=== PATIENT | male | born 1965 | race Caucasian/White ===

== ENCOUNTER 2021-06-07 15:48 | Emergency (ER) | payer OTHER, SELFPAY ==
[2021-06-07 16:25] VITALS: BP 148/96; PULSE 86; RESP 16; TEMP 36.6; O2SAT 98; BMI 29.3
--- NOTE | 2021-06-07 16:49 | HMH.EDUTC ---
[facility] Disposition Clinical Impression: Encounter for laboratory testing for COVID-19 virus Disposition: Home, Self-Care Condition on Discharge: Good Instructions: DI for COVID-19 (Suspected or Confirmed ), Coronavirus Disease 2019, Preventing the Spread of Coronavirus Discharge Instructions Additional Instructions: *Monitor Temp, Over the counter Motrin or Tylenol as directed/as needed Tylenol every 4 hours and Motrin every 6 hours (as long as your family doctor has told you that you can take it) for fever or pain. and straight to ER if unable to lower temp less than 101.0 after medication given Follow up IMMEDIATELY for new or worsening symptoms or no Noticeable improvement over the next 48-72 hours. 911 for difficulty breathing or swallowing You were tested for today for COVID19 your test result should be back in the next 24-48 hours, you may call to the [facility] to see if your test results are back in the next 48 hours [phone] [facility] hours are 9am-9pm You was given a handout with instructions for Self Quarantine and Self isolation for while you wait on test results and what to do if they are positive If you are positive the Health Dept will be contacting you also Referrals: Trever Schofield [Primary Care Provider] - As needed Time of Disposition: 16:51 Medical Decision Making - Jaret Inquiry Pt receiving controlled substance: No Jaret was queried for this patient: No Vital Signs: 06/07/21 16:25 Temperature 97.8 F Temperature Source Oral Pulse Rate [Right Brachial] 86 Respiratory Rate 16 Blood Pressure [Right Arm] 148/96 H Blood Pressure Mean [Right Arm] 113 Blood Pressure Source [Right Arm] Automatic Cuff Blood Pressure Position [Right Arm] Sitting 02 Sat by Pulse Oximetry 98 Oxygen Delivery Method Room Air Orders (Tests/Meds): ORDERS Category Date Time Status Covid-19 Nasal PCR ([facility]) Routine Lab 06/07/21 16:24 Ordered [facility] HPI - General Stated complaint: cov Time Seen by Provider: 06/07/21 16:49 Mode of Arrival: Ambulatory Source of Information: Patient Limitations: No Limitations Description of Symptoms (Recalled from Triage Doc. by RN): COVID TEST D/T EXPOSURE. DENIES SYMPTOMS HEENT Symptoms (Recalled from RN notes): No Resp Symptoms (Recalled from RN notes): No Skin Symptoms (Recalled from RN notes): No MS Symptoms (Recalled from RN notes): No Functional Status (Recalled from RN notes): WNL - History of Present Illness Provider Complaint: Patient states that he was around someone about a week ago that tested positive for COVID States that he is not having any symptoms but wanted to get tested - Related Data Allergies Allergy/AdvReac Type Severity Reaction Status Date / Time Ciprofloxacin Allergy Unknown Uncoded 10/24/17 14:49 - Worker's Comp Is this a Worker's Comp case?: No [facility] History - Hepatitis A Screen Drug use history?: No High risk sexual behaviors?: No History of sexually transmitted infection?: No Currently employed?: No Childcare worker?: No Do you have indoor plumbing?: Yes Do you have electricity?: Yes Attestation statement:: This patient has been screened for Hepatitis A risk factors. I have reviewed the patient's past medical history: Yes ROS Obtained: Yes All systems reviewed & no additional complaints, Yes Systems reviewed as appropriate & no additional complaints - Constitutional Constitutional: Reports system reviewed and no additional complaints, except as docu, Denies body ache, Denies chills, Denies fever(s), Denies headache(s), Denies night sweats - ENT Ears, Nose, Mouth, and Throat: Reports system reviewed and no additional complaints, except as docu, Denies nasal congestion, Denies nasal discharge, Denies sore throat - Cardiovascular Cardiovascular: Reports system reviewed and no additional complaints, except as docu - Respiratory Respiratory: Reports system reviewed and no additional complaints, except as docu, Denies shortness of dmitriy
[2021-06-07 16:55] VITALS: BP 148/96; PULSE 86; RESP 16; TEMP 36.6; O2SAT 98
--- NOTE | 2021-06-08 16:48 | PC.NURSE ---
PT NOTIFIED OF POSITIVE COVID RESULT
== END 2021-06-07 16:59 | disposition home or self-care (01) ==
PROVIDERS: Emergency Provider Nurse Practitioner; PCP Internal Medicine
DX: U07.1 COVID-19 (principal)
CPT/HCPCS: 99202; G0463; U0003

== ENCOUNTER 2021-06-23 18:17 | Emergency (ER) | payer OTHER, SELFPAY ==
[2021-06-23 20:31] VITALS: BP 167/95; PULSE 102; RESP 14; TEMP 36.9; O2SAT 99; BMI 28.5
--- NOTE | 2021-06-23 20:39 | HMH.EDUTC ---
[facility] Clinical Impression: Exposure to COVID-19 virus Disposition: Home, Self-Care Condition on Discharge: Good Instructions: Preventing the Spread of Coronavirus Discharge Instructions Additional Instructions: Drink plenty of fluids. Take tylenol for pain or fever. Return if you begin to have difficulty breathing. Follow up with your regular doctor. GO TO THE ER FOR ANY WORSENING SYMPTOMS Quarantine until you know the results of your covid-19 test. If it is positive, the health department should call you and give you further instructions about your length of Quarantine and other thing. Referrals: Trever Schofield [Primary Care Provider] - Time of Disposition: 20:39 Medical Decision Making - Medical Records Medical records reviewed: No: I reviewed the patient's medical records. - Jaret Inquiry Pt receiving controlled substance: No Vital Signs: 06/23/21 20:31 06/23/21 20:43 Temperature 98.4 F 98.4 F Temperature Source Oral Pulse Rate 102 H Pulse Rate [Left Radial] 102 H Respiratory Rate 14 14 Blood Pressure 167/95 H Blood Pressure [Left Arm] 167/95 H Blood Pressure Mean [Left Arm] 119 02 Sat by Pulse Oximetry 99 Oxygen Delivery Method Room Air [facility] [place] - General Stated complaint: covid test Time Seen by Provider: 06/23/21 20:40 Mode of Arrival: Ambulatory Source of Information: Patient Limitations: No Limitations Description of Symptoms (Recalled from Triage Doc. by RN): Requesting COVID swab. Denies symptoms or exposure HEENT Symptoms (Recalled from RN notes): No Resp Symptoms (Recalled from RN notes): No Skin Symptoms (Recalled from RN notes): No MS Symptoms (Recalled from RN notes): No Functional Status (Recalled from RN notes): n/a - History of Present Illness Provider Complaint: he is here wanting to be tested for covid. He denies any symptoms so far. - Related Data Allergies Allergy/AdvReac Type Severity Reaction Status Date / Time Ciprofloxacin Allergy Unknown Uncoded 10/24/17 14:49 - Worker's Comp Is this a Worker's Comp case?: No [facility] History - Hepatitis A Screen Drug use history?: No High risk sexual behaviors?: No History of sexually transmitted infection?: No Currently employed?: No Childcare worker?: No Do you have indoor plumbing?: Yes Do you have electricity?: Yes Attestation statement:: This patient has been screened for Hepatitis A risk factors. I have reviewed the patient's past medical history: Yes ROS Obtained: Yes All systems reviewed & no additional complaints - Constitutional Constitutional: Reports system reviewed and no additional complaints, except as docu - Eyes Eyes: Reports system reviewed and no additional complaints, except as docu - ENT Ears, Nose, Mouth, and Throat: Reports system reviewed and no additional complaints, except as docu - Cardiovascular Cardiovascular: Reports system reviewed and no additional complaints, except as docu - Respiratory Respiratory: Reports system reviewed and no additional complaints, except as docu - Gastrointestinal Gastrointestingal: Reports: system reviewed and no additional complaints, except as docu Physical Exam - General General appearance: alert, in no apparent distress - Head Head exam: atraumatic, normocephalic, normal inspection - Eye Eye exam: Present: normal appearance, PERRL, EOMI - ENT ENT exam: Present: normal exam, normal oropharynx, mucous membranes moist, TM's normal bilaterally, normal external ear exam - Neck Neck exam: Present: normal inspection, full ROM, trachea midline. Absent: meningismus, lymphadenopathy - Chest Chest inspection: Present: normal inspection, symmetric chest wall rise. Absent: tenderness - Respiratory Respiratory exam: Present: normal lung sounds bilaterally. Absent: respiratory distress - Cardiovascular Cardiovascular exam: Present: regular rate, normal rhythm. Absent: JVD - Abdominal Exam Abdomina
[2021-06-23 20:43] VITALS: BP 167/95; PULSE 102; RESP 14; TEMP 36.9; O2SAT 99
== END 2021-06-23 20:45 | disposition home or self-care (01) ==
PROVIDERS: Emergency Provider Nurse Practitioner Family; PCP Internal Medicine
DX: Z20.822 Contact with and (suspected) exposure to COVID-19 (principal)
CPT/HCPCS: 99202; G0463; U0003

== ENCOUNTER → 2021-08-13 14:04 | Outpatient (CLI) | payer OTHER, SELFPAY ==
[2021-08-13 14:44] LABS: Hemoglobin A1C 7.6 % (4.0-6.0)
[2021-08-13 15:34] LABS: Creatinine,Urine Random 40 mg/dL (Not Estab.); Microalbumin/Creatinine Ratio 17.5
== END ==
PROVIDERS: Visit Provider Internal Medicine
DX: E11.9 Type 2 diabetes mellitus without complications (principal); I10 Essential (primary) hypertension; N40.1 Benign prostatic hyperplasia with lower urinary tract symptoms
CPT/HCPCS: 82043; 82570; 83036

== ENCOUNTER → 2021-11-26 13:18 | Outpatient (CLI) | payer OTHER, SELFPAY ==
[2021-11-26 14:08] LABS: Alanine Aminotransferase 38 U/L (12-78); Albumin Level 4.7 g/dl (3.5-5.0); Albumin/Globulin Ratio 1.9 (1.1-1.8); Alkaline Phosphatase 128 U/L (38-126); Anion Gap 9.9 mEq/L (5-15); Aspartate Amino Transferase 42 U/L (17-59); Bilirubin,Total 0.8 mg/dl (0.2-1.3); Blood Urea Nitrogen 7 mg/dl (9-20); Calcium 9.6 mg/dl (8.4-10.2); Carbon Dioxide 31 mmol/L (22.0-30.0); Chloride 98 mmol/L (98-107); Chol/HDL Ratio 2.4 (1-3.5); Cholesterol 254 mg/dl (140-200); Estimated Glomerular Filt Rate 116 ml/min (>60); GFR (African American) 141 ML/MIN (>60); Globulin 2.5 g/dL (1.3-3.2); Glucose 210 mg/dl (74-100); HDL Cholesterol 105 mg/dl (40-60); Potassium 4.9 mmoL/L (3.5-5.1); Sodium 134 mmol/L (136-145); Total Protein,Serum 7.2 g/dl (6.3-8.2); Triglycerides 69 mg/dl (30-150); VLDL Cholesterol 14 mg/dL (0-40)
[2021-11-26 14:11] LABS: Hemoglobin A1C 8.1 % (4.0-6.0)
[2021-11-26 14:19] LABS: Direct LDL Cholesterol 136.07 mg/dL (100-129)
[2021-11-26 14:39] LABS: Prostate Specific Ag Screen 2.2 ng/ml (0.0-4.0)
== END ==
PROVIDERS: Visit Provider Internal Medicine
DX: E11.9 Type 2 diabetes mellitus without complications (principal); I10 Essential (primary) hypertension; E78.5 Hyperlipidemia, unspecified; M17.2 Bilateral post-traumatic osteoarthritis of knee; N40.2 Nodular prostate without lower urinary tract symptoms; Z12.5 Encounter for screening for malignant neoplasm of prostate
CPT/HCPCS: 36415; 80053; 80061; 83036; G0103

== ENCOUNTER → 2022-04-19 16:07 | Outpatient (CLI) | payer OTHER, SELFPAY ==
[2022-04-19 18:34] LABS: Basophils # 0.1 K/mm3 (0-0.2); Basophils % 0.6 % (0.1-2.0); Eosinophils # 0.2 K/mm3 (0.0-0.4); Eosinophils % 1.4 % (0.1-12.0); Hematocrit 44.5 % (42.0-52.0); Hemoglobin 15.6 g/dL (14.1-18.0); Lymphocytes # 1.5 K/mm3 (0.7-4.5); Lymphocytes % 13.6 % (10-50); Mean Corpuscular Hemoglobin 34.2 pg (27.0-31.2); Mean Corpuscular Volume 97.7 fl (80-94); Mean Platelet Volume 7.9 fl (7.4-10.4); Monocytes # 0.8 K/mm3 (0.1-1.0); Monocytes % 7.1 % (1.7-9.3); Neutrophils # 8.7 K/mm3 (1.8-7.8); Neutrophils % 77.3 % (37.0-80.0); Platelet Count 344 K/mm3 (142-424); Red Blood Count 4.55 M/mm3 (4.60-6.20); White Blood Count 11.2 K/mm3 (4.8-10.8)
== END ==
PROVIDERS: PCP Internal Medicine; Visit Provider Internal Medicine
DX: R10.31 Right lower quadrant pain (principal)
CPT/HCPCS: 85025

== ENCOUNTER 2022-04-24 14:44 | Inpatient (IN) | payer OTHER, SELFPAY ==
[2022-04-24] VITALS (19 sets, daily range): BP systolic 117–153; BP diastolic 74–93; PULSE 96–126; RESP 15–22; TEMP 36.6–38; O2SAT 90–98; BMI 29.9
--- NOTE | 2022-04-24 15:00 | CT_ITS ---
PROCEDURE INFORMATION: Exam: CT Abdomen And Pelvis Without Contrast Exam date and time: 04/24/2022 5:18 PM Age: 56 years old Clinical indication: Abdominal pain; Other: Right lower quadrant pain; Additional info: Right abdomen pain- oral contrast TECHNIQUE: Imaging protocol: Computed tomography of the abdomen and pelvis without contrast. Radiation optimization: All CT scans at this facility use at least one of these dose optimization techniques: automated exposure control; mA and/or kV adjustment per patient size (includes targeted exams where dose is matched to clinical indication); or iterative reconstruction. Other contrast: Oral, gastrograffin, 30; COMPARISON: No relevant prior studies available. FINDINGS: Lungs: Visualized lung bases are clear. Heart: Heart size normal. Mediastinal space: The visualized distal esophagus is largely contracted without gross abnormality. Liver: Granulomatous calcifications in the liver. Normal contour. No mass lesions. No intrahepatic biliary ductal dilatation. Gallbladder and bile ducts: Prior cholecystectomy with no significant dilatation of the common bile duct. Pancreas: Normal. No inflammatory changes or ductal dilation. Spleen: Granulomatous calcifications in the spleen without acute splenic abnormality. Adrenal glands: Normal. No adrenal mass. Kidneys and ureters: Mild bilateral symmetrical perinephric stranding which is nonspecific and age indeterminate. This may relate to perirenal scarring or edema. Clinical/laboratory correlation is recommended to exclude evidence of medical renal disease. No hydronephrosis or hydroureter. No urinary tract stones are identified. Stomach and bowel: The stomach is unremarkable. Short segment small bowel wall thickening in the right lower quadrant near the appendicitis, likely reactive. No acute colonic abnormalities. Appendix: The appendix is inflamed, dilated, and thick walled, measuring up to 19 mm in diameter, with moderate surrounding inflammatory stranding, consistent with acute appendicitis. 10 mm somewhat ill-defined hyperdense focus within the appendiceal lumen which may represent an appendicolith, however on sagittal reconstructions this seems to project anteriorly from the lumen toward the adjacent inflamed small bowel loop, which contains hyperdense oral contrast, and it is possible that this represents a small fistula track passing a small amount of oral contrast. No free intraperitoneal perforation. No abscess. Intraperitoneal space: See Appendix finding. Vasculature: No acute process. No abdominal aortic aneurysm. Lymph nodes: No adenopathy. Urinary bladder: Unremarkable as visualized. Reproductive: Moderately enlarged prostate. Bones/joints: No acute osseous abnormalities. Severe disc degenerative changes L5-S1. Soft tissues: Small fatty umbilical hernia . No evidence of associated bowel herniation or strangulation. IMPRESSION: 1. Acute appendicitis. 2. Question small amount of oral contrast passage between the adjacent small bowel and the mid appendiceal lumen suspicious for a small entero-appendiceal fistula although this might represent an irregular-shaped appendicolith. 3. No free intraperitoneal perforation. No abscess. 4. Mild bilateral symmetrical perinephric stranding which is nonspecific and age indeterminate. This may relate to perirenal scarring or edema. Clinical/laboratory correlation is recommended to exclude evidence of medical renal disease. 5. Additional nonemergent findings detailed above. THIS REPORT CONTAINS FINDINGS THAT MAY BE CRITICAL TO PATIENT CARE. The findings were verbally communicated via telephone c
--- NOTE | 2022-04-24 15:14 | PC.NURSE ---
Pt vomiting at this time. Waiting for zofran to start working before give po contrast
--- NOTE | 2022-04-24 15:15 | HMH.EDGENADL ---
ED Disposition Clinical Impression: Appendiceal fistula Acute appendicitis Qualifiers: Acute appendicitis type: with localized peritonitis Appendicitis gangrene presence: without gangrene Appendicitis perforation presence: without perforation Appendicitis abscess presence: without abscess Qualified Code(s): K35.30 - Acute appendicitis with localized peritonitis, without perforation or gangrene Disposition: Still a Patient Condition on Discharge: Fair Instructions: DI for Acute Abdominal Pain Referrals: Trever Schofield MD [Primary Care Provider] - - Critical Care Critical Care Time: No Attestation: On 04/24/22, the high probability of a clinically significant, sudden or life threatening deterioration of the following system(s) required my full and direct attention, intervention and personal management. The time I documented below is in addition to time spent performing reported procedures but includes the following listed in this critical care notation. Medical Decision Making - Jaret Inquiry Pt receiving controlled substance: Yes Jaret was queried for this patient: Yes Risks and benefits of using a controlled substance: were not discussed with pt by me Vital Signs: 04/24/22 14:45 04/24/22 15:00 04/24/22 15:30 Temperature 99.5 F Temperature Source Oral Pulse Rate 103 H 108 H Pulse Rate [Left Radial] 107 H Respiratory Rate 18 Blood Pressure 125/82 130/80 Blood Pressure [Right Arm] 153/92 H Blood Pressure Mean 96 89 Blood Pressure Mean [Right Arm] 112 Blood Pressure Source [Right Arm] Automatic Cuff Blood Pressure Position [Right Arm] Sitting 02 Sat by Pulse Oximetry 98 90 L 97 Oxygen Delivery Method Room Air 04/24/22 16:00 04/24/22 16:30 04/24/22 17:00 Temperature Temperature Source Pulse Rate 96 H 100 H 105 H Pulse Rate [Left Radial] Respiratory Rate Blood Pressure 141/86 H 151/93 H 148/86 H Blood Pressure [Right Arm] Blood Pressure Mean 102 112 105 Blood Pressure Mean [Right Arm] Blood Pressure Source [Right Arm] Blood Pressure Position [Right Arm] 02 Sat by Pulse Oximetry 98 98 97 Oxygen Delivery Method 04/24/22 17:30 04/24/22 18:00 Temperature Temperature Source Pulse Rate 118 H 100 H Pulse Rate [Left Radial] Respiratory Rate Blood Pressure 142/89 H 129/80 Blood Pressure [Right Arm] Blood Pressure Mean 102 96 Blood Pressure Mean [Right Arm] Blood Pressure Source [Right Arm] Blood Pressure Position [Right Arm] 02 Sat by Pulse Oximetry 95 93 L Oxygen Delivery Method - Lab Data Lab Results 04/24/22 15:10: Urine Color Yellow, Urine Appearance Clear, Urine pH 7.0, Ur Specific [place] 1.020, Urine Protein Negative, Urine Glucose (UA) Trace, Urine Ketones Negative, Urine Blood Negative, Urine Nitrate Negative, Urine Bilirubin Negative, Urine Urobilinogen 0.2, Ur Leukocyte Esterase Negative, Urine RBC None, Urine WBC None, Ur Squamous Epith Cells None, Urine Bacteria None 04/24/22 15:10: WBC 16.0 H, RBC 4.64, Hgb 15.6, Hct 45.0, MCV 96.9 H, MCH 33.7 H, MCHC 34.8, RDW 12.1, Plt Count 423, MPV 7.3 L, Neut % (Auto) 89.9 H, Lymph % (Auto) 5.1 L, [place] % (Auto) 3.3, Eos % (Auto) 0.8, Baso % (Auto) 0.8, Neut # (Auto) 14.4 H, Lymph # (Auto) 0.8, [place] # (Auto) 0.5, Eos # (Auto) 0.1, Baso # (Auto) 0.1, Total Counted 100, Neutrophils % (Manual) 88 H, Lymphocytes % (Manual) 9 L, Monocytes % (Manual) 3, Platelet Estimate Normal, RBC Morphology Normal 04/24/22 15:10: Sodium 130 L, Potassium 4.3, Chloride 97 L, Carbon Dioxide 28, Anion Gap 9.3, BUN 7 L, Creatinine 0.80, Estimated Creat Clear 129, Estimated GFR 100, Est GFR ( Amer) 121, Glucose 153 H, Calcium 9.1, Total Bilirubin 0.2, AST 26, ALT 31, Alkaline Phosphatase 131 H, Total Protein 7.5, Albumin 4.0, Globulin 3.5 H, Albumin/Globulin Ratio 1.1, Amylase 52, Lipase 47 Result diagrams: 04/24/22 15:10 04/24/22 15:10 Orders (Tests/Meds): ED MEDICATIONS Generic Name Dose Route S
[2022-04-24 15:19] LABS: Microscopic, Urine URINE MICROSCOPIC (MICROSCOPIC)
[2022-04-24 15:20] LABS: Basophils # 0.1 K/mm3 (0-0.2); Basophils % 0.8 % (0.1-2.0); Eosinophils # 0.1 K/mm3 (0.0-0.4); Eosinophils % 0.8 % (0.1-12.0); Hemoglobin 15.6 g/dL (14.1-18.0); Lymphocytes # 0.8 K/mm3 (0.7-4.5); Lymphocytes % 5.1 % (10-50); Mean Corpuscular HGB Conc 34.8 g/dL (31.8-35.4); Mean Corpuscular Hemoglobin 33.7 pg (27.0-31.2); Mean Corpuscular Volume 96.9 fl (80-94); Mean Platelet Volume 7.3 fl (7.4-10.4); Monocytes # 0.5 K/mm3 (0.1-1.0); Monocytes % 3.3 % (1.7-9.3); Neutrophils # 14.4 K/mm3 (1.8-7.8); Neutrophils % 89.9 % (37.0-80.0); Platelet Count 423 K/mm3 (142-424); Red Blood Count 4.64 M/mm3 (4.60-6.20); Red Cell Distribution Width 12.1 % (11.5-17.5)
[2022-04-24 15:21] LABS: MANUAL DIFFERENTIAL MANUAL DIFFERENTIAL (MANUAL DIFF)
[2022-04-24 15:30] LABS: Alanine Aminotransferase 31 U/L (12-78); Albumin/Globulin Ratio 1.1 (1.1-1.8); Alkaline Phosphatase 131 U/L (38-126); Amylase 52 U/L (30-110); Anion Gap 9.3 mEq/L (5-15); Appearance,Urine CLEAR (Clear); Aspartate Amino Transferase 26 U/L (17-59); Bilirubin,Total 0.2 mg/dl (0.2-1.3); Bilirubin,Urine Negative (Negative); Blood Urea Nitrogen 7 mg/dl (9-20); Blood, Urine Negative (Negative); Calcium 9.1 mg/dl (8.4-10.2); Carbon Dioxide 28 mmol/L (22.0-30.0); Chloride 97 mmol/L (98-107); Color,Urine YELLOW (Yellow); Creatinine Clearance Estimated 129 mL/min (50-200); Estimated Glomerular Filt Rate 100 ml/min (>60); GFR (African American) 121 ML/MIN (>60); Globulin 3.5 g/dL (1.3-3.2); Glucose 153 mg/dl (74-100); Glucose,Urine (UA) TRACE (Negative); Ketones,Urine Negative (Negative); Leukocyte Esterase,Urine Negative (Negative); Lipase 47 U/L (23-300); Nitrate,Urine Negative (Negative); Potassium 4.3 mmoL/L (3.5-5.1); Protein,Urine Negative (Negative); Sodium 130 mmol/L (136-145); Total Protein,Serum 7.5 g/dl (6.3-8.2); Urobilinogen,Urine 0.2 EU/dl (0.2)
--- NOTE | 2022-04-24 15:49 | PC.NURSE ---
finished po contrast
[2022-04-24 16:14] LABS: Lymphocytes % 9 % (10-50); Monocytes % 3 % (2-9); Neutrophils % 88 % (42-76); Platelet Estimate Normal; RBC Morphology Normal; Total Cells Counted 100
--- NOTE | 2022-04-24 17:31 | PC.NURSE ---
checked on pt, given blanket for comfort
--- NOTE | 2022-04-24 18:08 | PC.NURSE ---
JAVID GRANDE speaking to DR MORRIS
--- NOTE | 2022-04-24 18:15 | PC.NURSE ---
Allran will be to see pt
[2022-04-24 18:29] LABS: Coronavirus 19, PCR Not Detected (NotDetected); Influenza A, PCR Not Detected (NotDetected); Influenza B, PCR Not Detected (NotDetected)
--- NOTE | 2022-04-24 18:29 | PC.NURSE ---
pre-op sheet completed at this time, surgery packet with pt stickers ready at this time.
--- NOTE | 2022-04-24 18:54 | HMH.GSHP ---
HPI HPI: Patient is a 56-year-old diabetic male from [place]. His primary care provider is Dr. Trever Schofield. He presented to the emergency department this afternoon with a 2-week history of right lower quadrant and infraumbilical abdominal pain. He does describe some low-grade fevers. He has had some bloating and abdominal swelling with nausea but no vomiting. He has had some urinary hesitancy. Patient states that he had seen his primary care provider about a week ago. Patient was treated for prostatitis. His symptoms had not improved. He presented to the emergency department. He was found to be tachycardic with a leukocytosis. He underwent a CT scan which revealed findings of acute appendicitis with questionable amount of oral contrast passes between small bowel and mid appendiceal lumen suspicious for enteroappendiceal fistula. Surgical consultation was obtained. Patient's only prior abdominal surgery is laparoscopic cholecyst[place] [address] James Spencer for mild biliary dyskinesia. [facility] History I have reviewed the patient's past medical history: Yes *Have you ever received a pneumonia vaccine?: Yes *Have you received a flu vaccine this season?: Yes - *Social History Smoking Status: Smoker, status unknown Alcohol Intake: never *Occupational Status:: employed *Travel in the last 8 weeks: None Family Hx:: Non-contributory Review of Systems - Review of Systems Review of systems:: pertinent systems reviewed and negative unless documented below Meds Home Medications Medication Instructions Recorded Confirmed Type Insulin Aspart [Novolog Flexpen] 0 units SQ DIRECTED 04/24/22 04/24/22 History Insulin Glargine,Hum.rec.anlog 60 units SQ DAILY 04/24/22 04/24/22 History [Lantus Solostar 100 Units/mL 3mL flexpen] lisinopriL [Lisinopril] 10 mg PO DAILY 04/24/22 04/24/22 History Allergies Allergy/AdvReac Type Severity Reaction Status Date / Time ciprofloxacin Allergy Unknown Unknown Verified 04/28/22 08:43 allergy reaction Exam Vital signs and Labs for Last 24 Hours: Temp Pulse Resp BP Pulse Ox 99.5 F 100 H 18 129/80 93 L 04/24/22 14:45 04/24/22 18:00 04/24/22 14:45 04/24/22 18:00 04/24/22 18:00 Laboratory Results - last 24 hr 04/24/22 15:10: Urine Color Yellow, Urine Appearance Clear, Urine pH 7.0, Ur Specific [place] 1.020, Urine Protein Negative, Urine Glucose (UA) Trace, Urine Ketones Negative, Urine Blood Negative, Urine Nitrate Negative, Urine Bilirubin Negative, Urine Urobilinogen 0.2, Ur Leukocyte Esterase Negative, Urine RBC None, Urine WBC None, Ur Squamous Epith Cells None, Urine Bacteria None 04/24/22 15:10: WBC 16.0 H, RBC 4.64, Hgb 15.6, Hct 45.0, MCV 96.9 H, MCH 33.7 H, MCHC 34.8, RDW 12.1, Plt Count 423, MPV 7.3 L, Neut % (Auto) 89.9 H, Lymph % (Auto) 5.1 L, [place] % (Auto) 3.3, Eos % (Auto) 0.8, Baso % (Auto) 0.8, Neut # (Auto) 14.4 H, Lymph # (Auto) 0.8, [place] # (Auto) 0.5, Eos # (Auto) 0.1, Baso # (Auto) 0.1, Total Counted 100, Neutrophils % (Manual) 88 H, Lymphocytes % (Manual) 9 L, Monocytes % (Manual) 3, Platelet Estimate Normal, RBC Morphology Normal 04/24/22 15:10: Sodium 130 L, Potassium 4.3, Chloride 97 L, Carbon Dioxide 28, Anion Gap 9.3, BUN 7 L, Creatinine 0.80, Estimated Creat Clear 129, Estimated GFR 100, Est GFR ( Amer) 121, Glucose 153 H, Calcium 9.1, Total Bilirubin 0.2, AST 26, ALT 31, Alkaline Phosphatase 131 H, Total Protein 7.5, Albumin 4.0, Globulin 3.5 H, Albumin/Globulin Ratio 1.1, Amylase 52, Lipase 47 04/24/22 18:10: SARS-CoV-2 (PCR) Not detected, Influenza A Untype (PCR) Not detected, Influenza Type B (PCR) Not detected I & O for Last 24 hours: Intake & Output 04/22/22 04/23/22 04/24/22 04/25/22 11:59 11:59 11:59 11:59 Weight 197 lb - Constitutional no acute distress - *Routine HEENT Exam Head: Present: normocephalic Eye: Present: EOMI, PERRL ENT: Present: mucous membranes moist - *Routine Neck Exam Present:
--- NOTE | 2022-04-24 19:15 | PC.NURSE ---
pt to surgery with surgery staff
--- NOTE | 2022-04-24 20:05 | HMH.ANESCL ---
[facility] Anesthesia Checklist - Structural Data Admitted From: Emergency Dept Planned Operative Procedure/s: lap appy Consent for Planned Operative Procedure(s) Verified: Yes - Airway Assessment C-Spine Mobility Assessed: Yes TMJ Mobility Assessed: Yes Dentition: Good Dentition - Neurological Assessment Level of Consciousness: Awake, Alert, Appropriate - Anesthesia Plan Anesthesia Risk discussed: Yes Anesthesia Plan: Verified ASA Class: III Anesthesia Type: General - Preoperative Comments Pre-Operative Comments: emergency [facility] History I have reviewed the patient's past medical history: Yes *Have you ever received a pneumonia vaccine?: Yes *Have you received a flu vaccine this season?: Yes Anesthesia experience/problems:: none - *Social History Smoking Status: Smoker, status unknown Alcohol Intake: current Substance Use Type: denies use *Occupational Status:: employed *Travel in the last 8 weeks: None Family Hx:: Non-contributory
--- NOTE | 2022-04-24 20:52 | SUR.OPER ---
LATE ENTRY 20:08 Dr. Horn made decision to open 20:14 procedure transitioned from laparoscopic to open 20:39 given an update regarding procedure going from laparscopic to open.
--- NOTE | 2022-04-24 22:34 | SUR.OPER ---
2200 family given an update
--- NOTE | 2022-04-24 23:04 | HMH.OPNOTE ---
Date of procedure: 04/24/22 Pre-op Diagnosis:: Acute appendicitis Post-op Diagnosis:: Severe acute complicated appendicitis with perforation and established peritonitis Procedure performed:: Diagnostic laparoscopy Exploratory laparotomy with ileocecal resection Surgeon:: Oumar Horn MD FINISH PAINTER:: Blaise Leos Anesthesia: GETA Estimated blood loss (mL): 50 Clinical Note:: Patient is a 56-year-old diabetic male from [place]. His primary care provider is Dr. Trever Schofield. He presented to the emergency department this afternoon with a 2-week history of right lower quadrant and infraumbilical abdominal pain. He does describe some low-grade fevers. He has had some bloating and abdominal swelling with nausea but no vomiting. He has had some urinary hesitancy. Patient states that he had seen his primary care provider about a week ago. Patient was treated for prostatitis. His symptoms had not improved. He presented to the emergency department. He was found to be tachycardic with a leukocytosis. He underwent a CT scan which revealed findings of acute appendicitis with questionable amount of oral contrast passes between small bowel and mid appendiceal lumen suspicious for enteroappendiceal fistula. Surgical consultation was obtained. Patient's only prior abdominal surgery is laparoscopic cholecyst[place] [address] James Spencer for mild biliary dyskinesia. He was seen and evaluated in the emergency department found to have findings of regional peritonitis on examination. Patient was showing signs of sepsis with profound tachycardia and fever. Arrangements were made for immediate appendectomy. Operative findings:: Patient had findings of severe acute appendicitis with established peritonitis. Appendix was ruptured and virtually obliterated. There was pus throughout the abdomen mostly in the pelvis and right lateral abdomen. Operative note:: Patient was taken the operating room. He was given preoperative intravenous antibiotics. In the operating room he was placed in a supine position. General anesthesia was induced via endotracheal tube. Felix catheter was placed. Abdomen was prepped and draped in the standard surgical fashion. Infraumbilical skin incision was made while performing abdominal wall lift Veress needle was inserted. CO2 pneumoperitoneum was achieved to 15 mmHg. 12 mm optical trocar was inserted at the umbilicus. Intraperitoneal contents were visualized. He was found to have evidence of severe peritonitis with diffuse inflammatory process consistent with established peritonitis within the abdomen. There was purulent fluid in the pelvis and right abdomen. There is diffuse edema of the small bowel consistent with established peritonitis and ileus. There is fibrinopurulent exudate. 5 mm suprapubic trocar was inserted and a right upper quadrant 5 mm trocar was inserted. Much of the fluid was suctioned free. Attempt was made to locate the appendix. There is severe inflammatory process and ultimately portion of the appendix was identified. It was necrotic and ruptured with appendicolith. It could not be mobilized due to the severe inflammation. Decision was made to convert to open procedure. Midline laparotomy incision was made. Dissection was carried down through subcutaneous tissues to the fascia. Fascia was incised. Exposure was achieved. Patient was found to have severe ruptured necrotic appendicitis which was walled off as an abscess along with diffuse severe established peritonitis. Ultimately the cecum was able to be delivered anteriorly and the appendix was virtually obliterated. It could not be resected from the cecum and decision was made to perform ileocecal resection. The incision was extended in a traditional midline incision. Ultimately with some difficulty due to the profound amount of visceral fat the cecum was mobilized. The distal ileum was divided with a JUAQUIN 75 type stapling device. The ascendin
--- NOTE | 2022-04-24 23:12 | HMH.ANESI ---
[facility] Anesthesia Record Part I Intake, IV Amount: 3,000 Estimated blood loss (mL): 200 Urine output (mL): 250 Blood Pressure: 125/83 SaO2: 95 Pulse Rate: 122 Respiratory Rate: 16 Temperature: 98 F Patient is:: Awake, Stable Stable to PACU at:: 23:00
[2022-04-24 23:23] LABS: POC Glucose,Bedside 119 (70-110)
--- NOTE | 2022-04-24 23:40 | PC.NURSE ---
PT ARRIVED VIA BED W/OR STAFF @ [id number]
--- NOTE | 2022-04-24 23:53 | SUR.PHASEI ---
LATE ENTRY 2316 BS obtained with result of 119. Matthew Leos WOOD MILLING MACHINE TENDER aware. No new orders obtained at this time.
--- NOTE | 2022-04-24 23:53 | SUR.PHASEI ---
2325 called and provided detailed report to leslee Hoffman/urology surgeon. 2335 transported via bed to med/surg step down room. vital signs stable. states discomfort in feeling the urge to urinate but unable to void. pt is able to tolerate transport. left in stable condition with leslee Hoffman/urology surgeon at bedside.
[2022-04-25] VITALS (18 sets, daily range): BP systolic 99–167; BP diastolic 60–100; PULSE 88–120; RESP 18–24; TEMP 36.7–36.9; O2SAT 90–98; BMI 31.1
[2022-04-25 00:13] LABS: Microscopic,Cath URINE MICROSCOPIC (MICROSCOPIC)
[2022-04-25 00:22] LABS: Appearance,Urine/Cath CLEAR (Clear); Bilirubin,Cath Negative (Negative); Blood, Urine/Cath Negative (Negative); Color,Urine/Cath YELLOW (Yellow); Glucose,Urine/Cath (UA) Negative (Negative); Ketones,Urine/Cath Negative (Negative); Leukocyte Esterase,Cath Negative (Negative); Nitrate,Cath Negative (Negative); Protein,Urine/Cath Negative (Negative); Specific Gravity, Urine/Cath 1.025 (1.005-1.030); Urobilinogen,Cath 0.2 EU/dl (0.2)
--- NOTE | 2022-04-25 06:31 | P.PN_ITS ---
Subjective Narrative: Patient is few hours postoperative from diagnostic laparoscopy with laparotomy and ileal cecal resection for severe perforated appendicitis with profound established peritonitis. He actually states that he does feel better. His significant tachycardia has resolved. His only complaint is the nasogastric tube. Progress Note: A&P Assessment and Plan for All Diagnoses:: Continue n.p.o. with nasogastric tube at this time due to established peritonitis and ileus with ileocolic anastomosis. Continue IV Unasyn for established peritonitis. I will keep his Felix catheter for right now. May plan for cystogram prior to removal due to the potential for bladder injury secondary to the severe amount of inflammation in his abdomen. Consult medicine for medical management. Exam Vital signs and Labs for Last 24 Hours: Temp Pulse Resp BP Pulse Ox 98.4 F 97 H 21 131/83 98 04/25/22 00:30 04/25/22 04:00 04/25/22 02:30 04/25/22 02:30 04/25/22 02:30 Laboratory Results - last 24 hr 04/24/22 15:10: Urine Color Yellow, Urine Appearance Clear, Urine pH 7.0, Ur Specific [place] 1.020, Urine Protein Negative, Urine Glucose (UA) Trace, Urine Ketones Negative, Urine Blood Negative, Urine Nitrate Negative, Urine Bilirubin Negative, Urine Urobilinogen 0.2, Ur Leukocyte Esterase Negative, Urine RBC None, Urine WBC None, Ur Squamous Epith Cells None, Urine Bacteria None 04/24/22 15:10: WBC 16.0 H, RBC 4.64, Hgb 15.6, Hct 45.0, MCV 96.9 H, MCH 33.7 H , MCHC 34.8, RDW 12.1, Plt Count 423, MPV 7.3 L, Neut % (Auto) 89.9 H, Lymph % (Auto) 5.1 L, [place] % (Auto) 3.3, Eos % (Auto) 0.8, Baso % (Auto) 0.8, Neut # (Auto) 14.4 H, Lymph # (Auto) 0.8, [place] # (Auto) 0.5, Eos # (Auto) 0.1, Baso # (Auto) 0.1, Total Counted 100, Neutrophils % (Manual) 88 H, Lymphocytes % (Manual) 9 L, Monocytes % (Manual) 3, Platelet Estimate Normal, RBC Morphology Normal 04/24/22 15:10: Sodium 130 L, Potassium 4.3, Chloride 97 L, Carbon Dioxide 28, Anion Gap 9.3, BUN 7 L, Creatinine 0.80, Estimated Creat Clear 129, Estimated GFR 100, Est GFR ( Amer) 121, Glucose 153 H, Calcium 9.1, Total Bilirubin 0.2, AST 26, ALT 31, Alkaline Phosphatase 131 H, Total Protein 7.5, Albumin 4.0, Globulin 3.5 H, Albumin/Globulin Ratio 1.1, Amylase 52, Lipase 47 04/24/22 18:10: SARS-CoV-2 (PCR) Not detected, Influenza A Untype (PCR) Not detected, Influenza Type B (PCR) Not detected 04/24/22 19:43: Urine Color Yellow, Urine Appearance Clear, Urine pH 6.0, Ur Specific [place] 1.025, Urine Protein Negative, Urine Glucose (UA) Negative, Urine Ketones Negative, Urine Blood Negative, Urine Nitrate Negative, Urine Bilirubin Negative, Urine Urobilinogen 0.2, Ur Leukocyte Esterase Negative, Urine WBC 5-10 04/24/22 23:16: POC Glucose 119 H I & O for Last 24 hours: Intake & Output 04/22/22 04/23/22 04/24/22 04/25/22 11:59 11:59 11:59 11:59 Intake Total 3000 / 3000 Output Total 150 / 150 Balance 2850 / 2850 Weight 197 lb - *Routine Abdominal Exam Present: soft Comments: Dressing dry
[2022-04-25 06:36] LABS: Chloride 103 mmol/L (98-107); Potassium 4.1 mmoL/L (3.5-5.1); Sodium 136 mmol/L (136-145)
[2022-04-25 06:39] LABS: Alanine Aminotransferase 37 U/L (12-78); Albumin Level 3.1 g/dl (3.5-5.0); Albumin/Globulin Ratio 1.1 (1.1-1.8); Alkaline Phosphatase 89 U/L (38-126); Anion Gap 9.1 mEq/L (5-15); Aspartate Amino Transferase 41 U/L (17-59); Bilirubin,Total 0.4 mg/dl (0.2-1.3); Blood Urea Nitrogen 5 mg/dl (9-20); Calcium 8.1 mg/dl (8.4-10.2); Carbon Dioxide 28 mmol/L (22.0-30.0); Creatinine Clearance Estimated 147 mL/min (50-200); Estimated Glomerular Filt Rate 116 ml/min (>60); GFR (African American) 141 ML/MIN (>60); Globulin 2.8 g/dL (1.3-3.2); Glucose 180 mg/dl (74-100); Total Protein,Serum 5.9 g/dl (6.3-8.2)
--- NOTE | 2022-04-25 06:42 | PC.NURSE ---
pt rested well after arriving from OR, MAINTENANCE AND ENGINEERING MANAGER pump initiated and controlling pt's pain adequately, pt's VSS, pt with more than adequate UOP, abdominal incsion CDI, pt with active bowel sounds, NGT to LWS in right nare at 65cm with minimal brown output, pt NPO at this time, at bedside, will continue to monitor
--- NOTE | 2022-04-25 07:29 | HMH.PHAVTE ---
[facility] Pharmacy VTE Monitoring - Patient Demographics Admission date: 04/24/22 Report Date: 04/25/22 Time: 07:29 Allergies/Adverse Reactions: Patient Allergies Ciprofloxacin Allergy (Unknown, Uncoded 10/24/17 14:49) Height: 1.73 m Weight: 89.358 kg Patient Problems: Current Active Problems Acute appendicitis (Acute) Appendiceal fistula (Acute) - VTE Risk Labs: VTE Related Lab Results Hgb 15.6 g/dL (14.1-18.0) 04/24/22 15:10 Hct 45.0 % (42.0-52.0) 04/24/22 15:10 Plt Count 423 K/mm3 (142-424) 04/24/22 15:10 BUN 5 mg/dl (9-20) L D 04/25/22 05:42 Creatinine 0.70 mg/dl (0.66-1.25) 04/25/22 05:42 Estimated Creat Clear 147 mL/min (50-200) 04/25/22 05:42 - Prophylaxis VTE Prophylaxis Ordered?: Yes Types of VTE Prophylaxis: TEDS Knee High Location of Applied Device: Bilateral Lower Extremeties
--- NOTE | 2022-04-25 07:29 | HMH.PHAINT ---
MEDICATION RECONCILIATION COMPLETED ON PATIENT USING EXTERNAL FILL HISTORY FROM PHARMACY. -GILL HARRIS, ARIED
--- NOTE | 2022-04-25 07:30 | PC.NURSE ---
post op vital signs recorded in routine vital sign parameter
--- NOTE | 2022-04-25 10:30 | HMH.CONS ---
*Admission Date: 04/24/22 *Reason for consult:: Medical management *History of present illness: Patient is a 56-year-old diabetic male from [place]. His primary care provider is Dr. Trever Schofield. He presented to the emergency department this afternoon with a 2-week history of right lower quadrant and infraumbilical abdominal pain. He does describe some low-grade fevers. He has had some bloating and abdominal swelling with nausea but no vomiting. He has had some urinary hesitancy. Patient states that he had seen his primary care provider about a week ago. Patient was treated for prostatitis. His symptoms had not improved. He presented to the emergency department. He was found to be tachycardic with a leukocytosis. He underwent a CT scan which revealed findings of acute appendicitis with questionable amount of oral contrast passes between small bowel and mid appendiceal lumen suspicious for enteroappendiceal fistula. Surgical consultation was obtained. Patient's only prior abdominal surgery is laparoscopic cholecyst[place] [address] James Spencer for mild biliary dyskinesia. Above her surgical HPI. Patient was taken to the operating room yesterday and found to have a significant and complex appendicitis situation with evidence of perforation and the beginnings of abscess formation. Procedure was converted to an open procedure and it was finished successfully. Patient placed on Unasyn therapy and transferred to floor. Consulted now for medical management. Patient has a history of diabetes, insulin requiring. Has been intolerant to several p.o. medications. Had a negative stress test a couple of years ago. 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 Is on low-dose lisinopril for renal protection. 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 Lives in [place], for many years. [facility] History I have reviewed the patient's past medical history: Yes Medical History: Reports:: Diabetes Mellitus Type 2, Hyperlipidemia *Have you ever received a pneumonia vaccine?: Yes *Have you received a flu vaccine this season?: Yes Anesthesia experience/problems:: none Other Surgeries: Yes: Cholecystectomy - *Social History Smoking Status: Never smoker Alcohol Intake: current Alcohol Intake Frequency:: 3 or more drinks per day Substance Use Type: denies use *Occupational Status:: employed *Travel in the last 8 weeks: None Family Hx:: Non-contributory Review of Systems - Review of Systems Review of systems:: pertinent systems reviewed and negative unless documented below Meds Home Medications Medication Instructions Recorded Confirmed Type Insulin Aspart [Novolog Flexpen] 0 units SQ DIRECTED 04/24/22 04/24/22 History Insulin Glargine,Hum.rec.anlog 60 units SQ DAILY 04/24/22 04/24/22 History [Lantus Solostar 100 Units/mL 3mL flexpen] lisinopriL [Lisinopril] 10 mg PO DAILY 04/24/22 04/24/22 History Allergies Allergy/AdvReac Type Severity Reaction Status Date / Time Ciprofloxacin Allergy Unknown Uncoded 10/24/17 14:49 Exam Vital signs and Labs for Last 24 Hours: Temp Pulse Resp BP Pulse Ox 98.2 F 103 H 20 130/82 93 L 04/25/22 08:00 04/25/22 08:00 04/25/22 06:30 04/25/22 06:30 04/25/22 08:00 Laboratory Results - last 24 hr 04/24/22 15:10: Urine Color Yellow, Urine Appearance Clear, Urine pH 7.0, Ur Specific [place] 1.020, Urine Protein Negative, Urine Glucose (UA) Trace, Urine Ketones Negative, Urine Blood Negative, Urine Nitrate Negative, Urine Bilirubin Negative, Urine Urobilinogen 0.2, Ur Leukocyte Esterase Negative, Urine RBC None, Urine WBC None, Ur Squamous Epith Cells None, Urine Bacteria None 04/24/22 15:10: WBC 16.0 H, RBC 4.64, Hgb 15.6, Hct 45.0, MCV 96.9 H, MCH 33.7 H, MCHC 34.8, RDW 12.1, Plt Count 423, MPV 7.3 L, Neut % (Auto) 89.9 H, Lymph % (Auto) 5.1 L, [place] % (Auto) 3.3, Eos % (Auto) 0.8, Baso % (Auto) 0.8, Neut # (Auto) 14.4 H, Lymph # (Auto
--- NOTE | 2022-04-25 10:42 | PC.NURSE ---
Addendum entered by Gia Echevarria RN 04/25/22 20:32: spoke with Dr Horn at 1820, pt is ok to transfer out of stepdown. Original Note: Clarified pt status with Reba Payan in Care Management. Pt is currently admitted to stepdown as of 04/24/22 at 2161
[2022-04-25 12:45] LABS: POC Glucose,Bedside 231 (70-110)
[2022-04-25 17:43] LABS: POC Glucose,Bedside 213 (70-110)
[2022-04-25 22:42] LABS: POC Glucose,Bedside 221 (70-110)
[2022-04-26] VITALS (12 sets, daily range): BP systolic 117–162; BP diastolic 82–98; PULSE 95–119; RESP 16–28; TEMP 36.3–37.4; O2SAT 92–96; BMI 29.3
--- NOTE | 2022-04-26 04:33 | PC.NURSE ---
Pt has rested well this shift. Has been up to chair for 45 min. Tolerated well. Midline incision with DSG in place. No drainage noted. NG to continuous low wall suction. F/C draining to bedside. Pt has used INTERNATIONAL CONTROLLER morphine pump. Pain has been tolerable. remains at bedside. Will continue to monitor.
[2022-04-26 06:21] LABS: Basophils # 0.1 K/mm3 (0-0.2); Basophils % 0.4 % (0.1-2.0); Eosinophils % 0.1 % (0.1-12.0); Hematocrit 38.1 % (42.0-52.0); Hemoglobin 13.1 g/dL (14.1-18.0); Lymphocytes # 0.7 K/mm3 (0.7-4.5); Lymphocytes % 5.3 % (10-50); Mean Corpuscular HGB Conc 34.5 g/dL (31.8-35.4); Mean Corpuscular Hemoglobin 34.6 pg (27.0-31.2); Mean Corpuscular Volume 100.4 fl (80-94); Mean Platelet Volume 7.3 fl (7.4-10.4); Monocytes # 0.5 K/mm3 (0.1-1.0); Monocytes % 3.7 % (1.7-9.3); Neutrophils # 12.5 K/mm3 (1.8-7.8); Neutrophils % 90.5 % (37.0-80.0); Platelet Count 315 K/mm3 (142-424); Red Blood Count 3.79 M/mm3 (4.60-6.20); White Blood Count 13.8 K/mm3 (4.8-10.8)
[2022-04-26 06:23] LABS: MANUAL DIFFERENTIAL MANUAL DIFFERENTIAL (MANUAL DIFF)
--- NOTE | 2022-04-26 06:28 | P.PN_ITS ---
Subjective Narrative: Patient states that he feels a little more rough . Particularly he complains of some incisional soreness but overall his abdomen feels better. He denies any passage of flatus. He did have some transient nausea earlier. Progress Note: A&P (1) Insulin-requiring or dependent type II diabetes mellitus Status: Acute (2) Acute appendicitis Status: Acute (3) Appendiceal fistula Status: Acute Assessment and Plan for All Diagnoses:: White blood cell count improving but still elevated. We will try to work toward getting NG out. I will see about getting a cystogram prior to removing his Felix catheter due to the possibility of bladder trauma secondary to the profound inflammation in his pelvis from his established peritonitis. Exam Vital signs and Labs for Last 24 Hours: Temp Pulse Resp BP Pulse Ox 98.5 F 108 H 16 150/91 H 93 L 04/26/22 04:00 04/26/22 04:00 04/26/22 04:00 04/26/22 04:00 04/26/22 04:00 Laboratory Results - last 24 hr 04/25/22 05:42: Sodium 136, Potassium 4.1, Chloride 103, Carbon Dioxide 28, Anion Gap 9.1, BUN 5 L D, Creatinine 0.70, Estimated Creat Clear 147, Estimated GFR 116, Est GFR ( Amer) 141, Glucose 180 H, Calcium 8.1 L, Total Bilirubin 0.4, AST 41 D, ALT 37, Alkaline Phosphatase 89, Total Protein 5.9 L, Albumin 3.1 L D, Globulin 2.8, Albumin/Globulin Ratio 1.1 04/25/22 12:12: POC Glucose 231 H 04/25/22 17:31: POC Glucose 213 H 04/25/22 22:12: POC Glucose 221 H 04/26/22 05:52: WBC 13.8 H, RBC 3.79 L, Hgb 13.1 L, Hct 38.1 L, MCV 100.4 H, MCH 34.6 H, MCHC 34.5, RDW 12.0, Plt Count 315 D, MPV 7.3 L, Neut % (Auto) 90.5 H, Lymph % (Auto) 5.3 L, [place] % (Auto) 3.7, Eos % (Auto) 0.1, Baso % (Auto) 0.4, Neut # (Auto) 12.5 H, Lymph # (Auto) 0.7, [place] # (Auto) 0.5, Eos # (Auto) 0.0, Baso # (Auto) 0.1 I & O for Last 24 hours: Intake & Output 04/23/22 04/24/22 04/25/22 04/26/22 11:59 11:59 11:59 11:59 Intake Total 3000 / 3000 Output Total 1999 / 1999 1050 / 1050 Balance 1000 / 1000 -1050 / -1050 Weight 205 lb 3 oz 193 lb 8 oz - *Routine Abdominal Exam Present: soft Comments: Dressing dry
[2022-04-26 06:29] LABS: POC Glucose,Bedside 224 (70-110)
[2022-04-26 06:29] LABS: Chloride 100 mmol/L (98-107); Potassium 3.9 mmoL/L (3.5-5.1); Sodium 131 mmol/L (136-145)
[2022-04-26 06:32] LABS: Blood Urea Nitrogen 9 mg/dl (9-20); Creatinine Clearance Estimated 145 mL/min (50-200); Estimated Glomerular Filt Rate 116 ml/min (>60); GFR (African American) 141 ML/MIN (>60)
[2022-04-26 06:33] LABS: Anion Gap 11.9 mEq/L (5-15); Calcium 8.4 mg/dl (8.4-10.2); Carbon Dioxide 23 mmol/L (22.0-30.0); Glucose 258 mg/dl (74-100)
--- NOTE | 2022-04-26 07:17 | P.PN_ITS ---
[facility] Anesthesia Record Part II Discharge Time: 23:35 Destination: Medical Surgical Department PACU nurse assessment reviewed?: Yes Patient Condition:: Good Anesthesia Complications:: None Swallowing reflex intact?: Yes Cyanosis?: No Blood Pressure: 117/82 Pulse Rate: 114 Temperature: 97.8 F Mental Status: Alert & Oriented Pain level:: 0 Nausea and/or vomitting:: None Intake, IV Amount: 0
[2022-04-26 07:34] LABS: Lymphocytes % 4 % (10-50); Macrocytosis 1+; Monocytes % 6 % (2-9); Neutrophils % 90 % (42-76); Platelet Estimate Normal; Total Cells Counted 100
--- NOTE | 2022-04-26 07:44 | HMH.ACPN2 ---
Internal Medicine - PN: Subj *Date: 04/26/22 *Time: 18:27 Interval history: Patient doing well this morning. No bowel movement yet. Afebrile. NG still in place. Would like to try eating. Hemodynamically stable. Exam Vital signs and Labs for Last 24 Hours: Temp Pulse Resp BP Pulse Ox 97.8 F 114 H 18 117/82 94 L 04/26/22 07:18 04/26/22 07:18 04/26/22 06:00 04/26/22 07:18 04/26/22 06:00 Laboratory Results - last 24 hr 04/25/22 12:12: POC Glucose 231 H 04/25/22 17:31: POC Glucose 213 H 04/25/22 22:12: POC Glucose 221 H 04/26/22 05:08: POC Glucose 224 H 04/26/22 05:52: WBC 13.8 H, RBC 3.79 L, Hgb 13.1 L, Hct 38.1 L, MCV 100.4 H, MCH 34.6 H, MCHC 34.5, RDW 12.0, Plt Count 315 D, MPV 7.3 L, Neut % (Auto) 90.5 H, Lymph % (Auto) 5.3 L, [place] % (Auto) 3.7, Eos % (Auto) 0.1, Baso % (Auto) 0.4, Neut # (Auto) 12.5 H, Lymph # (Auto) 0.7, [place] # (Auto) 0.5, Eos # (Auto) 0.0, Baso # (Auto) 0.1, Total Counted 100, Neutrophils % (Manual) 90 H, Lymphocytes % (Manual) 4 L, Monocytes % (Manual) 6, Platelet Estimate Normal, Macrocytosis 1+ 04/26/22 05:52: Sodium 131 L, Potassium 3.9, Chloride 100, Carbon Dioxide 23, Anion Gap 11.9, BUN 9 D, Creatinine 0.70, Estimated Creat Clear 145, Estimated GFR 116, Est GFR ( Amer) 141, Glucose 258 H, Calcium 8.4 I & O for Last 24 hours: Intake & Output 04/23/22 04/24/22 04/25/22 04/26/22 23:59 23:59 23:59 23:59 Intake Total 3000 / 3000 0 / 0 Output Total 150 / 150 2300 / 2900 600 / 600 Balance 2850 / 2850 -2300 / -2900 -600 / -600 Weight 89.358 kg 93.07 kg 87.77 kg Narrative: - Constitutional mild distress, average body habitus; NG tube in good position right nostril. - *Routine HEENT Exam Head: Present: normocephalic Eye: Present: EOMI, PERRL ENT: Present: mucous membranes moist - *Routine Neck Exam Present: supple. Absent: lymphadenopathy - *Routine Respiratory Exam Present: CTA bilaterally - *Routine Cardiovascular Exam Present: RRR - *Routine Abdominal Exam Present: tenderness (Expected surgical tenderness but no rebound or peritoneal signs) - *Routine Extremities Exam NO cyanosis, clubbing, edema; SCUD boots in place - *Routine Skin Exam Present: warm. Absent: rash - *Routine Neurological Exam Present: alert, oriented X3 Assessment and Plan (1) Insulin-requiring or dependent type II diabetes mellitus Status: Acute Category: Medical Code(s): E11.9 - Type 2 diabetes mellitus without complications; Z79.4 - predatory animal exterminator (current) use of insulin (2) Acute appendicitis Status: Acute Qualifiers: Acute appendicitis type: with localized peritonitis Appendicitis gangrene presence: without gangrene Appendicitis perforation presence: without perforation Appendicitis abscess presence: without abscess Qualified Code(s): K35.30 - Acute appendicitis with localized peritonitis, without perforation or gangrene Category: Medical Code(s): K35.80 - Unspecified acute appendicitis (3) Appendiceal fistula Status: Acute Category: Medical Code(s): K38.3 - Fistula of appendix - Assessment and plan all Dx Assessment and Plan for all problems:: 56-year-old male with diabetes and hypertension who presented with appendicitis. Status post laparotomy. Medical problems addressed as follows: Diabetes -Continue with low intensity sliding scale insulin -Resume Lantus tonight as blood sugar has been in the mid 200s throughout the day -Advancing diet per surgical recommendations Hypertension -Resume reduced doses of blood pressure medication as his pressure has been elevated. -Monitor kidney function and adjust dose daily pending blood pressures. Agree with Unasyn for enteropathogens. Thank you for consult. We will follow along with surgical service.
--- NOTE | 2022-04-26 14:28 | PC.NURSE ---
NO PA AVAILABLE TO DO CYSTOGRAM. DID ASK STAFF IN DR MARCUS OFFICE IF NEEDED IF DR SAINZ COULD DO THE CYSTOGRAM AND OFFICE RELAYED HE COULDN'T DO THOSE, THEY NORMALLY SCHEDULE THEM BUT HE DOESN'T DO IT.
--- NOTE | 2022-04-26 15:04 | P.PN_ITS ---
Subjective Narrative: Patient without complaints. Has had nasogastric tube to gravity drainage throughout the day. No nausea. He has had somewhat of a productive cough. Progress Note: A&P (1) Insulin-requiring or dependent type II diabetes mellitus Status: Acute (2) Acute appendicitis Status: Acute (3) Appendiceal fistula Status: Acute Assessment and Plan for All Diagnoses:: Plan to proceed with removal of nasogastric tube. Continue n.p.o. except ice chips. Due to lack of radiology availability cystogram is unable to be performed today. Therefore he will need to keep his Felix catheter in until radiology is available for cystogram due to concerns for severe inflammation and possible injury. Exam Vital signs and Labs for Last 24 Hours: Temp Pulse Resp BP Pulse Ox 98.4 F 106 H 20 158/94 H 96 04/26/22 14:00 04/26/22 14:00 04/26/22 14:00 04/26/22 14:00 04/26/22 14:00 Laboratory Results - last 24 hr 04/25/22 17:31: POC Glucose 213 H 04/25/22 22:12: POC Glucose 221 H 04/26/22 05:08: POC Glucose 224 H 04/26/22 05:52: WBC 13.8 H, RBC 3.79 L, Hgb 13.1 L, Hct 38.1 L, MCV 100.4 H, MCH 34.6 H, MCHC 34.5, RDW 12.0, Plt Count 315 D, MPV 7.3 L, Neut % (Auto) 90.5 H, Lymph % (Auto) 5.3 L, [place] % (Auto) 3.7, Eos % (Auto) 0.1, Baso % (Auto) 0.4, Neut # (Auto) 12.5 H, Lymph # (Auto) 0.7, [place] # (Auto) 0.5, Eos # (Auto) 0.0, Baso # (Auto) 0.1, Total Counted 100, Neutrophils % (Manual) 90 H, Lymphocytes % (Manual) 4 L, Monocytes % (Manual) 6, Platelet Estimate Normal, Macrocytosis 1+ 04/26/22 05:52: Sodium 131 L, Potassium 3.9, Chloride 100, Carbon Dioxide 23, Anion Gap 11.9, BUN 9 D, Creatinine 0.70, Estimated Creat Clear 145, Estimated GFR 116, Est GFR ( Amer) 141, Glucose 258 H, Calcium 8.4 I & O for Last 24 hours: Intake & Output 04/24/22 04/25/22 04/26/22 04/27/22 11:59 11:59 11:59 11:59 Intake Total 3000 / 3000 200 / 200 Output Total 1999 / 1999 2800 / 2800 Balance 1000 / 1000 -2600 / -2600 Weight 205 lb 3 oz 193 lb 8 oz
--- NOTE | 2022-04-26 15:27 | PC.NURSE ---
NG tube removed
[2022-04-26 18:10] LABS: POC Glucose,Bedside 249 (70-110)
[2022-04-26 18:10] LABS: POC Glucose,Bedside 238 (70-110)
--- NOTE | 2022-04-26 18:20 | PC.NURSE ---
shift summary: pt has done well this shift. GCS 15. Sinus tach on tele. Mid 90s on RA. HTN noted. NG tube removed today. NPO except ice chips. No n/v/d. No edema. Felix cath noted. Will get cystogram tomorrow. Midline abd dressing CDI. Morphine HEALTH AND WELLNESS MANAGER present. Has received 6mg this shift. Transitions from bed to chair with assistance. Has sat in chair for a couple hrs multiple times today. LR infusing @ 125mL/hr.
[2022-04-27] VITALS (12 sets, daily range): BP systolic 136–179; BP diastolic 85–100; PULSE 83–100; RESP 15–22; TEMP 36.7–37.7; O2SAT 94–97; BMI 29.5
[2022-04-27 01:09] LABS: POC Glucose,Bedside 254 (70-110)
--- NOTE | 2022-04-27 04:07 | PC.NURSE ---
Pt has been up to chair this shift, stood at intervals, and to bed. Pt has rested well since being in bed. Pt has chewed gum, no BM, no gas this shift. Pt is room air O2 sat 94-96%. HR 95-111. SBP 136-162. Midline abd dressing CDI. No new complaints from pt.
[2022-04-27 05:39] LABS: POC Glucose,Bedside 226 (70-110)
[2022-04-27 06:19] LABS: Basophils # 0.1 K/mm3 (0-0.2); Basophils % 0.5 % (0.1-2.0); Eosinophils # 0.2 K/mm3 (0.0-0.4); Eosinophils % 2.4 % (0.1-12.0); Hematocrit 38.4 % (42.0-52.0); Hemoglobin 13.1 g/dL (14.1-18.0); Lymphocytes # 0.9 K/mm3 (0.7-4.5); Lymphocytes % 9.3 % (10-50); Mean Corpuscular HGB Conc 34.2 g/dL (31.8-35.4); Mean Corpuscular Hemoglobin 34.3 pg (27.0-31.2); Mean Corpuscular Volume 100.2 fl (80-94); Mean Platelet Volume 7.4 fl (7.4-10.4); Monocytes # 0.5 K/mm3 (0.1-1.0); Monocytes % 4.6 % (1.7-9.3); Neutrophils # 8.4 K/mm3 (1.8-7.8); Neutrophils % 83.3 % (37.0-80.0); Platelet Count 330 K/mm3 (142-424); Red Blood Count 3.83 M/mm3 (4.60-6.20); Red Cell Distribution Width 12.2 % (11.5-17.5); White Blood Count 10.1 K/mm3 (4.8-10.8)
[2022-04-27 06:22] LABS: Chloride 99 mmol/L (98-107); Potassium 3.7 mmoL/L (3.5-5.1); Sodium 132 mmol/L (136-145)
[2022-04-27 06:24] LABS: Blood Urea Nitrogen 8 mg/dl (9-20)
[2022-04-27 06:25] LABS: Alanine Aminotransferase 26 U/L (12-78); Albumin Level 3.1 g/dl (3.5-5.0); Alkaline Phosphatase 105 U/L (38-126); Anion Gap 10.7 mEq/L (5-15); Aspartate Amino Transferase 23 U/L (17-59); Bilirubin,Total 0.7 mg/dl (0.2-1.3); Calcium 8.4 mg/dl (8.4-10.2); Carbon Dioxide 26 mmol/L (22.0-30.0); Creatinine Clearance Estimated 146 mL/min (50-200); Estimated Glomerular Filt Rate 116 ml/min (>60); GFR (African American) 141 ML/MIN (>60); Globulin 3.2 g/dL (1.3-3.2); Glucose 248 mg/dl (74-100); Magnesium 1.7 mg/dl (1.6-2.3); Total Protein,Serum 6.3 g/dl (6.3-8.2)
--- NOTE | 2022-04-27 06:30 | FL_ITS ---
FINAL REPORT CLINICAL HISTORY: . pelvic inflammation..bladder trauma 300 ml of cystografin 1.05 flouo time FINDINGS: CYSTOGRAM HISTORY: Status post surgery. Possible bladder injury. PROCEDURE: Contrast was introduced in a retrograde fashion into the urinary bladder by gravity drip. Spot and overhead films were obtained. FINDINGS: Compensation And Benefits Advisor film demonstrates retained contrast in the right colon. The urinary bladder distends appropriately. There is no reflux of contrast. No extravasation of contrast was identified to indicate leak. FLUOROSCOPY TIME: 1 minute 5 seconds IMPRESSION: No evidence of bladder injury. Reviewed, Interpreted and Dictated by Oumar Kumar III, MD Transcribed by OLIVIA Saha Authenticated and [facility]
--- NOTE | 2022-04-27 06:32 | PC.NURSE ---
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
--- NOTE | 2022-04-27 07:19 | P.PN_ITS ---
Subjective Patient reports: no new complaints, no flatus Progress Note: A&P (1) Insulin-requiring or dependent type II diabetes mellitus Status: Acute (2) Acute appendicitis Status: Acute Assessment and plan: Overall, doing fairly well status post ileocecectomy. Await return of bowel function. If patient does show signs of bowel function return his diet will be very slowly advanced. Continue to increase ambulation. (3) Appendiceal fistula Status: Acute Assessment and plan: Await cystogram. If cystogram reveals no abnormality his Felix catheter will likely be removed. Exam Vital signs and Labs for Last 24 Hours: Temp Pulse Resp BP Pulse Ox 98.6 F 91 H 18 169/96 H 95 04/27/22 04:00 04/27/22 06:00 04/27/22 06:00 04/27/22 06:00 04/27/22 06:00 Laboratory Results - last 24 hr 04/26/22 05:52: Total Counted 100, Neutrophils % (Manual) 90 H, Lymphocytes % (Manual) 4 L, Monocytes % (Manual) 6, Platelet Estimate Normal, Macrocytosis 1+ 04/26/22 11:06: POC Glucose 249 H 04/26/22 16:47: POC Glucose 238 H 04/26/22 20:35: POC Glucose 254 H 04/27/22 05:13: POC Glucose 226 H 04/27/22 05:44: WBC 10.1 D, RBC 3.83 L, Hgb 13.1 L, Hct 38.4 L, MCV 100.2 H, MCH 34.3 H, MCHC 34.2, RDW 12.2, Plt Count 330, MPV 7.4, Neut % (Auto) 83.3 H, Lymph % (Auto) 9.3 L, Pettis % (Auto) 4.6, Eos % (Auto) 2.4, Baso % (Auto) 0.5, Neut # (Auto) 8.4 H, Lymph # (Auto) 0.9, [place] # (Auto) 0.5, Eos # (Auto) 0.2, Baso # (Auto) 0.1 04/27/22 05:44: Sodium 132 L, Potassium 3.7, Chloride 99, Carbon Dioxide 26, Anion Gap 10.7, BUN 8 L, Creatinine 0.70, Estimated Creat Clear 146, Estimated GFR 116, Est GFR ( Amer) 141, Glucose 248 H, Calcium 8.4, Magnesium 1.7, Total Bilirubin 0.7, AST 23 D, ALT 26 D, Alkaline Phosphatase 105, Total Protein 6.3, Albumin 3.1 L, Globulin 3.2, Albumin/Globulin Ratio 1.0 L I & O for Last 24 hours: Intake & Output 04/24/22 04/25/22 04/26/22 04/27/22 11:59 11:59 11:59 11:59 Intake Total 3000 / 3000 200 / 200 3720 / 3720 Output Total 1999 / 1999 2800 / 2800 3125 / 3125 Balance 1000 / 1000 -2600 / -2600 595 / 595 Weight 205 lb 3 oz 193 lb 8 oz 195 lb 4.8 oz - Constitutional no acute distress - *Routine Cardiovascular Exam Present: RRR - *Routine Abdominal Exam Present: soft Comments: Incision healing without sign of infection
--- NOTE | 2022-04-27 08:33 | P.PN_ITS ---
Internal Medicine - PN: Subj *Date: 04/27/22 *Time: 08:33 Exam Vital signs and Labs for Last 24 Hours: Temp Pulse Resp BP Pulse Ox 98.3 F 100 H 16 179/98 H 96 04/27/22 08:00 04/27/22 08:00 04/27/22 08:00 04/27/22 08:00 04/27/22 08:00 Laboratory Results - last 24 hr 04/26/22 11:06: POC Glucose 249 H 04/26/22 16:47: POC Glucose 238 H 04/26/22 20:35: POC Glucose 254 H 04/27/22 05:13: POC Glucose 226 H 04/27/22 05:44: WBC 10.1 D, RBC 3.83 L, Hgb 13.1 L, Hct 38.4 L, MCV 100.2 H, MCH 34.3 H, MCHC 34.2, RDW 12.2, Plt Count 330, MPV 7.4, Neut % (Auto) 83.3 H, Lymph % (Auto) 9.3 L, Dixon % (Auto) 4.6, Eos % (Auto) 2.4, Baso % (Auto) 0.5, Neut # (Auto) 8.4 H, Lymph # (Auto) 0.9, [place] # (Auto) 0.5, Eos # (Auto) 0.2, Baso # (Auto) 0.1 04/27/22 05:44: Sodium 132 L, Potassium 3.7, Chloride 99, Carbon Dioxide 26, Anion Gap 10.7, BUN 8 L, Creatinine 0.70, Estimated Creat Clear 146, Estimated GFR 116, Est GFR ( Amer) 141, Glucose 248 H, Calcium 8.4, Magnesium 1.7, Total Bilirubin 0.7, AST 23 D, ALT 26 D, Alkaline Phosphatase 105, Total Protein 6.3, Albumin 3.1 L, Globulin 3.2, Albumin/Globulin Ratio 1.0 L I & O for Last 24 hours: Intake & Output 04/24/22 04/25/22 04/26/22 04/27/22 23:59 23:59 23:59 23:59 Intake Total 3000 / 3000 3920 / 3920 Output Total 150 / 150 2300 / 2900 4675 / 5475 800 / 800 Balance 2850 / 2850 -2300 / -2900 -755 / -1555 -800 / -800 Weight 89.358 kg 93.07 kg 87.77 kg 88.587 kg Assessment and Plan (1) Insulin-requiring or dependent type II diabetes mellitus Status: Acute Category: Medical Code(s): E11.9 - Type 2 diabetes mellitus without complications; 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 (2) Acute appendicitis Status: Acute Qualifiers: Acute appendicitis type: with localized peritonitis Appendicitis gangrene presence: without gangrene Appendicitis perforation presence: without perforation Appendicitis abscess presence: without abscess Qualified Code(s ): K35.30 - Acute appendicitis with localized peritonitis, without perforation or gangrene Category: Medical Code(s): K35.80 - Unspecified acute appendicitis (3) Appendiceal fistula Status: Acute Category: Medical Code(s): K38.3 - Fistula of appendix The patient's infection will respond to the chosen ABx?: Yes (NO SPECIMAN) Is the patient receiving the right drug, dose, and route?: Yes Could a more targeted ABx be ordered?: No
--- NOTE | 2022-04-27 12:36 | DIET.NUTRFU ---
RD provided handouts on DM, cran counting and sick days. Suggestions on sack lunch and snacks for when at work. Also provided contact information
--- NOTE | 2022-04-27 18:02 | PC.NURSE ---
pt. A&OX4. pt. is on room air. pt. is ambulating in room and has been up to chair. pt. has not been able to pass flatus, continued NPO diet except ice chips. urinary catheter was removed and pt. has voided. pt. on NITROGLYCERIN DISTRIBUTOR pump and has used 4 mg during this shift. family is present at bedside, call light in reach.
--- NOTE | 2022-04-27 18:29 | HMH.ACPN2 ---
Internal Medicine - PN: Subj *Date: 04/27/22 *Time: 14:05 Interval history: No vomiting, has abdominal distention. Not passing gas or having bowel movements yet. Cystogram normal, okay to remove Felix. NG out. Chewing gum on exam. No chest pain or shortness of breath. Eating ice chips. Afebrile. Exam Vital signs and Labs for Last 24 Hours: Temp Pulse Resp BP Pulse Ox 98.6 F 94 H 15 156/100 H 96 04/27/22 16:00 04/27/22 16:00 04/27/22 16:00 04/27/22 16:00 04/27/22 16:00 Laboratory Results - last 24 hr 04/26/22 20:35: POC Glucose 254 H 04/27/22 05:13: POC Glucose 226 H 04/27/22 05:44: WBC 10.1 D, RBC 3.83 L, Hgb 13.1 L, Hct 38.4 L, MCV 100.2 H, MCH 34.3 H, MCHC 34.2, RDW 12.2, Plt Count 330, MPV 7.4, Neut % (Auto) 83.3 H, Lymph % (Auto) 9.3 L, [place] % (Auto) 4.6, Eos % (Auto) 2.4, Baso % (Auto) 0.5, Neut # (Auto) 8.4 H, Lymph # (Auto) 0.9, [place] # (Auto) 0.5, Eos # (Auto) 0.2, Baso # (Auto) 0.1 04/27/22 05:44: Sodium 132 L, Potassium 3.7, Chloride 99, Carbon Dioxide 26, Anion Gap 10.7, BUN 8 L, Creatinine 0.70, Estimated Creat Clear 146, Estimated GFR 116, Est GFR ( Amer) 141, Glucose 248 H, Calcium 8.4, Magnesium 1.7, Total Bilirubin 0.7, AST 23 D, ALT 26 D, Alkaline Phosphatase 105, Total Protein 6.3, Albumin 3.1 L, Globulin 3.2, Albumin/Globulin Ratio 1.0 L I & O for Last 24 hours: Intake & Output 04/24/22 04/25/22 04/26/22 04/27/22 23:59 23:59 23:59 23:59 Intake Total 3000 / 3000 3920 / 3920 1395 / 1395 Output Total 150 / 150 2300 / 2900 4675 / 5475 2500 / 2500 Balance 2850 / 2850 -2300 / -2900 -755 / -1555 -1105 / -1105 Weight 89.358 kg 93.07 kg 87.77 kg 88.587 kg Narrative: - Constitutional minimal distress, average body habitus; In bedside chair on exam, chewing gum. - *Routine HEENT Exam Head: Present: normocephalic Eye: Present: EOMI, PERRL ENT: Present: mucous membranes moist - *Routine Neck Exam Present: supple. Absent: lymphadenopathy - *Routine Respiratory Exam Present: CTA bilaterally - *Routine Cardiovascular Exam Present: RRR - *Routine Abdominal Exam Present: diffuse tenderness (Expected surgical tenderness but no rebound or peritoneal signs), hypoactive BS - *Routine Extremities Exam NO cyanosis, clubbing, edema; SCUD boots in place - *Routine Skin Exam Present: warm. 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 (2) Acute appendicitis Status: Acute Qualifiers: Acute appendicitis type: with localized peritonitis Appendicitis gangrene presence: without gangrene Appendicitis perforation presence: without perforation Appendicitis abscess presence: without abscess Qualified Code(s): K35.30 - Acute appendicitis with localized peritonitis, without perforation or gangrene Category: Medical Code(s): K35.80 - Unspecified acute appendicitis (3) Appendiceal fistula Status: Acute Category: Medical Code(s): K38.3 - Fistula of appendix - Assessment and plan all Dx Assessment and Plan for all problems:: 56-year-old male with diabetes and hypertension who presented with appendicitis. Status post laparotomy. Medical problems addressed as follows: Diabetes -Continue with low intensity sliding scale insulin -Resumed Lantus, blood sugar has been in the mid 200s throughout the day -Advancing diet per surgical recommendations Hypertension -Resume reduced doses of blood pressure medication as his pressure has been elevated. -Monitor kidney function and adjust dose daily pending blood pressures. Agree with Unasyn for entero pathogens. Thank you for consult. We will follow along with surgical service.
[2022-04-27 18:54] LABS: POC Glucose,Bedside 227 (70-110)
[2022-04-27 18:54] LABS: POC Glucose,Bedside 248 (70-110)
[2022-04-27 20:18] LABS: POC Glucose,Bedside 233 (70-110)
[2022-04-28] VITALS (13 sets, daily range): BP systolic 130–164; BP diastolic 91–109; PULSE 90–134; RESP 14–28; TEMP 36.7–37.2; O2SAT 90–99; BMI 26.9
[2022-04-28 06:32] LABS: POC Glucose,Bedside 221 (70-110)
--- NOTE | 2022-04-28 07:29 | HMH.ACPN2 ---
Internal Medicine - PN: Subj *Date: 04/28/22 *Time: 08:00 Interval history: Bili somewhat more distended overnight. Chewing gum and eating ice chips. Had an episode of emesis early this morning. Otherwise afebrile, stable on room air. No bowel movement or flatus. Is belching. Exam Vital signs and Labs for Last 24 Hours: Temp Pulse Resp BP Pulse Ox 98.9 F 90 22 153/92 H 94 L 04/28/22 04:00 04/28/22 06:00 04/28/22 06:00 04/28/22 06:00 04/28/22 06:00 Laboratory Results - last 24 hr 04/27/22 11:38: POC Glucose 248 H 04/27/22 16:15: POC Glucose 227 H 04/27/22 20:10: POC Glucose 233 H 04/28/22 05:46: POC Glucose 221 H I & O for Last 24 hours: Intake & Output 04/25/22 04/26/22 04/27/22 04/28/22 23:59 23:59 23:59 23:59 Intake Total 3920 / 3920 1395 / 1395 1449 / 1449 Output Total 2300 / 2900 4675 / 5475 2500 / 2950 450 / 450 Balance -2300 / -2900 -755 / -1555 -1105 / -1555 999 / 999 Weight 93.07 kg 87.77 kg 88.587 kg 80.513 kg Narrative: - Constitutional minimal distress, average body habitus; In bed on exam, chewing gum. - *Routine HEENT Exam Head: Present: normocephalic Eye: Present: EOMI, PERRL ENT: Present: mucous membranes moist - *Routine Neck Exam Present: supple. Absent: lymphadenopathy - *Routine Respiratory Exam Present: CTA bilaterally - *Routine Cardiovascular Exam Present: RRR - *Routine Abdominal Exam Present: More distended, no rebound, diffuse tenderness (Expected surgical tenderness but no rebound or peritoneal signs), hypoactive BS - *Routine Extremities Exam NO cyanosis, clubbing, edema; SCUD boots in place - *Routine Skin Exam Present: warm. 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 (2) Acute appendicitis Status: Acute Qualifiers: Acute appendicitis type: with localized peritonitis Appendicitis gangrene presence: without gangrene Appendicitis perforation presence: without perforation Appendicitis abscess presence: without abscess Qualified Code(s): K35.30 - Acute appendicitis with localized peritonitis, without perforation or gangrene Category: Medical Code(s): K35.80 - Unspecified acute appendicitis (3) Appendiceal fistula Status: Acute Category: Medical Code(s): K38.3 - Fistula of appendix - Assessment and plan all Dx Assessment and Plan for all problems:: 56-year-old male with diabetes and hypertension who presented with appendicitis. Status post laparotomy. Medical problems addressed as follows: Diabetes -Continue with low intensity sliding scale insulin -Lantus as blood sugar continues to run high. blood sugar has been in the mid 200s throughout the day -Advancing diet per surgical recommendations; given distention, NG placed today. Hypertension -Resume reduced doses of blood pressure medication as his pressure has been elevated. -Monitor kidney function and adjust dose daily pending blood pressures. Agree with Unasyn for entero pathogens. Thank you for consult. We will follow along with surgical service.
--- NOTE | 2022-04-28 08:06 | CT_ITS ---
FINAL REPORT CLINICAL HISTORY: SEVERE ABDOMINAL PAIN AFTER APPENDECTOMY. abd distention COMPARISON: April 24, 2022 FINDINGS: CT OF THE ABDOMEN AND PELVIS WITH CONTRAST Axial CT images of the abdomen and pelvis were obtained after the administration of oral and iv contrast. Coronal reformatted images were also obtained and reviewed.This study was performed with techniques to keep radiation doses as low as reasonably achievable (ALARA). Individualized dose reduction techniques using automated exposure control or adjustment of mA and/or kV according to the patient's size were employed. Abdomen: There is mild bibasilar atelectasis. There are small pleural effusions. The heart is normal in size. The liver has an unremarkable appearance, without evidence of mass or biliary ductal dilatation. There are postoperative changes from cholecystectomy. The spleen is unremarkable. No adrenal mass is present. The pancreas has an unremarkable appearance. The kidneys are normal, without evidence of mass or hydronephrosis. The aorta is normal in caliber. There is a moderate amount of free fluid. No mass or abnormal fluid collection is seen. Pelvis: There has been interval appendectomy. There is a small amount of air in the bladder which is likely iatrogenic. There are multiple distended small bowel loops, favor an ileus. There is wall thickening of distal small bowel loops favored to be reactive. There is a 5.3 x 2.7 cm fluid collection in the right lower abdomen and upper pelvis of uncertain etiology, may represent loculated free fluid versus early abscess. There is no evidence of mass or adenopathy. There is no evidence of bowel obstruction. IMPRESSION: Moderate amount of free fluid. Findings favor an ileus with wall thickening in distal small bowel loops favored to be reactive. Fluid collection in the right lower abdomen and upper pelvis of uncertain etiology, may represent loculated free fluid versus early abscess. Follow-up CT may be helpful. Reviewed, Interpreted and Dictated by Oumar Kumar III, MD Transcribed by Zoila Richardson Authenticated and [facility]
--- NOTE | 2022-04-28 08:10 | HMH.GSPN ---
Subjective Narrative: Patient states that he does not feel well this morning. He had gotten up and had some vomiting. He has not been passing flatus. Nursing states that he has been belching . Progress Note: A&P (1) Insulin-requiring or dependent type II diabetes mellitus Status: Acute (2) Acute appendicitis Status: Acute (3) Appendiceal fistula Status: Acute Assessment and Plan for All Diagnoses:: Place nasogastric tube. I will obtain a CT scan. Check blood work. Hopefully does not require repeat laparotomy. Exam Vital signs and Labs for Last 24 Hours: Temp Pulse Resp BP Pulse Ox 98.9 F 90 22 153/92 H 94 L 04/28/22 04:00 04/28/22 06:00 04/28/22 06:00 04/28/22 06:00 04/28/22 06:00 Laboratory Results - last 24 hr 04/27/22 11:38: POC Glucose 248 H 04/27/22 16:15: POC Glucose 227 H 04/27/22 20:10: POC Glucose 233 H 04/28/22 05:46: POC Glucose 221 H I & O for Last 24 hours: Intake & Output 04/25/22 04/26/22 04/27/22 04/28/22 11:59 11:59 11:59 11:59 Intake Total 3000 / 3000 200 / 200 3720 / 3720 2844 / 2844 Output Total 2000 / 2000 2800 / 2800 3125 / 3125 2150 / 2150 Balance 1000 / 1000 -2600 / -2600 595 / 595 694 / 694 Weight 205 lb 3 oz 193 lb 8 oz 195 lb 4.8 oz 177 lb 8 oz - *Routine Abdominal Exam Present: tenderness, distended Comments: His abdomen seems more distended. He is quite tender. Incisions clean.
[2022-04-28 08:32] LABS: Basophils # 0.2 K/mm3 (0-0.2); Basophils % 1.7 % (0.1-2.0); Eosinophils # 0.1 K/mm3 (0.0-0.4); Eosinophils % 1.4 % (0.1-12.0); Hematocrit 46.1 % (42.0-52.0); Hemoglobin 15.4 g/dL (14.1-18.0); Lymphocytes # 0.8 K/mm3 (0.7-4.5); Lymphocytes % 7.6 % (10-50); Mean Corpuscular HGB Conc 33.5 g/dL (31.8-35.4); Mean Corpuscular Hemoglobin 33.9 pg (27.0-31.2); Mean Corpuscular Volume 101.4 fl (80-94); Mean Platelet Volume 7.6 fl (7.4-10.4); Monocytes # 0.5 K/mm3 (0.1-1.0); Monocytes % 4.3 % (1.7-9.3); Neutrophils # 8.9 K/mm3 (1.8-7.8); Neutrophils % 85.1 % (37.0-80.0); Platelet Count 453 K/mm3 (142-424); Red Blood Count 4.55 M/mm3 (4.60-6.20); Red Cell Distribution Width 12.3 % (11.5-17.5); White Blood Count 10.4 K/mm3 (4.8-10.8)
[2022-04-28 08:36] LABS: MANUAL DIFFERENTIAL MANUAL DIFFERENTIAL (MANUAL DIFF)
[2022-04-28 08:41] LABS: Chloride 100 mmol/L (98-107); Potassium 3.9 mmoL/L (3.5-5.1); Sodium 132 mmol/L (136-145)
[2022-04-28 08:44] LABS: Anion Gap 12.9 mEq/L (5-15); Blood Urea Nitrogen 9 mg/dl (9-20); Calcium 8.3 mg/dl (8.4-10.2); Carbon Dioxide 23 mmol/L (22.0-30.0); Creatinine Clearance Estimated 133 mL/min (50-200); Estimated Glomerular Filt Rate 116 ml/min (>60); GFR (African American) 141 ML/MIN (>60); Glucose 242 mg/dl (74-100)
--- NOTE | 2022-04-28 09:03 | XR_ITS ---
FINAL REPORT CLINICAL HISTORY: confirm NG tube placement COMPARISON: 03/31/2022 and 03/16/2022 FINDINGS: RIGHT HAND 3 views were obtained. There is interval healing of a fracture involving the proximal aspect of the 3rd distal phalanx with increased bone formation. The bony alignment is stable. No new acute abnormality is identified. The joint spaces are intact. There is no soft tissue abnormality. IMPRESSION: Continued healing of 3rd digit fracture. Reviewed, Interpreted and Dictated by Oumar Kumar III, MD Transcribed by Zoila Richardson Authenticated and [facility]
[2022-04-28 09:08] LABS: Eosinophils % 1 % (0-3); Lymphocytes % 11 % (10-50); Monocytes % 3 % (2-9); Neutrophils % 85 % (42-76); Total Cells Counted 100
[2022-04-28 09:09] LABS: Macrocytosis 1+
[2022-04-28 09:10] LABS: Platelet Estimate Normal
--- NOTE | 2022-04-28 11:20 | HMH.GSPN ---
Subjective Narrative: Patient had nasogastric tube placed this morning. Has had minimal output. He states that he does feel better than he did this morning. CBC reveals a normal white blood cell count. CT scan reveals findings of moderate amount of free fluid with findings consistent with ileus with wall thickening in the distal small bowel loops. In the right lower abdomen there is some loculated fluid. Progress Note: A&P (1) Insulin-requiring or dependent type II diabetes mellitus Status: Acute (2) Acute appendicitis Status: Acute (3) Appendiceal fistula Status: Acute Assessment and Plan for All Diagnoses:: Patient likely does have profound ileus. Nasogastric tube is in position. Continue this for now. May be developing phlegmon in the right lower quadrant based on CT findings but no evidence of any leak or perforation or clear abscess at this time. No indication for immediate relaparotomy. Plan to continue intravenous antibiotics. He does have the potential for development of abscess which will potentially need radiologic guided drainage in the future. Exam Vital signs and Labs for Last 24 Hours: Temp Pulse Resp BP Pulse Ox 98.2 F 99 H 16 130/98 H 94 L 04/28/22 08:00 04/28/22 10:00 04/28/22 10:00 04/28/22 10:00 04/28/22 10:00 Laboratory Results - last 24 hr 04/27/22 11:38: POC Glucose 248 H 04/27/22 16:15: POC Glucose 227 H 04/27/22 20:10: POC Glucose 233 H 04/28/22 05:46: POC Glucose 221 H 04/28/22 08:25: WBC 10.4, RBC 4.55 L, Hgb 15.4, Hct 46.1, MCV 101.4 H, MCH 33.9 H, MCHC 33.5, RDW 12.3, Plt Count 453 H D, MPV 7.6, Neut % (Auto) 85.1 H, Lymph % (Auto) 7.6 L, [place] % (Auto) 4.3, Eos % (Auto) 1.4, Baso % (Auto) 1.7, Neut # (Auto) 8.9 H, Lymph # (Auto) 0.8, [place] # (Auto) 0.5, Eos # (Auto) 0.1, Baso # (Auto) 0.2, Total Counted 100, Neutrophils % (Manual) 85 H, Lymphocytes % (Manual) 11, Monocytes % (Manual) 3, Eosinophils % (Manual) 1, Platelet Estimate Normal, Macrocytosis 1+ 04/28/22 08:25: Sodium 132 L, Potassium 3.9, Chloride 100, Carbon Dioxide 23, Anion Gap 12.9, BUN 9, Creatinine 0.70, Estimated Creat Clear 133, Estimated GFR 116, Est GFR ( Amer) 141, Glucose 242 H, Calcium 8.3 L I & O for Last 24 hours: Intake & Output 04/25/22 04/26/22 04/27/22 04/28/22 11:59 11:59 11:59 11:59 Intake Total 3000 / 3000 200 / 200 3720 / 3720 2844 / 2844 Output Total 1999 / 1999 2800 / 2800 3125 / 3125 2150 / 2150 Balance 1000 / 1000 -2600 / -2600 595 / 595 694 / 694 Weight 205 lb 3 oz 193 lb 8 oz 195 lb 4.8 oz 177 lb 8 oz
--- NOTE | 2022-04-28 15:55 | PC.NURSE ---
rounded on patient. patient is noted to be in bad spirits. ng tube placed earlier in shift. is not eager to talk during rounds giving one worded answers. encouraged to ring out as needed and if any concerns of plan of care arose, or questions came up.
--- NOTE | 2022-04-28 18:18 | PC.NURSE ---
pt A&OX4. still not passing flatus. Ng to continuous low suction. diet NPO. pt has been experiencing some nausea, administered zofran. ambulated independently in room. 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 visitors at bedside. call light in reach, bed to low position and wheels locked.
[2022-04-28 20:14] LABS: POC Glucose,Bedside 197 (70-110)
[2022-04-28 20:14] LABS: POC Glucose,Bedside 211 (70-110)
[2022-04-28 20:14] LABS: POC Glucose,Bedside 187 (70-110)
--- NOTE | 2022-04-28 22:44 | PC.NURSE ---
mild brown serosanguineous drainage coming from incision, placed 4x4's, abd pad, and paper tape on incision
[2022-04-29] VITALS (7 sets, daily range): BP systolic 134–151; BP diastolic 91–96; PULSE 77–108; RESP 15–24; TEMP 36.5–37.2; O2SAT 93–99; BMI 31.3
[2022-04-29 05:39] LABS: POC Glucose,Bedside 183 (70-110)
[2022-04-29 06:07] LABS: Basophils # 0.3 K/mm3 (0-0.2); Basophils % 2.8 % (0.1-2.0); Eosinophils # 0.4 K/mm3 (0.0-0.4); Eosinophils % 4.2 % (0.1-12.0); Hematocrit 41.9 % (42.0-52.0); Lymphocytes # 0.8 K/mm3 (0.7-4.5); Lymphocytes % 8.4 % (10-50); Mean Corpuscular HGB Conc 32.4 g/dL (31.8-35.4); Mean Corpuscular Hemoglobin 32.6 pg (27.0-31.2); Mean Corpuscular Volume 100.7 fl (80-94); Mean Platelet Volume 7.7 fl (7.4-10.4); Monocytes # 0.4 K/mm3 (0.1-1.0); Monocytes % 4.6 % (1.7-9.3); Neutrophils # 7.3 K/mm3 (1.8-7.8); Neutrophils % 79.9 % (37.0-80.0); Platelet Count 457 K/mm3 (142-424); Red Blood Count 4.17 M/mm3 (4.60-6.20); Red Cell Distribution Width 12.2 % (11.5-17.5); White Blood Count 9.2 K/mm3 (4.8-10.8)
[2022-04-29 06:08] LABS: Chloride 103 mmol/L (98-107)
[2022-04-29 06:09] LABS: Potassium 3.6 mmoL/L (3.5-5.1); Sodium 135 mmol/L (136-145)
[2022-04-29 06:11] LABS: Blood Urea Nitrogen 8 mg/dl (9-20); Creatinine Clearance Estimated 180 mL/min (50-200); Estimated Glomerular Filt Rate 139 ml/min (>60); GFR (African American) 168 ML/MIN (>60)
[2022-04-29 06:12] LABS: Anion Gap 9.6 mEq/L (5-15); Calcium 8.3 mg/dl (8.4-10.2); Carbon Dioxide 26 mmol/L (22.0-30.0); Glucose 211 mg/dl (74-100)
--- NOTE | 2022-04-29 06:13 | PC.NURSE ---
Patient has rested well this shift. Was nauseated in the beginning of the shift, nurse gave PRN medications per JAN. Abdominal incision started to leak minimal fluid, dressing applied. at bedside. Call light in place and will continue to monitor.
[2022-04-29 06:24] LABS: Hemoglobin 13.7 g/dL (14.1-18.0)
--- NOTE | 2022-04-29 08:13 | P.PN_ITS ---
Subjective Patient reports: feels better, still having pain, pain is less Narrative: Minimal flatus reported to primary care after my evaluation. Progress Note: A&P (1) Insulin-requiring or dependent type II diabetes mellitus Status: Acute (2) Acute appendicitis Status: Acute Assessment and plan: Continue antibiotics for now for necrotic/perforated appendicitis requiring ileocecal resection (3) Appendiceal fistula Status: Acute (4) Postoperative ileus Status: Acute Assessment and plan: Profound ileus requiring nasogastric decompression. He has reported a small amount of flatus to primary care this morning after my evaluation; however, he does remain fairly distended. Will continue nasogastric decompression for now Exam Vital signs and Labs for Last 24 Hours: Temp Pulse Resp BP Pulse Ox 97.8 F 95 H 20 143/91 H 93 L 04/29/22 04:00 04/29/22 04:00 04/29/22 04:00 04/29/22 04:00 04/29/22 04:00 Laboratory Results - last 24 hr 04/28/22 08:25: WBC 10.4, RBC 4.55 L, Hgb 15.4, Hct 46.1, MCV 101.4 H, MCH 33.9 H, MCHC 33.5, RDW 12.3, Plt Count 453 H D, MPV 7.6, Neut % (Auto) 85.1 H, Lymph % (Auto) 7.6 L, [place] % (Auto) 4.3, Eos % (Auto) 1.4, Baso % (Auto) 1.7, Neut # (Auto) 8.9 H, Lymph # (Auto) 0.8, [place] # (Auto) 0.5, Eos # (Auto) 0.1, Baso # (Auto) 0.2, Total Counted 100, Neutrophils % (Manual) 85 H, Lymphocytes % (Manual) 11, Monocytes % (Manual) 3, Eosinophils % (Manual) 1, Platelet Estimate Normal, Macrocytosis 1+ 04/28/22 08:25: Sodium 132 L, Potassium 3.9, Chloride 100, Carbon Dioxide 23, Anion Gap 12.9, BUN 9, Creatinine 0.70, Estimated Creat Clear 133, Estimated GFR 116, Est GFR ( Amer) 141, Glucose 242 H, Calcium 8.3 L 04/28/22 11:00: POC Glucose 211 H 04/28/22 16:02: POC Glucose 197 H 04/28/22 20:05: POC Glucose 187 H 04/29/22 05:28: POC Glucose 183 H 04/29/22 05:30: WBC 9.2, RBC 4.17 L, Hgb 13.7 L D, Hct 41.9 L, MCV 100.7 H, MCH 32.6 H, MCHC 32.4, RDW 12.2, Plt Count 457 H, MPV 7.7, Neut % (Auto) 79.9, Lymph % (Auto) 8.4 L, [place] % (Auto) 4.6, Eos % (Auto) 4.2, Baso % (Auto) 2.8 H, Neut # (Auto) 7.3, Lymph # (Auto) 0.8, [place] # (Auto) 0.4, Eos # (Auto) 0.4, Baso # (Auto) 0.3 H 04/29/22 05:30: Sodium 135 L, Potassium 3.6, Chloride 103, Carbon Dioxide 26, Anion Gap 9.6, BUN 8 L, Creatinine 0.60 L, Estimated Creat Clear 180, Estimated GFR 139, Est GFR ( Amer) 168, Glucose 211 H, Calcium 8.3 L I & O for Last 24 hours: Intake & Output 04/26/22 04/27/22 04/28/22 04/29/22 11:59 11:59 11:59 11:59 Intake Total 200 / 200 3720 / 3720 2844 / 2844 1332 / 1332 Output Total 2800 / 2800 3125 / 3125 2150 / 2150 850 / 850 Balance -2600 / -2600 595 / 595 694 / 694 482 / 482 Weight 193 lb 8 oz 195 lb 4.8 oz 177 lb 8 oz 206 lb 9.6 oz - Constitutional no acute distress - *Routine Respiratory Exam Absent: respiratory distress - *Routine Cardiovascular Exam Absent: tachycardia - *Routine Abdominal Exam Present: soft, tenderness, distended Comments: Incision without sign of infection
--- NOTE | 2022-04-29 08:27 | HMH.ACPN2 ---
Internal Medicine - PN: Subj *Date: 04/29/22 *Time: 08:27 Interval history: Remains afebrile. NG placed yesterday due to distention. Stomach still distended this morning, equal to yesterday. No further vomiting. Still tolerating chips and gum. Using incentive spirometer as needed. Blood pressure acceptable. Blood sugar stable. Patient reports he passed flatus x2 this morning just before rounds. Family at bedside, updated on plan. Exam Vital signs and Labs for Last 24 Hours: Temp Pulse Resp BP Pulse Ox 97.8 F 95 H 20 143/91 H 93 L 04/29/22 04:00 04/29/22 04:00 04/29/22 04:00 04/29/22 04:00 04/29/22 04:00 Laboratory Results - last 24 hr 04/28/22 08:25: WBC 10.4, RBC 4.55 L, Hgb 15.4, Hct 46.1, MCV 101.4 H, MCH 33.9 H, MCHC 33.5, RDW 12.3, Plt Count 453 H D, MPV 7.6, Neut % (Auto) 85.1 H, Lymph % (Auto) 7.6 L, [place] % (Auto) 4.3, Eos % (Auto) 1.4, Baso % (Auto) 1.7, Neut # (Auto) 8.9 H, Lymph # (Auto) 0.8, [place] # (Auto) 0.5, Eos # (Auto) 0.1, Baso # (Auto) 0.2, Total Counted 100, Neutrophils % (Manual) 85 H, Lymphocytes % (Manual) 11, Monocytes % (Manual) 3, Eosinophils % (Manual) 1, Platelet Estimate Normal, Macrocytosis 1+ 04/28/22 08:25: Sodium 132 L, Potassium 3.9, Chloride 100, Carbon Dioxide 23, Anion Gap 12.9, BUN 9, Creatinine 0.70, Estimated Creat Clear 133, Estimated GFR 116, Est GFR ( Amer) 141, Glucose 242 H, Calcium 8.3 L 04/28/22 11:00: POC Glucose 211 H 04/28/22 16:02: POC Glucose 197 H 04/28/22 20:05: POC Glucose 187 H 04/29/22 05:28: POC Glucose 183 H 04/29/22 05:30: WBC 9.2, RBC 4.17 L, Hgb 13.7 L D, Hct 41.9 L, MCV 100.7 H, MCH 32.6 H, MCHC 32.4, RDW 12.2, Plt Count 457 H, MPV 7.7, Neut % (Auto) 79.9, Lymph % (Auto) 8.4 L, [place] % (Auto) 4.6, Eos % (Auto) 4.2, Baso % (Auto) 2.8 H, Neut # (Auto) 7.3, Lymph # (Auto) 0.8, [place] # (Auto) 0.4, Eos # (Auto) 0.4, Baso # (Auto) 0.3 H 04/29/22 05:30: Sodium 135 L, Potassium 3.6, Chloride 103, Carbon Dioxide 26, Anion Gap 9.6, BUN 8 L, Creatinine 0.60 L, Estimated Creat Clear 180, Estimated GFR 139, Est GFR ( Amer) 168, Glucose 211 H, Calcium 8.3 L I & O for Last 24 hours: Intake & Output 04/26/22 04/27/22 04/28/22 04/29/22 23:59 23:59 23:59 23:59 Intake Total 3920 / 3920 1395 / 1395 2781 / 2781 0 / 0 Output Total 4675 / 5475 2500 / 2950 850 / 850 450 / 450 Balance -755 / -1555 -1105 / -1555 1931 / 1931 -450 / -450 Weight 87.77 kg 88.587 kg 80.513 kg 93.712 kg Narrative: - Constitutional minimal distress, average body habitus; In bed on exam, chewing gum. NG in nose - *Routine HEENT Exam Head: Present: normocephalic Eye: Present: EOMI, PERRL ENT: Present: mucous membranes moist - *Routine Neck Exam Present: supple. Absent: lymphadenopathy - *Routine Respiratory Exam Present: CTA bilaterally - *Routine Cardiovascular Exam Present: RRR - *Routine Abdominal Exam Present: Stable distension, no rebound, diffuse tenderness (Expected surgical tenderness but no rebound or peritoneal signs), normoactive BS - *Routine Extremities Exam NO cyanosis, clubbing, edema; SCUD boots in place - *Routine Skin Exam Present: warm. 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
--- NOTE | 2022-04-29 10:29 | DIET.NUTRFU ---
Pt is NPO x5 days, NG tube placed today and experiencing some gas today. Provider anticipates NG out later today on clear liquids by tomorrow. Will continue to follow for sx recommendations. Patient continues on insulin and IVF. Diabetic education was reviewed for discharge home.
--- NOTE | 2022-04-29 12:16 | PC.NURSE ---
1050-Penelope Morse RN Charge Nurse and myself rounded on patient at this time. Pt is up ambulating with visitor in the room. Pt states he is feeling much better than yesterday. Pt holding abd while standing but denies pain unless he is coughing. Pt reports that he has been passing gas and feels that he may have a bowel movement soon. Pt appears in much better spirits today than yesterday. No questions/concerns voiced at this time. Pt has no questions regarding medications that he is currently receiving. Pt states that he understand treatment plan thus far. Informed pt to call out if any questions/concerns arise.
--- NOTE | 2022-04-29 18:56 | PC.NURSE ---
PT IS ALERT AND ORIENTED X4. HE HAS BEEN UP TO THE CHAIR OFF AND ON THROUGHOUT THE SHIFT. MEDICATED FOR NAUSEA ONCE PER MAR THIS SHIFT. NG TUBE STILL IN PLACE TO LOW WALL SUCTION. NG DRESSING CHANGED TODAY. VSS. NO OTHER COMPLAINTS.
[2022-04-30] VITALS: BP 150/76; PULSE 78; PULSE 85; RESP 16; TEMP 36.6; O2SAT 96
[2022-04-30 00:53] LABS: POC Glucose,Bedside 140 (70-110)
[2022-04-30 04:00] VITALS: BP 141/78; PULSE 80; PULSE 88; RESP 16; TEMP 36.8; O2SAT 96
--- NOTE | 2022-04-30 04:11 | PC.NURSE ---
Pt is a&ox4, rested the entire shift, has stayed with pt. No complaints this far in shift. O2 sat 96% RA. Midline abd dressing is CDI. NG in place. Pt uses urinal.
[2022-04-30 04:54] VITALS: BMI 31.3
[2022-04-30 05:34] LABS: POC Glucose,Bedside 109 (70-110)
[2022-04-30 08:00] VITALS: BP 139/88; PULSE 74; PULSE 90; RESP 18; TEMP 36.8; O2SAT 94
--- NOTE | 2022-04-30 08:45 | HMH.GSPN ---
Subjective Patient reports: no new complaints, feels better, pain is less, flatus Progress Note: A&P (1) Insulin-requiring or dependent type II diabetes mellitus Status: Acute (2) Acute appendicitis Status: Acute (3) Appendiceal fistula Status: Acute (4) Postoperative ileus Status: Acute Assessment and plan: Profound ileus requiring replacement of nasogastric tube. He has now passing flatus. Nasogastric tube to drain bag Exam Vital signs and Labs for Last 24 Hours: Temp Pulse Resp BP Pulse Ox 98.2 F 88 16 141/78 H 96 04/30/22 04:00 04/30/22 04:00 04/30/22 04:00 04/30/22 04:00 04/30/22 04:00 Laboratory Results - last 24 hr 04/29/22 20:41: POC Glucose 140 H 04/30/22 05:27: POC Glucose 109 I & O for Last 24 hours: Intake & Output 04/27/22 04/28/22 04/29/22 04/30/22 11:59 11:59 11:59 11:59 Intake Total 3720 / 3720 2844 / 2844 1332 / 1332 2233 / 2233 Output Total 3125 / 3125 2150 / 2150 850 / 850 800 / 800 Balance 595 / 595 694 / 694 482 / 482 1433 / 1433 Weight 195 lb 4.8 oz 177 lb 8 oz 206 lb 9.6 oz 206 lb 9.6 oz - Constitutional no acute distress - *Routine Respiratory Exam Absent: respiratory distress - *Routine Cardiovascular Exam Absent: tachycardia - *Routine Abdominal Exam Present: soft Comments: Incision healing without sign of infection
[2022-04-30 11:11] LABS: POC Glucose,Bedside 94 (70-110)
--- NOTE | 2022-04-30 11:46 | HMH.ACPN2 ---
Internal Medicine - PN: Subj *Date: 04/30/22 *Time: 11:46 Interval history: Stable overnight. Blood pressure acceptable. No fever. Distention no worse this morning. Continues to pass gas. Pleasant in bedside chair on exam. Exam Vital signs and Labs for Last 24 Hours: Temp Pulse Resp BP Pulse Ox 98.2 F 74 18 139/88 94 L 04/30/22 08:00 04/30/22 08:00 04/30/22 08:00 04/30/22 08:00 04/30/22 08:00 Laboratory Results - last 24 hr 04/29/22 20:41: POC Glucose 140 H 04/30/22 05:27: POC Glucose 109 04/30/22 11:04: POC Glucose 94 I & O for Last 24 hours: Intake & Output 04/27/22 04/28/22 04/29/22 04/30/22 23:59 23:59 23:59 23:59 Intake Total 1395 / 1395 2781 / 2781 778 / 778 1455 / 1455 Output Total 2500 / 2950 850 / 850 900 / 900 350 / 350 Balance -1105 / -1555 1931 / 1931 -122 / -122 1105 / 1105 Weight 88.587 kg 80.513 kg 93.712 kg 93.712 kg Narrative: - Constitutional NAD on RA, in bedside chair, NG in Right nare attached to bag - *Routine HEENT Exam Head: Present: normocephalic Eye: Present: EOMI, PERRL ENT: Present: mucous membranes moist - *Routine Neck Exam Present: supple. Absent: lymphadenopathy - *Routine Respiratory Exam Present: CTA bilaterally - *Routine Cardiovascular Exam Present: RRR - *Routine Abdominal Exam Present: Stable distension, no rebound, diffuse tenderness (Expected surgical tenderness but no rebound or peritoneal signs), normoactive BS - *Routine Extremities Exam NO cyanosis, clubbing, edema; SCUD boots in place - *Routine Skin Exam Present: warm. Absent: rash - *Routine Neurological Exam Present: alert, oriented X3 Assessment and Plan (1) Insulin-requiring or dependent type II diabetes mellitus Status: Acute Category: Medical Code(s): E11.9 - Type 2 diabetes mellitus without complications; Z79.4 - retirement (current) use of insulin (2) Acute appendicitis Status: Acute Qualifiers: Acute appendicitis type: with localized peritonitis Appendicitis gangrene presence: without gangrene Appendicitis perforation presence: without perforation Appendicitis abscess presence: without abscess Qualified Code(s): K35.30 - Acute appendicitis with localized peritonitis, without perforation or gangrene Category: Medical Code(s): K35.80 - Unspecified acute appendicitis (3) Appendiceal fistula Status: Acute Category: Medical Code(s): K38.3 - Fistula of appendix (4) Postoperative ileus Status: Acute Category: Medical Code(s): K91.89 - Other postprocedural complications and disorders of digestive system; K56.7 - Ileus, unspecified - Assessment and plan all Dx Assessment and Plan for all problems:: 56-year-old male with diabetes and hypertension who presented with appendicitis. Status post laparotomy. Medical problems addressed as follows: Diabetes -Continue with low intensity sliding scale insulin -Continue with current dose of Lantus. No further adjustments until patient is eating. Morning glucose in the 90s-180s. -Advancing diet per surgical recommendations; given distention, NG still in place. Passing flatus, still NPO. Hypertension -Continue home medications at lower dose. Blood pressure acceptable. We will hold on further adjustment. -Monitor kidney function and adjust dose daily pending blood pressures. Continue Unasyn for entero pathogens. Pain stable, no Opiates this morning Thank you for consult. We will follow along with surgical service.
[2022-04-30 12:00] VITALS: BP 149/91; PULSE 88; PULSE 94; RESP 24; TEMP 36.8; O2SAT 95
[2022-04-30 16:00] VITALS: BP 148/93; PULSE 80; PULSE 90; RESP 24; TEMP 37.2; O2SAT 95
--- NOTE | 2022-04-30 19:21 | PC.NURSE ---
Residual checked at 1400 and 1800 and no residual found. Patient tolerating ice chips well. Zofran given at end of shift for indigestion, protonix ordered later. VS stable and patient on room air. No complaints of pain. No drainage emptied from catheter bag. No other complaints noted.
[2022-04-30 20:00] VITALS: BP 143/78; PULSE 79; PULSE 90; RESP 18; TEMP 36.8; O2SAT 93
[2022-04-30 21:11] LABS: POC Glucose,Bedside 89 (70-110)
[2022-05-01] VITALS: BP 142/82; PULSE 80; RESP 17; TEMP 36.6; O2SAT 97
[2022-05-01 00:17] LABS: POC Glucose,Bedside 86 (70-110)
[2022-05-01 04:00] VITALS: BP 145/78; PULSE 78; PULSE 90; RESP 18; TEMP 37.2; O2SAT 92
[2022-05-01 05:00] VITALS: BMI 32.0
--- NOTE | 2022-05-01 05:14 | PC.NURSE ---
Pt has rested well this shift. No complaints stated. He has denied any nausea this shift. NG to (L) nare to drainage bag. Pt has had 30 ml output this shift. 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 No drainage noted. VSS. FSBS 68 this AM. paged. Waiting for call back. No other concerns. Will continue to monitor.
--- NOTE | 2022-05-01 05:33 | PC.NURSE ---
notified of FSBS trending down. 68 this AM. New orders received to change IV fluids LR @ 125 to D5 LR @ 125 ml/hr.
[2022-05-01 05:58] LABS: POC Glucose,Bedside 68 (70-110)
[2022-05-01 07:08] LABS: Basophils # 0.1 K/mm3 (0-0.2); Basophils % 0.7 % (0.1-2.0); Eosinophils # 0.3 K/mm3 (0.0-0.4); Eosinophils % 3.6 % (0.1-12.0); Hematocrit 37.3 % (42.0-52.0); Hemoglobin 12.2 g/dL (14.1-18.0); Lymphocytes # 1.1 K/mm3 (0.7-4.5); Lymphocytes % 13.3 % (10-50); Mean Corpuscular HGB Conc 32.7 g/dL (31.8-35.4); Mean Corpuscular Hemoglobin 32.7 pg (27.0-31.2); Mean Platelet Volume 7.4 fl (7.4-10.4); Monocytes # 0.5 K/mm3 (0.1-1.0); Monocytes % 5.5 % (1.7-9.3); Neutrophils # 6.3 K/mm3 (1.8-7.8); Platelet Count 416 K/mm3 (142-424); Red Blood Count 3.73 M/mm3 (4.60-6.20); Red Cell Distribution Width 12.1 % (11.5-17.5); White Blood Count 8.2 K/mm3 (4.8-10.8)
[2022-05-01 07:12] LABS: Chloride 101 mmol/L (98-107); Sodium 133 mmol/L (136-145)
[2022-05-01 07:15] LABS: Anion Gap 8.9 mEq/L (5-15); Blood Urea Nitrogen 4 mg/dl (9-20); Carbon Dioxide 26 mmol/L (22.0-30.0); Creatinine Clearance Estimated 184 mL/min (50-200); Estimated Glomerular Filt Rate 139 ml/min (>60); GFR (African American) 168 ML/MIN (>60)
[2022-05-01 07:16] LABS: Calcium 7.7 mg/dl (8.4-10.2); Glucose 97 mg/dl (74-100)
[2022-05-01 07:21] LABS: Potassium 2.9 mmoL/L (3.5-5.1)
--- NOTE | 2022-05-01 07:26 | PC.NURSE ---
Pt had BM this AM.
[2022-05-01 08:00] VITALS: BP 139/86; PULSE 80; PULSE 89; RESP 20; TEMP 36.8; O2SAT 93
--- NOTE | 2022-05-01 09:31 | PC.NURSE ---
NG d/c at this time. 14 sandy removed and replaced with steri-strips.
--- NOTE | 2022-05-01 10:07 | HMH.GSPN ---
Subjective Patient reports: no new complaints, feels better, flatus, bowel movement Progress Note: A&P (1) Insulin-requiring or dependent type II diabetes mellitus Status: Acute (2) Acute appendicitis Status: Acute (3) Appendiceal fistula Status: Acute (4) Postoperative ileus Status: Acute Assessment and plan: Showing signs of definitive resolution with continued flatus over the last 24 hours. No significant issues with nasogastric tube to drain bag. He now reports a bowel movement. Remove nasogastric tube Cautious clear liquids as directed by nursing (no tray and no carbonation) Remove one half of sandy Exam Vital signs and Labs for Last 24 Hours: Temp Pulse Resp BP Pulse Ox 98.3 F 89 20 139/86 93 L 05/01/22 08:00 05/01/22 08:00 05/01/22 08:00 05/01/22 08:00 05/01/22 08:00 Laboratory Results - last 24 hr 04/30/22 11:04: POC Glucose 94 04/30/22 20:56: POC Glucose 89 05/01/22 00:08: POC Glucose 86 05/01/22 05:04: POC Glucose 68 L 05/01/22 06:54: WBC 8.2, RBC 3.73 L, Hgb 12.2 L, Hct 37.3 L, MCV 100.0 H, MCH 32.7 H, MCHC 32.7, RDW 12.1, Plt Count 416, MPV 7.4, Neut % (Auto) 77.0, Lymph % (Auto) 13.3, [place] % (Auto) 5.5, Eos % (Auto) 3.6, Baso % (Auto) 0.7, Neut # (Auto) 6.3, Lymph # (Auto) 1.1, [place] # (Auto) 0.5, Eos # (Auto) 0.3, Baso # (Auto) 0.1 05/01/22 06:54: Sodium 133 L, Potassium 2.9 L*, Chloride 101, Carbon Dioxide 26, Anion Gap 8.9, BUN 4 L D, Creatinine 0.60 L, Estimated Creat Clear 184, Estimated GFR 139, Est GFR ( Amer) 168, Glucose 97, Calcium 7.7 L I & O for Last 24 hours: Intake & Output 04/28/22 04/29/22 04/30/22 05/01/22 11:59 11:59 11:59 11:59 Intake Total 2844 / 2844 1332 / 1332 2233 / 2233 1660 / 1660 Output Total 2150 / 2150 850 / 850 800 / 800 Balance 694 / 694 482 / 482 1433 / 1433 1630 / 1630 Weight 177 lb 8 oz 206 lb 9.6 oz 206 lb 9.6 oz 211 lb 4 oz - Constitutional no acute distress - *Routine Respiratory Exam Absent: respiratory distress - *Routine Cardiovascular Exam Absent: tachycardia - *Routine Abdominal Exam Present: soft
[2022-05-01 12:00] VITALS: BP 155/94; PULSE 80; PULSE 81; RESP 18; TEMP 36.7; O2SAT 93
--- NOTE | 2022-05-01 15:03 | PC.NURSE ---
pt had small BM at this time
[2022-05-01 16:00] VITALS: BP 156/98; PULSE 79; PULSE 85; RESP 20; TEMP 36.5; O2SAT 95
[2022-05-01 16:17] LABS: POC Glucose,Bedside 239 (70-110)
--- NOTE | 2022-05-01 17:30 | PC.NURSE ---
PT HAS HAD ONE SMALL BROWN BM SO FAR THIS SHIFT, BOWEL SOUNDS ARE HYPOACTIVE IN ALL 4 QUADS. MIDLINE INCISION IS OPEN TO AIR. SON AND STERI STRIPS IN PLACE. VERY SMALL AMOUNT OF DRAINAGE NOTED WHILE REMOVING SON. HE HAS HAD NO C/O PAIN, ONLY TENDERNESS WITH MOVEMENT. ABDOMEN IS SOFT AND SLIGHTLY DISTENDED. NG WAS D/C THIS SHIFT. HE HAS ADVANCED TO A CLEAR LIQUID DIET TOLERATED, WITH CAUTION. SO FAR THIS SHIFT, HE HAS DRANK 1/2 CUP OF WATER AND 1 APPLE JUICE AND TOLERATED WELL. NO C/O NAUSEA AND NO VOMITING. HE HAS USED URINAL INDEPENDENTLY.
[2022-05-01 20:00] VITALS: BP 144/89; PULSE 70; PULSE 91; RESP 21; TEMP 36.9; O2SAT 92
[2022-05-01 20:57] LABS: POC Glucose,Bedside 182 (70-110)
[2022-05-01 22:10] LABS: POC Glucose,Bedside 196 (70-110)
[2022-05-02] VITALS: BP 146/85; PULSE 70; PULSE 72; RESP 22; TEMP 36.3; O2SAT 93
[2022-05-02 04:00] VITALS: BP 141/86; PULSE 84; PULSE 90; RESP 21; TEMP 36.7; O2SAT 93
[2022-05-02 05:00] VITALS: BMI 31.6
[2022-05-02 05:19] LABS: POC Glucose,Bedside 164 (70-110)
--- NOTE | 2022-05-02 06:53 | HMH.GSPN ---
Subjective Narrative: Patient states that he feels much better. Nasogastric tube removed yesterday. Has had 2 bowel movements. Taking minimal sips of clears. Potassium replaced. Had every other staple removed yesterday. Progress Note: A&P (1) Insulin-requiring or dependent type II diabetes mellitus Status: Acute (2) Acute appendicitis Status: Acute (3) Appendiceal fistula Status: Acute (4) Postoperative ileus Status: Acute Assessment and Plan for All Diagnoses:: Plan to order clear liquid diet. Exam Vital signs and Labs for Last 24 Hours: Temp Pulse Resp BP Pulse Ox 98.0 F 84 21 141/86 H 93 L 05/02/22 04:00 05/02/22 04:00 05/02/22 04:00 05/02/22 04:00 05/02/22 04:00 Laboratory Results - last 24 hr 05/01/22 06:54: WBC 8.2, RBC 3.73 L, Hgb 12.2 L, Hct 37.3 L, MCV 100.0 H, MCH 32.7 H, MCHC 32.7, RDW 12.1, Plt Count 416, MPV 7.4, Neut % (Auto) 77.0, Lymph % (Auto) 13.3, [place] % (Auto) 5.5, Eos % (Auto) 3.6, Baso % (Auto) 0.7, Neut # (Auto) 6.3, Lymph # (Auto) 1.1, [place] # (Auto) 0.5, Eos # (Auto) 0.3, Baso # (Auto) 0.1 05/01/22 06:54: Sodium 133 L, Potassium 2.9 L*, Chloride 101, Carbon Dioxide 26, Anion Gap 8.9, BUN 4 L D, Creatinine 0.60 L, Estimated Creat Clear 184, Estimated GFR 139, Est GFR ( Amer) 168, Glucose 97, Calcium 7.7 L 05/01/22 11:13: POC Glucose 182 H 05/01/22 16:08: POC Glucose 239 H 05/01/22 22:03: POC Glucose 196 H 05/02/22 05:11: POC Glucose 164 H I & O for Last 24 hours: Intake & Output 04/29/22 04/30/22 05/01/22 05/02/22 11:59 11:59 11:59 11:59 Intake Total 1332 / 1332 2233 / 2233 1660 / 1660 3422 / 3422 Output Total 850 / 850 800 / 800 30 / 780 4100 / 4100 Balance 482 / 482 1433 / 1433 1630 / 880 -678 / -678 Weight 206 lb 9.6 oz 206 lb 9.6 oz 211 lb 4 oz 209 lb 1.735 oz - *Routine Abdominal Exam Present: soft Comments: Incision clean dry and intact.
--- NOTE | 2022-05-02 06:56 | PC.NURSE ---
NO ACUTE CHANGES. PT HAS NOT VOICED ANY COMPLAINTS TO STAFF. TOLERATING CLEAR LIQUID DIET WELL. CALL LIGHT WITHIN REACH
[2022-05-02 08:00] VITALS: BP 158/97; PULSE 100; PULSE 97; RESP 22; TEMP 36.9; O2SAT 94
--- NOTE | 2022-05-02 08:43 | HMH.ACPN2 ---
Internal Medicine - PN: Subj *Date: 05/02/22 *Time: 08:43 Interval history: Internal medicine consult follow-up note: Patient is doing very well over the weekend, surgery plans to advance him to clear liquids today. He has had flatus and a couple of bowel movements. Has been walking around the room. Exam Vital signs and Labs for Last 24 Hours: Temp Pulse Resp BP Pulse Ox 98.0 F 84 21 141/86 H 93 L 05/02/22 04:00 05/02/22 04:00 05/02/22 04:00 05/02/22 04:00 05/02/22 04:00 Laboratory Results - last 24 hr 05/01/22 11:13: POC Glucose 182 H 05/01/22 16:08: POC Glucose 239 H 05/01/22 22:03: POC Glucose 196 H 05/02/22 05:11: POC Glucose 164 H I & O for Last 24 hours: Intake & Output 04/29/22 04/30/22 05/01/22 05/02/22 11:59 11:59 11:59 11:59 Intake Total 1332 / 1332 2233 / 2233 1660 / 1660 4940 / 4940 Output Total 850 / 850 800 / 800 30 / 780 4900 / 4900 Balance 482 / 482 1433 / 1433 1630 / 880 40 / 40 Weight 206 lb 9.6 oz 206 lb 9.6 oz 211 lb 4 oz 209 lb 1.735 oz Narrative: Lungs clear. Abdominal examination reviewed. No edema or clubbing. Neurologic exam intact. Pleasant and talkative. Assessment and Plan - Assessment and plan all Dx Assessment and Plan for all problems:: Plan will be to progress diet as indicated. Hopefully discharge tomorrow. Replace calcium today intravenously. Patient blood pressure is in the 140-150 range systolic but given his hospitalized status we will continue current home dose of medication.
--- NOTE | 2022-05-02 11:21 | DIET.NUTRFU ---
Patient noted to had 2 BM yesterday, NG pulled earlier today and plans to start clear liquids at lunch. Patient reported he felt good today. Possible discharge tomorrow. No now labs today, Na and K depleted 05/01, potassium given yesterday and IVF continue. Will continue to follow with diet tolerance. RD provided diabetic education earlier in admit, no discharge needs at this time.
--- NOTE | 2022-05-02 11:38 | PC.NURSE ---
rounded on patient. no concerns or questions in regards to meds or current plan of care. eager for lunch asking when it would be here., diet was advanced today to a clear liquid. offered shower which he stated he did not want as of right now but would readress later. sitting up in chair. no complaints of pain or discomfort. no needs at this time
--- NOTE | 2022-05-02 15:33 | PC.NURSE ---
AOX4, HAS AMBULATED IN ROOM AND HALLWAY INDEPENDENTLY. HAS DENIED PAIN AT REGULAR INTERVALS. 1 LOOSE [place]ATERY BM THIS SHIFT. NO COMPLAINTS VOICED TO STAFF.
[2022-05-02 15:37] VITALS: BP 163/75; PULSE 82; RESP 14; TEMP 36.9; O2SAT 98
[2022-05-02 20:00] VITALS: BP 139/86; PULSE 78; RESP 15; TEMP 36.8; O2SAT 96
[2022-05-02 20:46] LABS: POC Glucose,Bedside 118 (70-110)
[2022-05-02 20:57] LABS: POC Glucose,Bedside 206 (70-110)
[2022-05-03 04:00] VITALS: BP 138/75; PULSE 79; RESP 16; TEMP 37; O2SAT 93
[2022-05-03 04:53] VITALS: BMI 30.3
--- NOTE | 2022-05-03 05:29 | PC.NURSE ---
Patient has rested well this shift. Pt has been ambulating to bathroom independently, tolerating well. Midline incision is [place], sandy and steri strips in place, no signs of infection present. Pt FSBS have been 206, 168. Pt has voiced no c/o of pain this shift. Has tolerated clear liquid diet well.
[2022-05-03 06:16] LABS: POC Glucose,Bedside 266 (70-110)
[2022-05-03 06:39] LABS: Basophils # 0.1 K/mm3 (0-0.2); Eosinophils # 0.2 K/mm3 (0.0-0.4); Eosinophils % 2.9 % (0.1-12.0); Hematocrit 40.9 % (42.0-52.0); Hemoglobin 13.2 g/dL (14.1-18.0); Lymphocytes # 0.9 K/mm3 (0.7-4.5); Lymphocytes % 13.7 % (10-50); Mean Corpuscular HGB Conc 32.1 g/dL (31.8-35.4); Mean Corpuscular Volume 102.8 fl (80-94); Mean Platelet Volume 7.7 fl (7.4-10.4); Monocytes # 0.4 K/mm3 (0.1-1.0); Monocytes % 5.6 % (1.7-9.3); Neutrophils # 5.2 K/mm3 (1.8-7.8); Neutrophils % 76.7 % (37.0-80.0); Platelet Count 408 K/mm3 (142-424); Red Blood Count 3.98 M/mm3 (4.60-6.20); Red Cell Distribution Width 12.5 % (11.5-17.5); White Blood Count 6.7 K/mm3 (4.8-10.8)
[2022-05-03 06:55] LABS: Chloride 102 mmol/L (98-107); Sodium 135 mmol/L (136-145)
[2022-05-03 06:56] LABS: Potassium 3.4 mmoL/L (3.5-5.1)
[2022-05-03 06:59] LABS: Anion Gap 10.4 mEq/L (5-15); Calcium 8.4 mg/dl (8.4-10.2); Carbon Dioxide 26 mmol/L (22.0-30.0); Creatinine Clearance Estimated 174 mL/min (50-200); Estimated Glomerular Filt Rate 139 ml/min (>60); GFR (African American) 168 ML/MIN (>60); Glucose 184 mg/dl (74-100)
[2022-05-03 07:00] LABS: Blood Urea Nitrogen < 2 mg/dl (9-20)
--- NOTE | 2022-05-03 07:13 | HMH.GSPN ---
Subjective Narrative: Patient doing well without any complaints. Tolerating clear liquids. Multiple bowel movements (loose) Progress Note: A&P Assessment and Plan for All Diagnoses:: Labs within reasonable parameters. Advance diet. If tolerating likely DC home on oral antibiotics. Exam Vital signs and Labs for Last 24 Hours: Temp Pulse Resp BP Pulse Ox 98.6 F 79 16 138/75 93 L 05/03/22 04:00 05/03/22 04:00 05/03/22 04:00 05/03/22 04:00 05/03/22 04:00 Laboratory Results - last 24 hr 05/02/22 11:25: POC Glucose 118 H 05/02/22 16:17: POC Glucose 266 H 05/02/22 20:37: POC Glucose 206 H 05/03/22 06:25: WBC 6.7, RBC 3.98 L, Hgb 13.2 L, Hct 40.9 L, MCV 102.8 H, MCH 33.0 H, MCHC 32.1, RDW 12.5, Plt Count 408, MPV 7.7, Neut % (Auto) 76.7, Lymph % (Auto) 13.7, [place] % (Auto) 5.6, Eos % (Auto) 2.9, Baso % (Auto) 1.0, Neut # (Auto) 5.2, Lymph # (Auto) 0.9, [place] # (Auto) 0.4, Eos # (Auto) 0.2, Baso # (Auto) 0.1 05/03/22 06:25: Sodium 135 L, Potassium 3.4 L, Chloride 102, Carbon Dioxide 26, Anion Gap 10.4, BUN < 2 L D, Creatinine 0.60 L, Estimated Creat Clear 174, Estimated GFR 139, Est GFR ( Amer) 168, Glucose 184 H, Calcium 8.4 I & O for Last 24 hours: Intake & Output 04/30/22 05/01/22 05/02/22 05/03/22 11:59 11:59 11:59 11:59 Intake Total 2233 / 2233 1660 / 1660 5180 / 5180 1428 / 1428 Output Total 800 / 800 30 / 780 5230 / 5230 1400 / 1400 Balance 1433 / 1433 1630 / 880 -50 / -50 Weight 206 lb 9.6 oz 211 lb 4 oz 209 lb 1.735 oz 200 lb - *Routine Abdominal Exam Present: soft Comments: Incision clean
--- NOTE | 2022-05-03 07:28 | HMH.ACPN2 ---
Internal Medicine - PN: Subj *Date: 05/03/22 *Time: 09:55 Interval history: No acute events overnight. Having bowel movements. No fever. Tolerating breakfast this morning. Patient states he feels really good. No longer has any belly tenderness. Ambulating independently. Exam Vital signs and Labs for Last 24 Hours: Temp Pulse Resp BP Pulse Ox 98.6 F 79 16 138/75 93 L 05/03/22 04:00 05/03/22 04:00 05/03/22 04:00 05/03/22 04:00 05/03/22 04:00 Laboratory Results - last 24 hr 05/02/22 11:25: POC Glucose 118 H 05/02/22 16:17: POC Glucose 266 H 05/02/22 20:37: POC Glucose 206 H 05/03/22 06:25: WBC 6.7, RBC 3.98 L, Hgb 13.2 L, Hct 40.9 L, MCV 102.8 H, MCH 33.0 H, MCHC 32.1, RDW 12.5, Plt Count 408, MPV 7.7, Neut % (Auto) 76.7, Lymph % (Auto) 13.7, [place] % (Auto) 5.6, Eos % (Auto) 2.9, Baso % (Auto) 1.0, Neut # (Auto) 5.2, Lymph # (Auto) 0.9, [place] # (Auto) 0.4, Eos # (Auto) 0.2, Baso # (Auto) 0.1 05/03/22 06:25: Sodium 135 L, Potassium 3.4 L, Chloride 102, Carbon Dioxide 26, Anion Gap 10.4, BUN < 2 L D, Creatinine 0.60 L, Estimated Creat Clear 174, Estimated GFR 139, Est GFR ( Amer) 168, Glucose 184 H, Calcium 8.4 I & O for Last 24 hours: Intake & Output 04/30/22 05/01/22 05/02/22 05/03/22 23:59 23:59 23:59 23:59 Intake Total 1455 / 1455 5082 / 5082 1758 / 1758 1428 / 1428 Output Total 350 / 350 1730 / 3230 3530 / 3530 1400 / 1400 Balance 1105 / 1105 3352 / 1852 -1772 / -1772 Weight 93.712 kg 95.821 kg 94.85 kg 90.718 kg - Constitutional no acute distress, obese - *Routine HEENT Exam Head: Present: normocephalic Eye: Present: EOMI, PERRL ENT: Present: mucous membranes moist - *Routine Neck Exam Present: supple. Absent: lymphadenopathy - *Routine Respiratory Exam Present: CTA bilaterally - *Routine Cardiovascular Exam Present: RRR - *Routine Abdominal Exam Present: soft, normoactive bowel sounds, distended. Absent: tenderness - *Routine Extremities Exam Present: edema (Trace). Absent: cyanosis, clubbing - *Routine Skin Exam Present: warm. Absent: rash - *Routine Neurological Exam Present: alert, oriented X3 Assessment and Plan (1) Acute appendicitis Status: Acute Qualifiers: Acute appendicitis type: with localized peritonitis Appendicitis gangrene presence: without gangrene Appendicitis perforation presence: without perforation Appendicitis abscess presence: without abscess Qualified Code(s): K35.30 - Acute appendicitis with localized peritonitis, without perforation or gangrene Category: Medical Code(s): K35.80 - Unspecified acute appendicitis (2) Essential hypertension Status: Chronic Category: Medical Code(s): I10 - Essential (primary) hypertension (3) Appendiceal fistula Status: Acute Category: Medical Code(s): K38.3 - Fistula of appendix (4) Insulin-requiring or dependent type II diabetes mellitus Status: Chronic Category: Medical Code(s): E11.9 - Type 2 diabetes mellitus without complications; Z79.4 - intermediate (current) use of insulin (5) Postoperative ileus Status: Acute Category: Medical Code(s): K91.89 - Other postprocedural complications and disorders of digestive system; K56.7 - Ileus, unspecified - Assessment and plan all Dx Assessment and Plan for all problems:: Medicine consulted to assist with nonsurgical needs. Patient's blood pressure doing well on current regimen. Tolerating current insulin regimen at reduced dose from home regimen. Overall patient is progressing nicely. We will make no further changes at this time. Recommend patient follow-up with his PCP after discharge to make further adjustments. Will defer antibiotics to surgery, in light of current Unasyn use and patient's improvement, may consider transitioning to oral Augmentin at discharge. Medicine will sign off at this time. Thank you for the opportunity to consult on this patient.
[2022-05-03 08:00] VITALS: BP 170/102; PULSE 108; RESP 16; TEMP 36.7; O2SAT 95
--- NOTE | 2022-05-03 09:18 | PC.NURSE ---
morning rounds done with md. from calders standpoint he stated he was signing off but up to allran for discharge. patient diet has been upgraded. patient reports having bms. no complaints of pain. sitting up to chair eating.
--- NOTE | 2022-05-03 12:23 | HMH.DCSUM ---
General - General Admission date:: 04/24/22 Discharge date: 05/03/22 HPI HPI: Patient is a 56-year-old diabetic male from [place]. His primary care provider is Dr. Trever Schofield. He presented to the emergency department 04/24/22 with a 2-week history of right lower quadrant and infraumbilical abdominal pain. He does describe some low-grade fevers. He has had some bloating and abdominal swelling with nausea but no vomiting. He has had some urinary hesitancy. Patient states that he had seen his primary care provider about a week prior to presentation. Patient was treated for prostatitis. His symptoms had not improved. He presented to the emergency department. He was found to be tachycardic with a leukocytosis. He underwent a CT scan which revealed findings of acute appendicitis with questionable amount of oral contrast passes between small bowel and mid appendiceal lumen suspicious for enteroappendiceal fistula. Surgical consultation was obtained. Patient's only prior abdominal surgery is laparoscopic cholecystectomy [place] [address] James Spencer for mild biliary dyskinesia. He was seen and evaluated in the emergency department found to have findings of regional peritonitis on examination. Patient was showing signs of sepsis with profound tachycardia and fever. Arrangements were made for immediate appendectomy. Hospital Course Hospital Course: Patient was taken directly to the operating room at which time he underwent diagnostic laparoscopy. Attempt was made at laparoscopic appendectomy. However the patient was found to have findings of severe acute appendicitis with profound established peritonitis. The appendix was ruptured and virtually obliterated. He had pus throughout the abdomen mostly located in the pelvis and right lateral abdomen but there was also significant thickening of tissues throughout the abdomen and peritoneum with induration. Did require conversion to open midline laparotomy and ultimately required ileocecal resection due to the profound inflammation. Please see operative dictation for complete details. Have nasogastric tube placed intraoperatively. Patient was admitted postoperatively to the stepdown unit. Continued on Unasyn perioperatively for established peritonitis. Patient actually felt much better the morning after his surgery. Internal medicine was consulted for medical management. His Felix catheter remains in place due to the significance pelvic inflammation and concern for potential bladder injury. His nasogastric tube was placed to drainage bag and by postoperative day number 2 in the afternoon he had minimal if any output and was tolerating this well. The NG tube was therefore removed. Patient finally did undergo cystogram when there was radiology availability. This showed no bladder injury and his Felix catheter was removed. He was voiding without difficulty following this. On postoperative day #4 the patient had acute onset of feeling ill. He had some vomiting. He had not been having any flatus. He had increased pain on examination. Concern was made for possible need for repeat laparotomy. That afternoon he did feel better once his nasogastric tube was placed. His white blood cell count was normal at that time. CT scan revealed findings of moderate fluid in the abdomen consistent with ileus with some small bowel wall thickening. In the right lower abdomen there was some loculated fluid. There were no concerns on examination or imaging or laboratory findings at this time that would necessitate emergent reopening of his laparotomy. He slowly improved and his [facility] was discontinued. Then to pass flatus and once again on 04/30/2022 nasogastric tube was placed to drain bag. He tolerated this well and had some flatus and a bowel movement. He did undergo replacement of potassium. Diet was advanced slowly and he was given sips of clear liquids. He tolerated this without issue. He had every other stapl
--- NOTE | 2022-05-03 12:25 | PC.NURSE ---
ROUNDED ON PATIENT. PATIENT IS EAGER FOR DISCHARGE. ASKED IF HE HAD ANY CONCERNS BEFORE GOING HOME. ENCOURAGED HIM TO ADVANCE BACK TO A NORMAL DIET SLOWLY. DID GET DRINK FOR PATIENT. PATIENT STATES HE FEELS LIKE THE DOCTOR AND NURSES HAVE TOLD HIM WHAT HE NEEDED BEFORE GOING HOME. DID EDUCATE HE WOULD BE GOING HOME WITH AN ANTIBIOTIC AT DISCHARGE. ENCOURAGED TO KEEP FOLLOW UPS
--- NOTE | 2022-05-03 13:11 | HMH.PHAINT ---
DISCHARGE MEDICATION COUNSELING PROVIDED. DISCUSSED SHORT-COURSE AUGMENTIN. TAKE TWICE DAILY, MAY CAUSE UPSET STOMACH, DIARRHEA, NAUSEA, OR VOMITING, RECOMMEND TAKING WITH FOOD. PATIENT ENDORSED NO QUESTIONS AT THIS TIME.
--- NOTE | 2022-05-04 15:15 | CARE MANAGER ---
Contacted patient related to hospital discharge. He states he is doing very well and denies any questions or concerns. He is aware of his appointments. PEDRITO Mario
== END 2022-05-03 13:33 | disposition home or self-care (01) | DRG 330 ==
LOC: ER 19:06 → SDC 20:00 → 2ND 21:44
PROVIDERS: Internal Medicine Adolescent Medicine; Admitting Provider Surgery; Emergency Provider Emergency Medicine; PCP Internal Medicine; Visit Provider Surgery
PROC: 0DTJ4ZZ Resection of Appendix, Percutaneous Endoscopic Approach (ICD-10-PCS; CPT 44970; principal; 2022-04-24 19:30)
DX: K35.32 Acute appendicitis with perforation, localized peritonitis, and gangrene, without abscess (principal); K91.89 Other postprocedural complications and disorders of digestive system; K56.7 Ileus, unspecified; E11.9 Type 2 diabetes mellitus without complications; K38.3 Fistula of appendix; I10 Essential (primary) hypertension; E87.6 Hypokalemia; Z79.84 Long term (current) use of oral hypoglycemic drugs
CPT/HCPCS: 44960; 44160; 36415; 71045; 74176; 74177; 74430; 80048; 80053; 81001; 82150; 82962; 83690; 83735; 85007; 85025; 88304; 88307; 99285; C9803; J2405; J2710; Q9958; Q9967; U0003; U0005

== ENCOUNTER → 2022-05-17 08:47 | Outpatient (CLI) | payer OTHER, SELFPAY ==
--- NOTE | 2022-05-17 08:48 | CT_ITS ---
FINAL REPORT TECHNIQUE: After the administration of oral and intravenous contrast, axial images were obtained through the abdomen and pelvis by computed tomography. The study was performed with techniques to keep radiation dose as low as reasonably achievable, (ALARA). Individual dose reduction techniques using automated exposure control or adjustment of mA and/or kV according to the patient's size were employed. CLINICAL HISTORY: post appendicitis COMPARISON: 04/28/2022 FINDINGS: Abdomen: Is calcified granuloma at the right lung base. The liver parenchyma is homogeneous. The gallbladder is surgically absent. There are calcified granulomas within the spleen. The pancreas, adrenals and kidneys appear unremarkable. The aorta is normal in caliber. There is no free fluid or adenopathy. There is abnormal mucosal thickening in the terminal ileum. The previously noted fluid collection in the right lower quadrant has resolved. Stranding throughout the mesentery has nearly completely resolved. These findings are likely related to resolving post surgical changes. There are advanced changes of degenerative disc disease in the lower lumbar spine particularly at L5-S1. Pelvis: The appendix is surgically absent. The urinary bladder is unremarkable. There is no free fluid or adenopathy. There is a moderate amount of stool within the rectum. IMPRESSION: Fluid collection in right lower quadrant has resolved. No abscess. Abnormal mucosal thickening within the terminal ileum which is probably related to recent surgery. Mild rectal impaction. Reviewed, Interpreted and Dictated by Noel Gomez MD Transcribed by Zoila Richardson Authenticated and [facility]
== END ==
PROVIDERS: PCP Internal Medicine; Visit Provider Surgery
DX: K35.80 Unspecified acute appendicitis (principal)
CPT/HCPCS: 74177; Q9967

== ENCOUNTER → 2022-09-23 13:19 | Outpatient (CLI) | payer OTHER, SELFPAY ==
[2022-09-23 14:22] LABS: Basophils # 0.1 K/mm3 (0-0.2); Basophils % 1.5 % (0.1-2.0); Eosinophils # 0.2 K/mm3 (0.0-0.4); Eosinophils % 3.6 % (0.1-12.0); Hematocrit 49.9 % (42.0-52.0); Hemoglobin 16.3 g/dL (14.1-18.0); Lymphocytes # 1.3 K/mm3 (0.7-4.5); Lymphocytes % 27.5 % (10-50); Mean Corpuscular HGB Conc 32.6 g/dL (31.8-35.4); Mean Corpuscular Hemoglobin 32.3 pg (27.0-31.2); Mean Corpuscular Volume 98.8 fl (80-94); Monocytes # 0.3 K/mm3 (0.1-1.0); Monocytes % 7.3 % (1.7-9.3); Neutrophils # 2.8 K/mm3 (1.8-7.8); Neutrophils % 60.2 % (37.0-80.0); Platelet Count 310 K/mm3 (142-424); Red Blood Count 5.05 M/mm3 (4.60-6.20); Red Cell Distribution Width 12.6 % (11.5-17.5); White Blood Count 4.6 K/mm3 (4.8-10.8)
[2022-09-23 14:46] LABS: Hemoglobin A1C 8.1 % (4.0-6.0)
[2022-09-23 15:59] LABS: Alanine Aminotransferase 34 U/L (12-78); Albumin Level 4.9 g/dl (3.5-5.0); Albumin/Globulin Ratio 1.8 (1.1-1.8); Alkaline Phosphatase 145 U/L (38-126); Anion Gap 19.5 mEq/L (5-15); Aspartate Amino Transferase 36 U/L (17-59); Bilirubin,Total 0.6 mg/dl (0.2-1.3); Blood Urea Nitrogen 11 mg/dl (9-20); Calcium 9.9 mg/dl (8.4-10.2); Carbon Dioxide 27 mmol/L (22.0-30.0); Chloride 97 mmol/L (98-107); Chol/HDL Ratio 2.2 (1-3.5); Cholesterol 235 mg/dl (140-200); Estimated Glomerular Filt Rate 87 ml/min (>60); GFR (African American) 105 ML/MIN (>60); Globulin 2.8 g/dL (1.3-3.2); Glucose 111 mg/dl (74-100); HDL Cholesterol 106 mg/dl (40-60); Potassium 4.5 mmoL/L (3.5-5.1); Sodium 139 mmol/L (136-145); Total Protein,Serum 7.7 g/dl (6.3-8.2); Triglycerides 50 mg/dl (30-150); VLDL Cholesterol 10 mg/dL (0-40)
[2022-09-23 16:39] LABS: Creatinine,Urine Random 16 mg/dL (Not Estab.); Microalbumin < 6.000 mg/L (0-16.7)
[2022-09-23 17:51] LABS: Direct LDL Cholesterol 100.51 mg/dL (100-129)
== END ==
PROVIDERS: PCP Internal Medicine; Visit Provider Internal Medicine
DX: E11.9 Type 2 diabetes mellitus without complications (principal); I10 Essential (primary) hypertension; E78.5 Hyperlipidemia, unspecified; Z79.4 Long term (current) use of insulin
CPT/HCPCS: 80053; 80061; 82043; 82570; 83036; 85025

== ENCOUNTER 2023-01-29 19:27 | Observation (INO) | payer OTHER, SELFPAY ==
[2023-01-29 19:27] VITALS: PULSE 84; RESP 17; TEMP 36.8; O2SAT 98; BMI 31.1
--- NOTE | 2023-01-29 19:47 | ECG_ITS ---
APPROVED REPORT Exam: Resting ECG HR:91 bpm ECG Measurements Heart Rate 91 AXES VT 157 P 68 QRSd 103 QRS 37 QT 358 T 55 QTc 407 Conclusion SINUS RHYTHM INCOMPLETE RIGHT BUNDLE BRANCH BLOCK [90+ ms QRS DURATION, TERMINAL R IN V1/V2, 40+ ms S IN I/aVL/V4/V5/V6] BORDERLINE ECG UNCONFIRMED REPORT Electronically signed by : Stas Poole MD 01/31/2023 03:07:01
--- NOTE | 2023-01-29 19:47 | XR_ITS ---
PROCEDURE INFORMATION: Exam: XR Chest Exam date and time: 01/29/2023 7:45 PM Age: 57 years old Clinical indication: Pain; Chest pressure; Additional info: Chest pain TECHNIQUE: Imaging protocol: Radiologic exam of the chest. Views: 2 views. COMPARISON: CR XR CHEST PORTABLE 04/28/2022 9:50 AM FINDINGS: Lungs: Clear lungs. Pleural spaces: No pneumothorax. No sizable pleural effusion. Heart/Mediastinum: No cardiomegaly. Bones/joints: Unremarkable. IMPRESSION: Clear lungs.
[2023-01-29 19:59] LABS: Basophils # 0.1 K/mm3 (0-0.2); Basophils % 1.4 % (0.1-2.0); Eosinophils # 0.2 K/mm3 (0.0-0.4); Eosinophils % 2.3 % (0.1-12.0); Hemoglobin 15.5 g/dL (14.1-18.0); Lymphocytes # 1.4 K/mm3 (0.7-4.5); Lymphocytes % 19.7 % (10-50); Mean Corpuscular HGB Conc 32.9 g/dL (31.8-35.4); Mean Corpuscular Hemoglobin 32.7 pg (27.0-31.2); Mean Corpuscular Volume 99.5 fl (80-94); Mean Platelet Volume 7.1 fl (7.4-10.4); Monocytes # 0.5 K/mm3 (0.1-1.0); Monocytes % 7.9 % (1.7-9.3); Neutrophils # 4.7 K/mm3 (1.8-7.8); Neutrophils % 68.7 % (37.0-80.0); Platelet Count 239 K/mm3 (142-424); Red Blood Count 4.72 M/mm3 (4.60-6.20); Red Cell Distribution Width 12.4 % (11.5-17.5); White Blood Count 6.9 K/mm3 (4.8-10.8)
[2023-01-29 20:04] LABS: Alanine Aminotransferase 55 U/L (12-78); Albumin Level 4.6 g/dl (3.5-5.0); Alkaline Phosphatase 110 U/L (38-126); Anion Gap 11.1 mEq/L (5-15); Aspartate Amino Transferase 53 U/L (17-59); Bilirubin,Direct 0.3 mg/dl (0.0-0.4); Bilirubin,Indirect 0.5 mg/dL (0.0-0.9); Bilirubin,Total 0.8 mg/dl (0.2-1.3); Bilirubin,Unconjugated 0.5 mg/dL (0.0-1.1); Blood Urea Nitrogen 11 mg/dl (9-20); Calcium 8.5 mg/dl (8.4-10.2); Carbon Dioxide 27 mmol/L (22.0-30.0); Chloride 95 mmol/L (98-107); Creatinine Clearance Estimated 118 mL/min (50-200); Estimated Glomerular Filt Rate 87 ml/min (>60); GFR (African American) 105 ML/MIN (>60); Glucose 184 mg/dl (74-100); Potassium 4.1 mmoL/L (3.5-5.1); Sodium 129 mmol/L (136-145); Total Protein,Serum 7.2 g/dl (6.3-8.2)
--- NOTE | 2023-01-29 20:07 | PC.NURSE ---
Dr. Alonso at
--- NOTE | 2023-01-29 20:12 | ED_ITS ---
Discharge Plan Disposition Chief Complaint: Chest Pain Prescriptions Prescriptions: No Action lisinopril 10 MG tablet 10 mg PO DAILY insulin aspart U-100 100 UNIT/ML insulin pen 0 units SQ DIRECTED Label Comments: INJECT 8 UNITS SUBCUTANEOUSLY IN THE MORNING, THEN INJECT 10 UNITS SUBCUTANEOUSLY AT NOON, AND THEN INJECT 34 UNITS SUBCUTANEOUSLY AT NIGHT insulin glargine 100 UNIT/ML insulin pen 60 units SQ DAILY Discharge ED Provider: Gavin (ED),Reji Schulte Chest Pain HPI General Chief Complaint: Chest Pain Stated Complaint: CP Time Seen by Provider: 01/29/23 20:05 Mode of Arrival: Ambulatory Source of Information: Patient, Spouse and Medical Record Limitations: No Limitations Description of Symptoms (Recalled from ER Triage Doc. by RN): pt to ED with left anterior chest pain x 1 week that radiates to his left shoulder blade. pt reports an episode last night of arm numbness and pain and sudden SOB that resolved. pt reports his pain an aching sensation and a 5 at this time. pt reports being a daily drinker of 8 beers a day. History of Present Illness HPI narrative: pt with ongoing chest pain over the last week with hx of diabetes - pt reports no known ht dis - pt with episode this am about 0230 of dec use of lt upper ext and sob which resolved MD complaint: chest pain indicative of cardiac Onset (ago): day(s) Duration: intermittent Activity at onset: during rest Pain location: substernal Severity: moderate Quality: sharp Pain radiation: back Risk Factors for CAD: Family Hx of CAD and Diabetes Treatments prior to or on arrival for Cardiac Chest Pain: none SLADE Score for Non-Stemi Age of Patient: 50-59 years old Heart Rate: 90-109 bpm Systolic Blood Pressure: 140-159 mmHg Serum Creatinine: 0.80-1.19 mg/dl CHF [place] Class: I-No CHF Other Risk Factors: None Non-Stemi Risk Score: 87 Risk Stratification: 1-108 = Low Risk Related Data Home Medications Medication Instructions Recorded Confirmed insulin aspart U-100 100 unit/mL 0 units SQ DIRECTED Diabetes 04/24/22 10/18/22 (3 mL) subcutaneous pen insulin glargine 100 unit/mL (3 60 units SQ DAILY Diabetes 04/24/22 10/18/22 mL) subcutaneous pen lisinopril 10 mg tablet 10 mg PO DAILY Hypertension 04/24/22 10/18/22 Allergies Allergy/AdvReac Type Severity Reaction Status Date / Time ciprofloxacin Allergy Unknown Unknown Verified 10/18/22 09:01 allergy reaction [facility] Disclaimer: The information contained in this section may have been updated after the patient was seen, as this information can be updated by other users. Surgical History (Updated 10/18/22 @ 09:03 by GUCCI Turcios) History of appendectomy Social History Smoking Status: Never smoker alcohol intake: current substance use type: denies use current occupational status: employed Travel in the last 8 weeks: None ROS Obtained: Yes All systems reviewed & no additional complaints except as documented Physical Exam General General appearance: alert Head Head exam: normocephalic Eye Eye exam: Present PERRL and EOMI ENT ENT exam: Present mucous membranes moist Neck Neck exam: Present trachea midline Respiratory Respiratory exam: Absent respiratory distress Cardiovascular Cardiovascular exam: Present regular rate; Absent systolic murmur, rubs or gal lop Abdominal Exam Abdominal exam: Present soft Extremities Exam Extremities exam: Present full ROM Neurological Exam Neurological exam: Present alert, oriented X3 and CN II-XII intact; Absent motor sensory deficit Psychiatric Psychiatric exam: Present normal affect Skin Skin exam: Absent rash Medical Decision Making Medical Records Medical records reviewed: Yes I reviewed the patient's medical records. Jaret Inquiry Pt receiving controlled substance: No Vital Signs: 01/29/23 19:27 01/29/23 21:12 Temperature 98.3 F Temperature Source Oral Pulse Rate 78 Pulse Rate [Left Radial] 84 Respiratory Rate 17 12 Blood Pressure 150/86 H Blood Pressure Source [Right Arm] Automatic Cuff Blood Pressure Position [Right Arm] Sitting 02 Sat by Pulse Oximetry 98 96 Oxygen Delivery Method Room Air Lab Data Lab results reviewed: Yes I reviewed the patient's lab results. Lab Results 01/29/23 19:32: WBC 6.9, RBC 4.72, Hgb 15.5, Hct 47.0, MCV 99.5 H, MCH 32.7 H, MCHC 32.9, RDW 12.4, Plt Count 239, MPV 7.1 L, Neut % (Auto) 68.7, Lymph % (Auto) 19.7, [place] % (Auto) 7.9, Eos % (Auto) 2.3, Baso % (Auto) 1.4, Neut # (Auto) 4.7, Lymph # (Auto) 1.4, [place] # (Auto) 0.5, Eos # (Auto) 0.2, Baso # (Auto) 0.1 01/29/23 19:32: Sodium 129 L, Potassium 4.1, Chloride 95 L, Carbon Dioxide 27, Anion Gap 11.1, BUN 11, Creatinine 0.90, Estimated Creat Clear 118, Estimated GFR 87, Est GFR ( Amer) 105, Glucose 184 H, Calcium 8.5, Troponin I < 0.01 01/29/23 19:32: Total Bilirubin 0.8, Direct Bilirubin 0.3, Conjugated Bilirubin 0.0, Indirect Bilirubin 0.5, Unconjugated Bilirubin 0.5, AST 53, ALT 55, Alkaline Phosphatase 110, Total Protein 7.2, Albumin 4.6 Result diagrams: 01/29/23 19:32 01/29/23 19:32 Orders (Tests/Meds): ED MEDICATIONS Generic Name Dose Route Start Last Admin Trade Name Freq PRN Reason Stop Dose Admin Acetaminophen 650 mg 01/29/23 21:03 Acetaminophen 325mg Tab PO 02/28/23 21:02 Q4HP PRN Fever or Mild Pain Aspirin 81 mg 01/30/23 09:00 Aspirin Ec 81mg Tablet PO 03/01/23 08:59 DAILY [facility] Enoxaparin Sodium 40 mg 01/30/23 09:00 Enoxaparin 40mg/0.4ml Syringe SQ 03/01/23 08:59 DAILY [facility] Insulin Human Lispro 0 unit 01/30/23 06:00 Humalog 100 Units/Ml 3ml Vial ([facility]) SQ 03/01/23 05:59 ACHS [facility] Protocol Sodium Chloride 10 ml 01/29/23 21:00 Sodium Chloride 0.9% 10ml Flush Syringe IV 02/28/23 20:59 NEEDED PRN Maintain IV Site Discontinued Medications Generic Name Dose Route Start Last Admin Trade Name Freq PRN Reason Stop Dose Admin Aspirin 324 mg 01/29/23 20:17 01/29/23 20:20 Aspirin 81mg Chewable Tablet PO 01/29/23 20:18 324 mg ONCE ONE Administration Nitroglycerin 0.4 mg 01/29/23 20:17 01/29/23 20:22 Nitroglycerin 0.4mg Sl Tablet SL 01/29/23 20:18 0.4 mg ONCE ONE Administration ORDERS Category Date Time Status Cardiology Consult [Consult to Cardiology] [CONS] Cons 01/29/23 21:03 Active Routine XR chest 2V Stat Exams 01/29/23 19:47 Completed Basic Metabolic Panel [facility] Lab 01/30/23 06:00 Ordered Basic Metabolic Panel Stat Lab 01/29/23 19:32 Completed Brain Natriuretic Peptide Stat Lab 01/29/23 19:32 Received Complete Blood Count Auto Diff [facility] Lab 01/30/23 06:00 Ordered Complete Blood Count Auto Diff Stat Lab 01/29/23 19:32 Completed Free T4 (Free Thyroxine) [facility] Lab 01/30/23 06:00 Ordered Hemoglobin A1C Stat Lab 01/29/23 19:32 Received Lipid Panel [facility] Lab 01/30/23 06:00 Ordered Liver Panel Stat Lab 01/29/23 19:32 Completed Magnesium [facility] Lab 01/30/23 06:00 Ordered Rapid PCR Covid and Flu A/B Stat Lab 01/29/23 20:55 Received Thyroid Stimulating Hormone [facility] Lab 01/30/23 06:00 Ordered Troponin I Q3H Lab 01/29/23 23:00 Ordered Troponin I Q3H Lab 01/30/23 02:00 Ordered Troponin I Stat Lab 01/29/23 19:32 Completed UA [Urinalysis and Microscopic] Stat Lab 01/29/23 21:14 Ordered Radiology Data #1: Image(s): Chest Image Reviewed: Yes I have reviewed radiologist's interpretation Preliminary Findings: Normal/NAD ECG Data Tracing #1: Normal Sinus Rhythm: Yes Ischemic changes: non-specific ST-T wave changes Physician Consults Physician Consulted: [facility] admit Reevaluation(s) Reevaluation #1: improved after chest pain SLADE Score for Non-Stemi Age of Patient: 50-59 years old Heart Rate: 90-109 bpm Systolic Blood Pressure: 140-159 mmHg Serum Creatinine: 0.80-1.19 mg/dl CHF [place] Class: I-No CHF Other Risk Factors: None Non-Stemi Risk Score: 87 Risk Stratification: 1-108 = Low Risk Medical Decision Narrative: pt with chest pain which sounds like angina with sig risk factors and positive relief with ntg and will be admitted as chest pain has increased during the week and is at rest also
[2023-01-29] MEDS: ASPIRIN 81MG CHEWABLE TABLET 324 MG PO (20:20)
[2023-01-29] MEDS: NITROGLYCERIN 0.4MG SL TABLET 0.400000000000000022 MG SL (20:22)
[2023-01-29 20:33] LABS: Troponin I < 0.01 ng/ml (0.00-0.034)
--- NOTE | 2023-01-29 20:55 | PC.NURSE ---
rosa on phone with hospitalist @ this time
--- NOTE | 2023-01-29 21:00 | PC.NURSE ---
called house for admission
[2023-01-29 21:04] LABS: Coronavirus 19, PCR Not Detected (NotDetected); Influenza A, PCR Not Detected (NotDetected); Influenza B, PCR Not Detected (NotDetected)
--- NOTE | 2023-01-29 21:11 | PC.NURSE ---
Pt assigned to room 209 at this time
[2023-01-29 21:12] VITALS: BP 150/86; PULSE 78; RESP 12; O2SAT 96
--- NOTE | 2023-01-29 21:16 | PC.NURSE ---
urine collected and sent to lab
[2023-01-29 21:18] LABS: Microscopic, Urine URINE MICROSCOPIC (MICROSCOPIC)
[2023-01-29] MEDS: NITROGLYCERIN 1 GM OINTMENT TD (21:23)
[2023-01-29 21:25] LABS: NT Pro Brain Natriuretic Pep. 35.6 pg/mL (0-125)
[2023-01-29 21:28] LABS: Appearance,Urine CLEAR (Clear); Bilirubin,Urine Negative (Negative); Blood, Urine Negative (Negative); Color,Urine STRAW (Yellow); Glucose,Urine (UA) 2+ (Negative); Ketones,Urine Negative (Negative); Leukocyte Esterase,Urine Negative (Negative); Nitrate,Urine Negative (Negative); PH,Urine 5.5 (5.0-8.5); Protein,Urine Negative (Negative); Specific Gravity, Urine <= 1.005 (1.005-1.030); Urobilinogen,Urine 0.2 EU/dl (0.2)
[2023-01-29 21:31] LABS: Hemoglobin A1C 6.3 % (4.0-6.0)
--- NOTE | 2023-01-29 22:01 | PC.NURSE ---
PT ARRIVED TO FLOOR AT THIS TIME
[2023-01-29 22:05] VITALS: BP 147/89; PULSE 77; RESP 18; TEMP 36.9; O2SAT 95; BMI 30.6
[2023-01-29 22:06] VITALS: BP 145/78; PULSE 71; PULSE 74; RESP 18; TEMP 36.9; O2SAT 95
[2023-01-29 22:25] LABS: POC Glucose,Bedside 153 (70-110)
[2023-01-29 22:56] VITALS: O2SAT 97
--- NOTE | 2023-01-29 22:58 | PC.NURSE ---
Pt states he takes a cholesterol pill but doesn't remember the name or dose. States he takes it every Monday and Monday. He had taken Sundays dose.
--- NOTE | 2023-01-29 23:49 | P.HP_ITS ---
History of Present Illness *Admission Date: 01/29/23 *Reason for visit:: chest pain *History of present illness: this is a 57-year-old male with past medical history of hypertension, T2DM who presents emergency department today with complaints of chest pain. He reports intermittent chest pain over the course of the last week that was midsternal, aching in nature. He reports severe episode of chest pain this morning. He was told by family members he needed to have this checked out but refused. He became more concerned about the pain so decided to seek treatment emergency department. He denies any radiation to the pain but does states that he has had some episodes of dizziness. He reports the pain has been at rest but does not worsen with activity He denies any prior cardiac work-up except for stress test many years ago He denies tobacco use but does report continued alcohol use. He reports approximately 5-8 beers a day. Denies any prior history of withdrawal symptoms. Emergency Department work-up mostly unremarkable. given patient's complaint and other comorbidities, would benefit from cardiac work-up. He will be admitted to hospital service for further evaluation management [facility] Disclaimer: The information contained in this section may have been updated after the patient was seen, as this information can be updated by other users. Surgical History (Updated 10/18/22 @ 09:03 by GUCCI Turcios) History of appendectomy Social History (Updated 01/29/23 @ 22:39 by Jake Felton RN) Smoking Status: Never smoker alcohol intake: current substance use type: denies use current occupational status: employed Travel in the last 8 weeks: None Review of Systems Review of Systems Review of systems:: pertinent systems reviewed and negative unless documented below *Cardiovascular Cardiovascular: Reports chest pain at rest Meds Home Medications and Allergies Home Medications Medication Instructions Recorded Confirmed Type insulin aspart U-100 100 unit/mL 0 units SQ DIRECTED Diabetes 04/24/22 01/30/23 History (3 mL) subcutaneous pen insulin glargine 100 unit/mL (3 70 units SQ DAILY Diabetes 04/24/22 01/30/23 History mL) subcutaneous pen lisinopril 10 mg tablet 10 mg PO DAILY Hypertension 04/24/22 01/30/23 History aspirin 81 mg chewable tablet 81 mg PO DAILY Heart health 01/30/23 01/30/23 History atorvastatin 40 mg tablet 40 mg PO HS 30 days #30 tabs 01/30/23 Rx levothyroxine 25 mcg tablet 25 mcg PO DAILYDM 30 days #30 tabs 01/30/23 Rx (Synthroid) omega 1-apx-hud-fish oil 900 1 cap PO DAILY Supplement 01/30/23 01/30/23 History mg-1,400 mg capsule,delayed release pitavastatin magnesium 2 mg tablet 2 mg PO DIRECTED Cholesterol 01/30/23 01/30/23 History (Zypitamag) ticagrelor 90 mg tablet (Brilinta) 90 mg PO BID 30 days #60 tabs 01/30/23 Rx New Prescriptions to Start Prescriptions: atorvastatin Victorino Olguin levothyroxine [Synthroid] Victorino Olguin ticagrelor [Brilinta] Victorino Olguin Allergies Allergy/AdvReac Type Severity Reaction Status Date / Time ciprofloxacin Allergy Unknown Unknown Verified 10/18/22 09:01 allergy reaction Exam Data for Last 24 hours Vital signs and Labs for Last 24 Hours: Temp Pulse Resp BP Pulse Ox 98.4 F 74 18 145/78 H 97 01/29/23 22:06 01/29/23 22:06 01/29/23 22:06 01/29/23 22:06 01/29/23 22:56 Laboratory Results - last 24 hr 01/29/23 19:32: WBC 6.9, RBC 4.72, Hgb 15.5, Hct 47.0, MCV 99.5 H, MCH 32.7 H, MCHC 32.9, RDW 12.4, Plt Count 239, MPV 7.1 L, Neut % (Auto) 68.7, Lymph % (Auto) 19.7, [place] % (Auto) 7.9, Eos % (Auto) 2.3, Baso % (Auto) 1.4, Neut # (Auto) 4.7, Lymph # (Auto) 1.4, [place] # (Auto) 0.5, Eos # (Auto) 0.2, Baso # (Auto) 0.1 01/29/23 19:32: Sodium 129 L, Potassium 4.1, Chloride 95 L, Carbon Dioxide 27, Anion Gap 11.1, BUN 11, Creatinine 0.90, Estimated Creat Clear 118, Estimated GFR 87, Est GFR ( Amer) 105, Glucose 184 H, Calcium 8.5, Troponin I < 0.01 01/29/23 19:32: Total Bilirubin 0.8, Direct Bilirubin 0.3, Conjugated Bilirubin 0.0, Indirect Bilirubin 0.5, Unconjugated Bilirubin 0.5, AST 53, ALT 55, Alkaline Phosphatase 110, Total Protein 7.2, Albumin 4.6 01/29/23 19:32: Hemoglobin A1c 6.3 H 01/29/23 19:32: NT-Pro-B Natriuret Pep 35.6 01/29/23 20:55: SARS-CoV-2 (PCR) Not detected, Influenza A Untype (PCR) Not detected, Influenza Type B (PCR) Not detected 01/29/23 21:10: Urine Color Straw, Urine Appearance Clear, Urine pH 5.5, Ur Specific [place] <= 1.005, Urine Protein Negative, Urine Glucose (UA) 2+, Urine Ketones Negative, Urine Blood Negative, Urine Nitrate Negative, Urine Bilirubin Negative, Urine Urobilinogen 0.2, Ur Leukocyte Esterase Negative, Urine RBC None, Urine WBC None, Ur Squamous Epith Cells None, Urine Bacteria None 01/29/23 22:17: POC Glucose 153 H I & O for Last 24 hours: Intake & Output 01/26/23 01/27/23 01/28/23 01/29/23 23:59 23:59 23:59 23:59 Weight 91.739 kg Constitutional Constitutional: no acute distress *Routine HEENT Exam Head: Present normocephalic Eye: Present EOMI and PERRL ENT: Present mucous membranes moist *Routine Neck Exam Neck: Present supple; Absent lymphadenopathy *Routine Respiratory Exam Respiratory: Present CTA bilaterally *Routine Cardiovascular Exam Cardiovascular: Present RRR *Routine Abdominal Exam Abdominal: Present soft and normoactive bowel sounds; Absent tenderness *Routine Rectal Exam Rectal:: deferred *Routine Genitalia Exam Genitalia:: deferred *Routine Extremities Exam Extremities: Absent cyanosis, clubbing or edema *Routine Skin Exam Skin: Present warm; Absent rash *Routine Neurological Exam Neurological: Present alert and oriented X3 Assessment and Plan *Assessment and plan (1) Chest pain: Status: Acute Category: Medical Code(s): R07.9 - Chest pain, unspecified (2) Insulin-requiring or dependent type II diabetes mellitus: Status: Chronic Category: Medical Code(s): E11.9 - Type 2 diabetes mellitus without complications; Z79.4 - intermediate (current) use of insulin (3) Essential hypertension: Status: Chronic Category: Medical Code(s): I10 - Essential (primary) hypertension (4) Alcohol abuse: Status: Acute Category: Social Hx Code(s): F10.10 - Alcohol abuse, uncomplicated Plan admit to medicine chest pain heart score 3-4 will consult cardiology in a.m. EKG without ischemia, troponins negative. Continue to trend troponins continue daily aspirin A1c and lipid panel in a.m. cardiac telemetry essential hypertension continue home lisinopril T2DM continue long-acting and sliding scale insulin alcohol abuse denies any prior history of withdrawal Serax as needed Rounded on patient after nurse practitioner. Personally examined and interviewed patient. Agree with exam findings and care plan as documented. Planning for lefet heart cath today. Discussed case wiith Cards. pain better after nitro. Further management pending findings.
[2023-01-30] VITALS (16 sets, daily range): BP systolic 122–146; BP diastolic 69–89; PULSE 60–115; RESP 16–19; TEMP 36.7–37.4; O2SAT 94–97; BMI 30.6
[2023-01-30 01:08] LABS: Troponin I < 0.01 ng/ml (0.00-0.034)
[2023-01-30 03:22] LABS: Troponin I < 0.01 ng/ml (0.00-0.034)
--- NOTE | 2023-01-30 04:48 | PC.NURSE ---
No chest pain reported this morning. No changes noted.
[2023-01-30 06:19] LABS: POC Glucose,Bedside 62 (70-110)
[2023-01-30] MEDS: DEXTROSE 50% 50ML SYRINGE (CRASH CART) 50 ML IVP (06:37)
--- NOTE | 2023-01-30 06:51 | PC.NURSE ---
Right leg also has some scabs noted.
[2023-01-30 07:24] LABS: POC Glucose,Bedside 242 (70-110)
[2023-01-30 07:30] LABS: Basophils # 0.1 K/mm3 (0-0.2); Basophils % 0.7 % (0.1-2.0); Eosinophils # 0.1 K/mm3 (0.0-0.4); Eosinophils % 1.5 % (0.1-12.0); Hematocrit 46.2 % (42.0-52.0); Hemoglobin 15.3 g/dL (14.1-18.0); Lymphocytes # 1.1 K/mm3 (0.7-4.5); Lymphocytes % 17.6 % (10-50); Mean Corpuscular HGB Conc 33.2 g/dL (31.8-35.4); Mean Corpuscular Hemoglobin 32.8 pg (27.0-31.2); Mean Corpuscular Volume 98.8 fl (80-94); Mean Platelet Volume 7.7 fl (7.4-10.4); Monocytes # 0.5 K/mm3 (0.1-1.0); Monocytes % 8.3 % (1.7-9.3); Neutrophils # 4.5 K/mm3 (1.8-7.8); Neutrophils % 71.9 % (37.0-80.0); Platelet Count 267 K/mm3 (142-424); Red Blood Count 4.68 M/mm3 (4.60-6.20); Red Cell Distribution Width 12.4 % (11.5-17.5); White Blood Count 6.2 K/mm3 (4.8-10.8)
[2023-01-30 07:33] LABS: Anion Gap 11.8 mEq/L (5-15); Blood Urea Nitrogen 8 mg/dl (9-20); Calcium 8.6 mg/dl (8.4-10.2); Carbon Dioxide 25 mmol/L (22.0-30.0); Chloride 105 mmol/L (98-107); Chol/HDL Ratio 2.2 (1-3.5); Cholesterol 184 mg/dl (140-200); Creatinine Clearance Estimated 131 mL/min (50-200); Estimated Glomerular Filt Rate 99 ml/min (>60); GFR (African American) 120 ML/MIN (>60); HDL Cholesterol 82 mg/dl (40-60); Magnesium 2.5 mg/dl (1.6-2.3); Potassium 3.8 mmoL/L (3.5-5.1); Sodium 138 mmol/L (136-145); Triglycerides 76 mg/dl (30-150); VLDL Cholesterol 15 mg/dL (0-40)
[2023-01-30 07:44] LABS: Direct LDL Cholesterol 71.51 mg/dL (100-129)
[2023-01-30 07:50] LABS: Glucose 46 mg/dl (74-100)
--- NOTE | 2023-01-30 07:51 | PC.NURSE ---
lab called with a critical BG of 46. pt has had an amp of D5 since then. pts bgfs at [phone]
[2023-01-30 07:57] LABS: Free T4 (Free Thyroxine) 0.82 ng/dl (0.78-2.19)
--- NOTE | 2023-01-30 07:57 | HMH.PHAINT1 ---
Pharmacy Intervention Comments: Reconciled patient's home medication list via pharmacy fill history and patient interview.
[2023-01-30 08:02] LABS: Thyroid Stimulating Hormone 7.11 uIU/mL (0.465-4.68)
[2023-01-30] MEDS: ENOXAPARIN 40MG/0.4ML SYRINGE 40 MG SQ (09:11)
[2023-01-30] MEDS: ASPIRIN EC 81MG TABLET 81 MG PO (09:11)
--- NOTE | 2023-01-30 09:17 | IR_ITS ---
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 COMPLICATIONS NONE Estimated Blood Loss: LESS THAN 10 ML TECHNIQUE One percent lidocaine used to anesthetize the right anterior aspect of the wrist. The right radial artery was accessed via the Seldinger technique. A 6 Japanese sheath was placed in the right radial artery. 150 mg magnesium sulfate, 800 mcg of nitroglycerin, 1mg Lidocaine and 5000 U Heparin were given through the arterial sheath. The papa catheter was also used to perform selective coronary angiogram. At the end the diagnostic angiogram therapeutic heparin was administered giving a therapeutic ACT and the guide catheter was placed in left main artery followed by Choice PT extra-support wire being placed on the circumflex artery. A guide liner was advanced and a 3.5 x 18 mm resolute [place] stent was deployed at 14 roberta reducing the critical stenosis to 10 to 20%. A 3.5 x 18 mm noncompliant balloon was then deployed at 18 roberta at the stenotic area and used to post dilate further reducing the stenosis. CAITY-3 flow was present before and after the procedure. At the end of the procedure the apparatus was removed the sheath was removed good hemostasis was achieved using TR banding patient was transferred to the postop putting in stable condition ANGIOGRAPHIC RESULTS The left main artery Normal The left anterior descending artery Has proximal mid vessel luminal irregularities nothing greater than 10% The circumflex artery Large dominant with proximal concentric 90% stenosis The right coronary artery Is nondominant yet still large 3.5 caliber vessel and has proximal 40 to 50% stenosis The PHELPS ventriculogram reveals Not performed The left ventricular end-diastolic pressure Not measured IMPRESSION Severe proximal circumflex artery stenosis as described above Successful stenting the proximal dominant circumflex artery severe to critical disease reduced to 0% with 1 drug-eluting stent Persistent moderate stenosis in the proximal nondominant large right coronary PLAN 1. Brilinta 90 twice daily plus aspirin 81 mg daily 2. LDL less than 55 to be achieved with high intensity statin 3. Avoidance of tobacco products 4. Risk factor modification 5. Cardiac rehabilitation 6. In 6 weeks recommend Lexiscan Myoview to determine if the right coronary artery lesion is ischemia producing Electronically signed by : Kasi Medina MD 01/30/2023 13:44:58
--- NOTE | 2023-01-30 10:02 | EXP.CARD.CON ---
History of Present Illness History of Present Illness Consult date: 01/30/23 Requesting physician: Shon Medina Consult reason: chest pain Chief complaint: unstable angina History of present illness: 57-year-old white male with significant past medical history for hypertension, diabetes mellitus type 2 and daily etoh consumption (5-8 beers) presented to emergency department with chest pain. Patient reports a week history of intermittent, midsternal and achy chest pain, associated with dizziness, exacerbated with activity and present at rest. Patient reports had an episode yesterday morning that was more intense than usual which worried his family members who advised him to go to the emergency department. Upon presentation to emergency department initial troponin was negative and EKG was sinus rhythm with a rate of 91 with no ischemic changes noted. Patient was admitted for further cardiac evaluation. Serial troponins remain negative. [facility] Disclaimer: The information contained in this section may have been updated after the patient was seen, as this information can be updated by other users. Surgical History (Updated 10/18/22 @ 09:03 by GUCCI Turcios) History of appendectomy Social History (Updated 01/29/23 @ 22:39 by Jake Felton RN) Smoking Status: Never smoker alcohol intake: current substance use type: denies use current occupational status: employed Travel in the last 8 weeks: None Review of Systems Review of Systems Review of systems:: pertinent systems reviewed and negative unless documented below Constitutional Constitutional: Reports system reviewed and no additional complaints, except as documented *Cardiovascular Cardiovascular: Reports system reviewed and no additional complaints, except as documented *Respiratory Respiratory: Reports system reviewed and no additional complaints, except as documented *Gastrointestinal Gastrointestinal: Reports system reviewed and no additional complaints, except as documented *Neurologic Neurologic: Reports system reviewed and no additional complaints, except as documented and Denies confusion Psychiatric Psychiatric: Reports system reviewed and no additional complaints, except as documented and Denies confusion Exam Data for Last 24 hours Vital signs and Labs for Last 24 Hours: Temp Pulse Resp BP Pulse Ox 98.0 F 80 19 132/77 97 01/30/23 08:00 01/30/23 08:00 01/30/23 08:00 01/30/23 08:00 01/30/23 08:00 Laboratory Results - last 24 hr 01/29/23 19:32: WBC 6.9, RBC 4.72, Hgb 15.5, Hct 47.0, MCV 99.5 H, MCH 32.7 H, MCHC 32.9, RDW 12.4, Plt Count 239, MPV 7.1 L, Neut % (Auto) 68.7, Lymph % (Auto) 19.7, [place] % (Auto) 7.9, Eos % (Auto) 2.3, Baso % (Auto) 1.4, Neut # (Auto) 4.7, Lymph # (Auto) 1.4, [place] # (Auto) 0.5, Eos # (Auto) 0.2, Baso # (Auto) 0.1 01/29/23 19:32: Sodium 129 L, Potassium 4.1, Chloride 95 L, Carbon Dioxide 27, Anion Gap 11.1, BUN 11, Creatinine 0.90, Estimated Creat Clear 118, Estimated GFR 87, Est GFR ( Amer) 105, Glucose 184 H, Calcium 8.5, Troponin I < 0.01 01/29/23 19:32: Total Bilirubin 0.8, Direct Bilirubin 0.3, Conjugated Bilirubin 0.0, Indirect Bilirubin 0.5, Unconjugated Bilirubin 0.5, AST 53, ALT 55, Alkaline Phosphatase 110, Total Protein 7.2, Albumin 4.6 01/29/23 19:32: Hemoglobin A1c 6.3 H 01/29/23 19:32: NT-Pro-B Natriuret Pep 35.6 01/29/23 20:55: SARS-CoV-2 (PCR) Not detected, Influenza A Untype (PCR) Not detected, Influenza Type B (PCR) Not detected 01/29/23 21:10: Urine Color Straw, Urine Appearance Clear, Urine pH 5.5, Ur Specific [place] <= 1.005, Urine Protein Negative, Urine Glucose (UA) 2+, Urine Ketones Negative, Urine Blood Negative, Urine Nitrate Negative, Urine Bilirubin Negative, Urine Urobilinogen 0.2, Ur Leukocyte Esterase Negative, Urine RBC None, Urine WBC None, Ur Squamous Epith Cells None, Urine Bacteria None 01/29/23 22:17: POC Glucose 153 H 01/30/23 00:20: Troponin I < 0.01 01/30/23 02:25: Troponin I < 0.01 01/30/23 06:08: POC Glucose 62 L 01/30/23 06:15: WBC 6.2, RBC 4.68, Hgb 15.3, Hct 46.2, MCV 98.8 H, MCH 32.8 H, MCHC 33.2, RDW 12.4, Plt Count 267, MPV 7.7, Neut % (Auto) 71.9, Lymph % (Auto) 17.6, [place] % (Auto) 8.3, Eos % (Auto) 1.5, Baso % (Auto) 0.7, Neut # (Auto) 4.5, Lymph # (Auto) 1.1, [place] # (Auto) 0.5, Eos # (Auto) 0.1, Baso # (Auto) 0.1 01/30/23 06:15: Sodium 138, Potassium 3.8, Chloride 105, Carbon Dioxide 25, Anion Gap 11.8, BUN 8 L D, Creatinine 0.80, Estimated Creat Clear 131, Estimated GFR 99, Est GFR ( Amer) 120, Glucose 46 L D, Calcium 8.6, Magnesium 2.5 H, Triglycerides 76, Cholesterol 184, LDL Cholesterol Direct 71.51 L, VLDL Cholesterol 15, HDL Cholesterol 82 H, Cholesterol/HDL Ratio 2.2, TSH 7.11 H 01/30/23 06:15: Free T4 0.82 01/30/23 07:17: POC Glucose 242 H I & O for Last 24 hours: Intake & Output 01/27/23 01/28/23 01/29/23 01/30/23 23:59 23:59 23:59 23:59 Output Total 0 / 0 Balance 0 / 0 Weight 202 lb 4 oz 202 lb 3.998 oz Constitutional Constitutional: no acute distress *Routine Respiratory Exam Respiratory: Present CTA bilaterally and symmetric chest movement *Routine Cardiovascular Exam Cardiovascular: Present RRR, Normal S1 and Normal S2 *Routine Abdominal Exam Abdominal: Present soft and normoactive bowel sounds; Absent tenderness *Routine Extremities Exam Extremities: Present full ROM and normal capillary refill; Absent edema *Routine Skin Exam Skin: Present intact, dry and warm Detailed Neck Exam: Thyroids Thyroid: Absent bruit Meds Home Medications and Allergies Home Medications Medication Instructions Recorded Confirmed Type insulin aspart U-100 100 unit/mL 0 units SQ DIRECTED Diabetes 04/24/22 01/30/23 History (3 mL) subcutaneous pen insulin glargine 100 unit/mL (3 70 units SQ DAILY Diabetes 04/24/22 01/30/23 History mL) subcutaneous pen lisinopril 10 mg tablet 10 mg PO DAILY Hypertension 04/24/22 01/30/23 History aspirin 81 mg chewable tablet 81 mg PO DAILY Heart health 01/30/23 01/30/23 History omega 7-xyd-sob-fish oil 900 1 cap PO DAILY Supplement 01/30/23 01/30/23 History mg-1,400 mg capsule,delayed release pitavastatin magnesium 2 mg tablet 2 mg PO DIRECTED Cholesterol 01/30/23 01/30/23 History (Zypitamag) New Prescriptions to Start Prescriptions: Allergies Allergy/AdvReac Type Severity Reaction Status Date / Time ciprofloxacin Allergy Unknown Unknown Verified 10/18/22 09:01 allergy reaction Assessment and Plan *Assessment and plan (1) Alcohol abuse: Status: Acute Category: Social Hx Code(s): F10.10 - Alcohol abuse, uncomplicated (2) Unstable angina: Status: Acute Category: Medical Code(s): I20.0 - Unstable angina (3) Essential hypertension: Status: Chronic Category: Medical Code(s): I10 - Essential (primary) hypertension (4) Hyperlipidemia: Status: Acute Category: Medical Code(s): E78.5 - Hyperlipidemia, unspecified (5) Diabetes mellitus: Status: Acute Category: Medical Code(s): E11.9 - Type 2 diabetes mellitus without complications Plan Unstable angina CCS 3 -Serial trops negative -EKG negative for acute ischemic changes -Given hx on ongoing, progressive and worsening symptoms with rest and activity patient was given option of LHC today vs. outpatient workup. Patient and would like to proceed with LHC today. Discussed risks vs. benefits, they are agreeable. HTN -Continue lisinopril 10mg po daily -consider addition of BB after C HLD -LDL is 71.5. Continue statin DM -Hemoglobin a1c 6.3 -Defer to primary service. Consider addition of ozempic. Daily Etoh consumption -Denies hx of withdrawal or seizures -defer to primary care for further management CV summary 01/30/2023: We will proceed with left heart catheter today for further evaluation of unstable angina. Further orders pending status post left heart
[2023-01-30 12:08] LABS: POC Glucose,Bedside 189 (70-110)
[2023-01-30] MEDS: LEVOTHYROXINE 25MCG (0.025MG) TAB 25 MCG PO (12:24)
[2023-01-30] MEDS: HEPARIN 1,000 UNITS/ML 10ML VIAL (CATH LAB) 10000 UNIT IV (13:14)
[2023-01-30] MEDS: NITROGLYCERIN 800MCG/8ML SYR (CATH LAB) 800 MCG IA (13:14)
[2023-01-30] MEDS: HEPARIN 1,000 UNITS/500ML NS (CATH LAB) 3000 UNIT IV (13:14)
[2023-01-30] MEDS: diphenhydrAMINE 50MG/ML VIAL 50 MG IV (13:14)
[2023-01-30] MEDS: LIDOCAINE 1% 10ML MDV 20 ML IJ (13:14)
[2023-01-30] MEDS: 0.9 % SODIUM CHLORIDE 500 ML 25 ML IV (13:14)
[2023-01-30] MEDS: MIDAZOLAM HCL 1MG/1ML 5ML VIAL 1 MG IV (13:23)
[2023-01-30] MEDS: FENTANYL 100MCG/2ML VIAL 50 MCG IV (13:23)
[2023-01-30] MEDS: TICAGRELOR 90MG TABLET 180 MG PO (13:43)
[2023-01-30] MEDS: ASPIRIN 325MG TABLET 325 MG PO (13:43)
[2023-01-30] MEDS: humaLOG 100 UNITS/ML 3ML VIAL (SSI) SQ (16:27)
[2023-01-30 16:38] LABS: POC Glucose,Bedside 289 (70-110)
[2023-01-30] MEDS: IOPAMIDOL-370 (76%);100ML BOTTLE 110 ML IV (16:40)
[2023-01-30 16:46] LABS: CATHL Activated Clotting Time 278 SEC (74-125)
--- NOTE | 2023-01-30 17:09 | P.DS_ITS ---
General Admission date:: 01/29/23 Discharge date: 01/30/23 HPI HPI HPI: this is a 57-year-old male with past medical history of hypertension, T2DM who presents emergency department today with complaints of chest pain. He reports intermittent chest pain over the course of the last week that was midsternal, aching in nature. He reports severe episode of chest pain this morning. He was told by family members he needed to have this checked out but refused. He became more concerned about the pain so decided to seek treatment emergency department. He denies any radiation to the pain but does states that he has had some episodes of dizziness. He reports the pain has been at rest but does not worsen with activity He denies any prior cardiac work-up except for stress test many years ago He denies tobacco use but does report continued alcohol use. He reports approximately 5-8 beers a day. Denies any prior history of withdrawal symptoms. Emergency Department work-up mostly unremarkable. given patient's complaint and other comorbidities, would benefit from cardiac work-up. He will be admitted to hospital service for further evaluation management Hospital Course Hospital Course Hospital Course: 57 old male who presented to the ER with chest pain. Admitted for ACS rule out and cardiology consult. Problems addressed as follows: Unstable angina Hypertension Hyperlipidemia -Serial troponins were negative. EKG with no ST elevations or ischemic changes. Given progressive worsening symptoms, cardiology consulted. Patient was taken for left heart catheterization. Noted to have significant disease. Findings during heart cath as follows: IMPRESSION Severe proximal circumflex artery stenosis. Successful stenting the proximal dominant circumflex artery severe to critical disease reduced to 0% with 1 drug- eluting stent Persistent moderate stenosis in the proximal nondominant large right coronary Cardiology recommends initiating Brilinta 90 mg twice daily. Aspirin 81 mg daily. Continue with high intensity statin. Strongly encouraged tobacco cessation. Follow-up in 6 weeks with Lexiscan Myoview stress test to evaluate right coronary artery lesion for possible ischemia. LDL 71. Continue statin. Blood pressure stable on current regimen. Continue lisinopril 10 mg daily. C onsideration of addition of beta-chilango at follow-up. Diabetes - A1c well controlled at 6.3. May benefit from initiation of Ozempic as an outpatient. Defer to primary care. Hypothyroidism -TSH marginally elevated on admission. Initiated on 25 mcg levothyroxine. Recommend repeat labs in 6 weeks to monitor for improvement. Alcohol dependence/daily alcohol consumption -No history of withdrawal seizures or symptoms. Serax as needed, did not require any during hospitalization. Stable for discharge home. Follow-up with PCP and cardiology in the coming weeks. Exam Data for Last 24 hours Vital signs and Labs for Last 24 Hours: Temp Pulse Resp BP Pulse Ox 98.9 F 79 16 125/77 97 01/30/23 17:01 01/30/23 17:01 01/30/23 17:01 01/30/23 17:01 01/30/23 17:01 Laboratory Results - last 24 hr 01/29/23 19:32: WBC 6.9, RBC 4.72, Hgb 15.5, Hct 47.0, MCV 99.5 H, MCH 32.7 H, MCHC 32.9, RDW 12.4, Plt Count 239, MPV 7.1 L, Neut % (Auto) 68.7, Lymph % (Auto) 19.7, [place] % (Auto) 7.9, Eos % (Auto) 2.3, Baso % (Auto) 1.4, Neut # (Auto) 4.7, Lymph # (Auto) 1.4, [place] # (Auto) 0.5, Eos # (Auto) 0.2, Baso # (Auto) 0.1 01/29/23 19:32: Sodium 129 L, Potassium 4.1, Chloride 95 L, Carbon Dioxide 27, Anion Gap 11.1, BUN 11, Creatinine 0.90, Estimated Creat Clear 118, Estimated GFR 87, Est GFR ( Amer) 105, Glucose 184 H, Calcium 8.5, Troponin I < 0.01 01/29/23 19:32: Total Bilirubin 0.8, Direct Bilirubin 0.3, Conjugated Bilirubin 0.0, Indirect Bilirubin 0.5, Unconjugated Bilirubin 0.5, AST 53, ALT 55, Alkaline Phosphatase 110, Total Protein 7.2, Albumin 4.6 01/29/23 19:32: Hemoglobin A1c 6.3 H 01/29/23 19:32: NT-Pro-B Natriuret Pep 35.6 01/29/23 20:55: SARS-CoV-2 (PCR) Not detected, Influenza A Untype (PCR) Not dete cted, Influenza Type B (PCR) Not detected 01/29/23 21:10: Urine Color Straw, Urine Appearance Clear, Urine pH 5.5, Ur Specific [place] <= 1.005, Urine Protein Negative, Urine Glucose (UA) 2+, Urine Ketones Negative, Urine Blood Negative, Urine Nitrate Negative, Urine Bilirubin Negative, Urine Urobilinogen 0.2, Ur Leukocyte Esterase Negative, Urine RBC None, Urine WBC None, Ur Squamous Epith Cells None, Urine Bacteria None 01/29/23 22:17: POC Glucose 153 H 01/30/23 00:20: Troponin I < 0.01 01/30/23 02:25: Troponin I < 0.01 01/30/23 06:08: POC Glucose 62 L 01/30/23 06:15: WBC 6.2, RBC 4.68, Hgb 15.3, Hct 46.2, MCV 98.8 H, MCH 32.8 H, MCHC 33.2, RDW 12.4, Plt Count 267, MPV 7.7, Neut % (Auto) 71.9, Lymph % (Auto) 17.6, [place] % (Auto) 8.3, Eos % (Auto) 1.5, Baso % (Auto) 0.7, Neut # (Auto) 4.5, Lymph # (Auto) 1.1, [place] # (Auto) 0.5, Eos # (Auto) 0.1, Baso # (Auto) 0.1 01/30/23 06:15: Sodium 138, Potassium 3.8, Chloride 105, Carbon Dioxide 25, Anion Gap 11.8, BUN 8 L D, Creatinine 0.80, Estimated Creat Clear 131, Estimated GFR 99, Est GFR ( Amer) 120, Glucose 46 L D, Calcium 8.6, Magnesium 2.5 H , Triglycerides 76, Cholesterol 184, LDL Cholesterol Direct 71.51 L, VLDL Cholesterol 15, HDL Cholesterol 82 H, Cholesterol/HDL Ratio 2.2, TSH 7.11 H 01/30/23 06:15: Free T4 0.82 01/30/23 07:17: POC Glucose 242 H 01/30/23 11:43: POC Glucose 189 H 01/30/23 13:29: Activated Clotting Time 278 H* 01/30/23 16:27: POC Glucose 289 H I & O for Last 24 hours: Intake & Output 01/27/23 01/28/23 01/29/23 01/30/23 23:59 23:59 23:59 23:59 Output Total 0 / 0 Balance 0 / 0 Weight 91.739 kg 91.739 kg Results Data Completed and Pending Labs on day of discharge: Labs from last 24 hours 01/30/23 01/30/23 01/30/23 16:27 13:29 11:43 WBC RBC Hgb Hct MCV MCH MCHC RDW Plt Count MPV Neut % (Auto) Lymph % (Auto) [place] % (Auto) Eos % (Auto) Baso % (Auto) Neut # (Auto) Lymph # (Auto) [place] # (Auto) Eos # (Auto) Baso # (Auto) Activated Clotting Time 278 H* Sodium Potassium Chloride Carbon Dioxide Anion Gap BUN Creatinine Estimated Creat Clear Estimated GFR Est GFR ( Amer) Glucose POC Glucose 289 H 189 H Hemoglobin A1c Calcium Magnesium Total Bilirubin Direct Bilirubin Conjugated Bilirubin Indirect Bilirubin Unconjugated Bilirubin AST ALT Alkaline Phosphatase Troponin I NT-Pro-B Natriuret Pep Total Protein Albumin Triglycerides Cholesterol LDL Cholesterol Direct VLDL Cholesterol HDL Cholesterol Cholesterol/HDL Ratio TSH Free T4 Urine Color Urine Appearance Urine pH Ur Specific [place] Urine Protein Urine Glucose (UA) Urine Ketones Urine Blood Urine Nitrate Urine Bilirubin Urine Urobilinogen Ur Leukocyte Esterase Urine RBC Urine WBC Ur Squamous Epith Cells Urine Bacteria SARS-CoV-2 (PCR) Influenza A Untype (PCR) Influenza Type B (PCR) 01/30/23 01/30/23 01/30/23 07:17 06:15 06:15 WBC RBC Hgb Hct MCV MCH MCHC RDW Plt Count MPV Neut % (Auto) Lymph % (Auto) [place] % (Auto) Eos % (Auto) Baso % (Auto) Neut # (Auto) Lymph # (Auto) [place] # (Auto) Eos # (Auto) Baso # (Auto) Activated Clotting Time Sodium 138 Potassium 3.8 Chloride 105 Carbon Dioxide 25 Anion Gap 11.8 BUN 8 L D Creatinine 0.80 Estimated Creat Clear 131 Estimated GFR 99 Est GFR ( Amer) 120 Glucose 46 L D POC Glucose 242 H Hemoglobin A1c Calcium 8.6 Magnesium 2.5 H Total Bilirubin Direct Bilirubin Conjugated Bilirubin Indirect Bilirubin Unconjugated Bilirubin AST ALT Alkaline Phosphatase Troponin I NT-Pro-B Natriuret Pep Total Protein Albumin Triglycerides 76 Cholesterol 184 LDL Cholesterol Direct 71.51 L VLDL Cholesterol 15 HDL Cholesterol 82 H Cholesterol/HDL Ratio 2.2 TSH 7.11 H Free T4 0.82 Urine Color Urine Appearance Urine pH Ur Specific [place] Urine Protein Urine Glucose (UA) Urine Ketones Urine Blood Urine Nitrate Urine Bilirubin Urine Urobilinogen Ur Leukocyte Esterase Urine RBC Urine WBC Ur Squamous Epith Cells Urine Bacteria SARS-CoV-2 (PCR) Influenza A Untype (PCR) Influenza Type B (PCR) 01/30/23 01/30/23 01/30/23 06:15 06:08 02:25 WBC 6.2 RBC 4.68 Hgb 15.3 Hct 46.2 MCV 98.8 H MCH 32.8 H MCHC 33.2 RDW 12.4 Plt Count 267 MPV 7.7 Neut % (Auto) 71.9 Lymph % (Auto) 17.6 [place] % (Auto) 8.3 Eos % (Auto) 1.5 Baso % (Auto) 0.7 Neut # (Auto) 4.5 Lymph # (Auto) 1.1 [place] # (Auto) 0.5 Eos # (Auto) 0.1 Baso # (Auto) 0.1 Activated Clotting Time Sodium Potassium Chloride Carbon Dioxide Anion Gap BUN Creatinine Estimated Creat Clear Estimated GFR Est GFR ( Amer) Glucose POC Glucose 62 L Hemoglobin A1c Calcium Magnesium Total Bilirubin Direct Bilirubin Conjugated Bilirubin Indirect Bilirubin Unconjugated Bilirubin AST ALT Alkaline Phosphatase Troponin I < 0.01 NT-Pro-B Natriuret Pep Total Protein Albumin Triglycerides Cholesterol LDL Cholesterol Direct VLDL Cholesterol HDL Cholesterol Cholesterol/HDL Ratio TSH Free T4 Urine Color Urine Appearance Urine pH Ur Specific [place] Urine Protein Urine Glucose (UA) Urine Ketones Urine Blood Urine Nitrate Urine Bilirubin Urine Urobilinogen Ur Leukocyte Esterase Urine RBC Urine WBC Ur Squamous Epith Cells Urine Bacteria SARS-CoV-2 (PCR) Influenza A Untype (PCR) Influenza Type B (PCR) 01/30/23 01/29/23 01/29/23 00:20 22:17 21:10 WBC RBC Hgb Hct MCV MCH MCHC RDW Plt Count MPV Neut % (Auto) Lymph % (Auto) [place] % (Auto) Eos % (Auto) Baso % (Auto) Neut # (Auto) Lymph # (Auto) [place] # (Auto) Eos # (Auto) Baso # (Auto) Activated Clotting Time Sodium Potassium Chloride Carbon Dioxide Anion Gap BUN Creatinine Estimated Creat Clear Estimated GFR Est GFR ( Amer) Glucose POC Glucose 153 H Hemoglobin A1c Calcium Magnesium Total Bilirubin Direct Bilirubin Conjugated Bilirubin Indirect Bilirubin Unconjugated Bilirubin AST ALT Alkaline Phosphatase Troponin I < 0.01 NT-Pro-B Natriuret Pep Total Protein Albumin Triglycerides Cholesterol LDL Cholesterol Direct VLDL Cholesterol HDL Cholesterol Cholesterol/HDL Ratio TSH Free T4 Urine Color Straw Urine Appearance Clear Urine pH 5.5 Ur Specific [place] <= 1.005 Urine Protein Negative Urine Glucose (UA) 2+ Urine Ketones Negative Urine Blood Negative Urine Nitrate Negative Urine Bilirubin Negative Urine Urobilinogen 0.2 Ur Leukocyte Esterase Negative Urine RBC None Urine WBC None Ur Squamous Epith Cells None Urine Bacteria None SARS-CoV-2 (PCR) Influenza A Untype (PCR) Influenza Type B (PCR) 01/29/23 01/29/23 01/29/23 20:55 19:32 19:32 WBC RBC Hgb Hct MCV MCH MCHC RDW Plt Count MPV Neut % (Auto) Lymph % (Auto) [place] % (Auto) Eos % (Auto) Baso % (Auto) Neut # (Auto) Lymph # (Auto) [place] # (Auto) Eos # (Auto) Baso # (Auto) Activated Clotting Time Sodium Potassium Chloride Carbon Dioxide Anion Gap BUN Creatinine Estimated Creat Clear Estimated GFR Est GFR ( Amer) Glucose POC Glucose Hemoglobin A1c 6.3 H Calcium Magnesium Total Bilirubin Direct Bilirubin Conjugated Bilirubin Indirect Bilirubin Unconjugated Bilirubin AST ALT Alkaline Phosphatase Troponin I NT-Pro-B Natriuret Pep 35.6 Total Protein Albumin Triglycerides Cholesterol LDL Cholesterol Direct VLDL Cholesterol HDL Cholesterol Cholesterol/HDL Ratio TSH Free T4 Urine Color Urine Appearance Urine pH Ur Specific [place] Urine Protein Urine Glucose (UA) Urine Ketones Urine Blood Urine Nitrate Urine Bilirubin Urine Urobilinogen Ur Leukocyte Esterase Urine RBC Urine WBC Ur Squamous Epith Cells Urine Bacteria SARS-CoV-2 (PCR) Not detected Influenza A Untype (PCR) Not detected Influenza Type B (PCR) Not detected 01/29/23 01/29/23 01/29/23 19:32 19:32 19:32 WBC 6.9 RBC 4.72 Hgb 15.5 Hct 47.0 MCV 99.5 H MCH 32.7 H MCHC 32.9 RDW 12.4 Plt Count 239 MPV 7.1 L Neut % (Auto) 68.7 Lymph % (Auto) 19.7 [place] % (Auto) 7.9 Eos % (Auto) 2.3 Baso % (Auto) 1.4 Neut # (Auto) 4.7 Lymph # (Auto) 1.4 [place] # (Auto) 0.5 Eos # (Auto) 0.2 Baso # (Auto) 0.1 Activated Clotting Time Sodium 129 L Potassium 4.1 Chloride 95 L Carbon Dioxide 27 Anion Gap 11.1 BUN 11 Creatinine 0.90 Estimated Creat Clear 118 Estimated GFR 87 Est GFR ( Amer) 105 Glucose 184 H POC Glucose Hemoglobin A1c Calcium 8.5 Magnesium Total Bilirubin 0.8 Direct Bilirubin 0.3 Conjugated Bilirubin 0.0 Indirect Bilirubin 0.5 Unconjugated Bilirubin 0.5 AST 53 ALT 55 Alkaline Phosphatase 110 Troponin I < 0.01 NT-Pro-B Natriuret Pep Total Protein 7.2 Albumin 4.6 Triglycerides Cholesterol LDL Cholesterol Direct VLDL Cholesterol HDL Cholesterol Cholesterol/HDL Ratio TSH Free T4 Urine Color Urine Appearance Urine pH Ur Specific [place] Urine Protein Urine Glucose (UA) Urine Ketones Urine Blood Urine Nitrate Urine Bilirubin Urine Urobilinogen Ur Leukocyte Esterase Urine RBC Urine WBC Ur Squamous Epith Cells Urine Bacteria SARS-CoV-2 (PCR) Influenza A Untype (PCR) Influenza Type B (PCR) DS: Diagnosis Discharge Diagnosis (1) Alcohol abuse: Status: Acute (2) Unstable angina: Status: Acute (3) Essential hypertension: Status: Chronic (4) Hyperlipidemia: Status: Acute (5) Diabetes mellitus: Status: Acute Meds Home Medications and Allergies Home Medications Medication Instructions Recorded Confirmed Type insulin aspart U-100 100 unit/mL 0 units SQ DIRECTED Diabetes 04/24/22 01/30/23 History (3 mL) subcutaneous pen insulin glargine 100 unit/mL (3 70 units SQ DAILY Diabetes 04/24/22 01/30/23 History mL) subcutaneous pen lisinopril 10 mg tablet 10 mg PO DAILY Hypertension 04/24/22 01/30/23 History aspirin 81 mg chewable tablet 81 mg PO DAILY Heart health 01/30/23 01/30/23 History atorvastatin 40 mg tablet 40 mg PO HS 30 days #30 tabs 01/30/23 Rx levothyroxine 25 mcg tablet 25 mcg PO DAILYDM 30 days #30 tabs 01/30/23 Rx (Synthroid) omega 8-rbr-epv-fish oil 900 1 cap PO DAILY Supplement 01/30/23 01/30/23 History mg-1,400 mg capsule,delayed release pitavastatin magnesium 2 mg tablet 2 mg PO DIRECTED Cholesterol 01/30/23 01/30/23 History (Zypitamag) ticagrelor 90 mg tablet (Brilinta) 90 mg PO BID 30 days #60 tabs 01/30/23 Rx New Prescriptions to Start Prescriptions: atorvastatin SharifVictorino levothyroxine [Synthroid] SharifVictorino ticagrelor [Brilinta] SharifVictorino bloom Allergies Allergy/AdvReac Type Severity Reaction Status Date / Time ciprofloxacin Allergy Unknown Unknown Verified 10/18/22 09:01 allergy reaction Discharge Plan Disposition Patient Disposition: Home, Self-Care Condition: Fair Follow up Plan Follow up with: Trever Schofield MD [Primary Care Provider] - Enter time for follow up (please call for appointment) Kasi Medina MD [Staff Physician] - Enter time for follow up (please call for appointment) Prescriptions/Medication Reconciliation: New atorvastatin 40 mg Tablet 40 mg PO HS 30 Days Qty: 30 0RF levothyroxine [Synthroid] 25 mcg Tablet 25 mcg PO DAILYDM 30 Days Qty: 30 0RF Brilinta 90 mg Tablet 90 mg PO BID 30 Days Qty: 60 0RF Continued lisinopril 10 MG tablet 10 mg PO DAILY insulin aspart U-100 100 UNIT/ML insulin pen 0 units SQ DIRECTED Label Comments: INJECT 8 UNITS SUBCUTANEOUSLY IN THE MORNING, THEN INJECT 10 UNITS SUBCUTANEOUSLY AT NOON, AND THEN INJECT 40 UNITS SUBCUTANEOUSLY AT NIGHT Rx Instructions: INJECT 8 UNITS SUBCUTANEOUSLY IN THE MORNING, THEN INJECT 10 UNITS SUBCUTANEOUSLY AT NOON, AND THEN INJECT 40 UNITS SUBCUTANEOUSLY AT NIGHT insulin glargine 100 UNIT/ML insulin pen 70 units SQ DAILY Zypitamag 2 mg tablet 2 mg PO DIRECTED Label Comments: Patient takes on Monday and Monday Rx Instructions: TAKE ONE TABLET TWICE WEEKLY aspirin 81 mg Tablet,Chewable 81 mg PO DAILY omega 2-aen-uya-fish oil 900-1,400 mg Capsule,Delayed Release(Dr/Ec) 1 cap PO DAILY Problem Reconciliation Problems Reviewed?: Yes Patient Discharge Instructions ACTIVITY: Continue current activity and No heavy lifting DIET: continue same diet Stand Alone Forms: [facility] Work Release Patient Instructions: High Triglycerides, Angina, Cardiac Catheterization, Surgical Site Infection Providers Primary Care Provider: Trever Schofield Admit Provider: Shon Medina Attending Provider: Shon Medina
--- NOTE | 2023-01-31 12:09 | HMH.PHACL ---
[facility] [employer] Consultant Discharge Med Emergency Management Director: Robbicalebruiz Garciael Georges LEFT AFTER HOURS AND WAS DISCHARGED ON THE FOLLOWING MEDICATIONS: ASPIRIN ATORVASTATIN LISINOPRIL BRILINTA BETA OMAIRA MAY BE ADDED AN OUTPATIENT PER CARDIOLOGY.
--- NOTE | 2023-01-31 14:29 | CARE MANAGER ---
Contacted patient related to hospital discharge. He states he is feeling well. He has his new medication and denies questions or concerns. His has already scheduled his follow up appointments. PEDRITO Mario
== END 2023-01-30 18:16 | disposition home or self-care (01) ==
LOC: ER 19:56 → 2ND 22:09
PROVIDERS: Internal Medicine; Nurse Practitioner Acute Care; Admitting Provider Student in an Organized Health Care Education/Training Program; Emergency Provider Emergency Medicine; PCP Internal Medicine; Visit Provider Student in an Organized Health Care Education/Training Program
DX: R07.9 Chest pain, unspecified (principal); I25.110 Atherosclerotic heart disease of native coronary artery with unstable angina pectoris; F10.10 Alcohol abuse, uncomplicated; E78.5 Hyperlipidemia, unspecified; E11.9 Type 2 diabetes mellitus without complications; Z79.4 Long term (current) use of insulin; Z79.899 Other long term (current) drug therapy; Z20.822 Contact with and (suspected) exposure to COVID-19
CPT/HCPCS: 36415; 71046; 80048; 80061; 80076; 81001; 82962; 83036; 83735; 83880; 84439; 84443; 84484; 85025; 85347; 92928; 93005; 93454; 99152; 99153; 99285; C1725; C1760; C1769; C1876; C9600; C9803; G0378; J1644; Q9967; U0003; U0005

== ENCOUNTER → 2023-03-15 06:32 | Outpatient (CLI) | payer OTHER, SELFPAY ==
--- NOTE | 2023-03-15 06:33 | NM_ITS ---
APPROVED REPORT Exam: Nuclear Stress Test Indication: chest pain..soa..fatigue Patient Location: Outpatient Stress Tech: Ivania Adrián ROQUE Tech:LOI Robin RT(R)(N) Ht: 5 ft 8 in Wt: 205 lbs HR: 80 bpm BP: 125/89 mmHg BSA: 2.07 m2 TID: 1.10 BMI: 31.1 History: chest pain..soa..fatigue Procedure: Patient received 0.4 mg of intravenous Lexiscan, resting heart rate 80 bpm, resting blood pressure 125/89 mmHg, with Lexiscan maximum heart rate achieved was 111 bpm which is 85 % of the maximum predicted heart rate and blood pressure was 165/87 mmHg. With Lexiscan, patient denied any complaint of chest pain. Cardiac Stress and Resting SPECT Images: Cardiac Stress and Resting SPECT images were obtained using technetium 99m Myoview 32.8 mCi stress and 10.98 mCi at rest. Uniform myocardial activity with both stress and rest gated images calculated ejection fraction 55% with normal wall motion Conclusion: No scintigraphic evidence of Lexiscan induced myocardial ischemia. Normal ejection fraction normal wall motion Electronically signed by : Kasi Medina MD 03/15/2023 13:53:05
--- NOTE | 2023-03-15 06:33 | CA_ITS ---
APPROVED REPORT Exam: Pharmacologic Technologist: Ivania Sampson, Ht: 5 ft 8 in Wt: 205 lbs BSA: 2.07 m2 HR: 71 bpm BP: 125/89 mmHg Rhythm: NSR Indications: CAD Medical History Medications: Lisinopril,,,,, Levothyroxine,,,,, Asa,,,,, Atorvastatin,,,,, Ticagrelor,,,,, INSULIN,,,,, OmeGA 3 Fish Oil,,,,, Cardiac Risk Factors: HTN, Hyperlipidemia, Diabetes (non-insulin) Stress Test Details Test: LEXISCAN HR Resting HR: 80 bpm Max Heart Rate (APMHR): 162.026392 bpm Max HR Achieved: 111 bpm Target HR (85% APMHR): 137.533074 bpm % of APMHR: 68.52 Recovery HR: 93 bpm BP Resting BP: 125/89 mmHg Max BP: 165/87 mmHg Recovery BP: 136.0/87.0 mmHg ECG Resting ECG: NSR Clinical Exercise duration: 04:00 min Highest Stage Achieved: Exercise capacity: 1.0 METs Stress ECG Conclusion During lexiscan pt experinced brief SOA. No arrhythmias noted. No significant changes. Unremarkable lexiscan stress. Myoview images reported separately. Test Summary REST . . . . . . . Sitting REST 03:30 . . 80 . 125/ 89 . . Stage 1 01:00 . . 109 . . . . Stage 2 01:00 . . 96 . . . . Stage 3 01:00 . . 96 . 135/ 96 . . Stage 4 01:00 . . 84 . 152/ 91 . Stop exercise at 04:00 RECOVERY 01:00 . . 93 . . . . RECOVERY 02:00 . . 84 . 136/ 87 . . RECOVERY 03:00 . . 90 . 144/ 84 . . RECOVERY 03:30 . . 80 . 144/ 84 . . Electronically signed by : Kasi Medina MD 03/15/2023 14:56:54
== END ==
LOC: RAD 06:33
PROVIDERS: PCP Internal Medicine; Visit Provider Internal Medicine
DX: E11.69 Type 2 diabetes mellitus with other specified complication (principal); E78.5 Hyperlipidemia, unspecified; F10.10 Alcohol abuse, uncomplicated; I10 Essential (primary) hypertension; I25.10 Atherosclerotic heart disease of native coronary artery without angina pectoris; Z79.4 Long term (current) use of insulin
CPT/HCPCS: 78452; 93017; A9502; J2785

== ENCOUNTER → 2023-03-24 11:58 | Outpatient (CLI) | payer OTHER, SELFPAY ==
[2023-03-24 13:41] LABS: Alanine Aminotransferase 56 U/L (12-78); Albumin Level 4.5 g/dl (3.5-5.0); Albumin/Globulin Ratio 1.8 (1.1-1.8); Alkaline Phosphatase 170 U/L (38-126); Anion Gap 17.6 mEq/L (5-15); Aspartate Amino Transferase 56 U/L (17-59); Blood Urea Nitrogen 8 mg/dl (9-20); Calcium 8.8 mg/dl (8.4-10.2); Carbon Dioxide 27 mmol/L (22.0-30.0); Chloride 90 mmol/L (98-107); Cholesterol 140 mg/dl (140-200); Estimated Glomerular Filt Rate 99 ml/min (>60); GFR (African American) 120 ML/MIN (>60); Globulin 2.5 g/dL (1.3-3.2); Glucose 180 mg/dl (74-100); Potassium 4.6 mmoL/L (3.5-5.1); Sodium 130 mmol/L (136-145); Triglycerides 58 mg/dl (30-150); VLDL Cholesterol 12 mg/dL (0-40)
[2023-03-24 13:52] LABS: Direct LDL Cholesterol 37.21 mg/dL (100-129)
[2023-03-24 14:11] LABS: Prostate Specific Ag Screen 2.3 ng/ml (0.0-4.0)
[2023-03-24 14:32] LABS: Chol/HDL Ratio 1.2 (1-3.5); HDL Cholesterol 116 mg/dl (40-60)
[2023-03-24 14:34] LABS: Hemoglobin A1C 7.4 % (4.0-6.0)
== END ==
LOC: LAB.DROPOF 11:59
PROVIDERS: PCP Internal Medicine; Visit Provider Internal Medicine
DX: I25.110 Atherosclerotic heart disease of native coronary artery with unstable angina pectoris (principal); I10 Essential (primary) hypertension; E11.59 Type 2 diabetes mellitus with other circulatory complications; N40.1 Benign prostatic hyperplasia with lower urinary tract symptoms; Z12.5 Encounter for screening for malignant neoplasm of prostate; Z79.4 Long term (current) use of insulin
CPT/HCPCS: 80053; 80061; 83036; G0103

== ENCOUNTER 2023-07-14 04:32 | Emergency (ER) | payer OTHER, SELFPAY ==
--- NOTE | 2023-07-14 04:42 | ECG_ITS ---
APPROVED REPORT Exam: Resting ECG HR:71 bpm ECG Measurements Heart Rate 71 AXES CA 182 P -23 QRSd 90 QRS 11 QT 396 T 10 QTc 419 Conclusion SINUS RHYTHM NORMAL ECG UNCONFIRMED REPORT Electronically signed by : Stas Poole MD 07/14/2023 16:49:31
[2023-07-14 04:44] VITALS: BP 168/97; PULSE 75; RESP 22; TEMP 36.4; O2SAT 98; BMI 31.1
[2023-07-14 04:44] LABS: POC Glucose,Bedside 70 (70-110)
[2023-07-14 05:00] VITALS: BP 161/98; PULSE 70; RESP 22; O2SAT 97
--- NOTE | 2023-07-14 05:01 | CT_ITS ---
PROCEDURE INFORMATION: Exam: CTA Head With Contrast, Arteriography Exam date and time: 07/14/2023 5:38 AM Age: 57 years old Clinical indication: Weakness TECHNIQUE: Imaging protocol: Computed tomographic angiography of the head with contrast. Exam focused on the arteries. 3D rendering (Not supervised by radiologist): MIP and/or 3D reconstructed images were created by the technologist. Radiation optimization: All CT scans at this facility use at least one of these dose optimization techniques: automated exposure control; mA and/or kV adjustment per patient size (includes targeted exams where dose is matched to clinical indication); or iterative reconstruction. Contrast material: [place]OVUE; Contrast volume: 100 ml; Contrast route: INTRAVENOUS (IV); REPORTING DATA: Count of CT and Cardiac NM exams in prior 12 months: This patient has received 0 known CTs and 0 known cardiac nuclear medicine studies in the 12 months prior to the current study. COMPARISON: No relevant prior studies available. FINDINGS: ANTERIOR CIRCULATION: Right internal carotid artery: Intracranial segment is patent with no significant stenosis. No aneurysm. Right middle cerebral artery: No occlusion or significant stenosis. No aneurysm. Right anterior cerebral artery: No occlusion or significant stenosis. No aneurysm. Left internal carotid artery: Intracranial segment is patent with no significant stenosis. No aneurysm. Left middle cerebral artery: No occlusion or significant stenosis. No aneurysm. Left anterior cerebral artery: No occlusion or significant stenosis. No aneurysm. POSTERIOR CIRCULATION: Right vertebral artery: No occlusion or significant stenosis. No aneurysm. Left vertebral artery: No occlusion or significant stenosis. No aneurysm. Basilar artery: No occlusion or significant stenosis. No aneurysm. Right posterior cerebral artery: No occlusion or significant stenosis. No aneurysm. Left posterior cerebral artery: No occlusion or significant stenosis. No aneurysm. Brain: No definite mass, mass effect, or midline shift. Cerebral ventricles: No ventriculomegaly. Bones/joints: Unremarkable. No acute fracture. Soft tissues: Unremarkable. IMPRESSION: No large vessel stenosis or occlusion.
--- NOTE | 2023-07-14 05:01 | CT_ITS ---
PROCEDURE INFORMATION: Exam: CTA Neck With Contrast Exam date and time: 07/14/2023 5:38 AM Age: 57 years old Clinical indication: Weakness TECHNIQUE: Imaging protocol: Computed tomographic angiography of the neck with contrast. 3D rendering (Not supervised by radiologist): MIP and/or 3D reconstructed images were created by the technologist. Radiation optimization: All CT scans at this facility use at least one of these dose optimization techniques: automated exposure control; mA and/or kV adjustment per patient size (includes targeted exams where dose is matched to clinical indication); or iterative reconstruction. Contrast material: ISOVUE; Contrast volume: 100 ml; Contrast route: INTRAVENOUS (IV); REPORTING DATA: Count of CT and Cardiac NM exams in prior 12 months: This patient has received 0 known CTs and 0 known cardiac nuclear medicine studies in the 12 months prior to the current study. COMPARISON: CR XR CHEST 2V 01/29/2023 7:45 PM FINDINGS: Right common carotid artery: No stenosis. No dissection or occlusion. Right internal carotid artery: No stenosis of the extracranial segment. No dissection or occlusion. Right external carotid artery: No occlusion or stenosis of the origin. Left common carotid artery: No stenosis. No dissection or occlusion. Left internal carotid artery: No stenosis of the extracranial segment. No dissection or occlusion. Left external carotid artery: No occlusion or stenosis of the origin. Right vertebral artery: No stenosis. No dissection or occlusion. Left vertebral artery: No stenosis. No dissection or occlusion. Soft tissues: Normal. No significant soft tissue swelling. Bones/joints: No acute fracture. IMPRESSION: No stenosis or occlusion. REFERENCES: NASCET CRITERIA. The degree of stenosis in the cervical segment of the internal carotid artery is based on NASCET criteria. Normal is no stenosis. Mild is less than 50% stenosis. Moderate is 50-69% stenosis. Severe is 70% to 99% stenosis. Total occlusion is no detectable patent lumen.
--- NOTE | 2023-07-14 05:01 | CT_ITS ---
PROCEDURE INFORMATION: Exam: CT Head Without Contrast Exam date and time: 07/14/2023 5:38 AM Age: 57 years old Clinical indication: Weakness, extremity TECHNIQUE: Imaging protocol: Computed tomography of the head without contrast. Radiation optimization: All CT scans at this facility use at least one of these dose optimization techniques: automated exposure control; mA and/or kV adjustment per patient size (includes targeted exams where dose is matched to clinical indication); or iterative reconstruction. REPORTING DATA: Count of CT and Cardiac NM exams in prior 12 months: This patient has received 0 known CTs and 0 known cardiac nuclear medicine studies in the 12 months prior to the current study. COMPARISON: No relevant prior studies available. FINDINGS: Brain: There is no evidence of acute parenchymal hemorrhage, extra-axial collection, or acute infarction. There is no mass effect, midline shift, or downward herniation. Cerebral ventricles: No ventriculomegaly. Paranasal sinuses: Visualized sinuses are unremarkable. No fluid levels. Mastoid air cells: Visualized mastoid air cells are well aerated. Bones/joints: Unremarkable. No acute fracture. Soft tissues: Unremarkable. IMPRESSION: No acute intracranial abnormality.
[2023-07-14 05:14] LABS: Chloride 96 mmol/L (98-107); Potassium 3.4 mmoL/L (3.5-5.1); Sodium 134 mmol/L (136-145)
[2023-07-14 05:16] LABS: Alanine Aminotransferase 52 U/L (12-78); Aspartate Amino Transferase 55 U/L (17-59); Blood Urea Nitrogen 9 mg/dl (9-20); Creatinine Clearance Estimated 106 mL/min (50-200); Estimated Glomerular Filt Rate 77 ml/min (>60); GFR (African American) 93 ML/MIN (>60)
[2023-07-14 05:17] LABS: Albumin Level 4.8 g/dl (3.5-5.0); Albumin/Globulin Ratio 1.4 (1.1-1.8); Alkaline Phosphatase 173 U/L (38-126); Anion Gap 17.4 mEq/L (5-15); Bilirubin,Total 0.7 mg/dl (0.2-1.3); Calcium 9.3 mg/dl (8.4-10.2); Carbon Dioxide 24 mmol/L (22.0-30.0); Globulin 3.4 g/dL (1.3-3.2); Glucose 61 mg/dl (74-100); Total Protein,Serum 8.2 g/dl (6.3-8.2)
[2023-07-14 05:30] VITALS: BP 126/79; PULSE 76; RESP 20; O2SAT 95
[2023-07-14 05:33] LABS: Basophils % 0.4 % (0.1-2.0); Eosinophils % 0.8 % (0.1-12.0); Hematocrit 49.3 % (42.0-52.0); Hemoglobin 16.6 g/dL (14.1-18.0); Lymphocytes % 12.8 % (10-50); Mean Corpuscular HGB Conc 33.6 g/dL (31.8-35.4); Mean Corpuscular Hemoglobin 33.2 pg (27.0-31.2); Mean Corpuscular Volume 98.8 fl (80-94); Mean Platelet Volume 6.4 fl (7.4-10.4); Monocytes % 5.4 % (1.7-9.3); Neutrophils % 78.9 % (37.0-80.0); Platelet Count 248 K/mm3 (142-424); Red Blood Count 4.99 M/mm3 (4.60-6.20); Red Cell Distribution Width 12.2 % (11.5-17.5)
[2023-07-14 05:34] LABS: Eosinophils # 0.1 K/mm3 (0.0-0.4); Lymphocytes # 0.9 K/mm3 (0.7-4.5); Monocytes # 0.4 K/mm3 (0.1-1.0); Neutrophils # 5.5 K/mm3 (1.8-7.8)
[2023-07-14 06:00] VITALS: BP 118/74; PULSE 70; RESP 16; O2SAT 97
[2023-07-14 06:09] LABS: POC Glucose,Bedside 88 (70-110)
--- NOTE | 2023-07-14 06:32 | HMH.EDGENADL ---
Discharge Plan Disposition Patient Disposition: Home, Self-Care Condition: Good Prescriptions Prescriptions: No Action losartan 100 mg tablet 100 mg PO DAILY Patient Comments: TAKE 1 TABLET BY MOUTH ONCE DAILY FOR BLOOD PRESSURE insulin aspart U-100 100 UNIT/ML insulin pen 0 units SQ DIRECTED Patient Comments: INJECT 8 UNITS SUBCUTANEOUSLY IN THE MORNING, THEN INJECT 10 UNITS SUBCUTANEOUSLY AT NOON, AND THEN INJECT 40 UNITS SUBCUTANEOUSLY AT NIGHT Rx Instructions: INJECT 8 UNITS SUBCUTANEOUSLY IN THE MORNING, THEN INJECT 10 UNITS SUBCUTANEOUSLY AT NOON, AND THEN INJECT 40 UNITS SUBCUTANEOUSLY AT NIGHT insulin glargine 100 UNIT/ML insulin pen 70 units SQ DAILY aspirin 81 mg Tablet,Chewable 81 mg PO DAILY omega 6-gqm-lun-fish oil 900-1,400 mg Capsule,Delayed Release(Dr/Ec) 1 cap PO DAILY atorvastatin 40 mg tablet 40 mg PO HS levothyroxine [Synthroid] 25 mcg tablet 25 mcg PO DAILYDM bisoprolol fumarate 5 mg tablet See Rx Instructions .ROUTE .COMPLEX Rx Instructions: Take 1 tablet by mouth once daily Brilinta 90 mg tablet 90 mg PO BID Referrals Follow up/Referrals: Trever Schofield MD [Primary Care Provider] - See instructions Activity Restrictions/Add. Instructions Additional Instructions/Restrictions: Please follow-up with your primary care provider. Please return to the emergency department if you develop any new or worsening symptoms or become concerned for your health. Clinical Impressions Clinical Impression: Encounter for medical assessment, Transient neurological symptoms Discharge ED Provider: Saúl Cortez General Adult HPI General Chief complaint: Neuro Symptoms/Deficit Stated complaint: slurred speech, hands numb Time Seen by Provider: 07/14/23 04:38 Mode of Arrival: Family Vehicle Source of Information: Patient Limitations: No Limitations Description of Symptoms (Recalled from ER Triage Doc. by RN): 57 yo male presents following a fifteen minute episode of not being able to move his arms or legs and slurring his words . Went to bed last night, normal daily activities, afebrile, no known covid contact/flu exposure. fsbs 70 mg/dl. a&ox4. moving all extremities at present. NIH 0. History of Present Illness HPI narrative: 57-year-old male history of hypertension, hyperlipidemia, coronary artery disease, insulin-dependent diabetes, chronic alcohol use presents with abnormal episode. He reports that he went to bed at 10 PM and was normal. At approximately 4 AM he awoke and had slurred speech with bilateral upper and lower extremity weakness. Reports that his bilateral hands were numb and tingly. It spontaneously resolved approximately 15 minutes later. He was so weak that he was unable to get out of bed and ultimately urinated on himself. No reported seizure-like activity. Episode was witnessed by patient's . She reports no facial droop. Confirms that weakness was bilateral. They report that he has had 1 episode like this in the past about a year ago. Related Data Home Medications Medication Instructions Recorded Confirmed insulin aspart U-100 100 unit/mL 0 units SQ DIRECTED Diabetes 04/24/22 07/14/23 (3 mL) subcutaneous pen insulin glargine 100 unit/mL (3 70 units SQ DAILY Diabetes 04/24/22 07/14/23 mL) subcutaneous pen aspirin 81 mg chewable tablet 81 mg PO DAILY Heart health 01/30/23 07/14/23 omega 0-qxy-nca-fish oil 900 1 cap PO DAILY Supplement 01/30/23 07/14/23 mg-1,400 mg capsule,delayed release losartan 100 mg tablet 100 mg PO DAILY htn 05/23/23 07/14/23 atorvastatin 40 mg tablet 40 mg PO HS Cholesterol 07/14/23 07/14/23 bisoprolol fumarate 5 mg tablet See Rx Instructions .Route 07/14/23 07/14/23 .COMPLEX htn levothyroxine 25 mcg tablet 25 mcg PO DAILYDM thyroid 07/14/23 07/14/23 (Synthroid) ticagrelor 90 mg tablet (Brilinta) 90 mg PO BID Blood Thinner 07/14/23 07/14/23 Allergies Al
[2023-07-14 06:42] VITALS: BP 134/86; PULSE 72; RESP 19; TEMP 36.8; O2SAT 98
== END 2023-07-14 06:46 | disposition home or self-care (01) ==
PROVIDERS: Emergency Provider Emergency Medicine; PCP Internal Medicine
DX: R47.81 Slurred speech (principal); R53.1 Weakness; R20.0 Anesthesia of skin; I25.10 Atherosclerotic heart disease of native coronary artery without angina pectoris; I10 Essential (primary) hypertension; E78.5 Hyperlipidemia, unspecified; E11.9 Type 2 diabetes mellitus without complications
CPT/HCPCS: 70450; 70496; 70498; 80053; 82962; 85025; 93005; 99285; Q9967

== ENCOUNTER → 2023-08-01 07:13 | Outpatient (CLI) | payer OTHER, SELFPAY ==
--- NOTE | 2023-08-01 07:31 | MR_ITS ---
FINAL REPORT TECHNIQUE: Multiplanar and multisequence imaging of the brain was obtained without contrast. CLINICAL HISTORY: STROKE LIKE EPISODE 1 MONTH AGO, UNABLE TO WALK, TALK OR MOVE EXTREMITIES. SYMPTOMS SINCE RESOLVED JUST HAVING DIZZINESS NOW. COMPARISON: None FINDINGS: There is global atrophy. There is no mass effect or midline shift. The ventricles are symmetric without hydrocephalus. The cerebellum and brainstem have an unremarkable appearance. There are no areas of restricted diffusion on diffusion weighted images to suggest acute infarct. Soft tissues are without acute abnormality. IMPRESSION: No acute intracranial abnormality. Reviewed, Interpreted and Dictated by Linnea Claire MD Transcribed by Herlinda Paz Authenticated and [facility]
== END ==
PROVIDERS: PCP Internal Medicine; Visit Provider Internal Medicine
DX: R29.90 Unspecified symptoms and signs involving the nervous system (principal)
CPT/HCPCS: 70551

== ENCOUNTER → 2023-10-06 13:05 | Outpatient (CLI) | payer OTHER, SELFPAY ==
[2023-10-06 14:15] LABS: Chloride 95 mmol/L (98-107); Sodium 133 mmol/L (136-145)
[2023-10-06 14:16] LABS: Potassium 4.1 mmoL/L (3.5-5.1)
[2023-10-06 14:18] LABS: Alanine Aminotransferase 48 U/L (12-78); Albumin Level 4.5 g/dl (3.5-5.0); Albumin/Globulin Ratio 1.6 (1.1-1.8); Alkaline Phosphatase 178 U/L (38-126); Anion Gap 12.1 mEq/L (5-15); Aspartate Amino Transferase 44 U/L (17-59); Blood Urea Nitrogen 9 mg/dl (9-20); Calcium 8.8 mg/dl (8.4-10.2); Carbon Dioxide 30 mmol/L (22.0-30.0); Cholesterol 153 mg/dl (140-200); Estimated Glomerular Filt Rate 76 ml/min (>60); GFR (African American) 93 ML/MIN (>60); Globulin 2.8 g/dL (1.3-3.2); Glucose 153 mg/dl (74-100); Total Protein,Serum 7.3 g/dl (6.3-8.2); Triglycerides 84 mg/dl (30-150); VLDL Cholesterol 17 mg/dL (0-40)
[2023-10-06 14:19] LABS: Chol/HDL Ratio 1.7 (1-3.5); HDL Cholesterol 90 mg/dl (40-60)
[2023-10-06 14:29] LABS: Direct LDL Cholesterol 52.46 mg/dL (100-129)
[2023-10-06 14:48] LABS: Hemoglobin A1C 7.7 % (4.0-6.0)
[2023-10-06 15:06] LABS: Creatinine,Urine Random 86 mg/dL (Not Estab.)
[2023-10-06 15:07] LABS: Microalbumin/Creatinine Ratio 7.9
== END ==
PROVIDERS: PCP Internal Medicine; Visit Provider Internal Medicine
DX: E11.59 Type 2 diabetes mellitus with other circulatory complications (principal); E78.5 Hyperlipidemia, unspecified; I25.10 Atherosclerotic heart disease of native coronary artery without angina pectoris; I10 Essential (primary) hypertension; Z95.820 Peripheral vascular angioplasty status with implants and grafts; Z79.4 Long term (current) use of insulin
CPT/HCPCS: 80053; 80061; 82043; 82570; 83036

== ENCOUNTER 2024-04-08 10:40 | Outpatient (CLI) | payer OTHER, SELFPAY ==
[2024-04-08 10:34] LABS: Basophils % 0.8 % (0.1-2.0); Eosinophils # 0.1 K/mm3 (0.0-0.4); Eosinophils % 1.9 % (0.1-12.0); Hematocrit 47.5 % (42.0-52.0); Hemoglobin 16.2 g/dL (14.1-18.0); Mean Corpuscular HGB Conc 34.1 g/dL (31.8-35.4); Mean Corpuscular Hemoglobin 34.4 pg (27.0-31.2); Mean Corpuscular Volume 100.9 fl (80-94); Mean Platelet Volume 7.3 fl (7.4-10.4); Monocytes # 0.4 K/mm3 (0.1-1.0); Monocytes % 6.5 % (1.7-9.3); Neutrophils # 4.2 K/mm3 (1.8-7.8); Neutrophils % 72.9 % (37.0-80.0); Platelet Count 238 K/mm3 (142-424); Red Blood Count 4.71 M/mm3 (4.60-6.20); Red Cell Distribution Width 13.2 % (11.5-17.5); White Blood Count 5.8 K/mm3 (4.8-10.8)
[2024-04-08 11:03] LABS: Alanine Aminotransferase 56 U/L (12-78); Albumin Level 4.8 g/dl (3.5-5.0); Albumin/Globulin Ratio 1.5 (1.1-1.8); Alkaline Phosphatase 179 U/L (38-126); Anion Gap 16.4 mEq/L (5-15); Aspartate Amino Transferase 49 U/L (17-59); Blood Urea Nitrogen 8 mg/dl (9-20); Calcium 9.9 mg/dl (8.4-10.2); Carbon Dioxide 27 mmol/L (22.0-30.0); Chloride 97 mmol/L (98-107); Chol/HDL Ratio 1.7 (1-3.5); Cholesterol 180 mg/dl (140-200); Estimated Glomerular Filt Rate 99 ml/min (>60); GFR (African American) 120 ML/MIN (>60); Globulin 3.1 g/dL (1.3-3.2); Glucose 180 mg/dl (74-100); HDL Cholesterol 107 mg/dl (40-60); Potassium 4.4 mmoL/L (3.5-5.1); Sodium 136 mmol/L (136-145); Total Protein,Serum 7.9 g/dl (6.3-8.2); Triglycerides 74 mg/dl (30-150); VLDL Cholesterol 15 mg/dL (0-40)
[2024-04-08 11:14] LABS: Direct LDL Cholesterol 61.75 mg/dL (100-129)
[2024-04-08 11:34] LABS: Prostate Specific Ag Screen 2.5 ng/ml (0.0-4.0)
[2024-04-08 13:17] LABS: Hemoglobin A1C 7.6 % (4.0-6.0)
== END 2024-04-08 23:59 | disposition home or self-care (01) ==
LOC: LAB.DROPOF 10:42
PROVIDERS: PCP Internal Medicine; Visit Provider Internal Medicine
DX: I11.9 Hypertensive heart disease without heart failure (principal); I25.10 Atherosclerotic heart disease of native coronary artery without angina pectoris; E78.5 Hyperlipidemia, unspecified; E11.9 Type 2 diabetes mellitus without complications; Z79.4 Long term (current) use of insulin; Z12.5 Encounter for screening for malignant neoplasm of prostate; F10.10 Alcohol abuse, uncomplicated
CPT/HCPCS: 80053; 80061; 83036; 85025; G0103

== ENCOUNTER 2024-10-15 12:22 | Outpatient (CLI) | payer OTHER, SELFPAY ==
[2024-10-15 12:27] LABS: Basophils % 0.9 % (0.1-2.0); Eosinophils # 0.1 K/mm3 (0.0-0.4); Eosinophils % 2.3 % (0.1-12.0); Hematocrit 45.5 % (42.0-52.0); Hemoglobin 15.6 g/dL (14.1-18.0); Lymphocytes # 0.9 K/mm3 (0.7-4.5); Lymphocytes % 20.3 % (10-50); Mean Corpuscular HGB Conc 34.4 g/dL (31.8-35.4); Mean Corpuscular Hemoglobin 34.2 pg (27.0-31.2); Mean Corpuscular Volume 99.6 fl (80-94); Mean Platelet Volume 7.1 fl (7.4-10.4); Monocytes # 0.4 K/mm3 (0.1-1.0); Monocytes % 7.7 % (1.7-9.3); Neutrophils # 3.2 K/mm3 (1.8-7.8); Neutrophils % 68.8 % (37.0-80.0); Platelet Count 219 K/mm3 (142-424); Red Blood Count 4.57 M/mm3 (4.60-6.20); Red Cell Distribution Width 12.5 % (11.5-17.5); White Blood Count 4.6 K/mm3 (4.8-10.8)
[2024-10-15 13:06] LABS: Albumin Level 4.1 g/dl (3.5-5.0); Chloride 102 mmol/L (98-107); Potassium 4.1 mmoL/L (3.5-5.1); Sodium 135 mmol/L (136-145)
[2024-10-15 13:08] LABS: Alanine Aminotransferase 41 U/L (12-78); Anion Gap 11.1 mEq/L (5-15); Aspartate Amino Transferase 37 U/L (17-59); Blood Urea Nitrogen 9 mg/dl (9-20); Carbon Dioxide 26 mmol/L (22.0-30.0); Estimated Glomerular Filt Rate 99 ml/min (>60); GFR (African American) 119 ML/MIN (>60)
[2024-10-15 13:09] LABS: Albumin/Globulin Ratio 1.7 (1.1-1.8); Alkaline Phosphatase 143 U/L (38-126); Bilirubin,Total 0.8 mg/dl (0.2-1.3); Calcium 8.8 mg/dl (8.4-10.2); Chol/HDL Ratio 1.6 (1-3.5); Cholesterol 146 mg/dl (140-200); Globulin 2.4 g/dL (1.3-3.2); Glucose 118 mg/dl (74-100); HDL Cholesterol 90 mg/dl (40-60); Total Protein,Serum 6.5 g/dl (6.3-8.2); Triglycerides 61 mg/dl (30-150); VLDL Cholesterol 12 mg/dL (0-40)
[2024-10-15 13:48] LABS: Direct LDL Cholesterol 49.16 mg/dL (100-129)
[2024-10-15 14:06] LABS: Hemoglobin A1C 7.2 % (4.0-6.0)
[2024-10-15 15:31] LABS: Creatinine,Urine Random 58 mg/dL (Not Estab.); Microalbumin/Creatinine Ratio 17.4
== END 2024-10-15 23:59 | disposition home or self-care (01) ==
LOC: LAB.DROPOF 12:22
PROVIDERS: PCP Internal Medicine; Visit Provider Internal Medicine
DX: E78.5 Hyperlipidemia, unspecified (principal); I10 Essential (primary) hypertension; E11.59 Type 2 diabetes mellitus with other circulatory complications; Z72.0 Tobacco use; Z79.4 Long term (current) use of insulin
CPT/HCPCS: 80053; 80061; 82043; 82570; 83036; 85025

== ENCOUNTER 2024-11-04 22:25 | Emergency (ER) | payer OTHER, SELFPAY ==
[2024-11-04 22:26] VITALS: BP 166/103; PULSE 72; RESP 18; TEMP 36.6; O2SAT 96; BMI 34.0
--- NOTE | 2024-11-04 23:03 | CT_ITS ---
PROCEDURE INFORMATION: Exam: CT Cervical Spine Without Contrast Exam date and time: 11/04/2024 11:36 PM Age: 59 years old Clinical indication: Injury or trauma; Fall; Blunt trauma; Additional info: Fall ETOH TECHNIQUE: Imaging protocol: Computed tomography of the cervical spine without contrast. Radiation optimization: All CT scans at this facility use at least one of these dose optimization techniques: automated exposure control; mA and/or kV adjustment per patient size (includes targeted exams where dose is matched to clinical indication); or iterative reconstruction. COMPARISON: CT ANGIO NECK 07/14/2023 5:38 AM FINDINGS: Bones: Significant degenerative changes at the atlantodental joint as well as the C5-C6 disc level. Mild degenerative disc changes at C6-C7. Osseous alignment is normal. No acute fracture. Lungs: Lung apices are normal. Soft tissues: Unremarkable. IMPRESSION: No acute abnormality. Degenerative changes as noted.
--- NOTE | 2024-11-04 23:03 | CT_ITS ---
PROCEDURE INFORMATION: Exam: CT Head Without Contrast Exam date and time: 11/04/2024 11:34 PM Age: 59 years old Clinical indication: Injury or trauma; Fall; Blunt trauma (contusions or hematomas); Additional info: Fall ETOH TECHNIQUE: Imaging protocol: Computed tomography of the head without contrast. Radiation optimization: All CT scans at this facility use at least one of these dose optimization techniques: automated exposure control; mA and/or kV adjustment per patient size (includes targeted exams where dose is matched to clinical indication); or iterative reconstruction. COMPARISON: CT HEAD/BRAIN WO CON 11/04/2024 11:34 PM FINDINGS: Brain: Stable significant generalized cerebral atrophy. No intracranial mass, hemorrhage or evidence of acute ischemia. Cerebral ventricles: No ventriculomegaly. Paranasal sinuses: Visualized sinuses are unremarkable. No fluid levels. Mastoid air cells: Visualized mastoid air cells are well aerated. Bones: Unremarkable. No acute fracture. Soft tissues: Unremarkable. IMPRESSION: No acute intracranial abnormality
--- NOTE | 2024-11-04 23:03 | XR_ITS ---
PROCEDURE INFORMATION: Exam: XR Left Tibia and Fibula Exam date and time: 11/04/2024 11:33 PM Age: 59 years old Clinical indication: Injury or trauma; Fall; Blunt trauma; Lower leg; Left TECHNIQUE: Imaging protocol: Radiologic exam of the left tibia and fibula. Views: 2 views. COMPARISON: No relevant prior studies available. FINDINGS: Bones/joints: Surgical hardware is noted along the lateral aspect of the proximal tibia. Old lateral tibial plateau fracture. Soft tissues: Normal. IMPRESSION: Postsurgical changes without acute injury or hardware abnormality.
[2024-11-04 23:04] VITALS: PULSE 66; O2SAT 97
[2024-11-04 23:15] VITALS: BP 142/100; PULSE 63; O2SAT 96
[2024-11-04 23:30] VITALS: BP 146/94; PULSE 64; O2SAT 96
[2024-11-04 23:31] VITALS: BP 150/94; PULSE 64; O2SAT 97
--- NOTE | 2024-11-04 23:32 | PC.NURSE ---
Pt to xray via wheelchair
--- NOTE | 2024-11-04 23:45 | HMH.EDGENADL ---
Discharge Plan Disposition Patient Disposition: Home, Self-Care Condition: Good Prescriptions Prescriptions: No Action nitroglycerin 0.4 mg tablet, sublingual 0.4 mg sublingual Q5M PRN losartan-hydrochlorothiazide 100-12.5 mg tablet See Rx Instructions .ROUTE .COMPLEX Qty: 90 1RF Dose Instruction: TAKE 1 TABLET BY MOUTH IN THE MORNING Rx Instructions: TAKE 1 TABLET BY MOUTH IN THE MORNING levothyroxine 25 mcg tablet See Rx Instructions .ROUTE .COMPLEX Qty: 90 1RF Dose Instruction: Take 1 tablet by mouth once daily Rx Instructions: Take 1 tablet by mouth once daily atorvastatin 40 mg tablet See Rx Instructions .ROUTE .COMPLEX Qty: 90 1RF Dose Instruction: Take 1 tablet by mouth once daily Rx Instructions: Take 1 tablet by mouth once daily insulin lispro 100 unit/mL insulin pen See Rx Instructions .ROUTE .COMPLEX Qty: 15 3RF Dose Instruction: INJECT 12 UNITS SUBCUTANEOUSLY IN THE MORNING, 16 UNITS AT MIDDAY, AND 43 UNITS AT BEDTIME Rx Instructions: INJECT 12 UNITS SUBCUTANEOUSLY IN THE MORNING, 16 UNITS AT MIDDAY, AND 43 UNITS AT BEDTIME insulin glargine [Lantus Solostar U-100 Insulin] 100 unit/mL (3 mL) insulin pen See Rx Instructions .ROUTE .COMPLEX Qty: 45 3RF Dose Instruction: INJECT 70 UNITS SUBCUTANEOUSLY AT BEDTIME Rx Instructions: INJECT 76 UNITS SUBCUTANEOUSLY AT BEDTIME bisoprolol fumarate 5 mg tablet 5 mg PO DAILY Qty: 30 11RF clopidogrel [Plavix] 75 mg tablet 75 mg PO DAILY Qty: 90 2RF (DME) pen needle, diabetic [BD Ultra-Fine Mini Pen Needle] 31 gauge x 3/16 needle See Rx Instructions .ROUTE .COMPLEX Qty: 100 5RF Dose Instruction: USE DIRECTED Rx Instructions: USE DIRECTED CHECK SUGAR 2 TIMES DAILY aspirin 81 mg Tablet,Chewable 81 mg PO DAILY omega 5-hlc-agr-fish oil 900-1,400 mg Capsule,Delayed Release(Dr/Ec) 1 cap PO DAILY Referrals Follow up/Referrals: Trever Schofield MD [Primary Care Provider] - See instructions Activity Restrictions/Add. Instructions Additional Instructions/Restrictions: You were evaluated in the ER and are appropriate for discharge at this time. Keep the skin abrasion clean and dry. Shower/bathe as normal. Follow-up with your primary care doctor. Return to the ER with any new, worsening, or otherwise concerning symptoms as discussed, including but not limited to worsening pain, numbness, tingling, etc. Clinical Impressions Clinical Impression: Abrasion of anterior left lower leg, Fall Print Language Print Language: [place] Discharge ED Provider: Mynor Owens General Adult [facility] General Chief complaint: Extremity Injury, Lower Stated complaint: AO 11/04/242119 Injury left leg Time Seen by Provider: 11/04/24 23:02 Mode of Arrival: Wheelchair Source of Information: Patient Limitations: No Limitations Description of Symptoms (Recalled from ER Triage Doc. by RN): Patient fell at 2119 and hurt his left leg. Has swelling and some bleeding to the outer aspect of left calf. He is able to put weight on the extremity, but it hurts. Has drank 6 beers tonight. History of Present Illness HPI narrative: 59-year-old male presents to the ER with concerns of fall and injury to the left leg. Patient reports he slipped outside and landed on a rock on his left lower extremity. He has swelling and mild bleeding to an abrasion on the anterior lateral aspect of the left calf. He reports he is able to ambulate but has discomfort in this area when he does. He has drank 6 beers tonight prior to arrival. He denies hitting his head or losing consciousness but does take blood thinners for CAD with a stent. He also is a type II diabetic. Patient denies any numbness, tingling, or weakness, he denies any pain or injuries elsewhere. He has no other complaints at this time. Related Data Home Medications ?Medication ?Instructions ?Recorded ?Confirmed aspirin 81 mg chewable tablet 81 mg PO DAILY Heart health 01/30/23 10/15/24 omega 6-mvy-yoe-fish oil 900 1 cap PO DAILY Supplement 01/30/23 10/15/24 mg-1,400 mg capsule,delayed release nitroglycerin 0.4 mg sublingual 0.4 mg sublingual Q5M PRN 04/08/24 10/15/24 tablet Previous Rx's ?Medication ?Instructions ?Recorded losartan 100 See Rx Instructions .Route 06/12/24 mg-hydrochlorothiazide 12.5 mg .COMPLEX #90 tabs tablet atorvastatin 40 mg tablet See Rx Instructions .Route 07/22/24 .COMPLEX #90 tabs levothyroxine 25 mcg tablet See Rx Instructions .Route 07/22/24 .COMPLEX #90 tabs Lantus Solostar U-100 Insulin 100 See Rx Instructions .Route 09/26/24 unit/mL (3 mL) subcutaneous pen .COMPLEX #45 mL (insulin glargine) insulin lispro 100 unit/mL See Rx Instructions .Route 09/26/24 subcutaneous pen .COMPLEX #15 mL bisoprolol fumarate 5 mg tablet 5 mg PO DAILY #30 tabs 10/21/24 clopidogrel 75 mg tablet (Plavix) 75 mg PO DAILY #90 tabs 11/04/24 pen needle, diabetic 31 gauge x #100 ea 11/04/24/16 (BD Ultra-Fine Mini Pen Needle) Allergies Allergy/AdvReac Type Severity Reaction Status Date / Time ciprofloxacin Allergy Intermediate Anxiety Verified 10/15/24 09:45 empagliflozin (From AdvReac Gastrointestinal Verified 10/15/24 09:45 Jardiance) Upset [facility] Disclaimer: The information contained in this section may have been updated after the patient was seen, as this information can be updated by other users. Medical History Meralgia paresthetica, right lower limb Unilateral primary osteoarthritis, left knee Surgical History S/P angioplasty with stent History of appendectomy Social History Smoking Status: Never smoker alcohol intake: current alcohol intake frequency: 3 or more drinks per day substance use type: denies use current occupational status: employed Travel in the last 8 weeks: None Have you lived/traveled outside [place] in past 30 days?: No Contact w/someone who lives/traveled outside [place] past 30 days?: No Exposure to someone with infectious disease in past 14 days?: No Do you have a fever (greater than 100.4 F or 38 C)?: No Have you tested positive for COVID-19: No Exposed to someone with COVID-19 in past 14 days?: No Do you have a sore throat?: No Do you have a cough?: No Do you have any weakness?: No Do you have any diarrhea?: No Are you experiencing any unusual bleeding?: No Do you have any muscle aches/pain?: No Do you have any abdominal pain?: No Are you experiencing loss of taste or smell?: No Other Medical History Have you received the Flu Vaccine for this season: No Have you received the Pneumonia Vaccine: Yes ROS Obtained: Yes Systems reviewed as appropriate & no additional complaints except as documented Per HPI Physical Exam General General appearance: alert and in no apparent distress Head Head exam: atraumatic and normocephalic Eye Eye exam: Present PERRL and EOMI ENT ENT exam: Present mucous membranes moist Neck Neck exam: Present normal inspection and full ROM Chest Chest inspection: Present symmetric chest wall rise Respiratory Respiratory exam: Present normal lung sounds bilaterally; Absent respiratory distress, wheezes or stridor Cardiovascular Cardiovascular exam: Present regular rate and normal rhythm Abdominal Exam Abdominal exam: Present soft; Absent distention or tenderness Extremities Exam Extremities exam: Present full ROM and other (Abrasion to left anterior lateral richardson, hemostatic, no laceration, there is mild swelling of this area but the area is soft, mildly tender globally, no associated limb pallor, paresthesias, or pain with passive movement; no bony tenderness); Absent edema, joint swelling or calf tenderness Neurological Exam Neurological exam: Present alert and oriented X3; Absent motor sensory deficit Psychiatric Psychiatric exam: Present normal affect and normal mood Skin Skin exam: Present warm and dry Medical Decision Making Medical Records Medical records reviewed: Yes I reviewed the patient's medical records. Screening: Per USPSTF and CDC recommendations, given the prevalence of disease in our region, it is our hospital?s policy to screen for HIV and viral Hepatitis for all patients aged 18 and over and those with ongoing risk factors. MR Comment: Patient has a well-documented history of alcohol abuse/misuse within our system. Patient was last seen by Dr. Schofield October 15 and I reviewed that note. Plan at that time was for basic labs, continue medications and diet, return to clinic in 3 months for recheck A1c. Jaret Inquiry Pt receiving controlled substance: No Vital Signs: 11/04/24 22:26 11/04/24 23:04 11/04/24 23:15 Temperature 97.9 F Temperature Source Oral Pulse Rate 66 63 Pulse Rate [Left Radial] 72 Respiratory Rate 18 Blood Pressure 142/100 H Blood Pressure [Right Arm] 166/103 H Blood Pressure Mean [Right Arm] 124 Blood Pressure Source [Right Arm] Automatic Cuff Blood Pressure Position [Right Arm] Supine 02 Sat by Pulse Oximetry 96 97 96 Oxygen Delivery Method Room Air 11/04/24 23:30 11/04/24 23:31 11/05/24 00:00 Temperature Temperature Source Pulse Rate 64 64 67 Pulse Rate [Left Radial] Respiratory Rate Blood Pressure 146/94 H 150/94 H 129/85 Blood Pressure [Right Arm] Blood Pressure Mean [Right Arm] Blood Pressure Source [Right Arm] Blood Pressure Position [Right Arm] 02 Sat by Pulse Oximetry 96 97 97 Oxygen Delivery Method 11/05/24 00:15 11/05/24 00:30 11/05/24 00:45 Temperature Temperature Source Pulse Rate 64 63 70 Pulse Rate [Left Radial] Respiratory Rate Blood Pressure 130/84 134/85 129/81 Blood Pressure [Right Arm] Blood Pressure Mean [Right Arm] Blood Pressure Source [Right Arm] Blood Pressure Position [Right Arm] 02 Sat by Pulse Oximetry 95 96 96 Oxygen Delivery Method Orders (Tests/Meds): ED MEDICATIONS Discontinued Medications Generic Name Dose Route Start Last Admin Trade Name Freq PRN Reason Stop Dose Admin Acetaminophen 650 mg 11/05/24 01:00 Acetaminophen 325mg Tab PO 11/05/24 01:01 ONCE ONE Ketorolac Tromethamine 15 mg 11/05/24 01:00 Ketorolac 30mg/Ml Vial IM 11/05/24 01:01 ONCE ONE ORDERS Category Date Time Status CT cervical spine wo con Stat Cat Scan 11/04/24 23:[address] head/brain wo con Stat Cat Scan 11/04/24 23:03 Completed Tibia/fibula XR left 2 views [XR tibia fibula LT 2V] Exams 11/04/24 23:03 Taken Stat Medical Decision Narrative: In summary, this 59-year-old male with known history of CAD, diabetes, alcohol abuse presents to the emergency department today with fall, abrasion to the left anterior richardson. On initial evaluation patient is hemodynamically stable, afebrile, exam notable for abrasion and mild swelling of the left anterior lateral richardson, I considered compartment syndrome but patient had no evidence of this, no pain out of proportion, pallor, paresthesias, or pain with passive movement. Neurovascularly intact distally. Patient was ambulatory into the ER. He has no neurologic deficits, no other traumatic findings. Differential diagnosis includes but is not limited to intracranial bleed, increased possibility of this since patient does take antiplatelet therapy, also cannot rule out C-spine injury since patient is intoxicated on alcohol at this time, possible fracture, dislocation, considered compartment syndrome but have no evidence of this on exam, patient has no laceration, considered possibility of deep space hematoma, lower suspicion for bony injury but it was considered. Based on these concerns, I ordered CT imaging of the head, neck, x-ray of the left lower extremity. Patient received Tylenol, Toradol for treatment in the ER. On reassessment he reports his pain is significantly improved, he has been bearing weight in the ER comfortably and independently ambulatory. He has not had any expansion of the swelling, no concern for expanding hematoma clinically. He still has no pain, pallor, paresthesias, or pain with passive movement. No concern for compartment syndrome. CT head and CT cervical spine were personally interpreted and do not demonstrate acute traumatic injury, see radiology reads for final interpretations. X-ray left tib-fib were personally interpreted and I do not appreciate any acute osseous injury, hardware intact. Radiology read pending at this time, however since patient symptoms are well-controlled, he is ambulating independently, and he has no red flag symptoms, I believe he is appropriate for discharge at this time. He was given instructions on continued symptomatic monitoring and management, follow-up instructions, return precautions for the ER. He and his at bedside indicated understanding and the patient was discharged in stable condition Critical Care Critical Care Time Critical Care Time: No
--- NOTE | 2024-11-04 23:45 | PC.NURSE ---
Pt back from xray
[2024-11-05] VITALS: BP 129/85; PULSE 67; O2SAT 97
[2024-11-05 00:15] VITALS: BP 130/84; PULSE 64; O2SAT 95
[2024-11-05 00:30] VITALS: BP 134/85; PULSE 63; O2SAT 96
[2024-11-05 00:45] VITALS: BP 129/81; PULSE 70; O2SAT 96
[2024-11-05] MEDS: ACETAMINOPHEN 325MG TAB 650 MG PO (01:27)
[2024-11-05] MEDS: KETOROLAC 30MG/ML VIAL 15 MG IM (01:27)
[2024-11-05 01:33] VITALS: BP 129/83; PULSE 70; RESP 18; TEMP 36.6; O2SAT 95
== END 2024-11-05 01:34 | disposition home or self-care (01) ==
PROVIDERS: Emergency Provider Emergency Medicine; PCP Internal Medicine
DX: S80.812A Abrasion, left lower leg, initial encounter (principal); M79.605 Pain in left leg; W01.0XXA Fall on same level from slipping, tripping and stumbling without subsequent striking against object, initial encounter; Y93.9 Activity, unspecified; Y92.9 Unspecified place or not applicable
CPT/HCPCS: 70450; 72125; 73590; 96372; 99284; J1885

== ENCOUNTER 2024-11-09 20:06 | Emergency (ER) | payer BC, SELFPAY ==
[2024-11-09] VITALS (8 sets, daily range): BP systolic 135–166; BP diastolic 84–101; PULSE 60–74; RESP 16; TEMP 36.8; O2SAT 94–97; BMI 34.0
--- NOTE | 2024-11-09 20:42 | HMH.EDGENADL ---
Discharge Plan Disposition Patient Disposition: Home, Self-Care Prescriptions Prescriptions: No Action nitroglycerin 0.4 mg tablet, sublingual 0.4 mg sublingual Q5M PRN losartan-hydrochlorothiazide 100-12.5 mg tablet See Rx Instructions .ROUTE .COMPLEX Qty: 90 1RF Dose Instruction: TAKE 1 TABLET BY MOUTH IN THE MORNING Rx Instructions: TAKE 1 TABLET BY MOUTH IN THE MORNING levothyroxine 25 mcg tablet See Rx Instructions .ROUTE .COMPLEX Qty: 90 1RF Dose Instruction: Take 1 tablet by mouth once daily Rx Instructions: Take 1 tablet by mouth once daily atorvastatin 40 mg tablet See Rx Instructions .ROUTE .COMPLEX Qty: 90 1RF Dose Instruction: Take 1 tablet by mouth once daily Rx Instructions: Take 1 tablet by mouth once daily insulin lispro 100 unit/mL insulin pen See Rx Instructions .ROUTE .COMPLEX Qty: 15 3RF Dose Instruction: INJECT 12 UNITS SUBCUTANEOUSLY IN THE MORNING, 16 UNITS AT MIDDAY, AND 43 UNITS AT BEDTIME Rx Instructions: INJECT 12 UNITS SUBCUTANEOUSLY IN THE MORNING, 16 UNITS AT MIDDAY, AND 43 UNITS AT BEDTIME insulin glargine [Lantus Solostar U-100 Insulin] 100 unit/mL (3 mL) insulin pen See Rx Instructions .ROUTE .COMPLEX Qty: 45 3RF Dose Instruction: INJECT 70 UNITS SUBCUTANEOUSLY AT BEDTIME Rx Instructions: INJECT 76 UNITS SUBCUTANEOUSLY AT BEDTIME bisoprolol fumarate 5 mg tablet 5 mg PO DAILY Qty: 30 11RF clopidogrel [Plavix] 75 mg tablet 75 mg PO DAILY Qty: 90 2RF (DME) pen needle, diabetic [BD Ultra-Fine Mini Pen Needle] 31 gauge x 3/16 needle See Rx Instructions .ROUTE .COMPLEX Qty: 100 5RF Dose Instruction: USE DIRECTED Rx Instructions: USE DIRECTED CHECK SUGAR 2 TIMES DAILY aspirin 81 mg Tablet,Chewable 81 mg PO DAILY omega 6-aya-sro-fish oil 900-1,400 mg Capsule,Delayed Release(Dr/Ec) 1 cap PO DAILY Referrals Follow up/Referrals: Trever Schofield MD [Primary Care Provider] - See instructions Activity Restrictions/Add. Instructions Additional Instructions/Restrictions: Please follow-up with your primary care provider. Please return to the emergency department if you develop any new or worsening symptoms or become concerned for your health. Clinical Impressions Clinical Impression: Cellulitis of left leg Instructions Patient Instructions: DI for Skin Abscess Print Language Print Language: Indonesian Discharge ED Provider: Saúl Cortez General Adult HPI <Ismael Vogel MD - Last Filed: 11/10/24 00:25> General Chief complaint: Skin/Abscess/Foreign Body Stated complaint: Possible infected wound left leg Time Seen by Provider: 11/09/24 20:10 Mode of Arrival: Ambulatory Source of Information: Patient Limitations: No Limitations Description of Symptoms (Recalled from ER Triage Doc. by RN): Patient fell on monday and hit leg on a rock- came to the ER; ruled out any broken bones, etc. Now patient leg is red and swollen and they are concerned about it possibly being infected. Deny any fever, drainage, or warmth to area. Left leg on richardson. History of Present Illness HPI narrative: Patient is a 59-year-old past medical history of diabetes presenting for wound on his left lower extremity. Patient said about 1 week ago he fell and hit a rock with his left leg. He was initially seen in this emergency department and was sent home after he had negative x-rays. Over the last couple of days he noticed that it has continued to worsen and now has pus drainage from it and ulcerations. He has pain around the site but does not shoot down his leg or go up his leg. Patient has had no fevers, chills, chest pain, shortness of breath, weakness or numbness or tingling. Related Data Home Medications ?Medication ?Instructions ?Recorded ?Confirmed aspirin 81 mg chewable tablet 81 mg PO DAILY Heart health 01/30/23 10/15/24 omega 0-tlc-zkc-fish oil 900 1 cap PO DAILY Supplement 01/30/23 10/15/24 mg-1,400 mg capsule,delayed release nitroglycerin 0.4 mg sublingual 0.4 mg sublingual Q5M PRN 04/08/24 10/15/24 tablet Previous Rx's ?Medication ?Instructions ?Recorded losartan 100 See Rx Instructions .Route 06/12/24 mg-hydrochlorothiazide 12.5 mg .COMPLEX #90 tabs tablet atorvastatin 40 mg tablet See Rx Instructions .Route 07/22/24 .COMPLEX #90 tabs levothyroxine 25 mcg tablet See Rx Instructions .Route 07/22/24 .COMPLEX #90 tabs Lantus Solostar U-100 Insulin 100 See Rx Instructions .Route 09/26/24 unit/mL (3 mL) subcutaneous pen .COMPLEX #45 mL (insulin glargine) insulin lispro 100 unit/mL See Rx Instructions .Route 09/26/24 subcutaneous pen .COMPLEX #15 mL bisoprolol fumarate 5 mg tablet 5 mg PO DAILY #30 tabs 10/21/24 clopidogrel 75 mg tablet (Plavix) 75 mg PO DAILY #90 tabs 11/04/24 pen needle, diabetic 31 gauge x #100 ea 11/04/24 3/16 (BD Ultra-Fine Mini Pen Needle) Allergies Allergy/AdvReac Type Severity Reaction Status Date / Time ciprofloxacin Allergy Intermediate Anxiety Verified 10/15/24 09:45 empagliflozin (From AdvReac Gastrointestinal Verified 10/15/24 09:45 Jardiance) Upset [facility] <Ismael Vogel MD - Last Filed: 11/10/24 00:25> [facility] Disclaimer: The information contained in this section may have been updated after the patient was seen, as this information can be updated by other users. Medical History Meralgia paresthetica, right lower limb Unilateral primary osteoarthritis, left knee Surgical History S/P angioplasty with stent History of appendectomy Social History Smoking Status: Current every day smoker alcohol intake: current alcohol intake frequency: 3 or more drinks per day substance use type: denies use current occupational status: employed Travel in the last 8 weeks: None Have you lived/traveled outside [place] in past 30 days?: No Contact w/someone who lives/traveled outside US past 30 days?: No Exposure to someone with infectious disease in past 14 days?: No Do you have a fever (greater than 100.4 F or 38 C)?: No Have you tested positive for COVID-19: No Exposed to someone with COVID-19 in past 14 days?: No Do you have a sore throat?: No Do you have a cough?: No Do you have any weakness?: No Do you have any diarrhea?: No Are you experiencing any unusual bleeding?: No Do you have any muscle aches/pain?: No Do you have any abdominal pain?: No Are you experiencing loss of taste or smell?: No Other Medical History Have you received the Flu Vaccine for this season: No Have you received the Pneumonia Vaccine: Yes <Ismael Vogel MD - Last Filed: 11/10/24 00:25> ROS Obtained: Yes All systems reviewed & no additional complaints except as documented Physical Exam <Ismael Vogel MD - Last Filed: 11/10/24 00:25> General General appearance: alert and in no apparent distress Eye Eye exam: Present normal appearance ENT ENT exam: Present normal exam Chest Chest inspection: Present symmetric chest wall rise Respiratory Respiratory exam: Present normal lung sounds bilaterally; Absent respiratory distress Cardiovascular Cardiovascular exam: Present regular rate and other (DP and TP pulses bilaterally symmetric) Abdominal Exam Abdominal exam: Present soft; Absent tenderness, guarding or rebound Extremities Exam Extremities exam: Present full ROM; Absent tenderness Neurological Exam Neurological exam: Present alert and oriented X3; Absent motor sensory deficit Psychiatric Psychiatric exam: Present normal affect Skin Skin exam: Present other (Erythematous cellulitis on left anterior medial richardson with pustules, tenderness to palpation, no crepitus and no tenderness to proximal or distal joints) Medical Decision Making <Ismael Vogel MD - Last Filed: 11/10/24 00:25> Medical Records Medical records reviewed: Yes I reviewed the patient's medical records. Screening: Per USPSTF and CDC recommendations, given the prevalence of disease in our region, it is our hospital?s policy to screen for HIV and viral Hepatitis for all patients aged 18 and over and those with ongoing risk factors. Jaret Inquiry Pt receiving controlled substance: No Vital Signs: 11/09/24 20:08 11/09/24 20:12 11/09/24 20:30 Temperature 98.3 F Temperature Source Oral Pulse Rate 72 65 Pulse Rate [Right Radial] 74 Respiratory Rate 16 Blood Pressure 166/101 H 146/93 H Blood Pressure [Right Arm] 166/101 H Blood Pressure Mean [Right Arm] 122 Blood Pressure Source [Right Arm] Automatic Cuff Blood Pressure Position [Right Arm] Supine 02 Sat by Pulse Oximetry 97 96 95 Oxygen Delivery Method Room Air 11/09/24 21:00 11/09/24 21:30 11/09/24 22:00 Temperature Temperature Source Pulse Rate 67 63 61 Pulse Rate [Right Radial] Respiratory Rate Blood Pressure 150/90 H 137/84 137/86 Blood Pressure [Right Arm] Blood Pressure Mean [Right Arm] Blood Pressure Source [Right Arm] Blood Pressure Position [Right Arm] 02 Sat by Pulse Oximetry 94 L 95 95 Oxygen Delivery Method 11/09/24 22:30 11/09/24 23:00 Temperature Temperature Source Pulse Rate 60 60 Pulse Rate [Right Radial] Respiratory Rate Blood Pressure 135/90 141/85 H Blood Pressure [Right Arm] Blood Pressure Mean [Right Arm] Blood Pressure Source [Right Arm] Blood Pressure Position [Right Arm] 02 Sat by Pulse Oximetry 95 95 Oxygen Delivery Method Lab Data Lab Results 11/09/24 21:02: WBC 6.6, RBC 4.50 L, Hgb 15.3, Hct 41.3 L, MCV 91.8, MCH 34.0 H, MCHC 37.0 H, RDW 10.8 L, Plt Count 206, MPV 8.8, Neut % (Auto) 67.2, Lymph % (Auto) 19.8, Rabun % (Auto) 9.3, Eos % (Auto) 2.7, Baso % (Auto) 0.8, Neut # (Auto) 4.4, Lymph # (Auto) 1.3, Rabun # (Auto) 0.6, Eos # (Auto) 0.2, Baso # (Auto) 0.1, Total Counted 100, Neutrophils % (Manual) 65, Lymphocytes % (Manual) 23, Monocytes % (Manual) 10 H, Eosinophils % (Manual) 2, Platelet Estimate Normal, RBC Morphology Normal, ESR 15, Sodium 133 L, Potassium 3.6, Chloride 95 L, Carbon Dioxide 28, Anion Gap 13.6, BUN 6 L, Creatinine 0.80, Estimated Creat Clear 137, Estimated GFR 99, Est GFR ( Amer) 119, Glucose 160 H, Calcium 9.4, Total Bilirubin 0.7, AST 46, ALT 48, Alkaline Phosphatase 161 H, C-Reactive Protein 2.7, Total Protein 7.2, Albumin 4.5, Globulin 2.7, Albumin/Globulin Ratio 1.7 11/09/24 22:06: VBG pH 7.43 H, VBG pCO2 38.7, VBG pO2 51.7 H, VBG HCO3 24.9, VBG Total CO2 26.1, VBG O2 Saturation 88.6 H, VBG Base Excess 0.6, VBG Lactic Acid 1.8 11/09/24 21:02 11/09/24 21:02 Orders (Tests/Meds): ED MEDICATIONS Discontinued Medications Generic Name Dose Route Start Last Admin Trade Name Carol PRN Reason Stop Dose Admin Dalbavancin 1,500 mg/ Dextrose 250 mls @ 500 mls/hr 11/09/24 23:16 11/09/24 23:54 IV 11/09/24 23:17 500 mls/hr ONCE ONE Administration Tetanus/Reduced Diphtheria/Acell Pertussis 0.5 ml 11/09/24 23:13 11/09/24 23:32 Tet/Diphth/Pert-Adult 0.5ml Syringe IM 11/09/24 23:14 0.5 ml .ONCE ONE Administration ORDERS Category Date Time Status Tibia/fibula XR left 2 views [XR tibia fibula LT 2V] Exams 11/09/24 20:49 Completed Stat C-Reactive Protein Stat Lab 11/09/24 21:02 Completed Complete Blood Count Man Dif Stat Lab 11/09/24 21:02 Completed Comprehensive Metabolic Panel Stat Lab 11/09/24 21:02 Completed ESR [Erythrocyte Sedimentation Rate] Stat Lab 11/09/24 21:02 Completed Lactate Venous Stat Lab 11/09/24 21:35 Ordered Blood Culture Stat Micro 11/09/24 21:09 Received Venous Blood Gas Routine RT 11/09/24 22:06 Completed Medical Decision Narrative: In summary, this 59-year-old male presents to the emergency department today with wound check. On initial evaluation patient is hemodynamically stable alert and in no acute distress. Patient has a cellulitis on his lower extremity and with his history of diabetes with labs and imaging for further evaluation. He has been afebrile and has no tenderness to the joint above and below and no swelling of the joints. Differential diagnosis includes but is not limited to cellulitis, dermatitis, necrotizing soft tissue infection, septic joint. Based on these concerns, I ordered labs and imaging. Patient received Tdap for treatment. Labs personally reviewed demonstrate no leukocytosis, inflammatory markers normal mild hyponatremia, hyperglycemia. XR personally interpreted demonstrates no gas or bony destruction. I had an interactive discussion with similar to previous evaluation, hemodynamically stable alert and in no acute distress. Patient was started on Dalvance and signed out to oncoming resident Dr. Cortez. <Saúl Cortez MD - Last Filed: 11/10/24 00:45> Vital Signs: 11/09/24 20:08 11/09/24 20:12 11/09/24 20:30 Temperature 98.3 F Temperature Source Oral Pulse Rate 72 65 Pulse Rate [Right Radial] 74 Respiratory Rate 16 Blood Pressure 166/101 H 146/93 H Blood Pressure [Right Arm] 166/101 H Blood Pressure Mean [Right Arm] 122 Blood Pressure Source [Right Arm] Automatic Cuff Blood Pressure Position [Right Arm] Supine 02 Sat by Pulse Oximetry 97 96 95 Oxygen Delivery Method Room Air 11/09/24 21:00 11/09/24 21:30 11/09/24 22:00 Temperature Temperature Source Pulse Rate 67 63 61 Pulse Rate [Right Radial] Respiratory Rate Blood Pressure 150/90 H 137/84 137/86 Blood Pressure [Right Arm] Blood Pressure Mean [Right Arm] Blood Pressure Source [Right Arm] Blood Pressure Position [Right Arm] 02 Sat by Pulse Oximetry 94 L 95 95 Oxygen Delivery Method 11/09/24 22:30 11/09/24 23:00 Temperature Temperature Source Pulse Rate 60 60 Pulse Rate [Right Radial] Respiratory Rate Blood Pressure 135/90 141/85 H Blood Pressure [Right Arm] Blood Pressure Mean [Right Arm] Blood Pressure Source [Right Arm] Blood Pressure Position [Right Arm] 02 Sat by Pulse Oximetry 95 95 Oxygen Delivery Method Lab Data Lab Results 11/09/24 21:02: WBC 6.6, RBC 4.50 L, Hgb 15.3, Hct 41.3 L, MCV 91.8, MCH 34.0 H, MCHC 37.0 H, RDW 10.8 L, Plt Count 206, MPV 8.8, Neut % (Auto) 67.2, Lymph % (Auto) 19.8, Rabun % (Auto) 9.3, Eos % (Auto) 2.7, Baso % (Auto) 0.8, Neut # (Auto) 4.4, Lymph # (Auto) 1.3, Rabun # (Auto) 0.6, Eos # (Auto) 0.2, Baso # (Auto) 0.1, Total Counted 100, Neutrophils % (Manual) 65, Lymphocytes % (Manual) 23, Monocytes % (Manual) 10 H, Eosinophils % (Manual) 2, Platelet Estimate Normal, RBC Morphology Normal, ESR 15, Sodium 133 L, Potassium 3.6, Chloride 95 L, Carbon Dioxide 28, Anion Gap 13.6, BUN 6 L, Creatinine 0.80, Estimated Creat Clear 137, Estimated GFR 99, Est GFR ( Amer) 119, Glucose 160 H, Calcium 9.4, Total Bilirubin 0.7, AST 46, ALT 48, Alkaline Phosphatase 161 H, C-Reactive Protein 2.7, Total Protein 7.2, Albumin 4.5, Globulin 2.7, Albumin/Globulin Ratio 1.7 11/09/24 22:06: VBG pH 7.43 H, VBG pCO2 38.7, VBG pO2 51.7 H, VBG HCO3 24.9, VBG Total CO2 26.1, VBG O2 Saturation 88.6 H, VBG Base Excess 0.6, VBG Lactic Acid 1.8 Orders (Tests/Meds): ED MEDICATIONS Discontinued Medications Generic Name Dose Route Start Last Admin Trade Name Freq PRN Reason Stop Dose Admin Dalbavancin 1,500 mg/ Dextrose 250 mls @ 500 mls/hr 11/09/24 23:16 11/09/24 23:54 IV 11/09/24 23:17 500 mls/hr ONCE ONE Administration Tetanus/Reduced Diphtheria/Acell Pertussis 0.5 ml 11/09/24 23:13 11/09/24 23:32 Tet/Diphth/Pert-Adult 0.5ml Syringe IM 11/09/24 23:14 0.5 ml .ONCE ONE Administration ORDERS Category Date Time Status Tibia/fibula XR left 2 views [XR tibia fibula LT 2V] Exams 11/09/24 20:49 Completed Stat C-Reactive Protein Stat Lab 11/09/24 21:02 Completed Complete Blood Count Man Dif Stat Lab 11/09/24 21:02 Completed Comprehensive Metabolic Panel Stat Lab 11/09/24 21:02 Completed ESR [Erythrocyte Sedimentation Rate] Stat Lab 11/09/24 21:02 Completed Lactate Venous Stat Lab 11/09/24 21:35 Ordered Blood Culture Stat Micro 11/09/24 21:09 Received Venous Blood Gas Routine RT 11/09/24 22:06 Completed Medical Decision Narrative: In summary, this 59-year-old male presents to the emergency department today with wound check. On initial evaluation patient is hemodynamically stable alert and in no acute distress. Patient has a cellulitis on his lower extremity and with his history of diabetes with labs and imaging for further evaluation. He has been afebrile and has no tenderness to the joint above and below and no swelling of the joints. Differential diagnosis includes but is not limited to cellulitis, dermatitis, necrotizing soft tissue infection, septic joint. Based on these concerns, I ordered labs and imaging. Patient received Tdap for treatment. Labs personally reviewed demonstrate no leukocytosis, inflammatory markers normal mild hyponatremia, hyperglycemia. XR personally interpreted demonstrates no gas or bony destruction. I had an interactive discussion with similar to previous evaluation, hemodynamically stable alert and in no acute distress. Patient was started on Dalvance and signed out to oncoming resident Dr. Cortez. Dana GRANDE: I assumed care of the patient at the time of handoff from the prior provider. The patient was discharged in stable condition with return precautions and instructions to follow-up with PCP for wound check. Critical Care <Ismael Vogel MD - Last Filed: 11/10/24 00:25> Critical Care Time Critical Care Time: No
--- NOTE | 2024-11-09 20:49 | XR_ITS ---
PROCEDURE INFORMATION: Exam: XR Left Tibia and Fibula Exam date and time: 11/09/2024 9:24 PM Age: 59 years old Clinical indication: Other: Wound concern for underlying infection TECHNIQUE: Imaging protocol: Radiologic exam of the left tibia and fibula. Views: 2 views. COMPARISON: CR XR TIBIA FIBULA LT 2V 11/04/2024 11:33 PM FINDINGS: Bones/joints: Stable proximal tibial ORIF without perihardware lucency. No fracture. Stable alignment. Chronic deformity of lateral tibial plateau. Normal bony density. Soft tissues: Unremarkable. IMPRESSION: No acute radiographic findings identified.
[2024-11-09 21:12] LABS: MANUAL DIFFERENTIAL MANUAL DIFFERENTIAL (MANUAL DIFF)
[2024-11-09 21:14] LABS: Basophils # 0.1 K/mm3 (0-0.2); Basophils % 0.8 % (0.1-2.0); Eosinophils # 0.2 K/mm3 (0.0-0.4); Eosinophils % 2.7 % (0.1-12.0); Hematocrit 41.3 % (42.0-52.0); Hemoglobin 15.3 g/dL (14.1-18.0); Lymphocytes # 1.3 K/mm3 (0.7-4.5); Lymphocytes % 19.8 % (10-50); Mean Corpuscular Volume 91.8 fl (80-94); Mean Platelet Volume 8.8 fl (7.4-10.4); Monocytes # 0.6 K/mm3 (0.1-1.0); Monocytes % 9.3 % (1.7-9.3); Neutrophils # 4.4 K/mm3 (1.8-7.8); Neutrophils % 67.2 % (37.0-80.0); Platelet Count 206 K/mm3 (142-424); Red Cell Distribution Width 10.8 % (11.5-17.5); White Blood Count 6.6 K/mm3 (4.8-10.8)
[2024-11-09 21:20] LABS: Albumin Level 4.5 g/dl (3.5-5.0); Chloride 95 mmol/L (98-107); Potassium 3.6 mmoL/L (3.5-5.1); Sodium 133 mmol/L (136-145)
[2024-11-09 21:23] LABS: Alanine Aminotransferase 48 U/L (12-78); Albumin/Globulin Ratio 1.7 (1.1-1.8); Alkaline Phosphatase 161 U/L (38-126); Anion Gap 13.6 mEq/L (5-15); Aspartate Amino Transferase 46 U/L (17-59); Bilirubin,Total 0.7 mg/dl (0.2-1.3); Blood Urea Nitrogen 6 mg/dl (9-20); Calcium 9.4 mg/dl (8.4-10.2); Carbon Dioxide 28 mmol/L (22.0-30.0); Creatinine Clearance Estimated 137 mL/min (50-200); Estimated Glomerular Filt Rate 99 ml/min (>60); GFR (African American) 119 ML/MIN (>60); Globulin 2.7 g/dL (1.3-3.2); Glucose 160 mg/dl (74-100); Total Protein,Serum 7.2 g/dl (6.3-8.2)
[2024-11-09 21:29] LABS: C-Reactive Protein 2.7 mg/L (0-4)
[2024-11-09 21:52] LABS: Eosinophils % 2 % (0-3); Lymphocytes % 23 % (10-50); Monocytes % 10 % (2-9); Neutrophils % 65 % (42-76); Platelet Estimate Normal; RBC Morphology Normal; Total Cells Counted 100
[2024-11-09 22:07] LABS: Lactate Venous 1.8 mmol/L (0.4-2.0); VBG Base Excess 0.6 mmol/L (-2.4-2.3); VBG HCO3 24.9 mmol/L (23-30); VBG Oxygen Saturation 88.6 % (50-70); VBG PCO2 38.7 mmol/L (35-51); VBG PH 7.43 mmol/L (7.31-7.41); VBG PO2 51.7 mmol/L (28-40); VBG Total CO2 26.1 mmol/L (23-27)
[2024-11-09 22:19] LABS: Erythrocyte Sedimentation Rate 15 mm/hr (0-20)
[2024-11-09] MEDS: TET/DIPHTH/PERT-ADULT 0.5ML SYRINGE 0.5 ML IM (23:32)
[2024-11-09] MEDS: DALBAVANCIN HCL 1,500 MG in DEXTROSE 5 % IN WATER 250 ML 500 MG IV (23:54)
[2024-11-10 00:44] VITALS: BP 128/72; PULSE 74; RESP 16; TEMP 36.6; O2SAT 99
== END 2024-11-10 00:54 | disposition home or self-care (01) ==
PROVIDERS: Student in an Organized Health Care Education/Training Program; Emergency Provider Emergency Medicine; PCP Internal Medicine
DX: L03.116 Cellulitis of left lower limb (principal); M79.605 Pain in left leg; Z23 Encounter for immunization
CPT/HCPCS: 73590; 80053; 82803; 85007; 85014; 85018; 85048; 85049; 85651; 86140; 87040; 90471; 90715; 96374; 99283; J0875; J7060

== ENCOUNTER 2025-04-28 15:49 | Outpatient (CLI) | payer BC, SELFPAY ==
[2025-04-28 13:13] LABS: Albumin Level 4.8 g/dl (3.5-5.0); Chloride 96 mmol/L (98-107); Potassium 5.3 mmoL/L (3.5-5.1); Sodium 133 mmol/L (136-145)
[2025-04-28 13:16] LABS: Alanine Aminotransferase 48 U/L (12-78); Albumin/Globulin Ratio 1.5 (1.1-1.8); Alkaline Phosphatase 136 U/L (38-126); Anion Gap 15.3 mEq/L (5-15); Aspartate Amino Transferase 54 U/L (17-59); Bilirubin,Total 1.2 mg/dl (0.2-1.3); Blood Urea Nitrogen 9 mg/dl (9-20); Carbon Dioxide 27 mmol/L (22.0-30.0); Cholesterol 174 mg/dl (140-200); Estimated Glomerular Filt Rate 99 ml/min (>60); GFR (African American) 119 ML/MIN (>60); Globulin 3.2 g/dL (1.3-3.2); Triglycerides 53 mg/dl (30-150); VLDL Cholesterol 11 mg/dL (0-40)
[2025-04-28 13:17] LABS: Calcium 9.4 mg/dl (8.4-10.2); Glucose 156 mg/dl (74-100)
[2025-04-28 13:28] LABS: Direct LDL Cholesterol 51.27 mg/dL (100-129)
[2025-04-28 13:32] LABS: Chol/HDL Ratio 1.7 (1-3.5); HDL Cholesterol 105 mg/dl (40-60)
[2025-04-28 13:39] LABS: Hemoglobin A1C 8.2 % (4.0-6.0)
== END 2025-04-28 23:59 | disposition home or self-care (01) ==
LOC: LAB.DROPOF 15:49
PROVIDERS: PCP Internal Medicine; Visit Provider Internal Medicine
DX: E78.5 Hyperlipidemia, unspecified (principal); E11.59 Type 2 diabetes mellitus with other circulatory complications; I10 Essential (primary) hypertension; I25.10 Atherosclerotic heart disease of native coronary artery without angina pectoris
CPT/HCPCS: 80053; 80061; 83036

== ENCOUNTER 2025-09-28 18:26 | Inpatient (IN) | payer BC, SELFPAY ==
[2025-09-28] VITALS (7 sets, daily range): BP systolic 138–167; BP diastolic 74–92; PULSE 71–97; RESP 14–20; TEMP 36.4–37.2; O2SAT 95–98; BMI 32.6; BMI 31.6
[2025-09-28 18:35] LABS: Microscopic, Urine URINE MICROSCOPIC (MICROSCOPIC)
[2025-09-28 18:46] LABS: Bilirubin,Urine Negative (Negative); Color,Urine YELLOW (Yellow); Glucose,Urine (UA) TRACE (Negative); Ketones,Urine Negative (Negative); Leukocyte Esterase,Urine Negative (Negative); PH,Urine 6.0 (5.0-8.5); Protein,Urine TRACE (Negative); Specific Gravity, Urine 1.020 (1.005-1.030); Urobilinogen,Urine 0.2 EU/dl (0.2)
[2025-09-28 18:55] LABS: Bacteria,Urine Trace /lpf; Mucus,Urine 3+ /lpf
--- NOTE | 2025-09-28 19:02 | CT_ITS ---
PROCEDURE INFORMATION: Exam: CT Abdomen And Pelvis With Contrast Exam date and time: 09/28/2025 7:59 PM Age: 60 years old Clinical indication: Abdominal pain; Additional info: Rlq abdominal pain TECHNIQUE: Imaging protocol: Computed tomography of the abdomen and pelvis with contrast. Radiation optimization: All CT scans at this facility use at least one of these dose optimization techniques: automated exposure control; mA and/or kV adjustment per patient size (includes targeted exams where dose is matched to clinical indication); or iterative reconstruction. Contrast material: ISOVUE; Contrast volume: 75 ml; Contrast route: IV; COMPARISON: CT ABDOMEN PELVIS W CON 05/17/2022 9:44 AM FINDINGS: Lungs: Evidence for calcified lung granuloma in the right chest. Linear density identified within bilateral lower lungs. Noncalcified incidental lung nodules identified. Lung nodules measurement and location: Anterior superior right middle lobe nodule measures 7 mm on axial image 14. This level of the chest was not imaged previously. Subpleural nodule within lateral right middle lobe measures 3 mm on axial image 21. This appears stable since May 2022. With stable subpleural 4 mm nodule within lateral left lower lobe on axial image 29 of series 3. Coronary arteries: Coronary arterial calcifications are demonstrated. Liver: Liver demonstrates diffuse moderate to severe hypodensity. Liver appears heterogeneous with irregular border. Possible hepatic parenchymal disease. Gallbladder and biliary ducts: The gallbladder has been surgically removed. Surgical clips identified in the gallbladder fossa. No evidence for biliary dilatation. Pancreas: Unremarkable. Spleen: Incidental calcifications noted within the spleen, compatible with old granulomatous disease. Adrenal glands: Normal. No mass. Kidneys and ureters: Unremarkable. No hydronephrosis or calculi. Stomach and bowel: Evidence for distal ileectomy, right partial colectomy with ileocolonic anastomosis. Ileocolonic anastomosis with surgical clips identified in the right abdomen and pelvis. There is adjacent edema and small volume fluid. Possible acute infectious or inflammatory process. No visualized evidence for bowel obstruction or ileus. The bowel appears otherwise unremarkable. Appendix: The appendix has been surgically resected. Intraperitoneal space: No free air. No significant fluid collection. Vasculature: Calcifications in the pelvis, most compatible with phleboliths. Lymph nodes: No enlarged lymph nodes. Urinary bladder: Unremarkable as visualized. Reproductive: Unremarkable as visualized. Bones/joints: Mild generalized bony degenerative changes. Moderate to severe bony degenerative changes involving the lumbar sacral junction. Bony structures appear otherwise unremarkable. Soft tissues: Fat containing periumbilical ventral wall hernia is demonstrated. Small fat containing midline ventral abdominal wall hernia above the umbilicus. Other findings: Limited study with artifact created by extremity overlying the area of imaging. Evidence for postsurgical changes in the ventral wall. IMPRESSION: 1. Findings suggesting previous ileocolonic resection with anastomosis and surgical clips in the right abdomen and pelvis. Adjacent edema and small volume free fluid suggesting possible nonspecific infectious or inflammatory enterocolitis. 2. Linear bilateral lower chest pulmonary atelectasis, or scarring. 3. Stable benign lung nodularity within bilateral lower chest since May 2022. 7 mm right middle lobe nodule is indeterminate and this level of the chest was not previously imaged. See Fleischner guideline recommendations below. 4. Moderate to severe hepatic steatosis. Nonspecific heterogeneous and irregular appearance of the liver. Recommend correlation with liver function tests. 5. Degenerative and postsurgical changes are demonstrated, as described above. For patients at low risk (minimal or absent history of smoking and of other known risk factors), recommend CT Chest at 6-12 months, then consider CT Chest at 18-24 months. For patients at high risk (history of smoking or of other known risk factors), recommend CT Chest at 6-12 months, then CT Chest at 18-24 months. (Reference: Tita) References: Cashokeny H, et al. Guidelines for Management of Incidental Pulmonary Nodules Detected on CT Images: From the Fleischner Society 2017. Radiology. 2017;284(1):228-243.
[2025-09-28 19:14] LABS: Hematocrit 42.3 % (42.0-52.0); Hemoglobin 15.3 g/dL (14.1-18.0); Immature Granulocytes % 0.4 %; Mean Corpuscular HGB Conc 36.2 g/dL (31.8-35.4); Mean Corpuscular Hemoglobin 34.4 pg (27.0-31.2); Mean Corpuscular Volume 95.1 fl (80-94); Nucleated Red Blood Cells % 0 %; Platelet Count 219 K/mm3 (142-424); Red Blood Count 4.45 M/mm3 (4.60-6.20); Red Cell Distribution Width-SD 39.1 fL; White Blood Count 14.1 K/mm3 (4.8-10.8)
--- NOTE | 2025-09-28 19:14 | ECG_ITS ---
APPROVED REPORT Exam: Resting ECG HR:88 bpm ECG Measurements Heart Rate 88 AXES AK 164 P 45 QRSd 93 QRS 1 QT 363 T 20 QTc 409 Conclusion Normal sinus rhythm Normal axis Normal intervals No STEMI Electronically signed by : Mic Coyne, 09/28/2025 23:42:52
[2025-09-28 19:18] LABS: Alanine Aminotransferase 48 U/L (12-78); Albumin Level 4.7 g/dl (3.5-5.0); Albumin/Globulin Ratio 1.6 (1.1-1.8); Alkaline Phosphatase 146 U/L (38-126); Anion Gap 11.7 mEq/L (5-15); Aspartate Amino Transferase 39 U/L (17-59); Bilirubin,Total 1.3 mg/dl (0.2-1.3); Blood Urea Nitrogen 8 mg/dl (9-20); Calcium 9.1 mg/dl (8.4-10.2); Carbon Dioxide 24 mmol/L (22.0-30.0); Chloride 95 mmol/L (98-107); Creatinine Clearance Estimated 107 mL/min (50-200); Creatinine,Serum 0.90 mg/dl (0.66-1.25); Estimated Glomerular Filt Rate 86 ml/min (>60); GFR (African American) 104 ML/MIN (>60); Globulin 2.9 g/dL (1.3-3.2); Glucose 204 mg/dl (74-100); Lipase 21 U/L (23-300); Potassium 3.7 mmoL/L (3.5-5.1); Sodium 127 mmol/L (136-145); Total Protein,Serum 7.6 g/dl (6.3-8.2)
[2025-09-28] MEDS: SODIUM CHLORIDE 0.9% 10ML SYR (RAD ONLY) 10 ML IV (20:04)
[2025-09-28] MEDS: IOPAMIDOL-370 (76%);100ML BOTTLE 75 ML IV (20:04)
[2025-09-28] MEDS: ONDANSETRON 4MG/2ML VIAL 4 MG IV (20:58)
[2025-09-28] MEDS: MORPHINE 4MG/ML SYRINGE 4 MG IV (20:58)
--- NOTE | 2025-09-28 21:03 | ED_ITS ---
Discharge Plan Disposition Patient Disposition: Admitted Condition: Good Prescriptions Prescriptions: No Action doxycycline hyclate 100 mg capsule 100 mg PO BID Qty: 20 2RF (DME) Dexcom G7 Sensor Device See Rx Instructions .Route Qty: 3 12RF Rx Instructions: As directed insulin lispro [Humalog KwikPen Insulin] 100 unit/mL insulin pen 1 sliding scale dose SQ USEASDIRECTD Qty: 15 5RF Rx Instructions: Blood sugar 125 to 150 give 5 units, blood sugar 150 to 200 give 10 units, blood sugar 200 to 250 give 15 units, blood sugar 250 to 300 give 20 units, blood sugar 300 to 350 give 25 units, over 350 give 25 units and call physician for further advice. (DME) Dexcom G7 Measurement Coordinator Misc See Rx Instructions .Route Qty: 1 0RF Rx Instructions: As directed nitroglycerin 0.4 mg tablet, sublingual See Rx Instructions .ROUTE .COMPLEX Qty: 25 1RF Dose Instruction: DISSOLVE ONE TABLET UNDER THE TONGUE EVERY 5 MINUTES NEEDED FOR CHEST PAIN. DO NOT EXCEED A TOTAL OF 3 DOSES IN 15 MINUTES Rx Instructions: DISSOLVE ONE TABLET UNDER THE TONGUE EVERY 5 MINUTES NEEDED FOR CHEST PAIN. DO NOT EXCEED A TOTAL OF 3 DOSES IN 15 MINUTES losartan-hydrochlorothiazide 100-12.5 mg tablet See Rx Instructions .ROUTE .COMPLEX Qty: 90 1RF Dose Instruction: TAKE 1 TABLET BY MOUTH IN THE MORNING Rx Instructions: TAKE 1 TABLET BY MOUTH IN THE MORNING levothyroxine 25 mcg tablet See Rx Instructions .ROUTE .COMPLEX Qty: 90 1RF Dose Instruction: Take 1 tablet by mouth once daily Rx Instructions: Take 1 tablet by mouth once daily atorvastatin 40 mg tablet See Rx Instructions .ROUTE .COMPLEX Qty: 90 1RF Dose Instruction: Take 1 tablet by mouth once daily Rx Instructions: Take 1 tablet by mouth once daily insulin glargine [Lantus Solostar U-100 Insulin] 100 unit/mL (3 mL) insulin pen See Rx Instructions SQ .COMPLEX 90 Days Qty: 66 1RF Rx Instructions: 80 units each day subcutaneously; clopidogrel 75 mg tablet See Rx Instructions .ROUTE .COMPLEX Qty: 90 1RF Dose Instruction: Take 1 tablet by mouth once daily Rx Instructions: Take 1 tablet by mouth once daily (DME) pen needle, diabetic 31 gauge x 3/16 needle See Rx Instructions .ROUTE .COMPLEX Qty: 100 5RF Dose Instruction: USE DIRECTED Rx Instructions: USE DIRECTED CHECK SUGAR 2 TIMES DAILY bisoprolol fumarate 5 mg tablet 5 mg PO DAILY Qty: 30 11RF aspirin 81 mg Tablet,Chewable 81 mg PO DAILY omega 6-hxh-hqj-fish oil 900-1,400 mg Capsule,Delayed Release(Dr/Ec) 1 cap PO DAILY Referrals Follow up/Referrals: Trever Schofield MD [Primary Care Provider, Medical] - See instructions Clinical Impressions Clinical Impression: Enterocolitis, Abdominal pain, acute, right lower quadrant Instructions Patient Instructions: DI for Acute Abdominal Pain Print Language Print Language: [place] Discharge ED Provider: Mic Coyne General Adult HPI General Chief complaint: Abdominal Pain Stated complaint: right side sever abd pain Time Seen by Provider: 09/28/25 18:36 Mode of Arrival: Ambulatory Source of Information: Patient Description of Symptoms (Recalled from ER Triage Doc. by RN): pt c/o RLQ pain ongoing since . Pt reports the pain has gotten worse and worse. He also reports N/V. Pain is constant, 10/10 and sore in nature. pt states his last BM was this morning. pt denies diarrhea, urinary symptoms, CP or SOA. pt has a hx of a isabel and appe. pt drinks approximately 12 beer/day. Last alcoholic drink was yesterday. History of Present Illness HPI narrative: This is a 60-year-old male patient, with past medical history of hypertension and diabetes, who is presented to the emergency department today for evaluation of right lower quadrant [place] pain. Patient states this pains been worsening over the last 3 days. He has not had any associated nausea vomiting, or diarrhea. He is not having hematochezia or melena. He denies chest pain and shortness of breath. He denies hematuria and dysuria. No urinary frequency. Related Data Home Medications ?Medication ?Instructions ?Recorded ?Confirmed aspirin 81 mg chewable tablet 81 mg PO DAILY Heart hea lth 01/30/23 08/21/25 omega 4-zpe-wpj-fish oil 900 1 cap PO DAILY Supplement 01/30/23 08/21/25 mg-1,400 mg capsule,delayed release Previous Rx's ?Medication ?Instructions ?Recorded doxycycline hyclate 100 mg capsule 100 mg PO BID #20 c aps 11/14/24 blood-glucose,school occupational therapist,cont #1 ea 03/26/25 (Dexcom G7 Measurement Coordinator) nitroglycerin 0.4 mg sublingual See Rx Instructions .R oute 03/27/25 tablet .COMPLEX #25 tabs insulin lispro 100 unit/mL 1 sliding scale dose SQ 03/30 subcutaneous pen (Humalog KwikPen USEASDIRECTD #15 mL (U-100) Insulin) blood-glucose sensor (Dexcom G7 #3 ea 04/28/25 Sensor device) losartan 100 See Rx Instructions .Route 0 05/26/25 mg-hydrochlorothiazide 12.5 mg .COMPLEX #90 tabs tablet atorvastatin 40 mg tablet See Rx Instructions .Route 0 06/25/25 .COMPLEX #90 tabs levothyroxine 25 mcg tablet See Rx Instructions .Route 06/25/25 .COMPLEX #90 tabs insulin glargine 100 unit/mL (3 See Rx Instructions SQ .COMPLEX 90 06/30/25 mL) subcutaneous pen (Lantus days #66 mL Solostar U-100 Insulin) clopidogrel 75 mg tablet See Rx Instructions .Route 0 07/16/25 .COMPLEX #90 tabs pen needle, diabetic 31 gauge x #100 ea 07/30/2501/19 bisoprolol fumarate 5 mg tablet 5 mg PO DAILY #30 tabs 09/15/25 Allergies Allergy/AdvReac Type Severity Reaction Status Date / Time ciprofloxacin Allergy Intermediate Anxiety Verified 08/21/25 14:03 empagliflozin (From AdvReac Gastrointestinal Verified 08/21/25 14:03 Jardiance) Upset [facility] Disclaimer: The information contained in this section may have been updated after the patient was seen, as this information can be updated by other users. Medical History Meralgia paresthetica, right lower limb Unilateral primary osteoarthritis, left knee Surgical History S/P angioplasty with stent History of appendectomy Social History Smoking Status: Never smoker alcohol intake: current alcohol intake frequency: 3 or more drinks per day substance use type: denies use current occupational status: employed Travel in the last 8 weeks?: None Have you lived/traveled outside [place] in past 30 days?: No Contact w/someone who lives/traveled outside US past 30 days?: No Exposure to someone with infectious disease in past 14 days?: No Do you have a fever (greater than 100.4 F or 38 C)?: No Have you tested positive for COVID-19?: No Exposed to someone with COVID-19 in past 14 days?: No Do you have a sore throat?: No Do you have a cough?: No Do you have any weakness?: No Do you have any diarrhea?: No Are you experiencing any unusual bleeding?: No Do you have any muscle aches/pain?: No Do you have any abdominal pain?: Yes Are you experiencing loss of taste or smell?: No Other Medical History Have you received the Flu Vaccine for this season: No Have you received the Pneumonia Vaccine: Yes ROS Obtained: Yes Systems reviewed as appropriate & no additional complaints except as documented Physical Exam General General appearance: other (See MDM) Respiratory Respiratory exam: Present other (See MDM) Cardiovascular Cardiovascular exam: Present other (See MDM) Neurological Exam Neurological exam: Present other (See MDM) Medical Decision Making Medical Records Medical records reviewed: Yes I reviewed the patient's medical records. Screening: Per USPSTF and CDC recommendations, given the prevalence of disease in our region, it is our hospital?s policy to screen for HIV and viral Hepatitis for all patients aged 18 and over and those with ongoing risk factors. Jaret Inquiry Pt receiving controlled substance: No Jaret was queried for this patient: No Vital Signs: 09/28/25 18:34 09/28/25 18:37 09/28/25 19:30 Temperature 98.2 F Temperature Source Oral Pulse Rate 97 H 89 Pulse Rate [Left] 97 H Respiratory Rate 14 20 Blood Pressure 143/78 H Blood Pressure [Right Arm] 167/92 H Blood Pressure Mean [Right Arm] 117 Blood Pressure Source [Right Arm] Automatic Cuff Blood Pressure Position [Right Arm] Sitting 02 Sat by Pulse Oximetry 96 97 96 Oxygen Delivery Method Room Air 09/28/25 20:30 09/28/25 22:12 Temperature 97.6 F Temperature Source Oral Pulse Rate 89 86 Pulse Rate [Left] Respiratory Rate 20 18 Blood Pressure 148/84 H 140/74 Blood Pressure [Right Arm] Blood Pressure Mean [Right Arm] Blood Pressure Source [Right Arm] Blood Pressure Position [Right Arm] 02 Sat by Pulse Oximetry 95 Oxygen Delivery Method Room Air Lab Data Lab Results 09/28/25 18:29: Urine Color Yellow, Urine Appearance Clear, Urine pH 6.0, Ur Specific [place] 1.020, Urine Protein Trace, Urine Glucose (UA) Trace, Urine Ketones Negative, Urine Blood Negative, Urine Nitrate Negative, Urine Bilirubin Negative, Urine Urobilinogen 0.2, Ur Leukocyte Esterase Negative, Urine RBC 5- 10, Urine WBC 10-20, Ur Squamous Epith Cells 3-5, Urine Bacteria Trace, Urine Mucus 3+ 09/28/25 18:53: WBC 14.1 H, RBC 4.45 L, Hgb 15.3, Hct 42.3, MCV 95.1 H, MCH 34.4 H, MCHC 36.2 H, RDW 11.2 L, Plt Count 219, MPV 8.8, Neut % (Auto) 89.0 H, Lymph % (Auto) 4.5 L, Wallace % (Auto) 5.7, Eos % (Auto) 0.1, Baso % (Auto) 0.3, Neut # (Auto) 12.6 H, Lymph # (Auto) 0.6 L, Wallace # (Auto) 0.8, Eos # (Auto) 0.0, Baso # (Auto) 0.0, Sodium 127 L, Potassium 3.7, Chloride 95 L, Carbon Dioxide 24, Anion Gap 11.7, BUN 8 L, Creatinine 0.90, Estimated Creat Clear 107, Estimated GFR 86, Est GFR ( Amer) 104, Glucose 204 H, Lactate 2.0, Calcium 9.1, Total Bilirubin 1.3, AST 39, ALT 48, Alkaline Phosphatase 146 H, Total Protein 7.6, Albumin 4.7, Globulin 2.9, Albumin/Globulin Ratio 1.6, Lipase 21 L, HIV Ag/Ab Combo Qual Negative 09/28/25 18:53 09/28/25 18:53 Orders (Tests/Meds): ED MEDICATIONS Generic Name Dose Route Start Last Admin Trade Name Freq PRN Reason Stop Dose Admin Piperacillin Sod/Tazobactam 100 mls @ 200 mls/hr 09/28/25 22:26 Sod 4.5 gm/ Sodium Chloride IV 09/28/25 22:55 ONCE ONE Sodium Chloride 10 ml 09/28/25 20:02 09/28/25 20:04 Sodium Chloride 0.9% 10ml Syr (Rad Only) IV 10/28/25 20:01 10 ml NEEDED PRN Administration Maintain IV Site Discontinued Medications Generic Name Dose Route Start Last Admin Trade Name Carol PRN Reason Stop Dose Admin Iopamidol 75 ml 09/28/25 20:02 09/28/25 20:04 Iopamidol-370 (76%);100ml Bottle IV 09/28/25 20:03 75 ml ONCE ONE Administration Morphine Sulfate 4 mg 09/28/25 20:55 09/28/25 20:58 Morphine 4mg/Ml Syringe IV 09/28/25 20:56 4 mg ONCE ONE Administration Ondansetron HCl 4 mg 09/28/25 20:55 09/28/25 20:58 Ondansetron 4mg/2ml Vial IV 09/28/25 20:56 4 mg ONCE ONE Administration ORDERS Category Date Time Status CT abdomen pelvis w con Stat Cat Scan 09/28/25 19:02 Completed CBC w/Auto Diff [Complete Blood Count Auto Diff] Stat Lab 09/28/25 18:53 Completed CMP [Comprehensive Metabolic Panel] Stat Lab 09/28/25 18:53 Completed HIV Combo Stat Lab 09/28/25 18:53 Completed Hepatitis C Ab Qual. W/ RFX Stat Lab 09/28/25 18:53 Received Lactic Acid Stat Lab 09/28/25 18:53 Completed Lipase Stat Lab 09/28/25 18:53 Completed UA [Urinalysis and Microscopic] Stat Lab 09/28/25 18:29 Completed Urine Culture Stat Micro 09/28/25 18:29 Received Medical Decision Narrative: In summary, this is a 60-year-old male patient who is presenting to the emergency department today for evaluation of focal right lower quadrant [place] pain for the last 2 to 3 days. He does not have any associated GI symptoms or urinary symptoms. Comorbidities include past medical history of hypertension and diabetes. Patient also has a history of a ruptured appendicitis with intra- abdominal abscess that required open surgery several years ago. On initial evaluation of the patient they were resting comfortably in no acute distress and nontoxic in appearance. They are hemodynamically stable, saturating well room air, and are neurologically intact. On physical examination the patient has focal tenderness in the right lower quadrant. No abdominal rigidity. Heart lungs clear to auscultation bilaterally. No lower extremity erythema or edema. Differential diagnosis includes right-sided diverticulitis, colitis, enterocolitis, intra-abdominal abscess, urinary stone, pyelonephritis, ascending urinary tract infection, among others. Workup was initiated with hematologic labs as well as a urinalysis and a CT scan of the abdomen pelvis. Initial interventions included 4 mg morphine and 4 mg of Zofran. Labs were personally turbid by me and demonstrated leukocytosis of 14.1, no anemia, patient also has hyponatremia with a sodium of 127 as well as stable hypochloremia. He has no evidence of acute kidney injury. His alkaline phosphatase is stably high and he has no evidence of transaminitis otherwise. Lipase is normal. No evidence of urinary tract infection on urinalysis as he has no nitrates or leukocyte esterase. CT scan was personally turbid by me and demonstrates fat stranding around the region of the right colon. Official radiology read states that there is adjacent edema and small volume free fluid at the site of the patient's prior ileocolonic resection and anastomosis which could be indicative of enterocolitis. On the CT scan the patient's enterocolitis is not diffuse about the colon and small intestine and is localized to the region of his prior anastomosis and resection. The patient clinically does not present like a patient with enterocolitis as he is not experiencing nausea, vomiting, or diarrhea. I do feel that this is a very odd presentation. Therefore I decided to discuss his case with the surgeon on-call Dr. Conteh. He tells me that this would be an extraordinarily rare case of an anastomotic leak 3 years status post surgery. However, he states that if the patient is having ongoing pain that we should admit him to the hospital and start IV antibiotics and have surgery evaluate him in the morning. I did have a shared decision-making discussion with the patient and he is still having some significant pain and would like to come to the hospital for serial abdominal exams, serial labs, and evaluation by surgery in the morning. Therefore I discussed his case directly with the hospitalist on- call. After our discussion and their evaluation they agreed to admit the patient to their service for further evaluation and monitoring. While the patient was under my care I did treat with 4.5 g of Zosyn Critical Care Critical Care Time Critical Care Time: No
--- NOTE | 2025-09-28 23:07 | PC.NURSE ---
report called to Ankush MAJOR
[2025-09-28] MEDS: PIPERACILLIN/TAZO 4.5 GM in 0.9 % SODIUM CHLORIDE 100 ML IV (23:15)
[2025-09-28] MEDS: LACTATED RINGERS 1000ML 1,000 ML 100 ML IV (23:17)
--- NOTE | 2025-09-28 23:19 | PC.NURSE ---
Patient arrived to floor via wheelchair from ED at 23:16.
[2025-09-29] MEDS: humaLOG 100 UNITS/ML 10ML VIAL (SSI) SUBCUT ×4 (00:12→23:55)
[2025-09-29 00:25] LABS: POC Glucose,Bedside 256 gm/dL (70-110)
--- NOTE | 2025-09-29 02:14 | EXP.HP ---
History of Present Illness *Admission Date: 09/28/25 *Reason for visit:: Abdominal pain *History of present illness: Jake Morales is a 60-year-old male with a past medical history significant for BPH, type 2 diabetes mellitus, CAD, hyperlipidemia, hypertension. Presents to [facility] due to right lower abdominal pain. Reports symptoms began on and have progressively become worse since onset. CT scan of abdomen and pelvis obtained w/in the emergency department, revealed fat stranding around the region of the right colon, radiology noted there is adjacent edema and small volume free fluid at the site of patient's prior ileocolonic resection and anastomosis which could be indicative of enterocolitis. Prior history (04/24/22) of severe acute complicated appendicitis with perforation peritonitis, underwent laparotomy with ileocecal resection per Dr. Horn. ED provider spoke to our on-call surgical provider Dr. Conteh who noted this is unlikely an anastomotic leak, but due to presentation with continuous RLQ abdominal pain, agreed with admission for further evaluation with serial abdominal examinations and noted to follow up tomorrow. Patient reports normal bowel movements, last bowel movement today, normal in appearance. Patient reports having some nausea but denies any episodes of emesis, diarrhea, urinary symptoms, bloody stools, fever or chills. Initial ED workup included laboratory workup and imaging studies. WBC 14.1, sodium 127, glucose 204. Abdomen and pelvis CT obtained, in which I personally reviewed imaging, revealed findings of previous ileocolonic resection with anastomosis and Ileocolonic resection surgical clips in the right abdomen and pelvis. Adjacent edema and small volume free fluid suggesting possible nonspecific infectious or inflammatory enterocolitis. Patient assessed at bedside, present. He is without acute distress, sitting in bed comfortably. Upon palpation of abdomen notable rebound tenderness right lower abdominal region. Patient otherwise without complaint. Hypodermically stable. [facility] Disclaimer: The information contained in this section may have been updated after the patient was seen, as this information can be updated by other users. Medical History (Updated 09/29/25 @ 02:44 by Alice Thomason APRN) Meralgia paresthetica, right lower limb Unilateral primary osteoarthritis, left knee Surgical History (Updated 09/29/25 @ 02:39 by Alice Thomason APRN) S/P angioplasty with stent History of appendectomy Social History Smoking Status: Never smoker alcohol intake: current alcohol intake frequency: 3 or more drinks per day substance use type: denies use current occupational status: employed Travel in the last 8 weeks?: None Have you lived/traveled outside [place] in past 30 days?: No Contact w/someone who lives/traveled outside [place] past 30 days?: No Exposure to someone with infectious disease in past 14 days?: No Do you have a fever (greater than 100.4 F or 38 C)?: No Have you tested positive for COVID-19?: No Exposed to someone with COVID-19 in past 14 days?: No Do you have a sore throat?: No Do you have a cough?: No Do you have any weakness?: No Do you have any diarrhea?: No Are you experiencing any unusual bleeding?: No Do you have any muscle aches/pain?: No Do you have any abdominal pain?: Yes Are you experiencing loss of taste or smell?: No Other Medical History Have you received the Flu Vaccine for this season: Yes Have you received the Pneumonia Vaccine: No Review of Systems Review of Systems Review of systems:: pertinent systems reviewed and negative unless documented below Constitutional Constitutional: Reports as per HPI Eyes Eyes: Reports as per HPI ENT Ears, Nose, Mouth, and Throat: Reports as per HPI *Cardiovascular Cardiovascular: Reports as per HPI *Respiratory Respiratory: Reports as per HPI *Gastrointestinal Gastrointestinal: Reports as per HPI and Reports abdominal pain Comments: Right lower abdominal pain *Genitourinary Genitourinary: Reports as per HPI *Musculoskeletal Musculoskeletal: Reports as per HPI Integumentary/Breasts Skin/Breast: Reports system reviewed and no additional complaints, except as documented and Reports as per HPI *Neurologic Neurologic: Reports system reviewed and no additional complaints, except as documented and Reports as per HPI Psychiatric Psychiatric: Reports system reviewed and no additional complaints, except as documented and Reports as per HPI Endocrine Endocrine: Reports system reviewed and no additional complaints, except as documented and Reports as per HPI Hematologic/Lymphatic Hematologic/Lymphatic: Reports system reviewed and no additional complaints, except as documented and Reports as per HPI Allergic/Immunologic Allergic/Immunologic: Reports system reviewed and no additional complaints, except as documented and Reports as per HPI Meds Home Medications and Allergies Home Medications ?Medication ?Instructions ?Recorded ?Confirmed ?Type aspirin 81 mg chewable tablet 81 mg PO DAILY Heart health 01/30/23 09/28/25 History omega 4-spm-uby-fish oil 900 1 cap PO DAILY Supplement 01/30/23 09/28/25 History mg-1,400 mg capsule,delayed release blood-glucose,forming machine upkeep mechanic helper,cont #1 ea 03/26/25 08/21/25 Rx (Dexcom G7 Interactive Developer) blood-glucose sensor (Dexcom G7 #3 ea 04/28/25 08/21/25 Rx Sensor device) atorvastatin 40 mg tablet See Rx Instructions .Route 06/25/25 09/28/25 Rx .COMPLEX #90 tabs pen needle, diabetic 31 gauge x #100 ea 07/30/25 08/21/25 Rx 01/19 bisoprolol fumarate 5 mg tablet 5 mg PO DAILY #30 tabs 09/15/25 09/28/25 Rx clopidogrel 75 mg tablet 75 mg PO DAILY 09/28/25 09/28/25 History insulin glargine 100 unit/mL (3 75 unit SQ DAILY 09/28/25 09/29/25 History mL) subcutaneous pen (Lantus Solostar U-100 Insulin) insulin lispro 100 unit/mL 1 sliding scale dose SQ DIRECTED 09/28/25 09/29/25 History subcutaneous pen levothyroxine 25 mcg tablet 25 mcg PO DAILY 09/28/25 09/28/25 History losartan 100 1 tab PO DAILY 09/28/25 09/28/25 History mg-hydrochlorothiazide 12.5 mg tablet New Prescriptions to Start Prescriptions: Allergies Allergy/AdvReac Type Severity Reaction Status Date / Time ciprofloxacin Allergy Intermediate Anxiety Verified 08/21/25 14:03 empagliflozin (From AdvReac Gastrointestinal Verified 08/21/25 14:03 Jardiance) Upset Exam Data for Last 24 hours Vital signs and Labs for Last 24 Hours: Temp Pulse Resp BP Pulse Ox O2 Del Method 98.9 F 87 18 157/82 H 96 Room Air 09/28/25 23:26 09/28/25 23:26 09/28/25 23:26 09/28/25 23:26 09/28/25 23:26 09/29/25 01:42 Laboratory Results - last 24 hr 09/28/25 18:29: Urine Color Yellow, Urine Appearance Clear, Urine pH 6.0, Ur Specific [place] 1.020, Urine Protein Trace, Urine Glucose (UA) Trace, Urine Ketones Negative, Urine Blood Negative, Urine Nitrate Negative, Urine Bilirubin Negative, Urine Urobilinogen 0.2, Ur Leukocyte Esterase Negative, Urine RBC 5-10, Urine WBC 10-20, Ur Squamous Epith Cells 3-5, Urine Bacteria Trace, Urine Mucus 3+ 09/28/25 18:53: WBC 14.1 H, RBC 4.45 L, Hgb 15.3, Hct 42.3, MCV 95.1 H, MCH 34.4 H, MCHC 36.2 H, RDW 11.2 L, Plt Count 219, MPV 8.8, Neut % (Auto) 89.0 H, Lymph % (Auto) 4.5 L, [place] % (Auto) 5.7, Eos % (Auto) 0.1, Baso % (Auto) 0.3, Neut # (Auto) 12.6 H, Lymph # (Auto) 0.6 L, [place] # (Auto) 0.8, Eos # (Auto) 0.0, Baso # (Auto) 0.0, Sodium 127 L, Potassium 3.7, Chloride 95 L, Carbon Dioxide 24, Anion Gap 11.7, BUN 8 L, Creatinine 0.90, Estimated Creat Clear 107, Estimated GFR 86, Est GFR ( Amer) 104, Glucose 204 H, Lactate 2.0, Calcium 9.1, Total Bilirubin 1.3, AST 39, ALT 48, Alkaline Phosphatase 146 H, Total Protein 7.6, Albumin 4.7, Globulin 2.9, Albumin/Globulin Ratio 1.6, Lipase 21 L, HIV Ag/Ab Combo Qual Negative 09/29/25 00:12: POC Glucose 256 H I & O for Last 24 hours: Intake & Output 09/26/25 09/27/25 09/28/25 09/29/25 23:59 23:59 23:59 23:59 Intake Total 150 / 150 Balance 150 / 150 Weight 94.529 kg Constitutional Constitutional: no acute distress and morbidly obese *Routine HEENT Exam Head: Present normocephalic and atraumatic Eye: Present EOMI, PERRL and normal accommodation ENT: Present mucous membranes moist *Routine Neck Exam Neck: Present supple and full ROM *Routine Respiratory Exam Respiratory: Present normal respiratory effort *Routine Cardiovascular Exam Cardiovascular: Present RRR, Normal S1 and Normal S2 *Routine Abdominal Exam Abdominal: Present soft, distended and rebound (Right lower abdominal region) *Routine Rectal Exam Rectal:: deferred *Routine Genitalia Exam Genitalia:: deferred *Routine Extremities Exam Extremities: Present full ROM, pulses intact and normal capillary refill *Routine Skin Exam Skin: Present intact *Routine Neurological Exam Neurological: Present alert, oriented X3 and CN II-XII intact Assessment and Plan *Assessment and plan (1) Enterocolitis: Status: Acute Category: Medical Code(s): K52.9 - Noninfective gastroenteritis and colitis, unspecified (2) Abdominal pain, acute, right lower quadrant: Status: Acute Category: Medical Code(s): R10.31 - Right lower quadrant pain (3) Leucocytosis: Status: Acute Qualifiers: Leukocytosis type: unspecified Qualified Code(s): D72.829 - Elevated white blood cell count, unspecified Category: Medical Code(s): D72.829 - Elevated white blood cell count, unspecified (4) Acute hyponatremia: Status: Acute Category: Medical Code(s): E87.1 - Hypo-osmolality and hyponatremia (5) Type 2 diabetes mellitus with hyperglycemia: Status: Acute Qualifiers: 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 transplanted heart: [place] heart Associated angina: without angina Qualified Code(s): I25.10 - Atherosclerotic heart disease of [place] coronary artery without angina pectoris Category: Medical Code(s): I25.10 - Atherosclerotic heart disease of [place] coronary artery without angina pectoris (7) Hyperlipidemia: Status: Chronic Qualifiers: Hyperlipidemia type: unspecified Qualified Code(s): E78.5 - Hyperlipidemia, unspecified Category: Medical Code(s): E78.5 - Hyperlipidemia, unspecified (8) Essential hypertension: Status: Chronic Category: Medical Code(s): I10 - Essential (primary) hypertension (9) BPH (benign prostatic hyperplasia): Status: Chronic Qualifiers: Lower urinary tract symptom presence: unspecified whether lower urinary tract symptoms present Qualified Code(s): N40.0 - Benign prostatic hyperplasia without lower urinary tract symptoms Category: Medical Code(s): N40.0 - Benign prostatic hyperplasia without lower urinary tract symptoms (10) Obesity (BMI 30.0-34.9): Status: Chronic Category: Medical Code(s): E66.811 - Obesity, class 1 (11) Alcohol abuse, daily use: Status: Acute Category: Medical Code(s): F10.10 - Alcohol abuse, uncomplicated Plan 1. Enterocolitis/abdominal pain, right lower quadrant/leukocytosis: Presents with right lower abdominal pain onset 3 days ago. WBC 14, imaging studies CT abdomen and pelvis as noted above suggestive of enterocolitis-patient without vomiting, reports nausea but not consistent, denies diarrhea and/or fever or chills. Hx of severe acute complicated appendicitis with perforation peritonitis, underwent laparotomy with ileocecal resection per Dr. Horn (04/24/22). ED provider discussed case with on-call surgical provider Dr. Conteh who agreed with admission for further evaluation. Noted he will follow-up with patient tomorrow. Resume serial abdominal examinations, antibiotic therapy, IV fluid for hydration, IV morphine for pain management and IV Zofran for nausea management. NPO. Consult placed to general surgery, appreciate further evaluation and input. Follow morning labs w/CRP. 2. Acute hyponatremia: Asymptomatic, sodium 127, mildly decreased. IV fluid with normal saline, repeat trend NA with morning labs. 3. Type 2 diabetes mellitus with hyperglycemia: Patient with Dexcom, Home regime with long-acting insulin Lantus 30 units, due to n.p.o. status will hold. Insulin sliding scale with Accu-Cheks Q6. Hemoglobin A1c monitored/managed per primary family provider. Per chart review, prior hemoglobin A1c, 6.8 on (07/29/2025). 4. HTN/HLD/CAD: Patient home regime of aspirin 81, atorvastatin, bisoprolol fumarate 5 mg, losartan-htz 100-12.5. 5. Hypothyroidism: Resume home Levothyroxine 25 mcg when appropriate after n.p.o. status. 6. Obesity: Affects all aspects of care, diet and exercise modification as tolerated. 7. Alcohol abuse, daily use: Reports daily use, 3 alcoholic beverages daily-monitor for any signs of alcohol withdrawal, currently asymptomatic. DVT prophylaxis: SCD's Full Code NPO Next of kin/ I personally discussed the management of this patient with the emergency department provider and agreed with admission for further evaluation and treatment. He is a 60-year-old male with past medical history significant for hypertension, hyperlipidemia, CAD, alcohol abuse, hypothyroidism, history of severe acute complicated appendicitis with perforation peritonitis underwent laparotomy with ileocecal resection per Dr. Horn.
[2025-09-29] MEDS: PIPERACILLIN/TAZO 4.5 GM in 0.9 % SODIUM CHLORIDE 100 ML IV ×4 (03:24→20:44)
[2025-09-29] MEDS: MORPHINE 4MG/ML SYRINGE 3 MG IV (03:25)
[2025-09-29 04:00] VITALS: BP 132/71; PULSE 78; RESP 14; TEMP 36.6; O2SAT 94; BMI 31.4
--- NOTE | 2025-09-29 04:13 | PC.NURSE ---
Pt is A&OX4 and has tolerated room air. He has complained of abdominal pain once and was medicated per MAR. IV ABX given. LR has remained infusing at 100ml/hr. He has remained NPO since arriving to the floor. He has ambulated the room independently. Family member has remained at bedside. No complaints at this time, call light within reach.
[2025-09-29 06:19] LABS: POC Glucose,Bedside 248 gm/dL (70-110)
[2025-09-29 06:28] LABS: Hematocrit 38.3 % (42.0-52.0); Immature Granulocytes % 0.3 %; Mean Corpuscular HGB Conc 35.8 g/dL (31.8-35.4); Mean Corpuscular Hemoglobin 34.3 pg (27.0-31.2); Mean Corpuscular Volume 96.0 fl (80-94); Nucleated Red Blood Cells % 0 %; Platelet Count 188 K/mm3 (142-424); Red Blood Count 3.99 M/mm3 (4.60-6.20); Red Cell Distribution Width-SD 39.5 fL; White Blood Count 10.7 K/mm3 (4.8-10.8)
[2025-09-29 06:40] LABS: Alanine Aminotransferase 33 U/L (12-78); Albumin Level 3.9 g/dl (3.5-5.0); Albumin/Globulin Ratio 1.4 (1.1-1.8); Alkaline Phosphatase 119 U/L (38-126); Anion Gap 8.5 mEq/L (5-15); Aspartate Amino Transferase 26 U/L (17-59); Bilirubin,Total 1.8 mg/dl (0.2-1.3); Blood Urea Nitrogen 8 mg/dl (9-20); Calcium 8.6 mg/dl (8.4-10.2); Carbon Dioxide 25 mmol/L (22.0-30.0); Chloride 97 mmol/L (98-107); Creatinine Clearance Estimated 103 mL/min (50-200); Creatinine,Serum 0.90 mg/dl (0.66-1.25); Estimated Glomerular Filt Rate 86 ml/min (>60); GFR (African American) 104 ML/MIN (>60); Globulin 2.7 g/dL (1.3-3.2); Glucose 244 mg/dl (74-100); Potassium 3.5 mmoL/L (3.5-5.1); Sodium 127 mmol/L (136-145); Total Protein,Serum 6.6 g/dl (6.3-8.2)
[2025-09-29 06:59] LABS: C-Reactive Protein 113.8 mg/L (0-4)
[2025-09-29 07:02] LABS: Hemoglobin 13.6 g/dL (14.1-18.0)
--- NOTE | 2025-09-29 07:27 | HMH.PHAINT1 ---
Pharmacy Intervention Comments: home medication list verified using list from outpatient pharmacy and PCP office
[2025-09-29 08:00] VITALS: BP 131/73; PULSE 83; RESP 17; TEMP 36.7; O2SAT 94
--- NOTE | 2025-09-29 08:39 | HMH.PHAAMS2 ---
- Antimicrobial Stewardship Review culture & sensitivity review Stewardship interventions: culture & sensitivity review Comments: URINE CULTURE PENDING, ON ZOSYN EMPIRICALLY FOR ENTEROCOLITIS.
--- NOTE | 2025-09-29 08:46 | EXP.SURG.CON ---
History of Present Illness *Admission Date: 09/28/25 *Reason for visit:: Abnormal CT finding *History of present illness: Patient is a 60-year-old male from [place] with history of type 2 diabetes, BPH, hypertension, hyperlipidemia, coronary artery disease on dual antiplatelet therapy. He presented to [facility] overnight due to several day history of progressive right lower quadrant pain. He has a prior history of appendectomy in 2021 at which time he had presented with a 2-week history of right lower quadrant abdominal pain and after diagnostic laparoscopy required midline laparotomy with ileal cecal resection due to profound inflammation. Evaluation in the emergency department revealed sodium of 127, chloride 95, initial white blood cell count 14,100 with repeat this morning of 10,700. He underwent CT scan in the emergency department which revealed edema and small volume of free fluid in the right lower quadrant adjacent to previous ileocolic anastomosis suggesting possible nonspecific infectious or inflammatory enterocolitis. Jake Morales is a 60-year-old male with a past medical history significant for BPH, type 2 diabetes mellitus, CAD, hyperlipidemia, hypertension. Presents to [facility] due to right lower abdominal pain. Reports symptoms began on and have progressively become worse since onset. CT scan of abdomen and pelvis obtained w/in the emergency department, revealed fat stranding around the region of the right colon, radiology noted there is adjacent edema and small volume free fluid at the site of patient's prior ileocolonic resection and anastomosis which could be indicative of enterocolitis. Prior history (04/24/22) of severe acute complicated appendicitis with perforation peritonitis, underwent laparotomy with ileocecal resection per Dr. Horn. ED provider spoke to our on-call surgical provider Dr. Conteh who noted this is unlikely an anastomotic leak, but due to presentation with continuous RLQ abdominal pain, agreed with admission for further evaluation with serial abdominal examinations and noted to follow up tomorrow. Patient reports normal bowel movements, last bowel movement today, normal in appearance. Patient reports having some nausea but denies any episodes of emesis, diarrhea, urinary symptoms, bloody stools, fever or chills. Initial ED workup included laboratory workup and imaging studies. WBC 14.1, sodium 127, glucose 204. Abdomen and pelvis CT obtained, in which I personally reviewed imaging, revealed findings of previous ileocolonic resection with anastomosis and Ileocolonic resection surgical clips in the right abdomen and pelvis. Adjacent edema and small volume free fluid suggesting possible nonspecific infectious or inflammatory enterocolitis. Patient assessed at bedside, present. He is without acute distress, sitting in bed comfortably. Upon palpation of abdomen notable rebound tenderness right lower abdominal region. Patient otherwise without complaint. Hypodermically stable. [facility] Disclaimer: The information contained in this section may have been updated after the patient was seen, as this information can be updated by other users. Medical History (Updated 09/29/25 @ 02:44 by Alice Thomason APRN) Meralgia paresthetica, right lower limb Unilateral primary osteoarthritis, left knee Surgical History (Updated 09/29/25 @ 02:39 by Alice Thomason APRN) S/P angioplasty with stent History of appendectomy Social History Smoking Status: Never smoker alcohol intake: current alcohol intake frequency: 3 or more drinks per day substance use type: denies use current occupational status: employed Travel in the last 8 weeks?: None Have you lived/traveled outside US in past 30 days?: No Contact w/someone who lives/traveled outside US past 30 days?: No Exposure to someone with infectious disease in past 14 days?: No Do you have a fever (greater than 100.4 F or 38 C)?: No Have you tested positive for COVID-19?: No Exposed to someone with COVID-19 in past 14 days?: No Do you have a sore throat?: No Do you have a cough?: No Do you have any weakness?: No Do you have any diarrhea?: No Are you experiencing any unusual bleeding?: No Do you have any muscle aches/pain?: No Do you have any abdominal pain?: Yes Are you experiencing loss of taste or smell?: No Review of Systems *Neurologic Neurologic: Reports system reviewed and no additional complaints, except as documented and Reports as per [facility] Meds Home Medications and Allergies Home Medications ?Medication ?Instructions ?Recorded ?Confirmed ?Type aspirin 81 mg chewable tablet 81 mg PO DAILY Heart health 01/30/23 09/28/25 History omega 6-ewr-vhq-fish oil 900 1 cap PO DAILY Supplement 01/30/23 09/28/25 History mg-1,400 mg capsule,delayed release bisoprolol fumarate 5 mg tablet 5 mg PO DAILY #30 tabs 09/15/25 09/28/25 Rx clopidogrel 75 mg tablet 75 mg PO DAILY 09/28/25 09/28/25 History insulin glargine 100 unit/mL (3 75 unit SQ DAILY 09/28/25 09/29/25 History mL) subcutaneous pen (Lantus Solostar U-100 Insulin) insulin lispro 100 unit/mL 1 sliding scale dose SQ DIRECTED 09/28/25 09/29/25 History subcutaneous pen levothyroxine 25 mcg tablet 25 mcg PO DAILY 09/28/25 09/28/25 History losartan 100 1 tab PO DAILY 100/12.5mg 09/28/25 09/28/25 History mg-hydrochlorothiazide 12.5 mg tablet atorvastatin 40 mg tablet 40 mg PO DAILY 09/29/25 09/29/25 History New Prescriptions to Start Prescriptions: Allergies Allergy/AdvReac Type Severity Reaction Status Date / Time ciprofloxacin Allergy Intermediate Anxiety Verified 08/21/25 14:03 empagliflozin (From AdvReac Gastrointestinal Verified 08/21/25 14:03 Jardiance) Upset Exam (Inpt) Vital signs and Labs for Last 24 Hours: Temp Pulse Resp BP Pulse Ox O2 Del Method 98.1 F 83 17 131/73 94 L Room Air 09/29/25 08:00 09/29/25 08:00 09/29/25 08:00 09/29/25 08:00 09/29/25 08:00 09/29/25 08:00 Laboratory Results - last 24 hr 09/28/25 18:29: Urine Color Yellow, Urine Appearance Clear, Urine pH 6.0, Ur Specific [place] 1.020, Urine Protein Trace, Urine Glucose (UA) Trace, Urine Ketones Negative, Urine Blood Negative, Urine Nitrate Negative, Urine Bilirubin Negative, Urine Urobilinogen 0.2, Ur Leukocyte Esterase Negative, Urine RBC 5-10, Urine WBC 10-20, Ur Squamous Epith Cells 3-5, Urine Bacteria Trace, Urine Mucus 3+ 09/28/25 18:53: WBC 14.1 H, RBC 4.45 L, Hgb 15.3, Hct 42.3, MCV 95.1 H, MCH 34.4 H, MCHC 36.2 H, RDW 11.2 L, Plt Count 219, MPV 8.8, Neut % (Auto) 89.0 H, Lymph % (Auto) 4.5 L, [place] % (Auto) 5.7, Eos % (Auto) 0.1, Baso % (Auto) 0.3, Neut # (Auto) 12.6 H, Lymph # (Auto) 0.6 L, [place] # (Auto) 0.8, Eos # (Auto) 0.0, Baso # (Auto) 0.0, Sodium 127 L, Potassium 3.7, Chloride 95 L, Carbon Dioxide 24, Anion Gap 11.7, BUN 8 L, Creatinine 0.90, Estimated Creat Clear 107, Estimated GFR 86, Est GFR ( Amer) 104, Glucose 204 H, Lactate 2.0, Calcium 9.1, Total Bilirubin 1.3, AST 39, ALT 48, Alkaline Phosphatase 146 H, Total Protein 7.6, Albumin 4.7, Globulin 2.9, Albumin/Globulin Ratio 1.6, Lipase 21 L, HIV Ag/Ab Combo Qual Negative 09/29/25 00:12: POC Glucose 256 H 09/29/25 05:51: POC Glucose 248 H 09/29/25 05:52: WBC 10.7, RBC 3.99 L, Hgb 13.6 L D, Hct 38.3 L, MCV 96.0 H, MCH 34.3 H, MCHC 35.8 H, RDW 11.2 L, Plt Count 188, MPV 9.0, Neut % (Auto) 83.4 H, Lymph % (Auto) 8.9 L, [place] % (Auto) 6.5, Eos % (Auto) 0.4, Baso % (Auto) 0.5, Neut # (Auto) 8.9 H, Lymph # (Auto) 1.0, [place] # (Auto) 0.7, Eos # (Auto) 0.0, Baso # (Auto) 0.1, Sodium 127 L, Potassium 3.5, Chloride 97 L, Carbon Dioxide 25, Anion Gap 8.5, BUN 8 L, Creatinine 0.90, Estimated Creat Clear 103, Estimated GFR 86, Est GFR ( Amer) 104, Glucose 244 H, Calcium 8.6, Total Bilirubin 1.8 H, AST 26 D, ALT 33 D, Alkaline Phosphatase 119, C-Reactive Protein 113.8 H, Total Protein 6.6, Albumin 3.9 D, Globulin 2.7, Albumin/Globulin Ratio 1.4 I & O for Labs for Last 24 Hours: Intake & Output 09/26/25 09/27/25 09/28/25 09/29/25 11:59 11:59 11:59 11:59 Intake Total 250 / 250 Output Total 0 / 0 Balance 250 / 250 Weight 207 lb 1.6 oz Results Labs 09/29/25 05:52 09/29/25 05:52 Labs: Laboratory Results - last 24 hr 09/28/25 18:29: Urine Color Yellow, Urine Appearance Clear, Urine pH 6.0, Ur Specific [place] 1.020, Urine Protein Trace, Urine Glucose (UA) Trace, Urine Ketones Negative, Urine Blood Negative, Urine Nitrate Negative, Urine Bilirubin Negative, Urine Urobilinogen 0.2, Ur Leukocyte Esterase Negative, Urine RBC 5-10, Urine WBC 10-20, Ur Squamous Epith Cells 3-5, Urine Bacteria Trace, Urine Mucus 3+ 09/28/25 18:53: WBC 14.1 H, RBC 4.45 L, Hgb 15.3, Hct 42.3, MCV 95.1 H, MCH 34.4 H, MCHC 36.2 H, RDW 11.2 L, Plt Count 219, MPV 8.8, Neut % (Auto) 89.0 H, Lymph % (Auto) 4.5 L, [place] % (Auto) 5.7, Eos % (Auto) 0.1, Baso % (Auto) 0.3, Neut # (Auto) 12.6 H, Lymph # (Auto) 0.6 L, [place] # (Auto) 0.8, Eos # (Auto) 0.0, Baso # (Auto) 0.0, Sodium 127 L, Potassium 3.7, Chloride 95 L, Carbon Dioxide 24, Anion Gap 11.7, BUN 8 L, Creatinine 0.90, Estimated Creat Clear 107, Estimated GFR 86, Est GFR ( Amer) 104, Glucose 204 H, Lactate 2.0, Calcium 9.1, Total Bilirubin 1.3, AST 39, ALT 48, Alkaline Phosphatase 146 H, Total Protein 7.6, Albumin 4.7, Globulin 2.9, Albumin/Globulin Ratio 1.6, Lipase 21 L, HIV Ag/Ab Combo Qual Negative 09/29/25 00:12: POC Glucose 256 H 09/29/25 05:51: POC Glucose 248 H 09/29/25 05:52: WBC 10.7, RBC 3.99 L, Hgb 13.6 L D, Hct 38.3 L, MCV 96.0 H, MCH 34.3 H, MCHC 35.8 H, RDW 11.2 L, Plt Count 188, MPV 9.0, Neut % (Auto) 83.4 H, Lymph % (Auto) 8.9 L, [place] % (Auto) 6.5, Eos % (Auto) 0.4, Baso % (Auto) 0.5, Neut # (Auto) 8.9 H, Lymph # (Auto) 1.0, [place] # (Auto) 0.7, Eos # (Auto) 0.0, Baso # (Auto) 0.1, Sodium 127 L, Potassium 3.5, Chloride 97 L, Carbon Dioxide 25, Anion Gap 8.5, BUN 8 L, Creatinine 0.90, Estimated Creat Clear 103, Estimated GFR 86, Est GFR ( Amer) 104, Glucose 244 H, Calcium 8.6, Total Bilirubin 1.8 H, AST 26 D, ALT 33 D, Alkaline Phosphatase 119, C-Reactive Protein 113.8 H, Total Protein 6.6, Albumin 3.9 D, Globulin 2.7, Albumin/Globulin Ratio 1.4
--- NOTE | 2025-09-29 08:53 | EXP.SURG.CON ---
History of Present Illness *Admission Date: 09/28/25 *Reason for visit:: Right lower quadrant abdominal pain *History of present illness: This is a 60-year-old gentleman seen in consultation after presenting to the emergency department with increasing right lower quadrant abdominal pain. History of complex/perforated appendicitis with concomitant laparotomy/ileocecal resection in April 2022 noted. This a.m. he feels about the same . Forwarded from admission H&P: Jake Morales is a 60-year-old male with a past medical history significant for BPH, type 2 diabetes mellitus, CAD, hyperlipidemia, hypertension. Presents to [facility] due to right lower abdominal pain. Reports symptoms began on and have progressively become worse since onset. CT scan of abdomen and pelvis obtained w/in the emergency department, revealed fat stranding around the region of the right colon, radiology noted there is adjacent edema and small volume free fluid at the site of patient's prior ileocolonic resection and anastomosis which could be indicative of enterocolitis. Prior history (04/24/22) of severe acute complicated appendicitis with perforation peritonitis, underwent laparotomy with ileocecal resection per Dr. Horn. ED provider spoke to our on-call surgical provider Dr. Conteh who noted this is unlikely an anastomotic leak, but due to presentation with continuous RLQ abdominal pain, agreed with admission for further evaluation with serial abdominal examinations and noted to follow up tomorrow. Patient reports normal bowel movements, last bowel movement today, normal in appearance. Patient reports having some nausea but denies any episodes of emesis, diarrhea, urinary symptoms, bloody stools, fever or chills. Initial ED workup included laboratory workup and imaging studies. WBC 14.1, sodium 127, glucose 204. Abdomen and pelvis CT obtained, in which I personally reviewed imaging, revealed findings of previous ileocolonic resection with anastomosis and Ileocolonic resection surgical clips in the right abdomen and pelvis. Adjacent edema and small volume free fluid suggesting possible nonspecific infectious or inflammatory enterocolitis. Patient assessed at bedside, present. He is without acute distress, sitting in bed comfortably. Upon palpation of abdomen notable rebound tenderness right lower abdominal region. Patient otherwise without complaint. Hypodermically stable. [facility] Disclaimer: The information contained in this section may have been updated after the patient was seen, as this information can be updated by other users. Medical History (Updated 09/29/25 @ 02:44 by Alice Thomason APRN) Meralgia paresthetica, right lower limb Unilateral primary osteoarthritis, left knee Surgical History (Updated 09/29/25 @ 02:39 by Alice Thomason APRN) S/P angioplasty with stent History of appendectomy Social History Smoking Status: Never smoker alcohol intake: current alcohol intake frequency: 3 or more drinks per day substance use type: denies use current occupational status: employed Travel in the last 8 weeks?: None Have you lived/traveled outside US in past 30 days?: No Contact w/someone who lives/traveled outside US past 30 days?: No Exposure to someone with infectious disease in past 14 days?: No Do you have a fever (greater than 100.4 F or 38 C)?: No Have you tested positive for COVID-19?: No Exposed to someone with COVID-19 in past 14 days?: No Do you have a sore throat?: No Do you have a cough?: No Do you have any weakness?: No Do you have any diarrhea?: No Are you experiencing any unusual bleeding?: No Do you have any muscle aches/pain?: No Do you have any abdominal pain?: Yes Are you experiencing loss of taste or smell?: No Review of Systems Review of Systems Review of systems:: pertinent systems reviewed and negative unless documented below *Gastrointestinal Gastrointestinal: Reports as per HPI *Neurologic Neurologic: Reports system reviewed and no additional complaints, except as documented and Reports as per HPI Meds Home Medications and Allergies Home Medications ?Medication ?Instructions ?Recorded ?Confirmed ?Type aspirin 81 mg chewable tablet 81 mg PO DAILY Heart health 01/30/23 09/28/25 History omega 6-cim-oqp-fish oil 900 1 cap PO DAILY Supplement 01/30/23 09/28/25 History mg-1,400 mg capsule,delayed release bisoprolol fumarate 5 mg tablet 5 mg PO DAILY #30 tabs 09/15/25 09/28/25 Rx clopidogrel 75 mg tablet 75 mg PO DAILY 09/28/25 09/28/25 History insulin glargine 100 unit/mL (3 75 unit SQ DAILY 09/28/25 09/29/25 History mL) subcutaneous pen (Lantus Solostar U-100 Insulin) insulin lispro 100 unit/mL 1 sliding scale dose SQ DIRECTED 09/28/25 09/29/25 History subcutaneous pen levothyroxine 25 mcg tablet 25 mcg PO DAILY 09/28/25 09/28/25 History losartan 100 1 tab PO DAILY 100/12.5mg 09/28/25 09/28/25 History mg-hydrochlorothiazide 12.5 mg tablet atorvastatin 40 mg tablet 40 mg PO DAILY 09/29/25 09/29/25 History New Prescriptions to Start Prescriptions: Allergies Allergy/AdvReac Type Severity Reaction Status Date / Time ciprofloxacin Allergy Intermediate Anxiety Verified 08/21/25 14:03 empagliflozin (From AdvReac Gastrointestinal Verified 08/21/25 14:03 Jardiance) Upset Exam (Inpt) Vital signs and Labs for Last 24 Hours: Temp Pulse Resp BP Pulse Ox O2 Del Method 98.1 F 83 17 131/73 94 L Room Air 09/29/25 08:00 09/29/25 08:00 09/29/25 08:00 09/29/25 08:00 09/29/25 08:00 09/29/25 08:00 Laboratory Results - last 24 hr 09/28/25 18:29: Urine Color Yellow, Urine Appearance Clear, Urine pH 6.0, Ur Specific [place] 1.020, Urine Protein Trace, Urine Glucose (UA) Trace, Urine Ketones Negative, Urine Blood Negative, Urine Nitrate Negative, Urine Bilirubin Negative, Urine Urobilinogen 0.2, Ur Leukocyte Esterase Negative, Urine RBC 5-10, Urine WBC 10-20, Ur Squamous Epith Cells 3-5, Urine Bacteria Trace, Urine Mucus 3+ 09/28/25 18:53: WBC 14.1 H, RBC 4.45 L, Hgb 15.3, Hct 42.3, MCV 95.1 H, MCH 34.4 H, MCHC 36.2 H, RDW 11.2 L, Plt Count 219, MPV 8.8, Neut % (Auto) 89.0 H, Lymph % (Auto) 4.5 L, [place] % (Auto) 5.7, Eos % (Auto) 0.1, Baso % (Auto) 0.3, Neut # (Auto) 12.6 H, Lymph # (Auto) 0.6 L, [place] # (Auto) 0.8, Eos # (Auto) 0.0, Baso # (Auto) 0.0, Sodium 127 L, Potassium 3.7, Chloride 95 L, Carbon Dioxide 24, Anion Gap 11.7, BUN 8 L, Creatinine 0.90, Estimated Creat Clear 107, Estimated GFR 86, Est GFR ( Amer) 104, Glucose 204 H, Lactate 2.0, Calcium 9.1, Total Bilirubin 1.3, AST 39, ALT 48, Alkaline Phosphatase 146 H, Total Protein 7.6, Albumin 4.7, Globulin 2.9, Albumin/Globulin Ratio 1.6, Lipase 21 L, HIV Ag/Ab Combo Qual Negative 09/29/25 00:12: POC Glucose 256 H 09/29/25 05:51: POC Glucose 248 H 09/29/25 05:52: WBC 10.7, RBC 3.99 L, Hgb 13.6 L D, Hct 38.3 L, MCV 96.0 H, MCH 34.3 H, MCHC 35.8 H, RDW 11.2 L, Plt Count 188, MPV 9.0, Neut % (Auto) 83.4 H, Lymph % (Auto) 8.9 L, [place] % (Auto) 6.5, Eos % (Auto) 0.4, Baso % (Auto) 0.5, Neut # (Auto) 8.9 H, Lymph # (Auto) 1.0, [place] # (Auto) 0.7, Eos # (Auto) 0.0, Baso # (Auto) 0.1, Sodium 127 L, Potassium 3.5, Chloride 97 L, Carbon Dioxide 25, Anion Gap 8.5, BUN 8 L, Creatinine 0.90, Estimated Creat Clear 103, Estimated GFR 86, Est GFR ( Amer) 104, Glucose 244 H, Calcium 8.6, Total Bilirubin 1.8 H, AST 26 D, ALT 33 D, Alkaline Phosphatase 119, C-Reactive Protein 113.8 H, Total Protein 6.6, Albumin 3.9 D, Globulin 2.7, Albumin/Globulin Ratio 1.4 I & O for Labs for Last 24 Hours: Intake & Output 09/26/25 09/27/25 09/28/25 09/29/25 11:59 11:59 11:59 11:59 Intake Total 250 / 250 Output Total 0 / 0 Balance 250 / 250 Weight 207 lb 1.6 oz Results Labs 09/29/25 05:52 09/29/25 05:52 Labs: Laboratory Results - last 24 hr 09/28/25 18:29: Urine Color Yellow, Urine Appearance Clear, Urine pH 6.0, Ur Specific [place] 1.020, Urine Protein Trace, Urine Glucose (UA) Trace, Urine Ketones Negative, Urine Blood Negative, Urine Nitrate Negative, Urine Bilirubin Negative, Urine Urobilinogen 0.2, Ur Leukocyte Esterase Negative, Urine RBC 5-10, Urine WBC 10-20, Ur Squamous Epith Cells 3-5, Urine Bacteria Trace, Urine Mucus 3+ 09/28/25 18:53: WBC 14.1 H, RBC 4.45 L, Hgb 15.3, Hct 42.3, MCV 95.1 H, MCH 34.4 H, MCHC 36.2 H, RDW 11.2 L, Plt Count 219, MPV 8.8, Neut % (Auto) 89.0 H, Lymph % (Auto) 4.5 L, [place] % (Auto) 5.7, Eos % (Auto) 0.1, Baso % (Auto) 0.3, Neut # (Auto) 12.6 H, Lymph # (Auto) 0.6 L, [place] # (Auto) 0.8, Eos # (Auto) 0.0, Baso # (Auto) 0.0, Sodium 127 L, Potassium 3.7, Chloride 95 L, Carbon Dioxide 24, Anion Gap 11.7, BUN 8 L, Creatinine 0.90, Estimated Creat Clear 107, Estimated GFR 86, Est GFR ( Amer) 104, Glucose 204 H, Lactate 2.0, Calcium 9.1, Total Bilirubin 1.3, AST 39, ALT 48, Alkaline Phosphatase 146 H, Total Protein 7.6, Albumin 4.7, Globulin 2.9, Albumin/Globulin Ratio 1.6, Lipase 21 L, HIV Ag/Ab Combo Qual Negative 09/29/25 00:12: POC Glucose 256 H 09/29/25 05:51: POC Glucose 248 H 09/29/25 05:52: WBC 10.7, RBC 3.99 L, Hgb 13.6 L D, Hct 38.3 L, MCV 96.0 H, MCH 34.3 H, MCHC 35.8 H, RDW 11.2 L, Plt Count 188, MPV 9.0, Neut % (Auto) 83.4 H, Lymph % (Auto) 8.9 L, [place] % (Auto) 6.5, Eos % (Auto) 0.4, Baso % (Auto) 0.5, Neut # (Auto) 8.9 H, Lymph # (Auto) 1.0, [place] # (Auto) 0.7, Eos # (Auto) 0.0, Baso # (Auto) 0.1, Sodium 127 L, Potassium 3.5, Chloride 97 L, Carbon Dioxide 25, Anion Gap 8.5, BUN 8 L, Creatinine 0.90, Estimated Creat Clear 103, Estimated GFR 86, Est GFR ( Amer) 104, Glucose 244 H, Calcium 8.6, Total Bilirubin 1.8 H, AST 26 D, ALT 33 D, Alkaline Phosphatase 119, C-Reactive Protein 113.8 H, Total Protein 6.6, Albumin 3.9 D, Globulin 2.7, Albumin/Globulin Ratio 1.[address] scan - abdomen: report reviewed and image reviewed CT scan - pelvis: report reviewed and image reviewed Assessment and Plan *Assessment and plan (1) Abdominal pain, acute, right lower quadrant: Status: Acute Category: Medical Code(s): R10.31 - Right lower quadrant pain (2) Enterocolitis: Status: Acute Category: Medical Code(s): K52.9 - Noninfective gastroenteritis and colitis, unspecified (3) Leucocytosis: Status: Acute Qualifiers: Leukocytosis type: unspecified Qualified Code(s): D72.829 - Elevated white blood cell count, unspecified Category: Medical Code(s): D72.829 - Elevated white blood cell count, unspecified Plan: Improving Plan Continue IV antibiotics for now Clear liquid diet ordered Serial abdominal exams
--- NOTE | 2025-09-29 08:57 | EXP.SURG.CON ---
History of Present Illness *Admission Date: 09/28/25 *History of present illness: This is a 60-year-old gentleman seen in consultation after presenting to the emergency department with increasing right lower quadrant abdominal pain. History of complex/perforated appendicitis with concomitant laparotomy/ileocecal resection in April 2022 noted. This a.m. he feels about the same . Forwarded from admission H&P: Jake Morales is a 60-year-old male with a past medical history significant for BPH, type 2 diabetes mellitus, CAD, hyperlipidemia, hypertension. Presents to [facility] due to right lower abdominal pain. Reports symptoms began on and have progressively become worse since onset. CT scan of abdomen and pelvis obtained w/in the emergency department, revealed fat stranding around the region of the right colon, radiology noted there is adjacent edema and small volume free fluid at the site of patient's prior ileocolonic resection and anastomosis which could be indicative of enterocolitis. Prior history (04/24/22) of severe acute complicated appendicitis with perforation peritonitis, underwent laparotomy with ileocecal resection per Dr. Horn. ED provider spoke to our on-call surgical provider Dr. Conteh who noted this is unlikely an anastomotic leak, but due to presentation with continuous RLQ abdominal pain, agreed with admission for further evaluation with serial abdominal examinations and noted to follow up tomorrow. Patient reports normal bowel movements, last bowel movement today, normal in appearance. Patient reports having some nausea but denies any episodes of emesis, diarrhea, urinary symptoms, bloody stools, fever or chills. Initial ED workup included laboratory workup and imaging studies. WBC 14.1, sodium 127, glucose 204. Abdomen and pelvis CT obtained, in which I personally reviewed imaging, revealed findings of previous ileocolonic resection with anastomosis and Ileocolonic resection surgical clips in the right abdomen and pelvis. Adjacent edema and small volume free fluid suggesting possible nonspecific infectious or inflammatory enterocolitis. Patient assessed at bedside, present. He is without acute distress, sitting in bed comfortably. Upon palpation of abdomen notable rebound tenderness right lower abdominal region. Patient otherwise without complaint. Hypodermically stable. [facility] Disclaimer: The information contained in this section may have been updated after the patient was seen, as this information can be updated by other users. Medical History (Updated 09/29/25 @ 02:44 by Alice Thomason APRN) Meralgia paresthetica, right lower limb Unilateral primary osteoarthritis, left knee Surgical History (Updated 09/29/25 @ 02:39 by Alice Thomason APRN) S/P angioplasty with stent History of appendectomy Social History Smoking Status: Never smoker alcohol intake: current alcohol intake frequency: 3 or more drinks per day substance use type: denies use current occupational status: employed Travel in the last 8 weeks?: None Have you lived/traveled outside [place] in past 30 days?: No Contact w/someone who lives/traveled outside US past 30 days?: No Exposure to someone with infectious disease in past 14 days?: No Do you have a fever (greater than 100.4 F or 38 C)?: No Have you tested positive for COVID-19?: No Exposed to someone with COVID-19 in past 14 days?: No Do you have a sore throat?: No Do you have a cough?: No Do you have any weakness?: No Do you have any diarrhea?: No Are you experiencing any unusual bleeding?: No Do you have any muscle aches/pain?: No Do you have any abdominal pain?: Yes Are you experiencing loss of taste or smell?: No Review of Systems *Neurologic Neurologic: Reports system reviewed and no additional complaints, except as documented and Reports as per [facility] Meds Home Medications and Allergies Home Medications ?Medication ?Instructions ?Recorded ?Confirmed ?Type aspirin 81 mg chewable tablet 81 mg PO DAILY Heart health 01/30/23 09/28/25 History omega 0-jsd-xep-fish oil 900 1 cap PO DAILY Supplement 01/30/23 09/28/25 History mg-1,400 mg capsule,delayed release bisoprolol fumarate 5 mg tablet 5 mg PO DAILY #30 tabs 09/15/25 09/28/25 Rx clopidogrel 75 mg tablet 75 mg PO DAILY 09/28/25 09/28/25 History insulin glargine 100 unit/mL (3 75 unit SQ DAILY 09/28/25 09/29/25 History mL) subcutaneous pen (Lantus Solostar U-100 Insulin) insulin lispro 100 unit/mL 1 sliding scale dose SQ DIRECTED 09/28/25 09/29/25 History subcutaneous pen levothyroxine 25 mcg tablet 25 mcg PO DAILY 09/28/25 09/28/25 History losartan 100 1 tab PO DAILY 100/12.5mg 09/28/25 09/28/25 History mg-hydrochlorothiazide 12.5 mg tablet atorvastatin 40 mg tablet 40 mg PO DAILY 09/29/25 09/29/25 History New Prescriptions to Start Prescriptions: Allergies Allergy/AdvReac Type Severity Reaction Status Date / Time ciprofloxacin Allergy Intermediate Anxiety Verified 08/21/25 14:03 empagliflozin (From AdvReac Gastrointestinal Verified 08/21/25 14:03 Jardiance) Upset Exam (Inpt) Vital signs and Labs for Last 24 Hours: Temp Pulse Resp BP Pulse Ox O2 Del Method 98.1 F 83 17 131/73 94 L Room Air 09/29/25 08:00 09/29/25 08:00 09/29/25 08:00 09/29/25 08:00 09/29/25 08:00 09/29/25 08:00 Laboratory Results - last 24 hr 09/28/25 18:29: Urine Color Yellow, Urine Appearance Clear, Urine pH 6.0, Ur Specific [place] 1.020, Urine Protein Trace, Urine Glucose (UA) Trace, Urine Ketones Negative, Urine Blood Negative, Urine Nitrate Negative, Urine Bilirubin Negative, Urine Urobilinogen 0.2, Ur Leukocyte Esterase Negative, Urine RBC 5-10, Urine WBC 10-20, Ur Squamous Epith Cells 3-5, Urine Bacteria Trace, Urine Mucus 3+ 09/28/25 18:53: WBC 14.1 H, RBC 4.45 L, Hgb 15.3, Hct 42.3, MCV 95.1 H, MCH 34.4 H, MCHC 36.2 H, RDW 11.2 L, Plt Count 219, MPV 8.8, Neut % (Auto) 89.0 H, Lymph % (Auto) 4.5 L, [place] % (Auto) 5.7, Eos % (Auto) 0.1, Baso % (Auto) 0.3, Neut # (Auto) 12.6 H, Lymph # (Auto) 0.6 L, [place] # (Auto) 0.8, Eos # (Auto) 0.0, Baso # (Auto) 0.0, Sodium 127 L, Potassium 3.7, Chloride 95 L, Carbon Dioxide 24, Anion Gap 11.7, BUN 8 L, Creatinine 0.90, Estimated Creat Clear 107, Estimated GFR 86, Est GFR ( Amer) 104, Glucose 204 H, Lactate 2.0, Calcium 9.1, Total Bilirubin 1.3, AST 39, ALT 48, Alkaline Phosphatase 146 H, Total Protein 7.6, Albumin 4.7, Globulin 2.9, Albumin/Globulin Ratio 1.6, Lipase 21 L, HIV Ag/Ab Combo Qual Negative 09/29/25 00:12: POC Glucose 256 H 09/29/25 05:51: POC Glucose 248 H 09/29/25 05:52: WBC 10.7, RBC 3.99 L, Hgb 13.6 L D, Hct 38.3 L, MCV 96.0 H, MCH 34.3 H, MCHC 35.8 H, RDW 11.2 L, Plt Count 188, MPV 9.0, Neut % (Auto) 83.4 H, Lymph % (Auto) 8.9 L, [place] % (Auto) 6.5, Eos % (Auto) 0.4, Baso % (Auto) 0.5, Neut # (Auto) 8.9 H, Lymph # (Auto) 1.0, [place] # (Auto) 0.7, Eos # (Auto) 0.0, Baso # (Auto) 0.1, Sodium 127 L, Potassium 3.5, Chloride 97 L, Carbon Dioxide 25, Anion Gap 8.5, BUN 8 L, Creatinine 0.90, Estimated Creat Clear 103, Estimated GFR 86, Est GFR ( Amer) 104, Glucose 244 H, Calcium 8.6, Total Bilirubin 1.8 H, AST 26 D, ALT 33 D, Alkaline Phosphatase 119, C-Reactive Protein 113.8 H, Total Protein 6.6, Albumin 3.9 D, Globulin 2.7, Albumin/Globulin Ratio 1.4 I & O for Labs for Last 24 Hours: Intake & Output 09/26/25 09/27/25 09/28/25 09/29/25 11:59 11:59 11:59 11:59 Intake Total 250 / 250 Output Total 0 / 0 Balance 250 / 250 Weight 207 lb 1.6 oz Constitutional: no acute distress Respiratory: Absent respiratory distress Cardiac: Absent Tachycardia GI: Present soft and tenderness Results Labs 09/29/25 05:52 09/29/25 05:52 Labs: Laboratory Results - last 24 hr 09/28/25 18:29: Urine Color Yellow, Urine Appearance Clear, Urine pH 6.0, Ur Specific [place] 1.020, Urine Protein Trace, Urine Glucose (UA) Trace, Urine Ketones Negative, Urine Blood Negative, Urine Nitrate Negative, Urine Bilirubin Negative, Urine Urobilinogen 0.2, Ur Leukocyte Esterase Negative, Urine RBC 5-10, Urine WBC 10-20, Ur Squamous Epith Cells 3-5, Urine Bacteria Trace, Urine Mucus 3+ 09/28/25 18:53: WBC 14.1 H, RBC 4.45 L, Hgb 15.3, Hct 42.3, MCV 95.1 H, MCH 34.4 H, MCHC 36.2 H, RDW 11.2 L, Plt Count 219, MPV 8.8, Neut % (Auto) 89.0 H, Lymph % (Auto) 4.5 L, [place] % (Auto) 5.7, Eos % (Auto) 0.1, Baso % (Auto) 0.3, Neut # (Auto) 12.6 H, Lymph # (Auto) 0.6 L, [place] # (Auto) 0.8, Eos # (Auto) 0.0, Baso # (Auto) 0.0, Sodium 127 L, Potassium 3.7, Chloride 95 L, Carbon Dioxide 24, Anion Gap 11.7, BUN 8 L, Creatinine 0.90, Estimated Creat Clear 107, Estimated GFR 86, Est GFR ( Amer) 104, Glucose 204 H, Lactate 2.0, Calcium 9.1, Total Bilirubin 1.3, AST 39, ALT 48, Alkaline Phosphatase 146 H, Total Protein 7.6, Albumin 4.7, Globulin 2.9, Albumin/Globulin Ratio 1.6, Lipase 21 L, HIV Ag/Ab Combo Qual Negative 09/29/25 00:12: POC Glucose 256 H 09/29/25 05:51: POC Glucose 248 H 09/29/25 05:52: WBC 10.7, RBC 3.99 L, Hgb 13.6 L D, Hct 38.3 L, MCV 96.0 H, MCH 34.3 H, MCHC 35.8 H, RDW 11.2 L, Plt Count 188, MPV 9.0, Neut % (Auto) 83.4 H, Lymph % (Auto) 8.9 L, [place] % (Auto) 6.5, Eos % (Auto) 0.4, Baso % (Auto) 0.5, Neut # (Auto) 8.9 H, Lymph # (Auto) 1.0, [place] # (Auto) 0.7, Eos # (Auto) 0.0, Baso # (Auto) 0.1, Sodium 127 L, Potassium 3.5, Chloride 97 L, Carbon Dioxide 25, Anion Gap 8.5, BUN 8 L, Creatinine 0.90, Estimated Creat Clear 103, Estimated GFR 86, Est GFR ( Amer) 104, Glucose 244 H, Calcium 8.6, Total Bilirubin 1.8 H, AST 26 D, ALT 33 D, Alkaline Phosphatase 119, C-Reactive Protein 113.8 H, Total Protein 6.6, Albumin 3.9 D, Globulin 2.7, Albumin/Globulin Ratio 1.4
--- NOTE | 2025-09-29 09:24 | P.PN_ITS ---
<Statement entered by James Williamson MD - 09/30/25 12:31> Agree with plan of care as outlined by the CONSULTING PSYCHIATRIST. Subjective *Date: 09/29/25 *Time: 12:35 Interval history: Patient doing well this morning. Family at bedside. Patient states he is still having right lower quadrant pain, worsening with palpation. Patient has hypoactive bowel sounds, states last BM was yesterday or the day before. Will advance diet to clear liquids. Stop IV fluids at this time. Dr. Colon consulted for further recommendations. Medical Exam Vital signs and Labs for Last 24 Hours: Vital Signs Temp Pulse Pulse Resp BP BP Pulse Ox 09/29/25 08:00 98.1 F 83 17 131/73 94 L 09/29/25 06:45 09/29/25 05:00 09/29/25 04:00 97.9 F 78 14 132/71 94 L 09/29/25 01:42 09/29/25 00:41 09/28/25 23:26 98.9 F 87 18 157/82 H 96 09/28/25 23:22 97.9 F 71 18 138/78 09/28/25 23:01 09/28/25 22:12 97.6 F 86 18 140/74 09/28/25 20:30 89 20 148/84 H 95 09/28/25 19:30 89 20 143/78 H 96 09/28/25 18:37 98.2 F 97 H 14 167/92 H 97 09/28/25 18:34 97 H 96 O2 Del Method 09/29/25 08:00 Room Air 09/29/25 06:45 Room Air 09/29/25 05:00 Room Air 09/29/25 04:00 Room Air 09/29/25 01:42 Room Air 09/29/25 00:41 Room Air 09/28/25 23:26 Room Air 09/28/25 23:22 Room Air 09/28/25 23:01 Room Air 09/28/25 22:12 Room Air 09/28/25 20:30 09/28/25 19:30 09/28/25 18:37 Room Air 09/28/25 18:34 Intake and Output 09/28/25 09/29/25 09/29/25 23:59 07:59 15:59 Intake Total 250 / 250 Output Total 0 / 0 Balance 250 / 250 0 / 250 Intake: Intake, Oral Amount 50 / 50 Intake, Total IV Amount 200 / 200 Piperacillin/Tazo 4.5 gm In 0.9 100 / 100 % Sodium Chloride 100 ml @ 200 mls/hr IV ONCE ONE Rx#: [id number] Piperacillin/Tazo 4.5 gm In 0.9 100 / 100 % Sodium Chloride 100 ml @ 200 mls/hr IV Q[facility]H [facility] Rx#:[id number] Output: Output, Urine Amount 0 / 0 Other: Number of Voids 0 Weight 94.529 kg 93.939 kg Patient Weight 09/29/25 23:59 Weight 93.939 kg Laboratory Results - last 24 hr 09/28/25 18:29: Urine Color Yellow, Urine Appearance Clear, Urine pH 6.0, Ur Specific [place] 1.020, Urine Protein Trace, Urine Glucose (UA) Trace, Urine Ketones Negative, Urine Blood Negative, Urine Nitrate Negative, Urine Bilirubin Negative, Urine Urobilinogen 0.2, Ur Leukocyte Esterase Negative, Urine RBC 5- 10, Urine WBC 10-20, Ur Squamous Epith Cells 3-5, Urine Bacteria Trace, Urine Mucus 3+ 09/28/25 18:53: WBC 14.1 H, RBC 4.45 L, Hgb 15.3, Hct 42.3, MCV 95.1 H, MCH 34.4 H, MCHC 36.2 H, RDW 11.2 L, Plt Count 219, MPV 8.8, Neut % (Auto) 89.0 H, Lymph % (Auto) 4.5 L, [place] % (Auto) 5.7, Eos % (Auto) 0.1, Baso % (Auto) 0.3, Neut # (Auto) 12.6 H, Lymph # (Auto) 0.6 L, [place] # (Auto) 0.8, Eos # (Auto) 0.0, Baso # (Auto) 0.0, Sodium 127 L, Potassium 3.7, Chloride 95 L, Carbon Dioxide 24, Anion Gap 11.7, BUN 8 L, Creatinine 0.90, Estimated Creat Clear 107, Estimated GFR 86, Est GFR ( Amer) 104, Glucose 204 H, Lactate 2.0, Calcium 9.1, Total Bilirubin 1.3, AST 39, ALT 48, Alkaline Phosphatase 146 H, Total Protein 7.6, Albumin 4.7, Globulin 2.9, Albumin/Globulin Ratio 1.6, Lipase 21 L, HIV Ag/Ab Combo Qual Negative 09/29/25 00:12: POC Glucose 256 H 09/29/25 05:51: POC Glucose 248 H 09/29/25 05:52: WBC 10.7, RBC 3.99 L, Hgb 13.6 L D, Hct 38.3 L, MCV 96.0 H, MCH 34.3 H, MCHC 35.8 H, RDW 11.2 L, Plt Count 188, MPV 9.0, Neut % (Auto) 83.4 H, Lymph % (Auto) 8.9 L, [place] % (Auto) 6.5, Eos % (Auto) 0.4, Baso % (Auto) 0.5, Neut # (Auto) 8.9 H, Lymph # (Auto) 1.0, [place] # (Auto) 0.7, Eos # (Auto) 0.0, Baso # (Auto) 0.1, Sodium 127 L, Potassium 3.5, Chloride 97 L, Carbon Dioxide 25, Anion Gap 8.5, BUN 8 L, Creatinine 0.90, Estimated Creat Clear 103, Estimated GFR 86, Est GFR ( Amer) 104, Glucose 244 H, Calcium 8.6, Total Bilirubin 1.8 H, AST 26 D, ALT 33 D, Alkaline Phosphatase 119, C-Reactive Protein 113.8 H, Total Protein 6.6, Albumin 3.9 D, Globulin 2.7, Albumi n/Globulin Ratio 1.4 I & O for Labs for Last 24 Hours: Intake & Output 09/26/25 09/27/25 09/28/25 09/29/25 23:59 23:59 23:59 23:59 Intake Total 250 / 250 Output Total 0 / 0 Balance 250 / 250 Weight 94.529 kg 93.939 kg Constitutional: Present no acute distress, obese and cooperative Head: Present atraumatic Eyes: Present as per HPI ENT: Present normal exam Neck: Present normal inspection; Absent lymphadenopathy Respiratory: Present CTA bilaterally and normal respiratory effort; Absent wheezes or crackles Cardiac: Present Reg Rate and Rhythm and No Murmur GI: Present soft, tenderness (Right lower quadrant) and hypoactive bowel sounds; Absent distention Rectal (male): Present deferred (male): Present deferred Extremities: Present normal inspection and full ROM; Absent tenderness Skin: Present intact and dry; Absent erythema or rash Neuro: Present Grossly Intact, alert, awake and oriented x 3 Assessment and Plan *Assessment and plan (1) Abdominal pain, acute, right lower quadrant: Status: Acute Category: Medical Code(s): R10.31 - Right lower quadrant pain (2) Enterocolitis: Status: Acute Category: Medical Code(s): K52.9 - Noninfective gastroenteritis and colitis, unspecified (3) Type 2 diabetes mellitus with hyperglycemia: Status: Acute Qualifiers: Diabetes mellitus salvage determiner insulin use: with shelter use Qualified Code(s): E11.65 - Type 2 diabetes mellitus with hyperglycemia; Z79.4 - salvage determiner (current) use of insulin Category: Medical Code(s): E11.65 - Type 2 diabetes mellitus with hyperglycemia (4) Alcohol abuse, daily use: Status: Acute Category: Medical Code(s): F10.10 - Alcohol abuse, uncomplicated (5) Acute hyponatremia: Status: Acute Category: Medical Code(s): E87.1 - Hypo-osmolality and hyponatremia Plan Mr. Brito is a 60-year-old male who presented to the emergency department yesterday evening with complaints of right lower quadrant abdominal pain since . He reports nausea, vomiting, 10/10 abdominal pain. He denies diarrhea, urinary symptoms, chest pain, shortness of breath. He does have a history of laparoscopic cholecystectomy and appendectomy. Patient does report that he drinks approximately 12 beers/day, last alcoholic drink was the night before. Evaluation in the emergency department was significant for leukocytosis of 14.1, hyponatremia of 127 (this appears to be chronic), CT scan shows fat stranding around the region of the right colon, adjacent edema and small volume free fluid at this patient's prior ileocolonic resection anastomosis site. Dr. Colon was consulted from the emergency department who states that it would be extraordinarily rare for an anastomotic leak to occur 3 years postsurgery. It does appear patient likely has enterocolitis. Recommendations for admission and IV antibiotics. Hospital medicine was consulted for admission, and agreed to admit the patient. Plan of care as follows: #Enterocolitis #Right lower quadrant abdominal pain ?Patient assessment this morning reveals continued right lower quadrant abdominal pain, worse with palpation. Patient denies abdominal pain elsewhere. Bowel sounds are hypoactive, advancing diet to clears today. General surgery, Dr. Colon assessed patient, recommendations to continue Zosyn 4.5 g every 6 hours for enterocolitis and slowly advancing diet. ?Patient received IV fluids overnight, stopping IV fluids at this time transitioning to clear liquids for oral hydration. Patient does have morphine IV for severe pain?monitoring for toxicity. Zofran as needed for nausea. Encourage patient to ambulate. #Acute hyponatremia: Patient sodium 127, asymptomatic. Appears to be close to baseline sodium. Stable at this time. Alcohol use likely contributing to hyponatremia. #Type 2 diabetes: Patient is a type II diabetic, ACHS fingersticks, sliding scale insulin. Will resume insulin glargine at 30 units subcu daily. Patient's last A1c 07/31 was 6.8%. #HTN/HLD/CAD: Continue patient's home regimen of losartan?HCTZ 1 tab daily, clopidogrel 75 mg daily, bisoprolol 5 mg daily, after for statin 40 mg daily, aspirin 81 mg daily. #Hypothyroidism: Continue levothyroxine 25 mcg daily. #Obesity: Patient BMI 31, complicates all aspects of care. #Alcohol use disorder: Reports daily alcohol use, approximately 12 beers/day. No signs of alcohol withdrawal at this time. CIWA ordered. VTE?SCUDs Full code Clear liquid Ambulate as tolerated
[2025-09-29] MEDS: INSULIN GLARGINE 100 UNITS/ML 3ML FLEXPEN 40 UNIT SUBCUT (09:41)
[2025-09-29] MEDS: IRBESARTAN 150MG TAB 150 MG PO (09:42)
[2025-09-29] MEDS: BISOPROLOL 5MG TABLET 5 MG PO (09:42)
[2025-09-29] MEDS: LEVOTHYROXINE 25MCG (0.025MG) TAB 25 MCG PO (09:42)
[2025-09-29 09:46] LABS: POC Glucose,Bedside 258 gm/dL (70-110)
[2025-09-29 10:07] LABS: Hepatitis C Ab Qual. W/ RFX NEGATIVE (Negative)
[2025-09-29] MEDS: KETOROLAC 15MG/ML VIAL 15 MG IV (15:58)
[2025-09-29 16:00] VITALS: BP 145/82; PULSE 79; RESP 14; TEMP 36.8; O2SAT 96
--- NOTE | 2025-09-29 16:05 | PC.NURSE ---
Pt requested pain medication. Morphine 3mg IV was refused by pt then waisted. Pt requested toradol instead. Provider consulted. New order placed. Toradol administered.
[2025-09-29 18:26] LABS: POC Glucose,Bedside 390 gm/dL (70-110)
[2025-09-29 20:00] VITALS: BP 143/85; PULSE 70; RESP 16; O2SAT 95
[2025-09-30] VITALS: BP 154/81; PULSE 77; RESP 16; TEMP 37.6; O2SAT 93
[2025-09-30 00:06] LABS: POC Glucose,Bedside 290 gm/dL (70-110)
[2025-09-30] MEDS: PIPERACILLIN/TAZO 4.5 GM in 0.9 % SODIUM CHLORIDE 100 ML IV ×2 (02:58→09:22)
[2025-09-30 04:00] VITALS: BP 153/75; PULSE 79; RESP 16; TEMP 36.8; O2SAT 91; BMI 31.8
[2025-09-30 06:03] LABS: POC Glucose,Bedside 177 gm/dL (70-110)
[2025-09-30] MEDS: humaLOG 100 UNITS/ML 10ML VIAL (SSI) SUBCUT ×4 (06:05→20:16)
[2025-09-30] MEDS: LEVOTHYROXINE 25MCG (0.025MG) TAB 25 MCG PO (06:06)
--- NOTE | 2025-09-30 07:43 | EXP.SURG.PN ---
Subjective Patient reports: diarrhea Narrative: Currently in bathroom. Reportedly, the patient began experiencing diarrhea overnight. He states that his pain is a little better . Exam Data for Last 24 hours Vital signs and Labs for Last 24 Hours: Temp Pulse Resp BP Pulse Ox O2 Del Method 98.3 F 79 16 153/75 H 91 L Room Air 09/30/25 04:00 09/30/25 04:00 09/30/25 04:00 09/30/25 04:00 09/30/25 04:00 09/30/25 06:23 Laboratory Results - last 24 hr 09/28/25 18:53: HCV Ab KILLIAN w/Rflx PCR Qn Negative 09/29/25 09:39: POC Glucose 258 H 09/29/25 16:09: POC Glucose 390 H* 09/30/25 00:00: POC Glucose 290 H 09/30/25 05:56: POC Glucose 177 H I & O for Last 24 hours: Intake & Output 09/27/25 09/28/25 09/29/25 09/30/25 11:59 11:59 11:59 11:59 Intake Total 1350 / 1350 660 / 660 Output Total 0 / 0 0 / 0 Balance 1350 / 1350 660 / 660 Weight 207 lb 1.6 oz 210 lb 1.6 oz Constitutional Comments: Exam deferred (patient in bathroom) Progress Note: A&P Assessment and plan (1) Enterocolitis: Status: Acute Assessment and plan: Now with diarrhea. Abdominal pain slightly improved (per patient report). Follow-up pending labs Overall management as per primary service (antibiotic coverage, diarrhea panel, etc.) Advance diet as tolerated (as per primary service)
[2025-09-30 07:55] LABS: Hematocrit 40.0 % (42.0-52.0); Hemoglobin 14.5 g/dL (14.1-18.0); Immature Granulocytes % 0.1 %; Mean Corpuscular HGB Conc 36.3 g/dL (31.8-35.4); Mean Corpuscular Hemoglobin 34.7 pg (27.0-31.2); Mean Corpuscular Volume 95.7 fl (80-94); Nucleated Red Blood Cells % 0 %; Platelet Count 178 K/mm3 (142-424); Red Blood Count 4.18 M/mm3 (4.60-6.20); Red Cell Distribution Width-SD 38.8 fL; White Blood Count 8.5 K/mm3 (4.8-10.8)
[2025-09-30 08:00] VITALS: BP 154/80; PULSE 83; RESP 17; TEMP 36.8; O2SAT 95
--- NOTE | 2025-09-30 08:31 | HMH.PHAAMS2 ---
- Antimicrobial Stewardship Review culture & sensitivity review Stewardship interventions: culture & sensitivity review Comments: URINE CULTURE PENDING, ON ZOSYN EMPIRICALLY FOR ENTEROCOLITIS.
[2025-09-30 08:34] LABS: Alanine Aminotransferase 30 U/L (12-78); Albumin Level 4.0 g/dl (3.5-5.0); Albumin/Globulin Ratio 1.5 (1.1-1.8); Alkaline Phosphatase 116 U/L (38-126); Anion Gap 10.7 mEq/L (5-15); Aspartate Amino Transferase 23 U/L (17-59); Bilirubin,Total 1.6 mg/dl (0.2-1.3); Blood Urea Nitrogen 8 mg/dl (9-20); Calcium 8.6 mg/dl (8.4-10.2); Carbon Dioxide 24 mmol/L (22.0-30.0); Chloride 93 mmol/L (98-107); Creatinine Clearance Estimated 105 mL/min (50-200); Creatinine,Serum 0.90 mg/dl (0.66-1.25); Estimated Glomerular Filt Rate 86 ml/min (>60); GFR (African American) 104 ML/MIN (>60); Globulin 2.6 g/dL (1.3-3.2); Glucose 328 mg/dl (74-100); Potassium 3.7 mmoL/L (3.5-5.1); Sodium 124 mmol/L (136-145); Total Protein,Serum 6.6 g/dl (6.3-8.2)
[2025-09-30] MEDS: IRBESARTAN 150MG TAB 150 MG PO (09:22)
[2025-09-30] MEDS: BISOPROLOL 5MG TABLET 5 MG PO (09:22)
[2025-09-30] MEDS: INSULIN GLARGINE 100 UNITS/ML 3ML FLEXPEN 40 UNIT SUBCUT (09:23)
[2025-09-30 12:05] LABS: Sodium,Urine Random 14.0 mmol/L (30-90)
[2025-09-30 12:08] LABS: POC Glucose,Bedside 275 gm/dL (70-110)
[2025-09-30 14:44] LABS: Sodium 122 mmol/L (136-145)
--- NOTE | 2025-09-30 15:00 | P.PN_ITS ---
<Statement entered by Victorino Olguin MD - 09/30/25 16:57> Rounded on patient after nurse practitioner. Personally examined and interviewed patient. Agree with exam findings and care plan as documented. Subjective *Date: 09/30/25 *Time: 15:00 Interval history: Patient is doing well this morning, denies right lower quadrant pain. Does endorse intermittent diarrhea likely from antibiotics. Will transition from Zosyn IV to Augmentin twice daily. Patient sodium low this morning, 124, recheck this afternoon 122. Suspect this is related to patient's regular alcohol intake (12 beers/day). Will supplement with sodium tabs 1000 3 times daily with meals, recheck in the morning. Will advance patient's diet to regular diet for dinner. Medical Exam Vital signs and Labs for Last 24 Hours: Vital Signs Temp Pulse Resp BP Pulse Ox O2 Del Method 09/30/25 13:00 Room Air 09/30/25 11:00 Room Air 09/30/25 09:00 Room Air 09/30/25 08:00 Room Air 09/30/25 08:00 98.3 F 83 17 154/80 H 95 Room Air 09/30/25 06:23 Room Air 09/30/25 05:00 Room Air 09/30/25 04:00 98.3 F 79 16 153/75 H 91 L Room Air 09/30/25 03:00 Room Air 09/30/25 01:00 Room Air 09/30/25 00:00 99.6 F 77 16 154/81 H 93 L Room Air 09/29/25 23:00 Room Air 09/29/25 21:00 Room Air 09/29/25 20:00 Room Air 09/29/25 20:00 70 16 143/85 H 95 Room Air 09/29/25 18:56 Room Air 09/29/25 17:00 Room Air 09/29/25 16:00 98.2 F 79 14 145/82 H 96 Room Air Intake and Output 09/29/25 09/30/25 09/30/25 23:59 07:59 15:59 Intake Total 1909 Output Total 0 / 0 0 / 0 Balance 1909 Intake: Intake, Oral Amount 360 / 1760 1400 / 1760 Intake, Total IV Amount 200 / 1500 100 / 200 100 / 200 Piperacillin/Tazo 4.5 gm In 0.9 200 / 300 100 / 200 100 / 200 % Sodium Chloride 100 ml @ 200 mls/hr IV Q6H [facility] Rx#:[id number] Output: Output, Urine Amount 0 / 0 0 / 0 Other: Number of Unmeasured Voids 1 1 Weight 95.3 kg Patient Weight 09/30/25 23:59 Weight 95.3 kg Laboratory Results - last 24 hr 09/29/25 16:09: POC Glucose 390 H* 09/30/25 00:00: POC Glucose 290 H 09/30/25 05:56: POC Glucose 177 H 09/30/25 07:49: WBC 8.5, RBC 4.18 L, Hgb 14.5, Hct 40.0 L, MCV 95.7 H, MCH 34.7 H, MCHC 36.3 H, RDW 11.1 L, Plt Count 178, MPV 8.7, Neut % (Auto) 82.7 H, Lymph % (Auto) 8.3 L, [place] % (Auto) 6.5, Eos % (Auto) 1.9, Baso % (Auto) 0.5, Neut # (Auto) 7.0, Lymph # (Auto) 0.7, [place] # (Auto) 0.6, Eos # (Auto) 0.2, Baso # (Auto) 0.0, Sodium 124 L, Potassium 3.7, Chloride 93 L, Carbon Dioxide 24, Anion Gap 10.7, BUN 8 L, Creatinine 0.90, Estimated Creat Clear 105, Estimated GFR 86, Est GFR ( Amer) 104, Glucose 328 H, Calcium 8.6, Total Bilirubin 1.6 H, AST 23, ALT 30, Alkaline Phosphatase 116, Total Protein 6.6, Albumin 4.0, Globulin 2.6, Albumin/Globulin Ratio 1.5 09/30/25 11:00: Urine Sodium 14.0 L 09/30/25 11:01: POC Glucose 275 H 09/30/25 14:26: Sodium 122 L I & O for Labs for Last 24 Hours: Intake & Output 09/27/25 09/28/25 09/29/25 09/30/25 23:59 23:59 23:59 23:59 Intake Total 1549 Output Total 0 / 0 0 / 0 Balance 1549 Weight 94.529 kg 93.939 kg 95.3 kg Microbiology Reports for the Last 24 Hours: Microbiology 09/28/25 18:29 Urine,Clean Catch Urine Culture - Final No growth. Constitutional: Present no acute distress, obese and cooperative Head: Present atraumatic Eyes: Present as per HPI ENT: Present normal exam Neck: Present normal inspection; Absent lymphadenopathy Respiratory: Present CTA bilaterally and normal respiratory effort; Absent wheezes or crackles Cardiac: Present Reg Rate and Rhythm and No Murmur GI: Present soft, tenderness (Right lower quadrant) and hypoactive bowel sounds; Absent distention Rectal (male): Present deferred (male): Present deferred Extremities: Present normal inspection and full ROM; Absent tenderness Skin: Present intact and dry; Absent erythema or rash Neuro: Present Grossly Intact, alert, awake and oriented x 3 Assessment and Plan *Assessment and plan (1) Abdominal pain, acute, right lower quadrant: Status: Acute Category: Medical Code(s): R10.31 - Right lower quadrant pain (2) Enterocolitis: Status: Acute Category: Medical Code(s): K52.9 - Noninfective gastroenteritis and colitis, unspecified (3) Type 2 diabetes mellitus with hyperglycemia: Status: Acute Qualifiers: Diabetes mellitus mcc insulin use: with mcc use Qualified Code(s): E11.65 - Type 2 diabetes mellitus with hyperglycemia; Z79.4 - watermaster (current) use of insulin Category: Medical Code(s): E11.65 - Type 2 diabetes mellitus with hyperglycemia (4) Alcohol abuse, daily use: Status: Acute Category: Medical Code(s): F10.10 - Alcohol abuse, uncomplicated (5) Acute hyponatremia: Status: Acute Category: Medical Code(s): E87.1 - Hypo-osmolality and hyponatremia Plan Mr. Brito is a 60-year-old male who presented to the emergency department with complaints of right lower quadrant abdominal pain since . He reports nausea, vomiting, 10/10 abdominal pain. He denies diarrhea, urinary symptoms, chest pain, shortness of breath. He does have a history of laparoscopic cholecystectomy and appendectomy. Patient does report that he drinks franchesca roximately 12 beers/day, last alcoholic drink was the night before. Evaluation in the emergency department was significant for leukocytosis of 14.1, hyponatremia of 127 (this appears to be chronic), CT scan shows fat stranding around the region of the right colon, adjacent edema and small volume free fluid at this patient's prior ileocolonic resection anastomosis site. Dr. Colon was consulted from the emergency department who states that it would be extraordinarily rare for an anastomotic leak to occur 3 years postsurgery. It does appear patient likely has enterocolitis. Recommendations for admission and IV antibiotics. Hospital medicine was consulted for admission, and agreed to admit the patient. Plan of care as follows: #Enterocolitis #Right lower quadrant abdominal pain ? Patient assessment this morning reveals decrease in right lower quadrant pain. States intermittent tenderness but overall resolved. Patient denies abdominal pain elsewhere. Bowel sounds active, advance diet to full liquids for lunch patient had no issues. Will advance diet to diabetic diet for dinner. Transition from Zosyn every 6 hours IV to Augmentin twice daily. Dissipate discharge home tomorrow if sodium corrects. ?Patient does have morphine IV and Toradol IV for pain?monitoring for toxicity. Zofran as needed for nausea. Encourage patient to ambulate. #Acute hyponatremia: Patient sodium 127, asymptomatic. Appears to be close to baseline sodium. Stable at this time. Hyponatremia likely related to beer potomania, sodium trending down from 127-122. Supplementing with salt tab 1000 mg 3 times daily with meals. Will recheck CMP in the AM. #Type 2 diabetes: Patient is a type II diabetic, ACHS fingersticks, sliding scale insulin. Insulin glargine 50 units subcu daily ordered. Patient's last A1c 07/31 was 6.8%. #HTN/HLD/CAD: Continue patient's home regimen of losartan?HCTZ 1 tab daily, clopidogrel 75 mg daily, bisoprolol 5 mg daily, after for statin 40 mg daily, aspirin 81 mg daily. #Hypothyroidism: Continue levothyroxine 25 mcg daily. TSH 3.07. #Obesity: Patient BMI 31, complicates all aspects of care. #Alcohol use disorder: Reports daily alcohol use, approximately 12 beers/day. No signs of alcohol withdrawal at this time. CIWA ordered. No signs of withdrawal noted. VTE?SCUDs Full code Clear liquid Ambulate as tolerated
[2025-09-30 15:47] LABS: Thyroid Stimulating Hormone 3.07 uIU/mL (0.465-4.68)
[2025-09-30 16:00] VITALS: BP 145/84; PULSE 76; RESP 18; TEMP 37.2; O2SAT 98
[2025-09-30] MEDS: SODIUM CHLORIDE 1,000MG TABLET 1000 MG PO (16:38)
[2025-09-30 19:47] LABS: POC Glucose,Bedside 314 gm/dL (70-110)
[2025-09-30 20:00] VITALS: BP 154/77; PULSE 76; RESP 16; TEMP 37.2; O2SAT 96
[2025-09-30] MEDS: AMOXICILLIN/CLAVULANATE POTASSIUM 875/125MG TABLET 1 EACH PO (20:16)
[2025-10-01 04:00] VITALS: BP 139/77; PULSE 76; RESP 16; TEMP 37.3; O2SAT 94; BMI 31.8
[2025-10-01 06:01] LABS: Hematocrit 37.0 % (42.0-52.0); Hemoglobin 13.4 g/dL (14.1-18.0); Immature Granulocytes % 0.3 %; Mean Corpuscular HGB Conc 36.2 g/dL (31.8-35.4); Mean Corpuscular Hemoglobin 34.6 pg (27.0-31.2); Mean Corpuscular Volume 95.6 fl (80-94); Nucleated Red Blood Cells % 0 %; Platelet Count 181 K/mm3 (142-424); Red Blood Count 3.87 M/mm3 (4.60-6.20); Red Cell Distribution Width-SD 38.9 fL; White Blood Count 7.1 K/mm3 (4.8-10.8)
[2025-10-01 06:14] LABS: Alanine Aminotransferase 26 U/L (12-78); Albumin Level 3.9 g/dl (3.5-5.0); Albumin/Globulin Ratio 1.3 (1.1-1.8); Alkaline Phosphatase 104 U/L (38-126); Anion Gap 11.5 mEq/L (5-15); Aspartate Amino Transferase 23 U/L (17-59); Bilirubin,Total 1.1 mg/dl (0.2-1.3); Blood Urea Nitrogen 6 mg/dl (9-20); Calcium 8.7 mg/dl (8.4-10.2); Carbon Dioxide 23 mmol/L (22.0-30.0); Chloride 97 mmol/L (98-107); Creatinine Clearance Estimated 105 mL/min (50-200); Creatinine,Serum 0.80 mg/dl (0.66-1.25); Estimated Glomerular Filt Rate 98 ml/min (>60); GFR (African American) 119 ML/MIN (>60); Globulin 3.0 g/dL (1.3-3.2); Glucose 178 mg/dl (74-100); Potassium 3.5 mmoL/L (3.5-5.1); Sodium 128 mmol/L (136-145); Total Protein,Serum 6.9 g/dl (6.3-8.2)
[2025-10-01 06:14] LABS: POC Glucose,Bedside 207 gm/dL (70-110)
[2025-10-01] MEDS: humaLOG 100 UNITS/ML 10ML VIAL (SSI) SUBCUT (06:24)
[2025-10-01] MEDS: SODIUM CHLORIDE 1,000MG TABLET 1000 MG PO (06:24)
[2025-10-01] MEDS: LEVOTHYROXINE 25MCG (0.025MG) TAB 25 MCG PO (06:24)
--- NOTE | 2025-10-01 07:16 | EXP.SURG.PN ---
Subjective Patient reports: no new complaints and feels better Narrative: Bowel movements normalizing. Exam Data for Last 24 hours Vital signs and Labs for Last 24 Hours: Temp Pulse Resp BP Pulse Ox O2 Del Method 99.2 F 76 16 139/77 94 L Room Air 10/01/25 04:00 10/01/25 04:00 10/01/25 04:00 10/01/25 04:00 10/01/25 04:00 10/01/25 06:19 Laboratory Results - last 24 hr 09/30/25 07:49: WBC 8.5, RBC 4.18 L, Hgb 14.5, Hct 40.0 L, MCV 95.7 H, MCH 34.7 H, MCHC 36.3 H, RDW 11.1 L, Plt Count 178, MPV 8.7, Neut % (Auto) 82.7 H, Lymph % (Auto) 8.3 L, [place] % (Auto) 6.5, Eos % (Auto) 1.9, Baso % (Auto) 0.5, Neut # (Auto) 7.0, Lymph # (Auto) 0.7, [place] # (Auto) 0.6, Eos # (Auto) 0.2, Baso # (Auto) 0.0, Sodium 124 L, Potassium 3.7, Chloride 93 L, Carbon Dioxide 24, Anion Gap 10.7, BUN 8 L, Creatinine 0.90, Estimated Creat Clear 105, Estimated GFR 86, Est GFR ( Amer) 104, Glucose 328 H, Calcium 8.6, Total Bilirubin 1.6 H, AST 23, ALT 30, Alkaline Phosphatase 116, Total Protein 6.6, Albumin 4.0, Globulin 2.6, Albumin/Globulin Ratio 1.5 09/30/25 11:00: Urine Sodium 14.0 L 09/30/25 11:01: POC Glucose 275 H 09/30/25 14:26: Sodium 122 L, TSH 3.07 09/30/25 19:40: POC Glucose 314 H* 10/01/25 05:26: WBC 7.1, RBC 3.87 L, Hgb 13.4 L, Hct 37.0 L, MCV 95.6 H, MCH 34.6 H, MCHC 36.2 H, RDW 11.1 L, Plt Count 181, MPV 8.7, Neut % (Auto) 78.0, Lymph % (Auto) 8.9 L, [place] % (Auto) 9.6 H, Eos % (Auto) 2.8, Baso % (Auto) 0.4, Neut # (Auto) 5.5, Lymph # (Auto) 0.6 L, [place] # (Auto) 0.7, Eos # (Auto) 0.2, Baso # (Auto) 0.0, Sodium 128 L, Potassium 3.5, Chloride 97 L, Carbon Dioxide 23, Anion Gap 11.5, BUN 6 L, Creatinine 0.80, Estimated Creat Clear 105, Estimated GFR 98, Est GFR ( Amer) 119, Glucose 178 H D, Calcium 8.7, Total Bilirubin 1.1, AST 23, ALT 26, Alkaline Phosphatase 104, Total Protein 6.9, Albumin 3.9, Globulin 3.0, Albumin/Globulin Ratio 1.3 10/01/25 06:07: POC Glucose 207 H I & O for Last 24 hours: Intake & Output 09/28/25 09/29/25 09/30/25 10/01/25 11:59 11:59 11:59 11:59 Intake Total 1350 / 1350 1540 / 1540 980 / 980 Output Total 0 / 0 0 / 0 Balance 1350 / 1350 1540 / 1540 980 / 980 Weight 207 lb 1.6 oz 210 lb 1.6 oz 210 lb 8 oz Microbiology Reports for the Last 24 Hours: Microbiology 09/28/25 18:29 Urine,Clean Catch Urine Culture - Final No growth. Constitutional Constitutional: no acute distress *Routine Respiratory Exam Respiratory: Absent respiratory distress *Routine Cardiovascular Exam Cardiovascular: Absent tachycardia *Routine Abdominal Exam Abdominal: Present soft and tenderness (Improved) Progress Note: A&P Assessment and plan (1) Abdominal pain, acute, right lower quadrant: Status: Acute (2) Enterocolitis: Status: Acute Assessment and plan: Diarrhea improving. Abdominal pain continuing to improve. WBC normalized. Overall management as per primary service Advance diet as tolerated (as per primary service)
[2025-10-01 08:00] VITALS: BP 157/86; PULSE 85; RESP 18; TEMP 36.8; O2SAT 96
--- NOTE | 2025-10-01 08:28 | [facility].PHAAMS2 ---
- Antimicrobial Stewardship Review culture & sensitivity review Stewardship interventions: culture & sensitivity review Comments: URINE CULTURE NO GROWTH, DEESCALATED ANTIBIOTICS TO AUGMENTIN FOR ENTEROCOLITIS.
[2025-10-01] MEDS: BISOPROLOL 5MG TABLET 5 MG PO (08:43)
[2025-10-01] MEDS: AMOXICILLIN/CLAVULANATE POTASSIUM 875/125MG TABLET 1 EACH PO (08:43)
[2025-10-01] MEDS: IRBESARTAN 150MG TAB 150 MG PO (08:43)
[2025-10-01] MEDS: INSULIN GLARGINE 100 UNITS/ML 3ML FLEXPEN 50 UNIT SUBCUT (08:43)
--- NOTE | 2025-10-01 09:08 | P.DS_ITS ---
<Statement entered by Victorino Olguin MD - 10/01/25 10:15> Rounded on patient after nurse practitioner. Personally examined and interviewed patient. Agree with exam findings and care plan as documented. General Admission date:: 09/28/25 Discharge date: 10/01/25 HPI HPI HPI: Jake Morales is a 60-year-old male with a past medical history significant for BPH, type 2 diabetes mellitus, CAD, hyperlipidemia, hypertension. Presents to [facility] due to right lower abdominal pain. Reports symptoms began on and have progressively become worse since onset. CT scan of abdomen and pelvis obtained w/in the emergency department, revealed fat stranding around the region of the right colon, radiology noted there is adjacent edema and small volume free fluid at the site of patient's prior ileocolonic resection and anastomosis which could be indicative of enterocolitis. Prior history (04/24/22) of severe acute complicated appendicitis with perforation peritonitis, underwent laparotomy with ileocecal resection per Dr. Horn. ED provider spoke to our on-call surgical provider Dr. Conteh who noted this is unlikely an anastomotic leak, but due to presentation with continuous RLQ abdominal pain, agreed with admission for further evaluation with serial abdominal examinations and noted to follow up tomorrow. Patient reports normal bowel movements, last bowel movement today, normal in appearance. Patient reports having some nausea but denies any episodes of emesis, diarrhea, urinary symptoms, bloody stools, fever or chills. Initial ED workup included laboratory workup and imaging studies. WBC 14.1, sodium 127, glucose 204. Abdomen and pelvis CT obtained, in which I personally reviewed imaging, revealed findings of previous ileocolonic resection with anastomosis and Ileocolonic resection surgical clips in the right abdomen and pelvis. Adjacent edema and small volume free fluid suggesting possible nonspecific infectious or inflammatory enterocolitis. Patient assessed at bedside, present. He is without acute distress, sitting in bed comfortably. Upon palpation of abdomen notable rebound tenderness right lower abdominal region. Patient otherwise without complaint. Hypodermically stable. Hospital Course Hospital Course Hospital Course: Mr. Su is a 60-year-old male who presented to the emergency department with complaints of right lower quadrant abdominal pain since . He reported nausea, vomiting, 10/10 abdominal pain. He denied diarrhea, urinary symptoms, chest pain, shortness of breath. He does have a history of laparoscopic cholecystectomy and appendectomy. Patient repored that he drinks approximately 12 beers/day, last alcoholic drink was the night before. Evaluation in the emergency department was significant for leukocytosis of 14.1, hyponatremia of 127 (this appears to be chronic), CT scan shows fat stranding around the region of the right colon, adjacent edema and small volume free fluid at this patient's prior ileocolonic resection anastomosis site. Dr. Colon was consulted from the emergency department who states that it would be extraordinarily rare for an anastomotic leak to occur 3 years postsurgery. It does appear patient likely has enterocolitis. Recommendations for admission and IV antibiotics. Hospital medicine was consulted for admission, and agreed to admit the patient. Hospital course as follows: #Enterocolitis #Right lower quadrant abdominal pain, resolved ?During admission patient has had intermittent right lower quadrant pain, resolving over 2 days. Patient day of discharge denies any abdominal tenderness pain. Tolerating p.o. diet. Initially patient denied passing flatus/bowel movements, transition to having intermittent diarrhea. That is also now resolved. Patient transition from Zosyn every 6 hours IV to Augmentin twice daily. Tolerating p.o. antibiotics without issues. Patient was discharged home with 7 days total antibiotics. They have discharge patient denies nausea, vomiting, diarrhea, abdominal pain. Patient will follow-up with general surgery, Dr. Colon in approximately 2 weeks for further evaluation and follow-up. ?Initial white count on admission 14.1, trending downward to 7.1-day of discharge. Kidney function within normal limits. #Acute hyponatremia: Patient's initial sodium was 127 on admission, trending downward to 122. Patient given sodium tabs 1000 mg 3 times daily with meals. Sodium day of discharge 128. Discharged home with 3 days of sodium tablets 1000 mg 3 times daily with meals. Patient should have repeat BMP at his follow-up with his PCP. Discussed reducing alcohol intake. Stable at this time. Hyponatremia likely related to beer potomania. #Type 2 diabetes: Patient was placed on sliding scale insulin during admission, with additional insulin glargine 50 units subcu daily. Patient's last A1c 07/31 was 6.8%. Patient should continue with regular home dosing of insulin glargine daily at 75 units. Patient also uses sliding scale insulin as directed. #HTN/HLD/CAD: Continue patient's home regimen of losartan?HCTZ 1 tab daily, clopidogrel 75 mg daily, bisoprolol 5 mg daily, atorvastatin 40 mg daily, aspirin 81 mg daily. #Hypothyroidism: Continue levothyroxine 25 mcg daily. TSH 3.07. #Obesity: Patient BMI 31, discussed increased activity and weight loss. #Alcohol use disorder: Reports daily alcohol use, approximately 12 beers/day. Patient did not exhibit any signs of withdrawal during admission. Total time spent on discharge 34 minutes in counseling, documentation, chart review, and direct care with patient. Exam Data for Last 24 hours Vital signs and Labs for Last 24 Hours: Temp Pulse Resp BP Pulse Ox O2 Del Method 98.3 F 85 18 157/86 H 96 Room Air 10/01/25 08:00 10/01/25 08:00 10/01/25 08:00 10/01/25 08:00 10/01/25 08:00 10/01/25 08:00 Laboratory Results - last 24 hr 09/30/25 11:00: Urine Sodium 14.0 L 09/30/25 11:01: POC Glucose 275 H 09/30/25 14:26: Sodium 122 L, TSH 3.07 09/30/25 19:40: POC Glucose 314 H* 10/01/25 05:26: WBC 7.1, RBC 3.87 L, Hgb 13.4 L, Hct 37.0 L, MCV 95.6 H, MCH 34.6 H, MCHC 36.2 H, RDW 11.1 L, Plt Count 181, MPV 8.7, Neut % (Auto) 78.0, Lymph % (Auto) 8.9 L, [place] % (Auto) 9.6 H, Eos % (Auto) 2.8, Baso % (Auto) 0.4, Neut # (Auto) 5.5, Lymph # (Auto) 0.6 L, [place] # (Auto) 0.7, Eos # (Auto) 0.2, Baso # (Auto) 0.0, Sodium 128 L, Potassium 3.5, Chloride 97 L, Carbon Dioxide 23, Anion Gap 11.5, BUN 6 L, Creatinine 0.80, Estimated Creat Clear 105, Estimated GFR 98, Est GFR ( Amer) 119, Glucose 178 H D, Calcium 8.7, Total Bilirubin 1.1, AST 23, ALT 26, Alkaline Phosphatase 104, Total Protein 6.9, Albumin 3.9, Globulin 3.0, Albumin/Globulin Ratio 1.3 10/01/25 06:07: POC Glucose 207 H I & O for Last 24 hours: Intake & Output 09/28/25 09/29/25 09/30/25 10/01/25 23:59 23:59 23:59 23:59 Intake Total 1550 / 1910 2320 / 2320 720 / 720 Output Total 0 / 0 0 / 0 0 / 0 Balance 1550 / 1910 2320 / 2320 720 / 720 Weight 94.529 kg 93.939 kg 95.3 kg 95.481 kg Microbiology Reports for the Last 24 Hours: Microbiology 09/28/25 18:29 Urine,Clean Catch Urine Culture - Final No growth. Constitutional Constitutional: no acute distress, obese and cooperative *Routine HEENT Exam Head: Present normocephalic Eye: Present EOMI and PERRL ENT: Present mucous membranes moist *Routine Neck Exam Neck: Present supple; Absent lymphadenopathy *Routine Respiratory Exam Respiratory: Present CTA bilaterally and normal respiratory effort; Absent wheezes or crackles *Routine Cardiovascular Exam Cardiovascular: Present RRR, Normal S1 and Normal S2 *Routine Abdominal Exam Abdominal: Present soft, normoactive bowel sounds and obese; Absent tenderness or distended *Routine Rectal Exam Patient deferred: visual exam *Routine Exam Patient deferred: penile exam *Routine Extremities Exam Extremities: Absent cyanosis, clubbing or edema *Routine Skin Exam Skin: Present intact, dry and warm; Absent rash *Routine Neurological Exam Neurological: Present alert, oriented X3, vision grossly intact, hearing grossly intact and normal speech Routine Psychiatric Exam Psychiatric: Present normal affect Results Data Completed and Pending Labs on day of discharge: Labs from last 24 hours 10/01/25 10/01/25 09/30/25 06:07 05:26 19:40 WBC 7.1 RBC 3.87 L Hgb 13.4 L Hct 37.0 L MCV 95.6 H MCH 34.6 H MCHC 36.2 H RDW 11.1 L Plt Count 181 MPV 8.7 Neut % (Auto) 78.0 Lymph % (Auto) 8.9 L [place] % (Auto) 9.6 H Eos % (Auto) 2.8 Baso % (Auto) 0.4 Neut # (Auto) 5.5 Lymph # (Auto) 0.6 L [place] # (Auto) 0.7 Eos # (Auto) 0.2 Baso # (Auto) 0.0 Sodium 128 L Potassium 3.5 Chloride 97 L Carbon Dioxide 23 Anion Gap 11.5 BUN 6 L Creatinine 0.80 Estimated Creat Clear 105 Estimated GFR 98 Est GFR ( Amer) 119 Glucose 178 H D POC Glucose 207 H 314 H* Calcium 8.7 Total Bilirubin 1.1 AST 23 ALT 26 Alkaline Phosphatase 104 Total Protein 6.9 Albumin 3.9 Globulin 3.0 Albumin/Globulin Ratio 1.3 TSH Urine Sodium 09/30/25 09/30/25 09/30/25 14:26 11:01 11:00 WBC RBC Hgb Hct MCV MCH MCHC RDW Plt Count MPV Neut % (Auto) Lymph % (Auto) [place] % (Auto) Eos % (Auto) Baso % (Auto) Neut # (Auto) Lymph # (Auto) [place] # (Auto) Eos # (Auto) Baso # (Auto) Sodium 122 L Potassium Chloride Carbon Dioxide Anion Gap BUN Creatinine Estimated Creat Clear Estimated GFR Est GFR ( Amer) Glucose POC Glucose 275 H Calcium Total Bilirubin AST ALT Alkaline Phosphatase Total Protein Albumin Globulin Albumin/Globulin Ratio TSH 3.07 Urine Sodium 14.0 L DS: Diagnosis Discharge Diagnosis (1) Abdominal pain, acute, right lower quadrant: Status: Acute Code(s): R10.31 - Right lower quadrant pain (2) Enterocolitis: Status: Acute Code(s): K52.9 - Noninfective gastroenteritis and colitis, unspecified (3) Alcohol abuse, daily use: Status: Acute Code(s): F10.10 - Alcohol abuse, uncomplicated (4) Type 2 diabetes mellitus with hyperglycemia: Status: Acute Code(s): E11.65 - Type 2 diabetes mellitus with hyperglycemia Qualifiers: Diabetes mellitus halfway insulin use: with halfway use Qualified Code(s): E11.65 - Type 2 diabetes mellitus with hyperglycemia; 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 transplanted heart: viejas heart Associated angina: without angina Qualified Code(s): I25.10 - Atherosclerotic heart disease of viejas coronary artery without angina pectoris Problem details: Status post stent (7) Essential hypertension: Status: Chronic Code(s): I10 - Essential (primary) hypertension Meds Home Medications and Allergies Home Medications ?Medication ?Instructions ?Recorded ?Confirmed ?Type aspirin 81 mg chewable tablet 81 mg PO DAILY Heart hea lth 01/30/23 09/28/25 History omega 4-yrk-zxn-fish oil 900 1 cap PO DAILY Supplement 01/30/23 09/28/25 History mg-1,400 mg capsule,delayed release bisoprolol fumarate 5 mg tablet 5 mg PO DAILY #30 tabs 09/15/25 09/28/25 Rx clopidogrel 75 mg tablet 75 mg PO DAILY 09/28/2509/07 History insulin glargine 100 unit/mL (3 75 unit SQ DAILY 09/2809/29/25 History mL) subcutaneous pen (Lantus Solostar U-100 Insulin) insulin lispro 100 unit/mL 1 sliding scale dose SQ DIRECTED 09/28/25 09/29/25 History subcutaneous pen levothyroxine 25 mcg tablet 25 mcg PO DAILY 09/28/25 1 11/28/24 History atorvastatin 40 mg tablet 40 mg PO DAILY 09/29/2509/07 History amoxicillin 875 mg-potassium 1 tab PO BID 3 days #7 ta bs 10/01/25 Rx clavulanate 125 mg tablet irbesartan 150 mg tablet 150 mg PO DAILY 30 days #30 tabs 10/01/25 Rx sodium chloride 1,000 mg soluble 1,000 mg PO TIDWMEAL #9 tabs 10/01/25 Rx tablet New Prescriptions to Start Prescriptions: amoxicillin-pot clavulanate Mireya Diego irbesartan Mireya Diego sodium chloride Mireya Diego Allergies Allergy/AdvReac Type Severity Reaction Status Date / Time ciprofloxacin Allergy Intermediate Anxiety Verified 08/21/25 14:03 empagliflozin (From AdvReac Gastrointestinal Verified 08/21/25 14:03 Jardiance) Upset Discharge Plan Disposition Patient Disposition: Home, Self-Care Condition: Good Discharge Order Discharge Orders: Discharge Order (Routine); Ordered 10/01/25 Ordered By: Victorino Olguin Follow up Plan Follow up with: Trever Schofield MD [Primary Care Provider, Medical] - 10/08/25 2:30 pm Phil Colon MD [Staff Physician, General Surgery] - 10/15/25 9:30 am Prescriptions/Medication Reconciliation: New irbesartan 150 mg Tablet 150 mg PO DAILY 30 Days Qty: 30 0RF amoxicillin-pot clavulanate 875-125 mg Tablet 1 tab PO BID 3 Days Qty: 7 0RF sodium chloride 1,000 mg Tablet,Soluble 1,000 mg PO TIDWMEAL Qty: 9 0RF Continued bisoprolol fumarate 5 mg tablet 5 mg PO DAILY Qty: 30 11RF aspirin 81 mg Tablet,Chewable 81 mg PO DAILY omega 0-sms-xmr-fish oil 900-1,400 mg Capsule,Delayed Release(Dr/Ec) 1 cap PO DAILY clopidogrel 75 mg tablet 75 mg PO DAILY levothyroxine 25 mcg tablet 25 mcg PO DAILY insulin lispro 100 unit/mL insulin pen 1 sliding scale dose SQ DIRECTED Patient Comments: INJECT SUBCUTANEOUSLY DIRECTED PER SLIDING SCALE -- BG 125-150: 5 UNITS, BG 150-200: 10 UNITS, 200-250: 15 UNITS, 250-300: 20 UNITS, 300-350: 25 UNITS, >350: 25 UNITS. CALL PHYSICIAN FOR FURTHER ADVICE. MAX DAILY DOSE 75 UNITS insulin glargine [Lantus Solostar U-100 Insulin] 100 unit/mL (3 mL) insulin pen 75 unit SQ DAILY atorvastatin 40 mg tablet 40 mg PO DAILY Discontinued losartan-hydrochlorothiazide 100-12.5 mg tablet 1 tab PO DAILY Problem Reconciliation Problems Reviewed?: Yes Patient Discharge Instructions ACTIVITY: Continue current activity DIET: continue same diet Patient Instructions: Acute Abdominal Pain Print Language: Egyptian Providers Primary Care Provider: Trever Schofield Admit Provider: James Williamson Attending Provider: James Williamson
[2025-10-03 12:22] LABS: POC Glucose,Bedside 352 gm/dL (70-110)
--- NOTE | 2025-10-06 11:51 | SW/DCPLANNER ---
Spoke with patient on the phone. Patient stated that he is doing much better. Patient stated that he was able to get his new medicine picked up from the pharmacy. Patient stated that he is aware of his upcoming appointments. Patient stated that he has no concerns or questions at this time. Marylu Gonzalez
== END 2025-10-01 10:45 | disposition home or self-care (01) ==
LOC: ER 22:37 → 2ND 23:00
PROVIDERS: Nurse Practitioner Acute Care; Admitting Provider Student in an Organized Health Care Education/Training Program; Emergency Provider Student in an Organized Health Care Education/Training Program; PCP Internal Medicine; Visit Provider Student in an Organized Health Care Education/Training Program
DX: A04.9 Bacterial intestinal infection, unspecified (principal); E87.1 Hypo-osmolality and hyponatremia; K52.1 Toxic gastroenteritis and colitis; I10 Essential (primary) hypertension; E78.5 Hyperlipidemia, unspecified; I25.10 Atherosclerotic heart disease of native coronary artery without angina pectoris; E03.9 Hypothyroidism, unspecified; Z68.31 Body mass index [BMI] 31.0-31.9, adult; N40.0 Benign prostatic hyperplasia without lower urinary tract symptoms; Z79.02 Long term (current) use of antithrombotics/antiplatelets; Z79.82 Long term (current) use of aspirin; E66.811 Obesity, class 1; E11.65 Type 2 diabetes mellitus with hyperglycemia; F10.10 Alcohol abuse, uncomplicated; Z79.4 Long term (current) use of insulin; M17.12 Unilateral primary osteoarthritis, left knee; Z95.5 Presence of coronary angioplasty implant and graft; E87.8 Other disorders of electrolyte and fluid balance, not elsewhere classified; T36.0X5A Adverse effect of penicillins, initial encounter
CPT/HCPCS: 36415; 74177; 80053; 81001; 82962; 83605; 83690; 84295; 84443; 84540; 85025; 86140; 86803; 87086; 87389; 93005; 99285; J1885; J2270; J2405; J2543; J7120; Q9967

== ENCOUNTER 2025-10-08 08:20 | Outpatient (CLI) | payer BC, SELFPAY ==
[2025-10-08 17:24] LABS: Anion Gap 11.3 mEq/L (5-15); Blood Urea Nitrogen 8 mg/dl (9-20); Calcium 9.6 mg/dl (8.4-10.2); Carbon Dioxide 26 mmol/L (22.0-30.0); Chloride 99 mmol/L (98-107); Creatinine,Serum 0.90 mg/dl (0.66-1.25); Estimated Glomerular Filt Rate 86 ml/min (>60); GFR (African American) 104 ML/MIN (>60); Glucose 76 mg/dl (74-100); Potassium 4.3 mmoL/L (3.5-5.1); Sodium 132 mmol/L (136-145)
== END 2025-10-08 23:59 ==
LOC: LAB.DROPOF 10-10 08:22
PROVIDERS: PCP Internal Medicine; Visit Provider Internal Medicine
DX: E87.1 Hypo-osmolality and hyponatremia (principal)
CPT/HCPCS: 80048

== ENCOUNTER 2025-10-27 09:03 | Outpatient (CLI) | payer BC, SELFPAY ==
[2025-10-27 15:44] LABS: Hematocrit 41.8 % (42.0-52.0); Hemoglobin 14.3 g/dL (14.1-18.0); Immature Granulocytes % 0.2 %; Mean Corpuscular HGB Conc 34.2 g/dL (31.8-35.4); Mean Corpuscular Hemoglobin 33.8 pg (27.0-31.2); Mean Corpuscular Volume 98.8 fl (80-94); Nucleated Red Blood Cells % 0 %; Platelet Count 219 K/mm3 (142-424); Red Blood Count 4.23 M/mm3 (4.60-6.20); Red Cell Distribution Width-SD 41.7 fL; White Blood Count 8.0 K/mm3 (4.8-10.8)
[2025-10-27 16:37] LABS: Alanine Aminotransferase 32 U/L (12-78); Albumin Level 4.4 g/dl (3.5-5.0); Albumin/Globulin Ratio 1.4 (1.1-1.8); Alkaline Phosphatase 146 U/L (38-126); Anion Gap 13.1 mEq/L (5-15); Aspartate Amino Transferase 31 U/L (17-59); Bilirubin,Total 0.8 mg/dl (0.2-1.3); Blood Urea Nitrogen 10 mg/dl (9-20); Calcium 8.9 mg/dl (8.4-10.2); Carbon Dioxide 26 mmol/L (22.0-30.0); Chloride 99 mmol/L (98-107); Cholesterol 130 mg/dl (140-200); Creatinine,Serum 0.80 mg/dl (0.66-1.25); Estimated Glomerular Filt Rate 98 ml/min (>60); GFR (African American) 119 ML/MIN (>60); Globulin 3.1 g/dL (1.3-3.2); Glucose 82 mg/dl (74-100); HDL Cholesterol 74 mg/dl (40-60); Potassium 4.1 mmoL/L (3.5-5.1); Sodium 134 mmol/L (136-145); Total Protein,Serum 7.5 g/dl (6.3-8.2); Triglycerides 83 mg/dl (30-150)
[2025-10-27 16:59] LABS: Hemoglobin A1C 7.4 % (4.0-6.0)
[2025-10-27 17:08] LABS: Thyroid Stimulating Hormone 2.78 uIU/mL (0.465-4.68)
== END 2025-10-27 23:59 | disposition home or self-care (01) ==
LOC: LAB.DROPOF 10-28 12:41
PROVIDERS: PCP Internal Medicine; Visit Provider Internal Medicine
DX: E87.1 Hypo-osmolality and hyponatremia (principal); I10 Essential (primary) hypertension; E11.59 Type 2 diabetes mellitus with other circulatory complications; E78.5 Hyperlipidemia, unspecified; Z12.5 Encounter for screening for malignant neoplasm of prostate
CPT/HCPCS: 80053; 80061; 82043; 82570; 83036; 84443; 85025; G0103